=== PATIENT | male | born 1950 | race Caucasian/White ===

== ENCOUNTER 2021-05-19 13:56 | Emergency (ER) | payer MEDICARE, SELFPAY ==
--- NOTE | ~2021-05-19 | CT_ITS ---
EXAMINATION: CT ABDOMEN AND PELVIS WITH CONTRAST CLINICAL INFORMATION: Lower abdominal pain COMPARISON: None TECHNIQUE: Multidetector volumetric images were obtained from the superior aspect of the liver through the pubic symphysis following administration 85 mL of Omnipaque 350 intravenous contrast. Sagittal and coronal reformatted images were obtained on the technologist's workstation. Oral contrast: No This CT examination was performed using dose optimization techniques as appropriate, variously including the following: *Automated exposure control *Adjustment of mA and/or kV according to patient size (this includes techniques or standardized protocols for targeted exams where dose is matched to indication/reason for exam; i.e. extremities or head) *Use of iterative reconstruction technique DLP: 419 mGy-cm FINDINGS: LUNG BASES: The visualized lung bases are unremarkable. LIVER, GALLBLADDER, AND BILIARY TREE: The liver is normal in size, shape, and attenuation. No focal hepatic lesion or biliary ductal dilatation is present. Status post cholecystectomy. PANCREAS: Unremarkable. SPLEEN: Unremarkable. ADRENAL GLANDS: Unremarkable. KIDNEYS AND URETERS: Hypodensity in the right and left renal pelvis likely due to bilateral parapelvic cyst rather than hydronephrosis. There is no hydroureter. There is no ureteral stone. 1 mm nonobstructive stone lower pole left kidney BLADDER: Unremarkable. GASTROINTESTINAL TRACT: There are scattered diverticula of the colon. There is no diverticulitis. There is short segment of bowel wall thickening in the low pelvis at the rectum sigmoid but without significant edema in the surrounding fat is of uncertain significance. The remainder of the colonic bowel wall is of normal thickness with no evidence of edema. There is no bowel obstruction. There is a moderate volume of stool in the colon. The appendix is nonvisualized . The small bowel loops are unremarkable. The stomach is normal. There is no hiatal hernia. Mesentery: No free air or free fluid. ABDOMINAL WALL: No significant hernia is appreciated. LYMPH NODES: Normal. VASCULAR: Unremarkable. PELVIC VISCERA: Unremarkable. OSSEOUS STRUCTURES: Grade 1/2 anterolisthesis of L5 on S1. Marked degenerative change of the L5-S1 disc. 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 There is multilevel degenerative change with facet joint arthrosis at lower lumbar spine. Large hemangioma is present in the T11 and T9 vertebrae. No fracture or bone destruction. CT/CT abdomen pelvis w con IMPRESSION: 1. Short segment of bowel wall thickening in the low pelvis at the the rectum sigmoid of uncertain significance. No surrounding edema in the adjacent fat. 2. Status post cholecystectomy. 3. Hypodensity in the right and left renal pelvis likely due to parapelvic cyst. No hydroureter. Nonobstructive small stone lower pole left kidney.
[2021-05-19 14:01] VITALS: BP 140/82; PULSE 51; O2SAT 89
[2021-05-19 14:05] VITALS: BP 143/88; PULSE 88; RESP 16; TEMP 37.3; O2SAT 98; BMI 19.6
[2021-05-19 14:42] LABS: MANUAL DIFF FLAG NO
[2021-05-19 14:47] LABS: Basophils Percent Auto 0.2 % (0-2); Eosinophils Percent Auto 0.1 % (0-4); Hematocrit 39.7 % (42-52); Hemoglobin 12.9 g/dl (14.0-18.0); Imm Gran Abs Auto 0.05 X10*3/uL (0.00-0.03); Imm Gran Pct Auto 0.4 % (0.0-0.4); Lymphocytes Absolute Auto 1.6 X10*3/uL (1.2-4.9); Lymphocytes Percent Auto 11.1 % (20-40); Mean Corpuscular HGB Conc 32.5 g/dl (31.0-36.0); Mean Corpuscular Hemoglobin 28.4 pg (27.0-33.0); Mean Corpuscular Volume 87.3 fL (80-98); Mean Platelet Volume 8.9 fL (9.4-12.4); Monocytes Absolute Auto 0.5 X10*3/uL (0.1-1.2); Monocytes Percent Auto 3.7 % (2-11); Neutrophils Percent Auto 84.5 % (45-73); Platelet Count 550 X10*3/uL (160-400); Red Blood Count 4.55 X10*6/uL (4.60-5.80); Red Cell Distribution Width 13.4 % (11.0-16.0); White Blood Count 14.2 X10*3/uL (4.8-10.8)
[2021-05-19 14:49] LABS: INTERNATIONAL NORM RATIO 1.5 (0.9-1.1); Prothrombin Time 17.3 SEC (10.8-13.0)
[2021-05-19 14:51] LABS: Partial Thromboplastin Time 34.5 SEC (24.1-38.0)
--- NOTE | 2021-05-19 15:01 | ED_ITS ---
HPI - Abdominal Pain General Chief Complaint: Abdominal Pain Stated Complaint: Abdominal pain/ vomiting Time Seen by Provider: 05/19/21 14:22 Source: patient Mode of arrival: ambulatory Limitations: no limitations History of Present Illness HPI narrative: Patient presents to ED for lower abdominal pain since yeste rday. she states some nausea, but no vomiting, or diarrhea. Patient denies any trauma to abdomen. Flank pain, hematuria, dysuria, fever, or chills. MD elicited complaint: abdominal pain Related Data Previous Rx's Medication Instructions Recorded levofloxacin 750 mg PO DAILY #6 tab 05/19/21 metronidazole [Flagyl] 500 mg PO BID 7 Days #14 tab 05/19/21 naproxen 500 mg PO BID PRN #20 tab 05/19/21 Allergies Allergy/AdvReac Type Severity Reaction Status Date / Time No Known Allergies Allergy Verified 05/19/21 14:26 Review of Systems Review of Systems Yes all other systems are reviewed and are negative Constitutional: Reports as per HPI and Reports no additional constitutional complaints Eyes: Reports as per HPI and Reports no additional eye complaints Reports system reviewed and no additional complaints, except as documented and Reports as per HPI Cardiovascular: Reports as per HPI and Reports no additional cardiovascular complaints Respiratory: Reports as per HPI and Reports no additional respiratory complaints Gastrointestinal: Reports as per HPI, Reports no additional gastrointestinal complaints and Reports abdominal pain ( Lower abdominal pain) Genitourinary: Reports no additional male genitourinary complaints and Reports as per HPI Musculoskeletal: Reports no additional musculoskeletal complaints and Reports as per HPI Reports system reviewed and no additional complaints, except as documented and Reports as per HPI Psychiatric: Reports no additional psychiatric complaints and Reports as per HPI Physical Exam Vital Signs: Vital Signs: Last Vital Signs Temp 99.1 F 05/19/21 14:05 Pulse 85 05/19/21 17:18 Resp 17 05/19/21 17:18 BP 145/82 H 05/19/21 17:18 Pulse Ox 98 05/19/21 17:18 Oxygen Flow Rate 2 05/19/21 14:05 Body Mass Index 19.6 Const: General: cooperative, healthy appearing, comfortable, no acute distress, well developed, alert, awake and Physically active Orientation/consciousness: patient oriented x3 HENMT: Head: Yes normal to inspection, Yes No palpable skull fracture present, Yes normocephalic and Yes atraumatic Eyes: General: appearance normal, both eyes and all related structures Neck: Neck: Yes normal visual inspection, Yes full ROM, Yes no lymphadenopathy, Yes no meningeal signs, Yes trachea midline, Yes supple and No tender Chest: Chest palpation & inspection: normal inspection of the chest and normal palpation of entire chest wall Resp: Effort & Inspection: normal respiratory effort and able to speak in complete sentences Auscultation: clear to auscultation bilaterally Cardio: Jugular venous distension: no JVD Heart sounds: S1 normal heart sound present and S2 normal heart sound present GI: Inspection: Yes normal to inspection and No abdominal wall ecchymosis Palpation (GI): Soft to palpation, not firm, Tenderness to palpation present (GI) in the LLQ and in the RLQ, no guarding and not rigid : General: No CVA tenderness and Yes no CVA tenderness Back/Spine/Pelvis: Back: no CVA tenderness, No CVA tenderness and No back tenderness Skin: General skin exam: no rashes or lesions noted and elasticity normal Neuro: General: patient oriented x3, gait normal, no meningeal signs and CN's II-XI intact bilaterally Cranial nerves: Yes CN's II-XII intact bilaterally Extrem: General: Yes normal to inspection and Yes full ROM Psych: Appearance: grossly normal, well kempt and not disheveled Course Course Course Narrative: patient will have labs and most likely CT scan. Reevaluation(s) Reevaluation #1: Patient given pain medication and fluids. UA negative for blood or UTI. Liver enzyme lipase normal. Patient sent for abdominal CT scan for lower abdominal pain. Time: 17:04 Reevaluation #2: patient states pain feel better after morphine. On re- evaluation abdomen, the abdomen is less tender to palpation. CT scan shows possible rectosigmoid colitis. Will discharge patient on antibiotics. Patient is afebrile not tachy. UA negative for UTI. Time: 18:49 MDM - Abdominal Pain MDM Narrative Medical decision making narrative: Colitis Lab Data Result diagrams: 05/19/21 14:39 05/19/21 14:39 Labs: Lab Results 05/19/21 05/19/21 05/19/21 Range/Units 14:39 14:39 14:39 WBC 14.2 H (4.8-10.8) X10*3/uL RBC 4.55 L (4.60-5.80) X10*6/uL Hgb 12.9 L (14.0-18.0) g/dl Hct 39.7 L (42-52) % MCV 87.3 (80-98) fL MCH 28.4 (27.0-33.0) pg MCHC 32.5 (31.0-36.0) g/dl RDW 13.4 (11.0-16.0) % Plt Count 550 H (160-400) X10*3/uL MPV 8.9 L (9.4-12.4) fL Immature Gran % (Auto) 0.4 (0.0-0.4) % Neut % (Auto) 84.5 H (45-73) % Lymph % (Auto) 11.1 L (20-40) % [place] % (Auto) 3.7 (2-11) % Eos % (Auto) 0.1 (0-4) % Baso % (Auto) 0.2 (0-2) % Lymph # (Auto) 1.6 (1.2-4.9) X10*3/uL [place] # (Auto) 0.5 (0.1-1.2) X10*3/uL Eos # (Auto) 0.0 (0.0-0.4) X10*3/uL Baso # (Auto) 0.0 (0.0-0.2) X10*3/uL Abs Immat Gran (auto) 0.05 H (0.00-0.03) X10*3/uL Absolute Neuts (auto) 12.0 H (2.0-8.3) X10*3/uL Absolute Nucleated RBC 0.000 (0.0-0.012) X10*3/uL Nucleated RBC % (auto) 0.0 (0.0-0.2) /100WBC PT 17.3 H (10.8-13.0) SEC INR 1.5 H (0.9-1.1) APTT 34.5 (24.1-38.0) SEC Sodium 144 (135-145) mmol/L Potassium 4.0 (3.3-5.1) mmol/L Chloride 108 (96-108) mmol/L Carbon Dioxide 25 (22-29) mmol/L Anion Gap 15 (12-20) BUN 14 (9-16) mg/dL Creatinine 0.67 (0.5-1.4) mg/dL Estim Creat Clear Calc 92.7 Estimated GFR > 60 Random Glucose 115 (60-115) mg/dL Calcium 8.7 (8.4-10.2) mg/dL Total Bilirubin 0.2 (0.0-1.0) mg/dL Direct Bilirubin 0.2 (0.0-0.5) mg/dL AST 13 (5-37) U/L ALT 12 (0-40) U/L Alkaline Phosphatase 82 (39-117) U/L Total Protein 7.0 (6.5-8.0) g/dL Albumin 3.5 (3.5-5.0) g/dL Lipase 39 (8-78) U/L Urine Color Urine Appearance Urine pH (5.0-8.0) Ur Specific [place] (1.005-1.025) Urine Protein (NEG-TRACE) MG/DL Urine Glucose (UA) (NEG) MG/DL Urine Ketones (NEG) MG/DL Urine Blood (NEG) Urine Nitrite (NEG) Ur Leukocyte Esterase (NEG) 05/19/21 Range/Units 15:11 WBC (4.8-10.8) X10*3/uL RBC (4.60-5.80) X10*6/uL Hgb (14.0-18.0) g/dl Hct (42-52) % MCV (80-98) fL MCH (27.0-33.0) pg MCHC (31.0-36.0) g/dl RDW (11.0-16.0) % Plt Count (160-400) X10*3/uL MPV (9.4-12.4) fL Immature Gran % (Auto) (0.0-0.4) % Neut % (Auto) (45-73) % Lymph % (Auto) (20-40) % [place] % (Auto) (2-11) % Eos % (Auto) (0-4) % Baso % (Auto) (0-2) % Lymph # (Auto) (1.2-4.9) X10*3/uL [place] # (Auto) (0.1-1.2) X10*3/uL Eos # (Auto) (0.0-0.4) X10*3/uL Baso # (Auto) (0.0-0.2) X10*3/uL Abs Immat Gran (auto) (0.00-0.03) X10*3/uL Absolute Neuts (auto) (2.0-8.3) X10*3/uL Absolute Nucleated RBC (0.0-0.012) X10*3/uL Nucleated RBC % (auto) (0.0-0.2) /100WBC PT (10.8-13.0) SEC INR (0.9-1.1) APTT (24.1-38.0) SEC Sodium (135-145) mmol/L Potassium (3.3-5.1) mmol/L Chloride (96-108) mmol/L Carbon Dioxide (22-29) mmol/L Anion Gap (12-20) BUN (9-16) mg/dL Creatinine (0.5-1.4) mg/dL Estim Creat Clear Calc Estimated GFR Random Glucose (60-115) mg/dL Calcium (8.4-10.2) mg/dL Total Bilirubin (0.0-1.0) mg/dL Direct Bilirubin (0.0-0.5) mg/dL AST (5-37) U/L ALT (0-40) U/L Alkaline Phosphatase (39-117) U/L Total Protein (6.5-8.0) g/dL Albumin (3.5-5.0) g/dL Lipase (8-78) U/L Urine Color YELLOW Urine Appearance CLEAR Urine pH 8.0 (5.0-8.0) Ur Specific [place] 1.010 (1.005-1.025) Urine Protein TRACE (NEG-TRACE) MG/DL Urine Glucose (UA) NEG (NEG) MG/DL Urine Ketones NEG (NEG) MG/DL Urine Blood NEG (NEG) Urine Nitrite NEG (NEG) Ur Leukocyte Esterase NEG (NEG) Discharge Plan Discharge Clinical Impression: Colitis Patient Disposition: Home, Self-Care Instructions: Colitis (ED) Additional Instructions: return to the ED for worsening abdominal pain, fever, chills, nausea, vomiting, dysuria, hematuria, or any other concerning symptoms. Prescriptions: New metronidazole [Flagyl] 500 mg tablet 500 mg PO BID 7 Days Qty: 14 RF: 0 levofloxacin 750 mg tablet 750 mg PO DAILY Qty: 6 RF: 0 naproxen 500 mg tablet 500 mg PO BID PRN (Reason: pain) Qty: 20 RF: 0 Referrals: ARIANA ALCANTARA [Primary Care Provider] - 2 days ( Lower abdominal pain. CT scan shows colitis) Print Language: Georgian [facility] Past Medical History Medical History (Updated 05/19/21 @ 18:51 by MARIELA Ho) Adult failure to thrive Anxiety Chronic pain Hypertension Social History Social History Alcohol intake: never Patient Tobacco Use Status: Never used Tobacco Use of substances other than those prescribed or required for medical reasons: No Advance Directives: No Advance Directives Information Provided: No
[2021-05-19 15:08] LABS: Alanine Aminotransferase 12 U/L (0-40); Albumin Level 3.5 g/dL (3.5-5.0); Alkaline Phosphatase 82 U/L (39-117); Anion Gap 15 (12-20); Aspartate Amino Transferase 13 U/L (5-37); Bilirubin Direct 0.2 mg/dL (0.0-0.5); Bilirubin Total 0.2 mg/dL (0.0-1.0); Blood Urea Nitrogen 14 mg/dL (9-16); Calcium 8.7 mg/dL (8.4-10.2); Carbon Dioxide 25 mmol/L (22-29); Chloride 108 mmol/L (96-108); Creatinine Clr Calc Pharmacy 92.7; Estimated Glomerular Filt Rate > 60; Glucose Random 115 mg/dL (60-115); Lipase 39 U/L (8-78); Sodium 144 mmol/L (135-145)
[2021-05-19 15:20] LABS: Appearance Urine CLEAR; Color Urine YELLOW; Glucose Urine UA NEG (NEG); Leukocyte Esterase Urine NEG (NEG); Nitrite Urine NEG (NEG); Urine Blood NEG (NEG); Urine Ketones NEG (NEG); Urine Protein TRACE MG/DL (NEG-TRACE)
[2021-05-19] MEDS: iohexoL 350 MG/ML 100 ML INFUS..BTL 85 ML IV (16:55)
[2021-05-19] MEDS: 0.9 % Sodium Chloride 1,000 ML 999 ML IV (17:00)
[2021-05-19 17:17] VITALS: RESP 17
[2021-05-19] MEDS: Morphine Sulfate 4 MG/ML CARTRIDGE IVPUSH (17:17)
[2021-05-19 17:18] VITALS: BP 145/82; PULSE 85; RESP 17; O2SAT 98
[2021-05-19] MEDS: levoFLOXacin 750 MG TABLET PO (19:28)
[2021-05-19] MEDS: metroNIDAZOLE 500 MG TABLET PO (19:31)
[2021-05-19 20:40] VITALS: BP 142/62; PULSE 84; RESP 16; TEMP 36.4; O2SAT 96
--- NOTE | 2021-05-19 21:01 | PC.NURSE ---
PT WAS ABLE TO KEEP SALTINES AND 16 OZ WATER DOWN /O NAUSEA OR VOMITING. P.O. MEDICATION TOLERATED. PT AWAKE AND ALERT, AND TRANSPORTED TO [facility] BY EMS. PT REPORT GIVEN TO RN AT [facility].
== END 2021-05-19 21:12 | disposition skilled nursing facility (03) ==
PROVIDERS: Physician Assistant; Emergency Provider Emergency Medicine; PCP Emergency Medicine
DX: K52.9 Noninfective gastroenteritis and colitis, unspecified (principal); I10 Essential (primary) hypertension
CPT/HCPCS: 36415; 74177; 80053; 80076; 81003; 82248; 83690; 85025; 85610; 85730; 96361; 96374; 99285; J2270; Q9967

== ENCOUNTER 2021-07-15 19:36 | Inpatient (IN) | payer MEDICARE, MEDICAID, SELFPAY ==
--- NOTE | ~2021-07-15 | FL_ITS ---
EXAMINATION: XR FLUOROSCOPY WITH IMAGES CLINICAL INFORMATION: Fracture COMPARISON: Previous x-ray from 07/15/2021 TECHNIQUE: Fluoroscopy performed by Dr. Bar Instrum. Fluoroscopy time: 1 minutes DAP: 0.1 mGym2 Images: 2 FINDINGS: Images demonstrate 2 screws transfixing the right femoral neck fracture. FL/FL guidance in OR IMPRESSION: Image fluoroscopy guidance for ORIF of right femoral neck fracture.
--- NOTE | ~2021-07-15 | XR_ITS ---
Indication: Evaluate neck fracture EXAMINATION: Right hip, pelvis, chest x-ray. Single view chest demonstrates grossly clear lungs. No obvious failure or infiltrate. There is no effusion. The mediastinal contours within normal limits. Single view of the pelvis shows an abnormal appearing right hip. Detail views of the right hip do not demonstrate a probable fracture involving the subcapital femoral neck. There is a sclerotic line and abnormal angulation. XR/XR chest 1V IMPRESSION: Findings do suggest abnormality of the right hip. This may represent a subcapital impacted fracture. Correlation recommended clinically.
--- NOTE | ~2021-07-15 | CT_ITS ---
EXAMINATION: CT CERVICAL SPINE WITHOUT CONTRAST CLINICAL INFORMATION: Fall, right numbness and pain. COMPARISON: CT head 07/16/2021. Outside CT right shoulder 07/08/2020 ([facility]). TECHNIQUE: Multidetector volumetric CT imaging of the cervical spine is performed without contrast in the axial plane. Additional 2D reformatted coronal and sagittal images are generated on the CT workstation and uploaded to PACS. This CT examination was performed using dose optimization techniques as appropriate, variously including the following: *Automated exposure control *Adjustment of mA and/or kV according to patient size (this includes techniques or standardized protocols for targeted exams where dose is matched to indication/reason for exam; i.e. extremities or head) *Use of iterative reconstruction technique DLP: 407 mGy-cm FINDINGS: There is no vertebral compression or fracture line or fracture fragment. The craniocervical junction is normal. The odontoid appears intact. There is normal cervical lordosis. No prevertebral soft tissue swelling. There are degenerative changes between anterior arch C1 and the dens. Multilevel facet degeneration is present with facet narrowing and spurring C3-C7. There is mild disc narrowing at C6-C7 along with a mild spondylolisthesis at this level under 3 mm likely due to the degenerative disc and degenerative facet changes. No perched facet. There is no apical pneumothorax. No subcutaneous emphysema. The visualized sinuses and middle ears and mastoids are clear. No fluid levels. CT/CT cervical spine wo con IMPRESSION: 1. No acute bony abnormality or prevertebral soft tissue swelling. 2. Multilevel degenerative facet changes. Mild disc narrowing C6-C7 with spondylolisthesis under 3 mm likely due to the degenerative change.
--- NOTE | ~2021-07-15 | XR_ITS ---
Indication: Evaluate neck fracture EXAMINATION: Right hip, pelvis, chest x-ray. Single view chest demonstrates grossly clear lungs. No obvious failure or infiltrate. There is no effusion. The mediastinal contours within normal limits. Single view of the pelvis shows an abnormal appearing right hip. Detail views of the right hip do not demonstrate a probable fracture involving the subcapital femoral neck. There is a sclerotic line and abnormal angulation. XR/XR hip RT w PEL1V IMPRESSION: Findings do suggest abnormality of the right hip. This may represent a subcapital impacted fracture. Correlation recommended clinically.
--- NOTE | ~2021-07-15 | CT_ITS ---
EXAMINATION: CT HEAD WITHOUT CONTRAST CLINICAL INFORMATION: Fall, trauma COMPARISON: None TECHNIQUE: Contiguous axial imaging was performed from the skull base to vertex without intravenous administration of contrast. Additional 2-D coronal and sagittal reformatted images are generated on the CT workstation and uploaded to PACS. This CT examination was performed using dose optimization techniques as appropriate, variously including the following: *Automated exposure control *Adjustment of mA and/or kV according to patient size (this includes techniques or standardized protocols for targeted exams where dose is matched to indication/reason for exam; i.e. extremities or head) *Use of iterative reconstruction technique DLP: 1036 mGy-cm FINDINGS: There is no intracranial hemorrhage, hematoma, or extra-axial fluid collection. There are mild generalized atrophic changes with mild prominence of the ventricles, cortical sulci, fissures, and cisterns. There is no hydrocephalus. There is no edema or mass effect. There is probable small inferior right basal ganglia Virchow-Kane perivascular space rather than lacunar infarct. The mccallum-white matter differentiation otherwise appears symmetric. There is no visible acute territorial infarct or mass lesion. The calvarium appears intact. There is no pneumocephalus or orbital emphysema. The visualized sinuses and middle ears and mastoid air cells show no significant mucosal thickening. There are no air-fluid levels. CT/CT head/brain wo con IMPRESSION: No intracranial hemorrhage. No acute intracranial abnormality.
--- NOTE | ~2021-07-15 | US_ITS ---
EXAMINATION: US VENOUS WITH DOPPLER UPPER EXTREMITY, RIGHT CLINICAL INFORMATION: Right forearm swelling COMPARISON: None TECHNIQUE: Ultrasound of the upper extremity is performed using compression sonography and color and pulse Doppler flow with assessment of augmentation of flow. There is also imaging and Doppler assessment of the jugular and subclavian veins. Spectral analysis with color-flow imaging is performed. FINDINGS: The right internal jugular vein demonstrates normal compressibility, color and spectral imaging consistent with patency. The right subclavian and axillary veins demonstrate normal color flow consistent with patency. The right brachial, basilic and cephalic veins demonstrate normal compressibility and color flow consistent with patency. The right radial and ulnar veins demonstrate normal compressibility consistent with patency. US/US venous duplex UE RT IMPRESSION: No DVT demonstrated in the right upper extremity. If the patient's symptoms progress, a followup ultrasound in 5 -7 days might be of value to exclude proximal propagation from a nonvisualized distal arm vein.
--- NOTE | ~2021-07-15 | CT_ITS ---
EXAMINATION: CT PELVIS WITHOUT CONTRAST CLINICAL INFORMATION: Right hip fracture COMPARISON: Radiograph 07/15/2021, CT 05/19/2021 TECHNIQUE: Helical scanning was performed with submillimeter collimation through the pelvis. Sagittal and coronal multiplanar 2-D reconstructions were obtained. This CT examination was performed using dose optimization techniques as appropriate, variously including the following: *Automated exposure control *Adjustment of mA and/or kV according to patient size (this includes techniques or standardized protocols for targeted exams where dose is matched to indication/reason for exam; i.e. extremities or head) *Use of iterative reconstruction technique DLP: 264 mGy-cm FINDINGS: PELVIS: The bladder is decompressed with a Flores catheter. The prostate is not well seen. Seminal vesicles are unremarkable. The visualized loops of small and large bowel are unremarkable. The appendix is unremarkable. Limited views of the inferior aspects of the kidneys unremarkable. OSSEOUS STRUCTURES: Acute subcapital minimally impacted fracture of the right humerus. Minimal regional soft tissue swelling. Extensive degenerative changes of the spine with grade 2 anterolisthesis L5 on S1, degenerative disc disease, facet arthropathy, degenerative osteophytes. CT/CT pelvis wo con IMPRESSION: 1. Acute fracture of the subcapital right humerus with minimal impaction and otherwise no significant displacement. No additional fractures are identified. 2. Advanced degenerative changes of the lumbar spine.
[2021-07-15 20:03] VITALS: BP 154/94; BP 160/88; PULSE 85; PULSE 90; RESP 18; TEMP 37; O2SAT 97; BMI 19.6
--- NOTE | 2021-07-15 20:07 | ED_ITS ---
HPI - Extremity Injury (Lower) General Chief Complaint: Extremity Injury, Lower Stated Complaint: Right Femur FX Time Seen by Provider: 07/15/21 19:58 Source: patient Mode of arrival: EMS Limitations: no limitations History of Present Illness HPI Narrative: Patient from the [facility] apparently fell 2 days ago from the bed landed on his right hip complaining of pain in the right hip since then, had x-ray done today which showed right femur neck fracture patient was sent here now for further evaluation no other injuries no loss of conscious Related Data Home Medications Medication Instructions Recorded Confirmed acetaminophen 325 mg tablet 650 mg PO Q6H PRN 07/15/21 07/15/21 amlodipine 10 mg tablet 10 mg PO DAILY 07/15/21 07/15/21 bisacodyl 10 mg rectal suppository 10 mg MI DAILY PRN 07/15/21 07/15/21 magnesium hydroxide 400 mg/5 mL 30 ml PO BEDTIME PRN 07/15/21 07/15/21 oral suspension (Milk of Magnesia) memantine 5 mg tablet 5 mg PO DAILY 07/15/21 07/15/21 methylphenidate HCl 10 mg tablet 10 mg PO DAILY@1400 07/15/21 07/15/21 methylphenidate HCl 20 mg biphasic 20 mg PO DAILY 07/15/21 07/15/21 50-50 capsule,extended release (Ritalin LA) morphine 60 mg tablet,extended 2 tab PO BEDTIME 07/15/21 07/15/21 release oxazepam 15 mg capsule 15 mg PO BEDTIME PRN 07/15/21 07/15/21 oxazepam 15 mg capsule 15 mg PO DAILY 07/15/21 07/15/21 polyethylene glycol 3350 17 17 g PO DAILY 07/15/21 07/15/21 gram/dose oral powder (Miralax) sennosides 8.6 mg-docusate sodium 1 tab-cap PO BEDTIME 07/15/21 07/15/21 50 mg tablet (Senna Plus) Allergies Allergy/AdvReac Type Severity Reaction Status Date / Time No Known Allergies Allergy Verified 05/19/21 14:26 Review of Systems Review of Systems: Yes all other systems are reviewed and are negative PMFSH Past Medical History Medical History Adult failure to thrive Anxiety Chronic pain Hypertension Social History Social History Alcohol intake: never Patient Tobacco Use Status: Never used Tobacco Use of substances other than those prescribed or required for medical reasons: No Advance Directives: No Advance Directives Information Provided: Yes Physical Exam Vital Signs: Vital Signs: Last Vital Signs Temp 98.6 F 07/15/21 20:03 Pulse 73 07/15/21 23:50 Resp 15 07/16/21 00:03 BP 146/95 H 07/15/21 23:50 Pulse Ox 98 07/15/21 23:50 Body Mass Index 19.6 Appearance: Alert. Oriented X3. In mild distress Eyes: PERRLA, No Nystagmus ENT: Pharynx normal. Oral Mucosa moist Neck: Normal inspection. Neck supple. CVS: Normal heart rate and rhythm. Pulses normal. Respiratory: No respiratory distress. Equal air entry bilateral, no wheezing/rales/rhonchi Abdomen: Soft and nontender. Bowel sounds are present, no mass palpable, Skin: Skin warm and dry. Normal skin color. Normal skin turgor. Extremities: No lower extremity edema. No calf tenderness , tenderness at right groin area and lateral aspect of the femur no significant deformity neurovascular intact Neuro: Oriented X 3. No motor deficit. No sensory deficit. MDM - Extremity Injury (Lower) MDM Narrative Medical decision making narrative: Patient with right femur subcapital fracture will admit patient to medical service for or if in the morning Medical Records Attestation: I reviewed the patient's medical records. Lab Data Attestation: I reviewed the patient's lab results. Result diagrams: 07/15/21 19:55 07/15/21 19:55 Labs: Lab Results 07/15/21 07/15/21 07/15/21 Range/Units 19:55 19:55 19:55 WBC 10.6 (4.8-10.8) X10*3/uL RBC 4.89 (4.60-5.80) X10*6/uL Hgb 13.9 L (14.0-18.0) g/dl Hct 42.1 (42-52) % MCV 86.1 (80-98) fL MCH 28.4 (27.0-33.0) pg MCHC 33.0 (31.0-36.0) g/dl RDW 14.7 (11.0-16.0) % Plt Count 412 H D (160-400) X10*3/uL MPV 8.9 L (9.4-12.4) fL Immature Gran % (Auto) 0.3 (0.0-0.4) % Neut % (Auto) 68.4 (45-73) % Lymph % (Auto) 23.3 (20-40) % [place] % (Auto) 6.6 (2-11) % Eos % (Auto) 0.9 (0-4) % Baso % (Auto) 0.5 (0-2) % Lymph # (Auto) 2.5 (1.2-4.9) X10*3/uL [place] # (Auto) 0.7 (0.1-1.2) X10*3/uL Eos # (Auto) 0.1 (0.0-0.4) X10*3/uL Baso # (Auto) 0.1 (0.0-0.2) X10*3/uL Abs Immat Gran (auto) 0.03 (0.00-0.03) X10*3/uL Absolute Neuts (auto) 7.2 (2.0-8.3) X10*3/uL Absolute Nucleated RBC 0.000 (0.0-0.012) X10*3/uL Nucleated RBC % (auto) 0.0 (0.0-0.2) /100WBC PT (9.9-13.0) SEC INR (0.9-1.1) APTT (24.1-38.0) SEC Sodium 143 (135-145) mmol/L Potassium 4.5 (3.3-5.1) mmol/L Chloride 106 (96-108) mmol/L Carbon Dioxide 27 (22-29) mmol/L Anion Gap 15 (12-20) BUN 11 (9-16) mg/dL Creatinine 0.85 (0.5-1.4) mg/dL Estim Creat Clear Calc 75.2 Estimated GFR > 60 Fasting Glucose 89 (60-99) mg/dL Calcium 9.4 D (8.4-10.2) mg/dL Urine Color YELLOW Urine Appearance CLEAR Urine pH 6.0 (5.0-8.0) Ur Specific [place] 1.020 (1.005-1.025) Urine Protein NEG (NEG-TRACE) MG/DL Urine Glucose (UA) NEG (NEG) MG/DL Urine Ketones NEG (NEG) MG/DL Urine Blood 1+ H (NEG) Urine Nitrite NEG (NEG) Ur Leukocyte Esterase NEG (NEG) Urine RBC 5-9 H (0) /HPF Urine WBC 0 (0-4) /HPF Ur Squamous Epith Cells 1+ /LPF Urine Bacteria TRACE /LPF COVID-19 (AMBER) (Negative) COVID-19 Clin Com 07/15/21 07/15/21 Range/Units 20:55 20:55 WBC (4.8-10.8) X10*3/uL RBC (4.60-5.80) X10*6/uL Hgb (14.0-18.0) g/dl Hct (42-52) % MCV (80-98) fL MCH (27.0-33.0) pg MCHC (31.0-36.0) g/dl RDW (11.0-16.0) % Plt Count (160-400) X10*3/uL MPV (9.4-12.4) fL Immature Gran % (Auto) (0.0-0.4) % Neut % (Auto) (45-73) % Lymph % (Auto) (20-40) % [place] % (Auto) (2-11) % Eos % (Auto) (0-4) % Baso % (Auto) (0-2) % Lymph # (Auto) (1.2-4.9) X10*3/uL [place] # (Auto) (0.1-1.2) X10*3/uL Eos # (Auto) (0.0-0.4) X10*3/uL Baso # (Auto) (0.0-0.2) X10*3/uL Abs Immat Gran (auto) (0.00-0.03) X10*3/uL Absolute Neuts (auto) (2.0-8.3) X10*3/uL Absolute Nucleated RBC (0.0-0.012) X10*3/uL Nucleated RBC % (auto) (0.0-0.2) /100WBC PT 14.0 H (9.9-13.0) SEC INR 1.2 H (0.9-1.1) APTT 33.5 (24.1-38.0) SEC Sodium (135-145) mmol/L Potassium (3.3-5.1) mmol/L Chloride (96-108) mmol/L Carbon Dioxide (22-29) mmol/L Anion Gap (12-20) BUN (9-16) mg/dL Creatinine (0.5-1.4) mg/dL Estim Creat Clear Calc Estimated GFR Fasting Glucose (60-99) mg/dL Calcium (8.4-10.2) mg/dL Urine Color Urine Appearance Urine pH (5.0-8.0) Ur Specific [place] (1.005-1.025) Urine Protein (NEG-TRACE) MG/DL Urine Glucose (UA) (NEG) MG/DL Urine Ketones (NEG) MG/DL Urine Blood (NEG) Urine Nitrite (NEG) Ur Leukocyte Esterase (NEG) Urine RBC (0) /HPF Urine WBC (0-4) /HPF Ur Squamous Epith Cells /LPF Urine Bacteria /LPF COVID-19 (AMBER) Negative (Negative) COVID-19 Clin Com See Note Imaging Data Pelvis CT: Attestation: I personally reviewed and interpreted this imaging study as follows: Radiologist's impression: [place] [id number] CT Scan Report Signed Patient: Jg Chappell MR#: [id number] : 1950 Acct:[id number] Age/Sex: 71 / M ADM Date: 07/15/21 Loc: .ED Attending Dr: Ordering Physician: Finn Teixeira MD Date of Service: 07/15/21 Procedure(s): CT pelvis wo con Accession Number(s): [id number] cc: Finn Teixeira MD~ EXAMINATION: CT PELVIS WITHOUT CONTRAST CLINICAL INFORMATION: Right hip fracture? COMPARISON: Radiograph 07/15/2021, CT 05/19/2021? TECHNIQUE: Helical scanning was performed with submillimeter collimation through the pelvis. Sagittal and coronal multiplanar 2-D reconstructions were obtained.? This CT examination was performed using dose optimization techniques as appropriate, variously including the following: *Automated exposure control *Adjustment of mA and/or kV according to patient size (this includes techniques or standardized protocols for targeted exams where dose is matched to indication/reason for exam; i.e. extremities or head) *Use of iterative reconstruction technique DLP: 264 mGy-cm FINDINGS: PELVIS: The bladder is decompressed with a Flores catheter. The prostate is not well seen. Seminal vesicles are unremarkable. The visualized loops of small and large bowel are unremarkable. The appendix is unremarkable. Limited views of the inferior aspects of the kidneys unremarkable.? OSSEOUS STRUCTURES: Acute subcapital minimally impacted fracture of the right humerus. Minimal regional soft tissue swelling. Extensive degenerative changes of the spine with grade 2 anterolisthesis L5 on S1, degenerative disc disease, facet arthropathy, degenerative osteophytes. CT/CT pelvis wo con IMPRESSION: ? 1. Acute fracture of the subcapital right humerus with minimal impaction and otherwise no significant displacement. No additional fractures are identified. 2. Advanced degenerative changes of the lumbar spine.? Dictated By: MINOR PELLETIER MD Signed By: <Electronically signed by MINOR PELLETIER MD in OV> Discharge Plan Discharge Clinical Impression: Fracture of femur Qualifiers: Encounter type: initial encounter Femur location: base of neck Fracture type: closed Fracture alignment: nondisplaced Laterality: right Qualified Code(s): S72.044A - Nondisplaced fracture of base of neck of right femur, initial encounter for closed fracture Patient Disposition: Admitted As Inpatient
[2021-07-15 20:09] LABS: MANUAL DIFF FLAG NO
[2021-07-15 20:14] LABS: Basophils Absolute Auto 0.1 X10*3/uL (0.0-0.2); Basophils Percent Auto 0.5 % (0-2); Eosinophils Absolute Auto 0.1 X10*3/uL (0.0-0.4); Eosinophils Percent Auto 0.9 % (0-4); Hematocrit 42.1 % (42-52); Hemoglobin 13.9 g/dl (14.0-18.0); Imm Gran Abs Auto 0.03 X10*3/uL (0.00-0.03); Imm Gran Pct Auto 0.3 % (0.0-0.4); Lymphocytes Absolute Auto 2.5 X10*3/uL (1.2-4.9); Lymphocytes Percent Auto 23.3 % (20-40); Mean Corpuscular Hemoglobin 28.4 pg (27.0-33.0); Mean Corpuscular Volume 86.1 fL (80-98); Mean Platelet Volume 8.9 fL (9.4-12.4); Monocytes Absolute Auto 0.7 X10*3/uL (0.1-1.2); Monocytes Percent Auto 6.6 % (2-11); Neutrophils Absolute Auto 7.2 X10*3/uL (2.0-8.3); Neutrophils Percent Auto 68.4 % (45-73); Platelet Count 412 X10*3/uL (160-400); Red Blood Count 4.89 X10*6/uL (4.60-5.80); Red Cell Distribution Width 14.7 % (11.0-16.0); White Blood Count 10.6 X10*3/uL (4.8-10.8)
--- NOTE | 2021-07-15 20:15 | ECG_ITS ---
Test Reason : FALL Blood Pressure : / mmHG Vent. Rate : 079 BPM Atrial Rate : 081 BPM P-R Int : 160 ms QRS Dur : 080 ms QT Int : 394 ms P-R-T Axes : 065 -33 025 degrees QTc Int : 451 ms Sinus rhythm with Premature atrial complexes Left axis deviation Abnormal ECG No previous ECGs available Referred By: Finn Teixeira Electronically Signed By:MONIE FERNÁNDEZ
[2021-07-15 20:23] LABS: Glucose Urine UA NEG (NEG); Leukocyte Esterase Urine NEG (NEG); Nitrite Urine NEG (NEG); Urine Blood 1+ (NEG); Urine Ketones NEG (NEG); Urine Protein NEG (NEG-TRACE)
[2021-07-15 20:24] LABS: Appearance Urine CLEAR; Color Urine YELLOW
[2021-07-15 20:31] LABS: Bacteria Urine TRACE /LPF; Squamous Epithelial Cell Urine 1+ /LPF; WBC Urine 0 /HPF (0-4)
[2021-07-15 20:35] LABS: Anion Gap 15 (12-20); Blood Urea Nitrogen 11 mg/dL (9-16); Calcium 9.4 mg/dL (8.4-10.2); Carbon Dioxide 27 mmol/L (22-29); Chloride 106 mmol/L (96-108); Creatinine Clr Calc Pharmacy 75.2; Estimated Glomerular Filt Rate > 60; Glucose Fasting 89 mg/dL (60-99); Potassium 4.5 mmol/L (3.3-5.1); Sodium 143 mmol/L (135-145)
[2021-07-15 21:00] VITALS: RESP 15
[2021-07-15] MEDS: Morphine Sulfate 4 MG/ML CARTRIDGE IVPUSH (21:00)
[2021-07-15] MEDS: ondansetron HCL 4 MG/2 ML VIAL IVPUSH (21:00)
[2021-07-15 21:12] LABS: INTERNATIONAL NORM RATIO 1.2 (0.9-1.1)
[2021-07-15 21:15] LABS: Partial Thromboplastin Time 33.5 SEC (24.1-38.0)
[2021-07-15 21:21] LABS: COVID-19 Test Negative (Negative)
--- NOTE | 2021-07-15 21:34 | PHA.MEDREC ---
MED REC COMPLETE, doses verified with facility Pharmacy Consult ? Medication Reconciliation Pharmacy has completed the medication reconciliation.
[2021-07-15 22:00] VITALS: BP 154/95; PULSE 15; RESP 15; O2SAT 98
[2021-07-15 23:50] VITALS: BP 146/95; PULSE 73; RESP 15; O2SAT 98
--- NOTE | 2021-07-15 23:57 | PM.IMHP ---
History of Present Illness Date of Service: 07/15/21 Chief Complaint: Fall 71-year-old male with a past medical history of hypertension, dementia, long term resident, chronic pain syndrome presented to the hospital with a chief complaint of fall. Reportedly patient had a fall from his bed about 2 days ago, denies any head strike or loss of consciousness. Fell on his right side; since then he has been having right hip pain; but has been able to ambulate; today patient had an x-ray of the hip which noted to have possible fracture subsequently sent him to the ER for further evaluation. Denies any chest pain palpitations lightheadedness or dizziness. Denies any fever chills cough. Denies any focal weakness numbness tingling. Review of all other systems is negative except mentioned above ER course: Per ER team patient's exam was nonfocal; CT of the hip showed right femur impacted fracture; discussed with the orthopedics on-call who recommended admission to the medicine team and will be evaluated in the morning. [facility] Medical History Adult failure to thrive Anxiety Chronic pain Hypertension Social History Household Members: Spouse Housing: Detention Unable to assess alcohol history related to: Unknown Alcohol intake: never Patient Tobacco Use Status: Never used Tobacco e-Cigarette/Vaping Use: Never Used Second Hand Smoke Exposure: No service: No Current occupational status: retired Meds Allergies Allergy/AdvReac Type Severity Reaction Status Date / Time acetaminophen [From Tylox] AdvReac Severe Vomiting Verified 07/16/21 04:40 oxycodone [From Tylox] AdvReac Severe Vomiting Verified 07/16/21 04:40 Active Medications: Current Medications Generic Name Dose Route Start Last Admin Trade Name Freq PRN Reason Stop Dose Admin Acetaminophen 650 mg 07/15/21 23:52 Acetaminophen 325 Mg Tablet PO Q6H PRN Pain, Mild (Pain Scale 1-3) Amlodipine Besylate 10 mg 07/16/21 09:00 Amlodipine Besylate 10 Mg Tablet PO DAILY [facility]O Protocol Bisacodyl 10 mg 07/15/21 23:55 Bisacodyl 10 Mg Supp.Rect TN DAILY PRN Constipation Heparin Sodium (Porcine) 5,000 unit 07/15/21 23:45 Heparin Sodium,Porcine 5,000 Unit/Ml Vial SUBCUT Q8H [facility] Dextrose/Sodium Chloride 1,000 mls @ 50 mls/hr 07/15/21 23:45 D51/2ns IVCONT .Q20H [facility] Magnesium Hydroxide 30 ml 07/15/21 23:55 Milk Of Magnesia 30 Ml Oral.Susp PO BEDTIME PRN Constipation Melatonin 3 mg 07/15/21 23:52 Melatonin 3 Mg Tablet PO BEDTIME PRN Insomnia Memantine 5 mg 07/16/21 09:00 Memantine Hcl 5 Mg Tablet PO DAILY [facility] Methylphenidate HCl 10 mg 07/16/21 14:00 Methylphenidate Hcl 10 Mg Tablet PO DAILY@1400 [facility] Non-Formulary Medication 20 mg 07/16/21 09:00 Methylphenidate Hcl [Ritalin La] PO DAILY [facility] Non-Formulary Medication 2 tab 07/16/21 21:00 Morphine PO BEDTIME [facility] Oxycodone HCl 5 mg 07/15/21 23:52 Oxycodone Hcl Immed Release 5 Mg Tablet PO Q6H PRN Pain, Severe (Pain Scale 7-10) Pharmacy Consult 1 each 07/15/21 20:51 Consult Rx Perform Med Rec MISCELLANE ONCE PRN Consult order Polyethylene Glycol 17 gm 07/16/21 09:00 Polyethylene Glycol 3350 17 Gm Powd.Pack PO DAILY [facility] Senna 17.2 mg 07/15/21 23:52 Sennosides 8.6 Mg Tablet PO BEDTIME PRN Constipation Senna/Docusate Sodium 1 tab 07/16/21 21:00 Sennosides/Docusate Sodium Tablet PO BEDTIME [facility] Sodium Chloride 3 ml 07/16/21 00:00 0.9 % Sodium Chloride Flush 3 M[facility] Medications Medication Instructions Recorded Confirmed Last Taken Type acetaminophen 325 mg tablet 650 mg PO Q6H PRN 07/15/21 07/15/21 Unknown History amlodipine 10 mg tablet 10 mg PO DAILY 07/15/21 07/15/21 Unknown History bisacodyl 10 mg rectal suppository 10 mg TN DAILY PRN 07/15/21 07/15/21 Unknown History magnesium hydroxide 400 mg/5 mL 30 ml PO BEDTIME PRN 07/15/21 07/15/21 Unknown History oral suspension (Milk of Magnesia) memantine 5 mg tablet 5 mg PO DAILY 07/15/21 07/15/21 Unknown History methylphenidate HCl 10 mg tablet 10 mg PO DAILY@1400 07/15/21 07/15/21 Unknown History methylphenidate HCl 20 mg biphasic 20 mg PO DAILY 07/15/21 07/15/21 Unknown History 50-50 capsule,extended release (Ritalin LA) morphine 60 mg tablet,extended 2 tab PO BEDTIME 07/15/21 07/15/21 Unknown History release oxazepam 15 mg capsule 15 mg PO BEDTIME PRN 07/15/21 07/15/21 Unknown History oxazepam 15 mg capsule 15 mg PO DAILY 07/15/21 07/15/21 Unknown History polyethylene glycol 3350 17 17 g PO DAILY 07/15/21 07/15/21 Unknown History gram/dose oral powder (Miralax) sennosides 8.6 mg-docusate sodium 1 tab-cap PO BEDTIME 07/15/21 07/15/21 Unknown History 50 mg tablet (Senna Plus) Physical Exam Vital Signs and Narrative: Vital Signs: Last Vital Signs Temp 98.6 F 07/15/21 20:03 Pulse 73 07/15/21 23:50 Resp 15 07/15/21 23:50 BP 146/95 H 07/15/21 23:50 Pulse Ox 98 07/15/21 23:50 Body Mass Index 19.6 Gen: Appears be in no acute distress HEENT: NCAT, Moist mucosa. Pulmonary: Vesicular breath sounds, fair air entry CVS: Normal S1-S2 Abdomen: BS+, Soft, Nontender Extremities: Warm well perfused; right lower extremity exam limited secondary to the pain Neuro: Alert and awake. Results Labs CBC and Chem 7: 07/19/21 06:53 07/18/21 06:38 Labs: Laboratory Results - last 24 hr 07/15/21 07/15/21 07/15/21 19:55 19:55 19:55 MCV 86.1 MCH 28.4 MCHC 33.0 RDW 14.7 Plt Count 412 H D MPV 8.9 L Immature Gran % (Auto) 0.3 Neut % (Auto) 68.4 Lymph % (Auto) 23.3 [place] % (Auto) 6.6 Eos % (Auto) 0.9 Baso % (Auto) 0.5 Lymph # (Auto) 2.5 [place] # (Auto) 0.7 Eos # (Auto) 0.1 Baso # (Auto) 0.1 Abs Immat Gran (auto) 0.03 Absolute Neuts (auto) 7.2 Absolute Nucleated RBC 0.000 Nucleated RBC % (auto) 0.0 PT INR APTT Anion Gap 15 Estim Creat Clear Calc 75.2 Estimated GFR > 60 Fasting Glucose 89 Calcium 9.4 D Urine Color YELLOW Urine Appearance CLEAR Urine pH 6.0 Ur Specific [place] 1.020 Urine Protein NEG Urine Glucose (UA) NEG Urine Ketones NEG Urine Blood 1+ H Urine Nitrite NEG Ur Leukocyte Esterase NEG Urine RBC 5-9 H Urine WBC 0 Ur Squamous Epith Cells 1+ Urine Bacteria TRACE COVID-19 ([facility]) COVID-19 Clin Com 07/15/21 07/15/21 20:55 20:55 MCV MCH MCHC RDW Plt Count MPV Immature Gran % (Auto) Neut % (Auto) Lymph % (Auto) [place] % (Auto) Eos % (Auto) Baso % (Auto) Lymph # (Auto) [place] # (Auto) Eos # (Auto) Baso # (Auto) Abs Immat Gran (auto) Absolute Neuts (auto) Absolute Nucleated RBC Nucleated RBC % (auto) PT 14.0 H INR 1.2 H APTT 33.5 Anion Gap Estim Creat Clear Calc Estimated GFR Fasting Glucose Calcium Urine Color Urine Appearance Urine pH Ur Specific [place] Urine Protein Urine Glucose (UA) Urine Ketones Urine Blood Urine Nitrite Ur Leukocyte Esterase Urine RBC Urine WBC Ur Squamous Epith Cells Urine Bacteria COVID-19 ([facility]) Negative COVID-19 Clin Com See Note Imaging Radiologist's Impressions: Impressions Hip/Pelvis X-Ray 07/15/21 20:27 IMPRESSION: Findings do suggest abnormality of the right hip. This may represent a subcapital impacted fracture. Correlation recommended clinically. Chest X-Ray 07/15/21 20:28 IMPRESSION: Findings do suggest abnormality of the right hip. This may represent a subcapital impacted fracture. Correlation recommended clinically. Pelvis CT 07/15/21 21:37 IMPRESSION: 1. Acute fracture of the subcapital right humerus with minimal impaction and otherwise no significant displacement. No additional fractures are identified. 2. Advanced degenerative changes of the lumbar spine. Assessment and Plan (1) Fracture of femur: Qualifiers: Encounter type: initial encounter Femur location: base of neck Fracture alignment: nondisplaced Fracture type: closed Laterality: right Qualified Code(s): S72.044A - Nondisplaced fracture of base of neck of right femur, initial encounter for closed fracture Status: Acute 71-year-old male with a past medical history of hypertension, chronic pain syndrome, dementia, long term resident presented to the hospital with a chief complaint of fall; noted to have right femur fracture. Admitted to the hospital for further management. Right femur fracture: Pain control. Fall precautions. Orthopedics consult was notified. Pending further reports. History of chronic pain syndrome: Continue home medications. Preop evaluation: Patient is low to moderate risk for for perioperative cardiac complications for intermediate risk surgery. DVT prophylaxis: Subcu heparin Code status: Full code I tried to reach the patient's family-not reachable. Quality Stroke Does the patient have a stroke diagnosis?: No VTE Prior VTE?: No VTE Risk Level:: Medical - moderate - high VTE Device Contraindication: N/A - Device Ordered VTE Drug Contraindication: N/A - Med Ordered
[2021-07-16] VITALS (10 sets, daily range): BP systolic 118–154; BP diastolic 73–82; PULSE 61–82; RESP 15–20; TEMP 36.5–38; O2SAT 97–99; BMI 19.6
[2021-07-16] MEDS: HYDROmorphone HCl 2 MG/ML VIAL 1 MG IVPUSH (00:03)
[2021-07-16] MEDS: Dextrose 5 % and 0.45 % NaCl 1,000 ML 50 ML IVCONT ×2 (01:32→21:31)
[2021-07-16] MEDS: oxyCODONE HCl Immed Release 5 MG TABLET PO ×3 (01:41→21:25)
[2021-07-16 06:11] LABS: MANUAL DIFF FLAG NO
[2021-07-16 06:25] LABS: Basophils Absolute Auto 0.1 X10*3/uL (0.0-0.2); Basophils Percent Auto 0.5 % (0-2); Eosinophils Absolute Auto 0.2 X10*3/uL (0.0-0.4); Eosinophils Percent Auto 1.7 % (0-4); Hematocrit 38.6 % (42-52); Hemoglobin 12.1 g/dl (14.0-18.0); Imm Gran Abs Auto 0.05 X10*3/uL (0.00-0.03); Imm Gran Pct Auto 0.5 % (0.0-0.4); Lymphocytes Absolute Auto 2.8 X10*3/uL (1.2-4.9); Lymphocytes Percent Auto 27.2 % (20-40); Mean Corpuscular HGB Conc 31.3 g/dl (31.0-36.0); Mean Corpuscular Hemoglobin 27.4 pg (27.0-33.0); Mean Corpuscular Volume 87.3 fL (80-98); Mean Platelet Volume 9.2 fL (9.4-12.4); Monocytes Percent Auto 9.2 % (2-11); Neutrophils Absolute Auto 6.3 X10*3/uL (2.0-8.3); Neutrophils Percent Auto 60.9 % (45-73); Platelet Count 363 X10*3/uL (160-400); Red Blood Count 4.42 X10*6/uL (4.60-5.80); White Blood Count 10.3 X10*3/uL (4.8-10.8)
[2021-07-16 06:47] LABS: Anion Gap 11 (12-20); Blood Urea Nitrogen 12 mg/dL (9-16); Calcium 8.7 mg/dL (8.4-10.2); Carbon Dioxide 28 mmol/L (22-29); Chloride 107 mmol/L (96-108); Creatinine Clr Calc Pharmacy 79.9; Estimated Glomerular Filt Rate > 60; Glucose Random 95 mg/dL (60-115); Sodium 142 mmol/L (135-145)
[2021-07-16 06:54] LABS: Magnesium 2.2 mg/dL (1.6-2.6)
[2021-07-16] MEDS: amLODIPine Besylate 10 MG TABLET PO (07:44)
[2021-07-16] MEDS: Memantine HCl 5 MG TABLET PO (07:46)
--- NOTE | 2021-07-16 08:57 | PM.EVENT ---
Event Note Date of Service: 07/16/21 Event Note: Patient seen and examined today at bedside -he is able to SLR and has minimal pain with log roll -will discuss with Dr Combs cannulated screws vs chris
--- NOTE | 2021-07-16 11:45 | P.PNIM_ITS ---
Subjective Subjective Date of Service: 07/16/21 Interval History: Seen and examined this morning Seen in follow-up for fall,right femur fracture. Slipped out of bed several days ago falling onto his right side. Has had pain in the right leg but has able to ambulate. Complaining of right arm/shoulder pain, right leg pain with movement. Review of Systems Review of Systems: Yes all other systems are reviewed and are negative Constitutional Constitutional: Denies chills and Denies fever(s) Cardiovascular Cardiovascular: Denies chest pain Respiratory Respiratory: Denies cough Gastrointestinal Gastrointestinal: Denies abdominal pain Physical Exam Vital Signs: Vital Signs: Last Vital Signs Temp 97.8 F 07/16/21 07:40 Pulse 75 07/16/21 07:44 Resp 18 07/16/21 07:40 BP 154/79 H 07/16/21 07:44 Pulse Ox 99 07/16/21 07:40 Body Mass Index 19.6 Const: General: comfortable, no acute distress and alert Nutritional Appearance: thin HENMT: Head: Yes normocephalic and Yes atraumatic Eyes: Sclerae: sclerae normal Resp: Effort & Inspection: normal respiratory effort and no respiratory distress Cardio: Rate: regular rate Rhythm: regular rhythm GI: Palpation (GI): Soft to palpation and nontender Neuro: Cranial nerves: Yes CN's II-XII intact bilaterally and Yes Bilaterally intact EOM present Extrem: Other: No edema, no ecchymosis equal strength b/l upper extremities; 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 b/l; able to move all 4 extremities spontaneously Objective Data Current Medications Generic Name Dose Route Start Last Admin Trade Name Freq PRN Reason Stop Dose Admin Acetaminophen 650 mg 07/15/21 23:52 Acetaminophen 325 Mg Tablet PO Q6H PRN Pain, Mild (Pain Scale 1-3) Amlodipine Besylate 10 mg 07/16/21 09:00 07/16/21 07:44 Amlodipine Besylate 10 Mg Tablet PO 10 mg DAILY [facility] Administration Protocol Bisacodyl 10 mg 07/15/21 23:55 Bisacodyl 10 Mg Supp.Rect NC DAILY PRN Constipation Heparin Sodium (Porcine) 5,000 unit 07/15/21 23:45 07/16/21 07:47 Heparin Sodium,Porcine 5,000 Unit/Ml Vial SUBCUT Not Given Q8H [facility] Dextrose/Sodium Chloride 1,000 mls @ 50 mls/hr 07/15/21 23:45 07/16/21 01:32 D51/2ns IVCONT 50 mls/hr .Q20H [facility] Administration Magnesium Hydroxide 30 ml 07/15/21 23:55 Milk Of Magnesia 30 Ml Oral.Susp PO BEDTIME PRN Constipation Melatonin 3 mg 07/15/21 23:52 Melatonin 3 Mg Tablet PO BEDTIME PRN Insomnia Memantine 5 mg 07/16/21 09:00 07/16/21 07:46 Memantine Hcl 5 Mg Tablet PO 5 mg DAILY [facility]O Administration Methylphenidate HCl 10 mg 07/16/21 14:00 Methylphenidate Hcl 10 Mg Tablet PO DAILY@1400 [facility] Morphine Sulfate 120 mg 07/16/21 21:00 Morphine Sulfate Er 30 Mg Tablet.Er PO BEDTIME [facility] Non-Formulary Medication 20 mg 07/16/21 09:00 Methylphenidate Hcl [Ritalin La] PO DAILY [facility] Oxycodone HCl 5 mg 07/15/21 23:52 07/16/21 07:46 Oxycodone Hcl Immed Release 5 Mg Tablet PO 5 mg Q6H PRN Administration Pain, Severe (Pain Scale 7-10) Pharmacy Consult 1 each 07/15/21 20:51 Consult Rx Perform Med Rec MISCELLANE ONCE PRN Consult order Polyethylene Glycol 17 gm 07/16/21 09:00 07/16/21 07:48 Polyethylene Glycol 3350 17 Gm Powd.Pack PO Not Given DAILY [facility] Senna 17.2 mg 07/15/21 23:52 Sennosides 8.6 Mg Tablet PO BEDTIME PRN Constipation Senna/Docusate Sodium 1 tab 07/16/21 21:00 Sennosides/Docusate Sodium Tablet PO BEDTIME [facility] Sodium Chloride 3 ml 07/16/21 00:00 07/16/21 07:47 0.9 % Sodium Chloride Flush 3 Ml Syringe IVFLUSH Not Given QSHIFT [facility] Labs CBC & Chem 7: 07/16/21 05:38 07/16/21 05:38 Labs: Laboratory Results - last 24 hr 07/15/21 07/15/21 07/15/21 19:55 19:55 19:55 MCV 86.1 MCH 28.4 MCHC 33.0 RDW 14.7 Plt Count 412 H D MPV 8.9 L Immature Gran % (Auto) 0.3 Neut % (Auto) 68.4 Lymph % (Auto) 23.3 [place] % (Auto) 6.6 Eos % (Auto) 0.9 Baso % (Auto) 0.5 Lymph # (Auto) 2.5 [place] # (Auto) 0.7 Eos # (Auto) 0.1 Baso # (Auto) 0.1 Abs Immat Gran (auto) 0.03 Absolute Neuts (auto) 7.2 Absolute Nucleated RBC 0.000 Nucleated RBC % (auto) 0.0 PT INR APTT Anion Gap 15 Estim Creat Clear Calc 75.2 Estimated GFR > 60 Random Glucose Fasting Glucose 89 Calcium 9.4 D Magnesium Urine Color YELLOW Urine Appearance CLEAR Urine pH 6.0 Ur Specific [place] 1.020 Urine Protein NEG Urine Glucose (UA) NEG Urine Ketones NEG Urine Blood 1+ H Urine Nitrite NEG Ur Leukocyte Esterase NEG Urine RBC 5-9 H Urine WBC 0 Ur Squamous Epith Cells 1+ Urine Bacteria TRACE COVID-19 ([facility]) COVID-19 Clin Com 07/15/21 07/15/21 07/16/21 20:55 20:55 05:38 MCV 87.3 MCH 27.4 MCHC 31.3 RDW 15.0 Plt Count 363 MPV 9.2 L Immature Gran % (Auto) 0.5 H Neut % (Auto) 60.9 Lymph % (Auto) 27.2 [place] % (Auto) 9.2 Eos % (Auto) 1.7 Baso % (Auto) 0.5 Lymph # (Auto) 2.8 [place] # (Auto) 1.0 Eos # (Auto) 0.2 Baso # (Auto) 0.1 Abs Immat Gran (auto) 0.05 H Absolute Neuts (auto) 6.3 Absolute Nucleated RBC 0.000 Nucleated RBC % (auto) 0.0 PT 14.0 H INR 1.2 H APTT 33.5 Anion Gap Estim Creat Clear Calc Estimated GFR Random Glucose Fasting Glucose Calcium Magnesium Urine Color Urine Appearance Urine pH Ur Specific [place] Urine Protein Urine Glucose (UA) Urine Ketones Urine Blood Urine Nitrite Ur Leukocyte Esterase Urine RBC Urine WBC Ur Squamous Epith Cells Urine Bacteria COVID-19 ([facility]) Negative COVID-19 Clin Com See Note 07/16/21 07/16/21 05:38 05:38 MCV MCH MCHC RDW Plt Count MPV Immature Gran % (Auto) Neut % (Auto) Lymph % (Auto) [place] % (Auto) Eos % (Auto) Baso % (Auto) Lymph # (Auto) [place] # (Auto) Eos # (Auto) Baso # (Auto) Abs Immat Gran (auto) Absolute Neuts (auto) Absolute Nucleated RBC Nucleated RBC % (auto) PT INR APTT Anion Gap 11 L Estim Creat Clear Calc 79.9 Estimated GFR > 60 Random Glucose 95 Fasting Glucose Calcium 8.7 D Magnesium 2.2 Urine Color Urine Appearance Urine pH Ur Specific [place] Urine Protein Urine Glucose (UA) Urine Ketones Urine Blood Urine Nitrite Ur Leukocyte Esterase Urine RBC Urine WBC Ur Squamous Epith Cells Urine Bacteria COVID-19 ([facility]) COVID-19 Clin Com Assessment and Plan (1) Fracture of femur: Status: Acute Assessment and Plan: ?This is a year-old male with a past medical history of hypertension, chronic pain syndrome, dementia, jail resident who presented to the hospital with a chief complaint of fall; noted to have right femur fracture.? Right femur fracture:? Management per orthopedic team, plan for surgical intervention in a.m. Pain seems to be controlled with home oral pain medication chronic pain syndrome:? Continue home dose of MS Contin Continue bowel regimen Hypertension Continue home dose of Norvasc Dementia Continue Namenda DVT prophylaxis:? Subcu heparin Attending: Dr. zamora Quality Stroke Does the patient have a stroke diagnosis?: No VTE Prior VTE?: No VTE Risk Level:: Medical - moderate - high VTE Device Contraindication: N/A - Device Ordered VTE Drug Contraindication: N/A - Med Ordered
[2021-07-16] MEDS: Methylphenidate HCl 10 MG TABLET PO (14:11)
[2021-07-16] MEDS: 0.9 % Sodium Chloride Flush 3 ML SYRINGE IVFLUSH (14:12)
[2021-07-16] MEDS: Morphine Sulfate 2 MG/ML CARTRIDGE IVPUSH (14:12)
[2021-07-16] MEDS: Heparin Sodium,Porcine 5,000 UNIT/ML VIAL 5000 UNIT SUBCUT (15:26)
--- NOTE | 2021-07-16 18:46 | P.CONOP_ITS ---
History of Present Illness HPI Consult date: 07/16/21 Chief complaint: Hip Fx Narrative: 71-year-old male with a past medical history of hypertension, dementia, senior living resident, chronic pain syndrome presented to the hospital with a chief complaint of fall. He states he was sitting at the edge of his bed when he slipped off and fell onto the right side about 2 days ago. He states he did hit his head on the radiator. No LOC. since then he has been having right hip pain; but has been able to ambulate. Since the pain became worse, xrays were obtained at the rehab facility and he was instructed to go to the ED for further eval.While in the ED, xrays and CT confirmed a subcapital femur fracture. He was admitted to the medical service and orthopedics was consulted for further re commendations. Review of Systems Review of Systems: Yes all other systems are reviewed and are negative PMFSH Past Medical History Medical History Adult failure to thrive Anxiety Chronic pain Hypertension Social History Social History Household Members: Spouse Housing: Halfway Unable to assess alcohol history related to: Unknown Alcohol intake: never Patient Tobacco Use Status: Never used Tobacco Smoked in Last 30 Days: No e-Cigarette/Vaping Use: Never Used Second Hand Smoke Exposure: No Use of substances other than those prescribed or required for medical reasons: No Currently Displaying Signs/Symptoms of Drug Intoxication Withdrawal: No Any prior treatment program specific to substance use: No Have you been hit, kicked, punched, or otherwise hurt by someone within the past year? If so, by whom?: No Do you feel safe in your current relationship?: No Current Relationship Is there a partner from a previous relationship who is making you feel unsafe now?: No Are you made to feel afraid or neglected: No Advance Directives: No Advance Directives Information Provided: Yes Do you have thoughts of harming others: None Do you have a plan to hurt others: No Plan Recently lost weight without trying: No Eating poorly because of decreased appetite: No Nutrition Risks: No Nutritional Risk service: No Current occupational status: retired Meds Allergies Allergy/AdvReac Type Severity Reaction Status Date / Time acetaminophen [From Tylox] AdvReac Severe Vomiting Verified 07/16/21 04:40 oxycodone [From Tylox] AdvReac Severe Vomiting Verified 07/16/21 04:40 Active Medications: Current Medications Generic Name Dose Route Start Last Admin Trade Name Freq PRN Reason Stop Dose Admin Acetaminophen 650 mg 07/15/21 23:52 Acetaminophen 325 Mg Tablet PO Q6H PRN Pain, Mild (Pain Scale 1-3) Amlodipine Besylate 10 mg 07/16/21 09:00 07/16/21 07:44 Amlodipine Besylate 10 Mg Tablet PO 10 mg DAILY JUANITO Administration Protocol Bisacodyl 10 mg 07/15/21 23:55 Bisacodyl 10 Mg Supp.Rect GA DAILY PRN Constipation Heparin Sodium (Porcine) 5,000 unit 07/15/21 23:45 07/16/21 15:26 Heparin Sodium,Porcine 5,000 Unit/Ml Vial SUBCUT 5,000 unit Q8H JUANITO Administration Dextrose/Sodium Chloride 1,000 mls @ 50 mls/hr 07/15/21 23:45 07/16/21 01:32 D51/2ns IVCONT 50 mls/hr .Q20H JUANITO Administration Cefazolin Sodium/Dextrose 2 gm in 50 mls @ 100 mls/hr 07/17/21 11:44 Ancef IV 07/17/21 12:13 PREOP ONE Lorazepam 1 mg 07/16/21 12:26 Lorazepam 1 Mg Tablet PO BEDTIME PRN MUSCLE SPASM/DYSTONIA Lorazepam 1 mg 07/17/21 09:00 Lorazepam 1 Mg Tablet PO DAILY JUANITO Magnesium Hydroxide 30 ml 07/15/21 23:55 Milk Of Magnesia 30 Ml Oral.Susp PO BEDTIME PRN Constipation Melatonin 3 mg 07/15/21 23:52 Melatonin 3 Mg Tablet PO BEDTIME PRN Insomnia Memantine 5 mg 07/16/21 09:00 07/16/21 07:46 Memantine Hcl 5 Mg Tablet PO 5 mg DAILY JUANITO Administration Methylphenidate HCl 10 mg 07/16/21 14:00 07/16/21 14:11 Methylphenidate Hcl 10 Mg Tablet PO 10 mg DAILY@1400 JUANITO Administration Morphine Sulfate 120 mg 07/16/21 21:00 Morphine Sulfate Er 30 Mg Tablet.Er PO BEDTIME JUANITO Morphine Sulfate 2 mg 07/16/21 13:15 07/16/21 14:12 Morphine Sulfate 2 Mg/Ml Cartridge IVPUSH 2 mg Q4H PRN Administration Pain, Severe (Pain Scale 7-10) Protocol Non-Formulary Medication 20 mg 07/16/21 09:00 Methylphenidate Hcl [Ritalin La] PO DAILY [facility] Oxycodone HCl 5 mg 07/15/21 23:52 07/16/21 07:46 Oxycodone Hcl Immed Release 5 Mg Tablet PO 5 mg Q6H PRN Administration Pain, Severe (Pain Scale 7-10) Pharmacy Consult 1 each 07/15/21 20:51 Consult Rx Perform Med Rec MISCELLANE ONCE PRN Consult order Polyethylene Glycol 17 gm 07/16/21 09:00 07/16/21 07:48 Polyethylene Glycol 3350 17 Gm Powd.Pack PO Not Given DAILY [facility] Senna 17.2 mg 07/15/21 23:52 Sennosides 8.6 Mg Tablet PO BEDTIME PRN Constipation Senna/Docusate Sodium 1 tab 07/16/21 21:00 Sennosides/Docusate Sodium Tablet PO BEDTIME [facility] Sodium Chloride 3 ml 07/16/21 00:00 07/16/21 14:12 0.9 % Sodium Chloride Flush 3 Ml Syringe IVFLUSH 3 ml QSHIFT [facility] Administration Home Medications Medication Instructions Recorded Confirmed Last Taken Type acetaminophen 325 mg tablet 650 mg PO Q6H PRN 07/15/21 07/15/21 Unknown History amlodipine 10 mg tablet 10 mg PO DAILY 07/15/21 07/15/21 Unknown History bisacodyl 10 mg rectal suppository 10 mg GA DAILY PRN 07/15/21 07/15/21 Unknown History magnesium hydroxide 400 mg/5 mL 30 ml PO BEDTIME PRN 07/15/21 07/15/21 Unknown History oral suspension (Milk of Magnesia) memantine 5 mg tablet 5 mg PO DAILY 07/15/21 07/15/21 Unknown History methylphenidate HCl 10 mg tablet 10 mg PO DAILY@1400 07/15/21 07/15/21 Unknown History methylphenidate HCl 20 mg biphasic 20 mg PO DAILY 07/15/21 07/15/21 Unknown History 50-50 capsule,extended release (Ritalin LA) morphine 60 mg tablet,extended 2 tab PO BEDTIME 07/15/21 07/15/21 Unknown History release oxazepam 15 mg capsule 15 mg PO BEDTIME PRN 07/15/21 07/15/21 Unknown History oxazepam 15 mg capsule 15 mg PO DAILY 07/15/21 07/15/21 Unknown History polyethylene glycol 3350 17 17 g PO DAILY 07/15/21 07/15/21 Unknown History gram/dose oral powder (Miralax) sennosides 8.6 mg-docusate sodium 1 tab-cap PO BEDTIME 07/15/21 07/15/21 Unknown History 50 mg tablet (Senna Plus) Physical Exam Vital Signs: Vital Signs: Last Vital Signs Temp 100.4 F 07/16/21 16:00 Pulse 82 07/16/21 16:00 Resp 20 07/16/21 16:00 BP 141/78 H 07/16/21 16:00 Pulse Ox 97 07/16/21 16:00 Body Mass Index 19.6 Const: General: cooperative, healthy appearing, comfortable, no acute distress, well developed and alert Orientation/consciousness: patient oriented x3 HENMT: Head: Yes normal to inspection, Yes normocephalic and Yes atraumatic Eyes: General: appearance normal, both eyes and all related structures Neck: Neck: Yes normal visual inspection and Yes no lymphadenopathy Resp: Effort & Inspection: normal respiratory effort and able to speak in complete sentences Cardio: Rate: regular rate Peripheral pulses: Peripheral pulses 2+ throughout GI: Inspection: Yes normal to inspection Palpation (GI): Soft to palpation Skin: General skin exam: no rashes or lesions noted Neuro: General: patient oriented x3 Extrem: Other: Right hip skin intact, no open wounds or lacerations . He is able to SLR, minimal pain wikth Log roll. Peripheral pulses presenrt.. Psych: Appearance: grossly normal Mental Status: mental status grossly normal Results Labs Result Diagrams: 07/16/21 05:38 07/16/21 05:38 Labs: Abnormal lab results 07/15/21 07/15/21 07/15/21 Range/Units 19:55 19:55 20:55 RBC (4.60-5.80) X10*6/uL Hgb 13.9 L (14.0-18.0) g/dl Hct (42-52) % Plt Count 412 H D (160-400) X10*3/uL MPV 8.9 L (9.4-12.4) fL Immature Gran % (Auto) (0.0-0.4) % Abs Immat Gran (auto) (0.00-0.03) X10*3/uL PT 14.0 H (9.9-13.0) SEC INR 1.2 H (0.9-1.1) Anion Gap (12-20) Urine Blood 1+ H (NEG) Urine RBC 5-9 H (0) /HPF 07/16/21 07/16/21 Range/Units 05:38 05:38 RBC 4.42 L (4.60-5.80) X10*6/uL Hgb 12.1 L (14.0-18.0) g/dl Hct 38.6 L (42-52) % Plt Count (160-400) X10*3/uL MPV 9.2 L (9.4-12.4) fL Immature Gran % (Auto) 0.5 H (0.0-0.4) % Abs Immat Gran (auto) 0.05 H (0.00-0.03) X10*3/uL PT (9.9-13.0) SEC INR (0.9-1.1) Anion Gap 11 L (12-20) Urine Blood (NEG) Urine RBC (0) /HPF H & H 07/15/21 07/16/21 Range/Units 19:55 05:38 Hgb 13.9 L 12.1 L (14.0-18.0) g/dl Hct 42.1 38.6 L (42-52) % Coagulation 07/15/21 Range/Units 20:55 INR 1.2 H (0.9-1.1) All other labs normal. Assessment and Plan (1) Fracture of femur: Qualifiers: Encounter type: initial encounter Femur location: base of neck Fracture alignment: nondisplaced Fracture type: closed Laterality: right Qualified Code(s): S72.044A - Nondisplaced fracture of base of neck of right femur, initial encounter for closed fracture Status: Acute I discussed the case with Dr Combs and explained the extent of the injury to the patient and options available which include surgical intervention. I explained the procedure in detail along with the length of recovery and rehab course. I explained the risk, benefits and alternatives. Risk including, but not limited to infection, blood clots, bleeding, non union or malunion and nerve/tissue damage to surrounding areas. I answered all their questions and with their understanding they have consented to move forward with Operative Fixation of the right femur. The patient with be T&S, med clearance obtained and NPO after midnight. Procedures Date of Service Date of Service: 07/16/21
[2021-07-16] MEDS: Sennosides/Docusate Sodium TABLET 1 TAB PO (21:16)
[2021-07-16] MEDS: Morphine Sulfate ER 30 MG TABLET.ER 120 MG PO (21:16)
[2021-07-16] MEDS: LORazepam 1 MG TABLET PO (21:25)
[2021-07-17] VITALS (20 sets, daily range): BP systolic 104–135; BP diastolic 66–83; PULSE 66–108; RESP 16–18; TEMP 36.4–37.8; O2SAT 94–100
[2021-07-17] MEDS: Heparin Sodium,Porcine 5,000 UNIT/ML VIAL 5000 UNIT SUBCUT ×2 (01:14→23:43)
[2021-07-17] MEDS: Morphine Sulfate 2 MG/ML CARTRIDGE IVPUSH ×3 (01:20→11:21)
[2021-07-17 06:34] LABS: Hematocrit 37.7 % (42-52); Mean Corpuscular HGB Conc 31.8 g/dl (31.0-36.0); Mean Corpuscular Hemoglobin 27.6 pg (27.0-33.0); Mean Corpuscular Volume 86.9 fL (80-98); Mean Platelet Volume 9.1 fL (9.4-12.4); Platelet Count 354 X10*3/uL (160-400); Red Blood Count 4.34 X10*6/uL (4.60-5.80); White Blood Count 9.8 X10*3/uL (4.8-10.8)
[2021-07-17 07:19] LABS: Anion Gap 9 (12-20); Blood Urea Nitrogen 13 mg/dL (9-16); Calcium 8.7 mg/dL (8.4-10.2); Carbon Dioxide 30 mmol/L (22-29); Chloride 106 mmol/L (96-108); Creatinine Clr Calc Pharmacy 78.9; Estimated Glomerular Filt Rate > 60; Glucose Random 100 mg/dL (60-115); Potassium 4.2 mmol/L (3.3-5.1); Sodium 141 mmol/L (135-145)
[2021-07-17] MEDS: oxyCODONE HCl Immed Release 5 MG TABLET PO (08:31)
[2021-07-17] MEDS: amLODIPine Besylate 10 MG TABLET PO (08:31)
[2021-07-17] MEDS: Memantine HCl 5 MG TABLET PO (08:31)
[2021-07-17] MEDS: LORazepam 1 MG TABLET PO (08:31)
--- NOTE | 2021-07-17 10:17 | MHC.CM.PN ---
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 PT ABLE TO VERIFY PCP, PT HAS [facility]OL[facility] IN CHART HOWEVER HCP CONTACTED [facility] AND THEY DO NOT HAVE A HCP ON FILE, DTR DOES NOT HAVE COPY EITHER, WHEN CM WENT TO SEE PT PRIOR TO WRITING THIS NOTE HE HAD ALREADY BEEN TAKEN TO SURGERY. D/C PLAN: RETURN TO [facility] FOR STR & LTC, BLS FOR TRANSPORT
--- NOTE | 2021-07-17 10:58 | MHC.CM.PN ---
CM MET W/PT WHO IS SCHEDULED FOR SURGERY TODAY, PT ASKING TO FILL OUT A NEW HCP, PT IS ALERT & ORIENTED AND KNOWS WHO HE WOULD LIKE TO CHOOSE AND THE REASONING BEHIND EACH CHOICE, DUE TO 'S HEALTH ISSUES PT BELIEVES HE SHOULD COMPLETE A NEW ONE, PT NAMED HIS DTR KERVIN HIS HEALTH CARE AGENT AND HIS [id number] LISY LEARY HIS ALTERNATE. PT GIVEN EDUCATIONAL INFO, ORIGINAL AND TWO COPIES, COPY UPLAODED TO [employer] AND PLACED IN CHART. KERVIN HECTOR [phone] LISY LEARY CELL: [phone], H: [phone]
--- NOTE | 2021-07-17 11:19 | HO.PM.IMPN ---
Subjective Subjective Date of Service: 07/17/21 Interval History: Seen and examined this morning No overnight events Plan for surgery today Review of Systems Review of Systems: Yes all other systems are reviewed and are negative Constitutional Constitutional: Denies chills and Denies fever(s) Cardiovascular Cardiovascular: Denies chest pain Respiratory Respiratory: Denies cough Gastrointestinal Gastrointestinal: Denies abdominal pain Physical Exam Vital Signs: Vital Signs: Last Vital Signs Temp 98.1 F 07/17/21 07:43 Pulse 66 07/17/21 07:43 Resp 16 07/17/21 07:43 BP 125/70 07/17/21 07:43 Pulse Ox 98 07/17/21 07:43 Body Mass Index 19.6 Const: General: comfortable, no acute distress and alert Nutritional Appearance: thin HENMT: Head: Yes normocephalic and Yes atraumatic Eyes: Sclerae: sclerae normal Resp: Effort & Inspection: normal respiratory effort and no respiratory distress Cardio: Rate: regular rate Rhythm: regular rhythm GI: Palpation (GI): Soft to palpation and nontender Neuro: Cranial nerves: Yes CN's II-XII intact bilaterally and Yes Bilaterally intact EOM present Extrem: Other: No edema, no ecchymosis equal strength b/l upper extremities; 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; able to move all 4 extremities spontaneously Objective Data Current Medications Generic Name Dose Route Start Last Admin Trade Name Freq PRN Reason Stop Dose Admin Acetaminophen 650 mg 07/15/21 23:52 Acetaminophen 325 Mg Tablet PO Q6H PRN Pain, Mild (Pain Scale 1-3) Amlodipine Besylate 10 mg 07/16/21 09:00 07/17/21 08:31 Amlodipine Besylate 10 Mg Tablet PO 10 mg DAILY JUANITO Administration Protocol Bisacodyl 10 mg 07/15/21 23:55 Bisacodyl 10 Mg Supp.Rect MI DAILY PRN Constipation Heparin Sodium (Porcine) 5,000 unit 07/15/21 23:45 07/17/21 08:24 Heparin Sodium,Porcine 5,000 Unit/Ml Vial SUBCUT Not Given Q8H JUANITO Dextrose/Sodium Chloride 1,000 mls @ 50 mls/hr 07/15/21 23:45 07/16/21 21:31 D51/2ns IVCONT 50 mls/hr .Q20H JUANITO Administration Cefazolin Sodium/Dextrose 2 gm in 50 mls @ 100 mls/hr 07/17/21 11:44 Ancef IV 07/17/21 12:13 PREOP ONE Lorazepam 1 mg 07/16/21 12:26 07/16/21 21:25 Lorazepam 1 Mg Tablet PO 1 mg BEDTIME PRN Administration MUSCLE SPASM/DYSTONIA Lorazepam 1 mg 07/17/21 09:00 07/17/21 08:31 Lorazepam 1 Mg Tablet PO 1 mg DAILY JUANITO Administration Magnesium Hydroxide 30 ml 07/15/21 23:55 Milk Of Magnesia 30 Ml Oral.Susp PO BEDTIME PRN Constipation Melatonin 3 mg 07/15/21 23:52 Melatonin 3 Mg Tablet PO BEDTIME PRN Insomnia Memantine 5 mg 07/16/21 09:00 07/17/21 08:31 Memantine Hcl 5 Mg Tablet PO 5 mg DAILY JUANITO Administration Methylphenidate HCl 10 mg 07/16/21 14:00 07/16/21 14:11 Methylphenidate Hcl 10 Mg Tablet PO 10 mg DAILY@1400 JUANITO Administration Morphine Sulfate 120 mg 07/16/21 21:00 07/16/21 21:16 Morphine Sulfate Er 30 Mg Tablet.Er PO 120 mg BEDTIME JUANITO Administration Morphine Sulfate 2 mg 07/16/21 13:15 07/17/21 06:14 Morphine Sulfate 2 Mg/Ml Cartridge IVPUSH 2 mg Q4H PRN Administration Pain, Severe (Pain Scale 7-10) Protocol Non-Formulary Medication 20 mg 07/16/21 09:00 Methylphenidate Hcl [Ritalin La] PO DAILY [facility] Oxycodone HCl 5 mg 07/15/21 23:52 07/17/21 08:31 Oxycodone Hcl Immed Release 5 Mg Tablet PO 5 mg Q6H PRN Administration Pain, Severe (Pain Scale 7-10) Pharmacy Consult 1 each 07/15/21 20:51 Consult Rx Perform Med Rec MISCELLANE ONCE PRN Consult order Polyethylene Glycol 17 gm 07/16/21 09:00 07/17/21 08:24 Polyethylene Glycol 3350 17 Gm Powd.Pack PO Not Given DAILY JUANITO Senna 17.2 mg 07/15/21 23:52 Sennosides 8.6 Mg Tablet PO BEDTIME PRN Constipation Senna/Docusate Sodium 1 tab 07/16/21 21:00 07/16/21 21:16 Sennosides/Docusate Sodium Tablet PO 1 tab BEDTIME JUANITO Administration Sodium Chloride 3 ml 07/16/21 00:00 07/17/21 08:31 0.9 % Sodium Chloride Flush 3 Ml Syringe IVFLUSH Not Given QSHIFT [facility] Labs CBC & Chem 7: 07/17/21 06:07 07/17/21 06:07 Labs: Laboratory Results - last 24 hr 07/17/21 07/17/21 06:07 06:07 MCV 86.9 MCH 27.6 MCHC 31.8 RDW 15.0 Plt Count 354 MPV 9.1 L Absolute Nucleated RBC 0.000 Nucleated RBC % (auto) 0.0 Anion Gap 9 L Estim Creat Clear Calc 78.9 Estimated GFR > 60 Random Glucose 100 Calcium 8.7 Assessment and Plan (1) Fracture of femur: Status: Acute Assessment and Plan: This is a year-old male with a past medical history of hypertension, chronic pain syndrome, dementia, retirement resident who presented to the hospital with a chief complaint of fall; noted to have right femur fracture.? Right femur fracture:? Management per orthopedic team, plan for surgery today Pain seems to be controlled with home oral pain medication chronic pain syndrome:? Continue home dose of MS Contin Continue bowel regimen Hypertension Continue home dose of Norvasc Dementia Continue Namenda DVT prophylaxis:? Subcu heparin Attending: Dr. zamora Quality Stroke Does the patient have a stroke diagnosis?: No VTE Prior VTE?: No VTE Risk Level:: Medical - moderate - high VTE Device Contraindication: N/A - Device Ordered VTE Drug Contraindication: N/A - Med Ordered
--- NOTE | 2021-07-17 12:10 | P.CONAN_ITS ---
[facility] Active Problems Active Problems: All Active Problems (Updated 07/15/21 @ 23:08 by Finn Teixeira MD) Fracture of femur (Acute) Past Medical History Medical History Adult failure to thrive Anxiety Chronic pain Hypertension Surgical History History of Problems with Anesthesia: No Social History Social History Household Members: Spouse Housing: Snf Unable to assess alcohol history related to: Unknown Alcohol intake: never Patient Tobacco Use Status: Never used Tobacco Smoked in Last 30 Days: No e-Cigarette/Vaping Use: Never Used Second Hand Smoke Exposure: No Use of substances other than those prescribed or required for medical reasons: No Currently Displaying Signs/Symptoms of Drug Intoxication Withdrawal: No Any prior treatment program specific to substance use: No Have you been hit, kicked, punched, or otherwise hurt by someone within the past year? If so, by whom?: No Do you feel safe in your current relationship?: No Current Relationship Is there a partner from a previous relationship who is making you feel unsafe now?: No Are you made to feel afraid or neglected: No Are you DNR?: No Advance Directives: No Advance Directives Information Provided: Yes Advance Directives on File: No Do you have thoughts of harming others: None Do you have a plan to hurt others: No Plan Recently lost weight without trying: No Eating poorly because of decreased appetite: No Nutrition Risks: No Nutritional Risk service: No Current occupational status: retired Meds Allergies Allergy/AdvReac Type Severity Reaction Status Date / Time acetaminophen [From Tylox] AdvReac Severe Vomiting Verified 07/16/21 04:40 oxycodone [From Tylox] AdvReac Severe Vomiting Verified 07/16/21 04:40 Active Medications: Current Medications Generic Name Dose Route Start Last Admin Trade Name Freq PRN Reason Stop Dose Admin Acetaminophen 650 mg 07/15/21 23:52 Acetaminophen 325 Mg Tablet PO Q6H PRN Pain, Mild (Pain Scale 1-3) Amlodipine Besylate 10 mg 07/16/21 09:00 07/17/21 08:31 Amlodipine Besylate 10 Mg Tablet PO 10 mg DAILY JUANITO Administration Protocol Bisacodyl 10 mg 07/15/21 23:55 Bisacodyl 10 Mg Supp.Rect [place] DAILY PRN Constipation Heparin Sodium (Porcine) 5,000 unit 07/15/21 23:45 07/17/21 08:24 Heparin Sodium,Porcine 5,000 Unit/Ml Vial SUBCUT Not Given Q8H JUANITO Dextrose/Sodium Chloride 1,000 mls @ 50 mls/hr 07/15/21 23:45 07/16/21 21:31 D51/2ns IVCONT 50 mls/hr .Q20H JUANITO Administration Cefazolin Sodium/Dextrose 2 gm in 50 mls @ 100 mls/hr 07/17/21 11:44 Ancef IV 07/17/21 12:13 PREOP ONE Lorazepam 1 mg 07/16/21 12:26 07/16/21 21:25 Lorazepam 1 Mg Tablet PO 1 mg BEDTIME PRN Administration MUSCLE SPASM/DYSTONIA Lorazepam 1 mg 07/17/21 09:00 07/17/21 08:31 Lorazepam 1 Mg Tablet PO 1 mg DAILY JUANITO Administration Magnesium Hydroxide 30 ml 07/15/21 23:55 Milk Of Magnesia 30 Ml Oral.Susp PO BEDTIME PRN Constipation Melatonin 3 mg 07/15/21 23:52 Melatonin 3 Mg Tablet PO BEDTIME PRN Insomnia Memantine 5 mg 07/16/21 09:00 07/17/21 08:31 Memantine Hcl 5 Mg Tablet PO 5 mg DAILY COUNTS INCLUDE 234 BEDS AT THE [facility] Administration Methylphenidate HCl 10 mg 07/16/21 14:00 07/16/21 14:11 Methylphenidate Hcl 10 Mg Tablet PO 10 mg DAILY@1400 JUANITO Administration Morphine Sulfate 120 mg 07/16/21 21:00 07/16/21 21:16 Morphine Sulfate Er 30 Mg Tablet.Er PO 120 mg BEDTIME COUNTS INCLUDE 234 BEDS AT THE [facility] Administration Morphine Sulfate 2 mg 07/16/21 13:15 07/17/21 11:21 Morphine Sulfate 2 Mg/Ml Cartridge IVPUSH 2 mg Q4H PRN Administration Pain, Severe (Pain Scale 7-10) Protocol Non-Formulary Medication 20 mg 07/16/21 09:00 Methylphenidate Hcl [Ritalin La] PO DAILY COUNTS INCLUDE 234 BEDS AT THE [facility] Pharmacy Consult 1 each 07/15/21 20:51 Consult Rx Perform Med Rec MISCELLANE ONCE PRN Consult order Polyethylene Glycol 17 gm 07/16/21 09:00 07/17/21 08:24 Polyethylene Glycol 3350 17 Gm Powd.Pack PO Not Given DAILY COUNTS INCLUDE 234 BEDS AT THE [facility] Senna 17.2 mg 07/15/21 23:52 Sennosides 8.6 Mg Tablet PO BEDTIME PRN Constipation Senna/Docusate Sodium 1 tab 07/16/21 21:00 07/16/21 21:16 Sennosides/Docusate Sodium Tablet PO 1 tab BEDTIME JUANITO Administration Sodium Chloride 3 ml 07/16/21 00:00 07/17/21 08:31 0.9 % Sodium Chloride Flush 3 Ml Syringe IVFLUSH Not Given QSHIFT COUNTS INCLUDE 234 BEDS AT THE [facility] Home Medications Medication Instructions Recorded Confirmed Last Taken Type acetaminophen 325 mg tablet 650 mg PO Q6H PRN 07/15/21 07/15/21 Unknown History amlodipine 10 mg tablet 10 mg PO DAILY 07/15/21 07/15/21 Unknown History bisacodyl 10 mg rectal suppository 10 mg [place] DAILY PRN 07/15/21 07/15/21 Unknown History magnesium hydroxide 400 mg/5 mL 30 ml PO BEDTIME PRN 07/15/21 07/15/21 Unknown History oral suspension (Milk of Magnesia) memantine 5 mg tablet 5 mg PO DAILY 07/15/21 07/15/21 Unknown History methylphenidate HCl 10 mg tablet 10 mg PO DAILY@1400 07/15/21 07/15/21 Unknown History methylphenidate HCl 20 mg biphasic 20 mg PO DAILY 07/15/21 07/15/21 Unknown History 50-50 capsule,extended release (Ritalin LA) morphine 60 mg tablet,extended 2 tab PO BEDTIME 07/15/21 07/15/21 Unknown History release oxazepam 15 mg capsule 15 mg PO BEDTIME PRN 07/15/21 07/15/21 Unknown History oxazepam 15 mg capsule 15 mg PO DAILY 07/15/21 07/15/21 Unknown History polyethylene glycol 3350 17 17 g PO DAILY 07/15/21 07/15/21 Unknown History gram/dose oral powder (Miralax) sennosides 8.6 mg-docusate sodium 1 tab-cap PO BEDTIME 07/15/21 07/15/21 Unknown History 50 mg tablet (Senna Plus) Exam Exam Date and Time: July 17, 2021 1210 Height,Weight and Vital Signs: Height 6 ft Weight 65.771 kg Last Vital Signs Temp 98.3 F 07/17/21 11:33 Pulse 75 07/17/21 11:33 Resp 16 07/17/21 11:33 BP 105/66 07/17/21 11:33 Pulse Ox 98 07/17/21 11:33 Pertinent Lab Results Pertinent Lab Results: Laboratory Tests 07/15/21 07/15/21 07/15/21 19:55 19:55 19:55 WBC 10.6 RBC 4.89 Hgb 13.9 L Hct 42.1 MCV 86.1 MCH 28.4 MCHC 33.0 RDW 14.7 Plt Count 412 H D MPV 8.9 L Immature Gran % (Auto) 0.3 Neut % (Auto) 68.4 Lymph % (Auto) 23.3 [place] % (Auto) 6.6 Eos % (Auto) 0.9 Baso % (Auto) 0.5 Lymph # (Auto) 2.5 [place] # (Auto) 0.7 Eos # (Auto) 0.1 Baso # (Auto) 0.1 Abs Immat Gran (auto) 0.03 Absolute Neuts (auto) 7.2 Absolute Nucleated RBC 0.000 Nucleated RBC % (auto) 0.0 PT INR APTT Sodium 143 Potassium 4.5 Chloride 106 Carbon Dioxide 27 Anion Gap 15 BUN 11 Creatinine 0.85 Estim Creat Clear Calc 75.2 Estimated GFR > 60 Random Glucose Fasting Glucose 89 Calcium 9.4 D Magnesium Urine Color YELLOW Urine Appearance CLEAR Urine pH 6.0 Ur Specific [place] 1.020 Urine Protein NEG Urine Glucose (UA) NEG Urine Ketones NEG Urine Blood 1+ H Urine Nitrite NEG Ur Leukocyte Esterase NEG Urine RBC 5-9 H Urine WBC 0 Ur Squamous Epith Cells 1+ Urine Bacteria TRACE COVID-19 (AMBER) COVID-19 Clin Com 07/15/21 07/15/21 07/16/21 20:55 20:55 05:38 WBC 10.3 RBC 4.42 L Hgb 12.1 L Hct 38.6 L MCV 87.3 MCH 27.4 MCHC 31.3 RDW 15.0 Plt Count 363 MPV 9.2 L Immature Gran % (Auto) 0.5 H Neut % (Auto) 60.9 Lymph % (Auto) 27.2 [place] % (Auto) 9.2 Eos % (Auto) 1.7 Baso % (Auto) 0.5 Lymph # (Auto) 2.8 [place] # (Auto) 1.0 Eos # (Auto) 0.2 Baso # (Auto) 0.1 Abs Immat Gran (auto) 0.05 H Absolute Neuts (auto) 6.3 Absolute Nucleated RBC 0.000 Nucleated RBC % (auto) 0.0 PT 14.0 H INR 1.2 H APTT 33.5 Sodium Potassium Chloride Carbon Dioxide Anion Gap BUN Creatinine Estim Creat Clear Calc Estimated GFR Random Glucose Fasting Glucose Calcium Magnesium Urine Color Urine Appearance Urine pH Ur Specific [place] Urine Protein Urine Glucose (UA) Urine Ketones Urine Blood Urine Nitrite Ur Leukocyte Esterase Urine RBC Urine WBC Ur Squamous Epith Cells Urine Bacteria COVID-19 (AMBER) Negative COVID-19 Clin Com See Note 07/16/21 07/16/21 07/17/21 05:38 05:38 06:07 WBC 9.8 RBC 4.34 L Hgb 12.0 L Hct 37.7 L MCV 86.9 MCH 27.6 MCHC 31.8 RDW 15.0 Plt Count 354 MPV 9.1 L Immature Gran % (Auto) Neut % (Auto) Lymph % (Auto) [place] % (Auto) Eos % (Auto) Baso % (Auto) Lymph # (Auto) [place] # (Auto) Eos # (Auto) Baso # (Auto) Abs Immat Gran (auto) Absolute Neuts (auto) Absolute Nucleated RBC 0.000 Nucleated RBC % (auto) 0.0 PT INR APTT Sodium 142 Potassium 4.0 Chloride 107 Carbon Dioxide 28 Anion Gap 11 L BUN 12 Creatinine 0.80 Estim Creat Clear Calc 79.9 Estimated GFR > 60 Random Glucose 95 Fasting Glucose Calcium 8.7 D Magnesium 2.2 Urine Color Urine Appearance Urine pH Ur Specific [place] Urine Protein Urine Glucose (UA) Urine Ketones Urine Blood Urine Nitrite Ur Leukocyte Esterase Urine RBC Urine WBC Ur Squamous Epith Cells Urine Bacteria COVID-19 (AMBER) COVID-19 Clin Com 07/17/21 06:07 WBC RBC Hgb Hct MCV MCH MCHC RDW Plt Count MPV Immature Gran % (Auto) Neut % (Auto) Lymph % (Auto) [place] % (Auto) Eos % (Auto) Baso % (Auto) Lymph # (Auto) [place] # (Auto) Eos # (Auto) Baso # (Auto) Abs Immat Gran (auto) Absolute Neuts (auto) Absolute Nucleated RBC Nucleated RBC % (auto) PT INR APTT Sodium 141 Potassium 4.2 Chloride 106 Carbon Dioxide 30 H Anion Gap 9 L BUN 13 Creatinine 0.81 Estim Creat Clear Calc 78.9 Estimated GFR > 60 Random Glucose 100 Fasting Glucose Calcium 8.7 Magnesium Urine Color Urine Appearance Urine pH Ur Specific [place] Urine Protein Urine Glucose (UA) Urine Ketones Urine Blood Urine Nitrite Ur Leukocyte Esterase Urine RBC Urine WBC Ur Squamous Epith Cells Urine Bacteria COVID-19 (AMBER) COVID-19 Clin Com Airway Mallampati Class: III (Poor dentition; broken upper central incisors) TM Dist: >3cm Neck ROM: Limited Loose/Missing/Broken Teeth: Yes, Upper and Lower Heart: RRR Lungs: CTA Assessment and Plan Assessment Anesthesia Assessment: Anesthesia Plan Discussed and Chart Reviewed Final Anesthetic Review History of Problems with Anesthesia: No NPO: Yes ASA Class: III Final Preanesthetic Review: Meds/Allgs Chart Reviewed, Consent Obtained/Reviewed and Anes Risks/Benef Reviewed Patient Risk: Intermediate Procedure Risk: Low Anesthetic Plan Anesthetic Plan: GA Disposition: Standard PACU
--- NOTE | 2021-07-17 13:37 | MHC.SHP ---
Pre-Procedural Eval Section A Date of Service: 07/17/21 The patient is an INPATIENT: Yes Section B Chief Complaint: Hip Fx Allergies: Allergies Allergy/AdvReac Type Severity Reaction Status Date / Time acetaminophen [From Tylox] AdvReac Severe Vomiting Verified 07/16/21 04:40 oxycodone [From Tylox] AdvReac Severe Vomiting Verified 07/16/21 04:40 Plan I have reviewed the history and physical and performed a pertinent physical examination on my patient. No changes have occurred unless specified.
--- NOTE | 2021-07-17 14:31 | P.OP_ITS ---
Operative Note Operative Note Date of Service: 07/17/21 Narrative: OPERATIVE NOTE for percutaneous screw fixation SURGEON:Dr Dipika Combs MD (Kelly) [employer] STRUCTURES: No assistant controller PREOP DIAGNOSIS : Subcapital fracture right hip POSTOP DIAGNOSIS: Same OPERATIVE PROCEDURE: OPERATIVE FIXATION right HIP with percutaneous screws CLINICAL NOTE: This gentleman fell and injured his righthip prior to the admission. Was subsequently brought to the emergency department. Was admitted to a gym see with the above diagnosis. After medical clearance and discussing the risks, benefits, and alternatives of the surgery as well as the rehabilitation course he was mutually agreed upon to carry out following procedure. OPERATIVE PROCEDURE Under a generalanesthetic the patient was placed supine on the fracture table. The left leg was flexed and externally rotated out of the way. The operative right leg was placed in standard boot traction. Closed reduction was performed under fluoroscopic guidance. This demonstrated the fracture to be reduced in a good position. Therefore the right hip and leg was then prepped and draped in standard barrier technique. Surgical time-out was then performed. The patient was identified. Procedure confirmed. Medical and allergy history is were reviewed. Preoperative antibi otics were given. Standard DVT prophylaxis was in place. All other items were discussed and agreed upon. Stab incision was made laterally. To guide ardon her inserted in parallel fashion under fluoroscopic guidance. These are found to be in appropriate position on the AP and lateral. They were measured drilled and to 95 mm partially-threaded screws were inserted with excellent purchase in the subchondral bone. Final images were taken AP and lateral fluoroscopy demonstrating the hardware and the fractures to all be in excellent position. We therefore proceeded to closure. The wounds approximated using interrupted 2 0 Dexon skin was closed with Dermabond Steri-Strips and sterile dressing. The patient was then taken out of traction. There anesthesia was reversed. They were transferred supine to the room bed then taken to recovery room in good condition. Intraoperatively there was very minimal blood loss. No complications
[2021-07-17] MEDS: fentaNYL citrate/PF 100 MCG/2 ML VIAL 25 MCG IVPUSH ×4 (14:55→15:10)
[2021-07-17] MEDS: oxyCODONE HCl Immed Release 5 MG TABLET 10 MG PO ×2 (15:25→20:15)
--- NOTE | 2021-07-17 15:47 | MHC.CM.PN ---
EMR REVIEWED, OPERATIVE FIXATION OF RIGHT HIP COMPLETED TODAY, PT HAS NOT RETURNED TO UNIT AT TIME OF THIS NOTE, D/C PLAN REMAINS TO RETURN TO [facility] FOR REH[facility] & LTC, [facility], POSSIBLE W/E D/C.
--- NOTE | 2021-07-17 16:03 | MHC.CLN ---
F/U CURRENTLY NPO POST SURGERY. DIET PRIOR TO SURGERY=REGULAR DIET WITH ENSURE 240 ML BID.
[2021-07-17] MEDS: Dextrose 5 % and 0.45 % NaCl 1,000 ML 50 ML IVCONT (17:37)
[2021-07-17] MEDS: 0.9 % Sodium Chloride Flush 3 ML SYRINGE IVFLUSH (17:38)
[2021-07-17] MEDS: Sennosides/Docusate Sodium TABLET 1 TAB PO (20:14)
[2021-07-17] MEDS: Morphine Sulfate ER 30 MG TABLET.ER 120 MG PO (20:15)
[2021-07-18] VITALS (8 sets, daily range): BP systolic 101–131; BP diastolic 61–76; PULSE 58–100; RESP 16–18; TEMP 36.6–37.3; O2SAT 94–98
[2021-07-18] MEDS: Morphine Sulfate 2 MG/ML CARTRIDGE IVPUSH ×3 (03:26→13:39)
[2021-07-18 07:10] LABS: Hematocrit 35.5 % (42-52); Hemoglobin 11.7 g/dl (14.0-18.0); Mean Corpuscular Hemoglobin 28.2 pg (27.0-33.0); Mean Corpuscular Volume 85.5 fL (80-98); Mean Platelet Volume 9.5 fL (9.4-12.4); Platelet Count 334 X10*3/uL (160-400); Red Blood Count 4.15 X10*6/uL (4.60-5.80); Red Cell Distribution Width 14.9 % (11.0-16.0); White Blood Count 11.8 X10*3/uL (4.8-10.8)
[2021-07-18 07:30] LABS: Anion Gap 11 (12-20); Blood Urea Nitrogen 14 mg/dL (9-16); Calcium 8.3 mg/dL (8.4-10.2); Carbon Dioxide 25 mmol/L (22-29); Chloride 107 mmol/L (96-108); Creatinine Clr Calc Pharmacy 88.8; Estimated Glomerular Filt Rate > 60; Glucose Random 129 mg/dL (60-115); Sodium 139 mmol/L (135-145)
[2021-07-18] MEDS: Heparin Sodium,Porcine 5,000 UNIT/ML VIAL 5000 UNIT SUBCUT ×3 (08:02→22:19)
[2021-07-18] MEDS: LORazepam 1 MG TABLET PO (08:03)
[2021-07-18] MEDS: amLODIPine Besylate 10 MG TABLET PO (08:03)
[2021-07-18] MEDS: polyethylene glycoL 3350 17 GM POWD.PACK PO (08:03)
[2021-07-18] MEDS: 0.9 % Sodium Chloride Flush 3 ML SYRINGE IVFLUSH ×3 (08:03→22:19)
[2021-07-18] MEDS: Memantine HCl 5 MG TABLET PO (08:03)
--- NOTE | 2021-07-18 09:17 | P.PNOP_ITS ---
Subjective Subjective Date of Service: 07/19/21 Interval history: POD1 s/p right hip percutaneous screws with Dr. Combs. Pain is well managed. Patient is resting comfortably in bed. No overnight events. Physical Exam Vital Signs: Vital Signs: Last Vital Signs Temp 97.8 F 07/18/21 07:39 Pulse 58 07/18/21 08:03 Resp 16 07/18/21 08:03 BP 109/67 07/18/21 08:03 Pulse Ox 98 07/18/21 07:39 Body Mass Index 19.6 Const: General: cooperative, healthy appearing and no acute distress Resp: Effort & Inspection: normal respiratory effort and able to speak in complete sentences Cardio: Rate: regular rate Peripheral pulses: Peripheral pulses 2+ throughout GI: Palpation (GI): Soft to palpation Skin: Lesions: no lesions Rashes: no rashes Extrem: Other: Right hip bandage is syl, dry, and intact. No ecchymosis, redness, or drainage. Block is still in effect. Procedures Date of Service Date of Service: 07/18/21 Progress Note: A&P Assessment and plan (1) Fracture of femur: Status: Acute Assessment and Plan: Continue pain mgmnt Begin ASA for dvt ppx begin PT for right hip pinning Dispo planning-Pending PT eval, pain mgmnt Fall Risk Details Current Medications: Current Medications Generic Name Dose Route Start Last Admin Trade Name Freq PRN Reason Stop Dose Admin Acetaminophen 650 mg 07/15/21 23:52 Acetaminophen 325 Mg Tablet PO Q6H PRN Pain, Mild (Pain Scale 1-3) Amlodipine Besylate 10 mg 07/16/21 09:00 07/18/21 08:03 Amlodipine Besylate 10 Mg Tablet PO 10 mg DAILY JUANITO Administration Protocol Aspirin 325 mg 07/18/21 22:00 Aspirin 325 Mg Tablet PO BID JUANITO Bisacodyl 10 mg 07/15/21 23:55 Bisacodyl 10 Mg Supp.Rect MD DAILY PRN Constipation Heparin Sodium (Porcine) 5,000 unit 07/15/21 23:45 07/18/21 08:02 Heparin Sodium,Porcine 5,000 Unit/Ml Vial SUBCUT 5,000 unit Q8H JUANITO Administration Lorazepam 1 mg 07/16/21 12:26 07/16/21 21:25 Lorazepam 1 Mg Tablet PO 1 mg BEDTIME PRN Administration MUSCLE SPASM/DYSTONIA Lorazepam 1 mg 07/17/21 09:00 07/18/21 08:03 Lorazepam 1 Mg Tablet PO 1 mg DAILY JUANITO Administration Magnesium Hydroxide 30 ml 07/15/21 23:55 Milk Of Magnesia 30 Ml Oral.Susp PO BEDTIME PRN Constipation Melatonin 3 mg 07/15/21 23:52 Melatonin 3 Mg Tablet PO BEDTIME PRN Insomnia Memantine 5 mg 07/16/21 09:00 07/18/21 08:03 Memantine Hcl 5 Mg Tablet PO 5 mg DAILY JUANITO Administration Methylphenidate HCl 10 mg 07/16/21 14:00 07/17/21 17:29 Methylphenidate Hcl 10 Mg Tablet PO Not Given DAILY@1400 JUANITO Morphine Sulfate 120 mg 07/16/21 21:00 07/17/21 20:15 Morphine Sulfate Er 30 Mg Tablet.Er PO 120 mg BEDTIME JUANITO Administration Morphine Sulfate 2 mg 07/16/21 13:15 07/18/21 08:03 Morphine Sulfate 2 Mg/Ml Cartridge IVPUSH 2 mg Q4H PRN Administration Pain, Severe (Pain Scale 7-10) Protocol Oxycodone HCl 10 mg 07/17/21 17:24 07/17/21 20:15 Oxycodone Hcl Immed Release 5 Mg Tablet PO 10 mg Q6H PRN Administration Pain, Moderate (Pain Scale 4-6 Pharmacy Consult 1 each 07/15/21 20:51 Consult Rx Perform Med Rec MISCELLANE ONCE PRN Consult order Polyethylene Glycol 17 gm 07/16/21 09:00 07/18/21 08:03 Polyethylene Glycol 3350 17 Gm Powd.Pack PO 17 gm DAILY JUANITO Administration Senna 17.2 mg 07/15/21 23:52 Sennosides 8.6 Mg Tablet PO BEDTIME PRN Constipation Senna/Docusate Sodium 1 tab 07/16/21 21:00 07/17/21 20:14 Sennosides/Docusate Sodium Tablet PO 1 tab BEDTIME JUANITO Administration Sodium Chloride 3 ml 07/16/21 00:00 07/18/21 08:03 0.9 % Sodium Chloride Flush 3 Ml Syringe IVFLUSH 3 ml QSHIFT JUANITO Administration Sodium Chloride 3 ml 07/17/21 17:24 07/18/21 08:03 0.9 % Sodium Chloride Flush 3 Ml Syringe IVFLUSH Not Given QSHIFT JUANITO Time Spent With Patient Time: Total time spent is greater than 50% in coordination of care (as docume nted) at patient's floor/unit and/or counseling patient: Time with patient: less than 15 minutes Quality Stroke Does the patient have a stroke diagnosis?: No VTE Prior VTE?: No VTE Risk Level:: Medical - moderate - high VTE Device Contraindication: N/A - Device Ordered VTE Drug Contraindication: N/A - Med Ordered
--- NOTE | 2021-07-18 12:20 | HO.PM.IMPN ---
Subjective Subjective Date of Service: 07/18/21 Interval History: Seen and examined this morning Reports swelling in his right forearm. has pain right hip and right arm. No other complaints Review of Systems Review of Systems: Yes all other systems are reviewed and are negative Constitutional Constitutional: Denies chills and Denies fever(s) Cardiovascular Cardiovascular: Denies chest pain Respiratory Respiratory: Denies cough Gastrointestinal Gastrointestinal: Denies abdominal pain Physical Exam Vital Signs: Vital Signs: Last Vital Signs Temp 98.1 F 07/18/21 11:35 Pulse 84 07/18/21 11:35 Resp 17 07/18/21 11:35 BP 117/68 07/18/21 11:35 Pulse Ox 98 07/18/21 11:35 Body Mass Index 19.6 Const: General: comfortable, no acute distress and alert Nutritional Appearance: thin Orientation/consciousness: oriented to person and oriented to place HENMT: Head: Yes normocephalic and Yes atraumatic Eyes: Sclerae: sclerae normal Resp: Effort & Inspection: normal respiratory effort and no respiratory distress Cardio: Rate: regular rate Rhythm: regular rhythm GI: Palpation (GI): Soft to palpation and nontender Neuro: General: oriented to person and oriented to place Cranial nerves: Yes CN's II-XII intact bilaterally and Yes Bilaterally intact EOM present Extrem: Other: No edema, no ecchymosis small dressing right hip clearn/dry and intact swelling right forearm, no open wound, no erythema Objective Data Current Medications Generic Name Dose Route Start Last Admin Trade Name Freq PRN Reason Stop Dose Admin Acetaminophen 650 mg 07/15/21 23:52 Acetaminophen 325 Mg Tablet PO Q6H PRN Pain, Mild (Pain Scale 1-3) Amlodipine Besylate 10 mg 07/16/21 09:00 07/18/21 08:03 Amlodipine Besylate 10 Mg Tablet PO 10 mg DAILY JUANITO Administration Protocol Aspirin 325 mg 07/18/21 22:00 Aspirin 325 Mg Tablet PO BID JUANITO Bisacodyl 10 mg 07/15/21 23:55 Bisacodyl 10 Mg Supp.Rect [place] DAILY PRN Constipation Heparin Sodium (Porcine) 5,000 unit 07/15/21 23:45 07/18/21 08:02 Heparin Sodium,Porcine 5,000 Unit/Ml Vial SUBCUT 5,000 unit Q8H JUANITO Administration Lorazepam 1 mg 07/16/21 12:26 07/16/21 21:25 Lorazepam 1 Mg Tablet PO 1 mg BEDTIME PRN Administration MUSCLE SPASM/DYSTONIA Lorazepam 1 mg 07/17/21 09:00 07/18/21 08:03 Lorazepam 1 Mg Tablet PO 1 mg DAILY JUANITO Administration Magnesium Hydroxide 30 ml 07/15/21 23:55 Milk Of Magnesia 30 Ml Oral.Susp PO BEDTIME PRN Constipation Melatonin 3 mg 07/15/21 23:52 Melatonin 3 Mg Tablet PO BEDTIME PRN Insomnia Memantine 5 mg 07/16/21 09:00 07/18/21 08:03 Memantine Hcl 5 Mg Tablet PO 5 mg DAILY JUANITO Administration Methylphenidate HCl 10 mg 07/16/21 14:00 07/17/21 17:29 Methylphenidate Hcl 10 Mg Tablet PO Not Given DAILY@1400 JUANITO Morphine Sulfate 120 mg 07/16/21 21:00 07/17/21 20:15 Morphine Sulfate Er 30 Mg Tablet.Er PO 120 mg BEDTIME JUANITO Administration Morphine Sulfate 2 mg 07/16/21 13:15 07/18/21 08:03 Morphine Sulfate 2 Mg/Ml Cartridge IVPUSH 2 mg Q4H PRN Administration Pain, Severe (Pain Scale 7-10) Protocol Oxycodone HCl 10 mg 07/17/21 17:24 07/17/21 20:15 Oxycodone Hcl Immed Release 5 Mg Tablet PO 10 mg Q6H PRN Administration Pain, Moderate (Pain Scale 4-6 Pharmacy Consult 1 each 07/15/21 20:51 Consult Rx Perform Med Rec MISCELLANE ONCE PRN Consult order Polyethylene Glycol 17 gm 07/16/21 09:00 07/18/21 08:03 Polyethylene Glycol 3350 17 Gm Powd.Pack PO 17 gm DAILY JUANITO Administration Senna 17.2 mg 07/15/21 23:52 Sennosides 8.6 Mg Tablet PO BEDTIME PRN Constipation Senna/Docusate Sodium 1 tab 07/16/21 21:00 07/17/21 20:14 Sennosides/Docusate Sodium Tablet PO 1 tab BEDTIME JUANITO Administration Sodium Chloride 3 ml 07/16/21 00:00 07/18/21 08:03 0.9 % Sodium Chloride Flush 3 Ml Syringe IVFLUSH 3 ml QSHIFT JUANITO Administration Sodium Chloride 3 ml 07/17/21 17:24 07/18/21 08:03 0.9 % Sodium Chloride Flush 3 Ml Syringe IVFLUSH Not Given QSHIFT JUANITO Labs CBC & Chem 7: 07/18/21 06:38 07/18/21 06:38 Labs: Laboratory Results - last 24 hr 07/17/21 07/18/21 07/18/21 13:09 06:38 06:38 MCV 85.5 MCH 28.2 MCHC 33.0 RDW 14.9 Plt Count 334 MPV 9.5 Absolute Nucleated RBC 0.000 Nucleated RBC % (auto) 0.0 Anion Gap 11 L Estim Creat Clear Calc 88.8 Estimated GFR > 60 Random Glucose 129 H Calcium 8.3 L Blood Type A Positive Antibody Screen NEGATIVE Assessment and Plan (1) Fracture of femur: Status: Acute Assessment and Plan: This is a year-old male with a past medical history of hypertension, chronic pain syndrome, dementia, [place] [facility] resident who presented to the hospital with a chief complaint of fall; noted to have right femur fracture.? Subcapital fracture of right hip ? POD #1 s/p percutaneous screw placement ortho following -pain control - pt eval Right forearm swelling RUE US shows no DVT keep arm elevated chronic pain syndrome:? chronic right arm pain Continue home dose of MS Contin Continue bowel regimen Hypertension Continue home dose of Norvasc Dementia Continue Namenda DVT prophylaxis:? Subcu heparin Attending: Dr. Simon Quality Stroke Does the patient have a stroke diagnosis?: No VTE Prior VTE?: No VTE Risk Level:: Medical - moderate - high VTE Device Contraindication: N/A - Device Ordered VTE Drug Contraindication: N/A - Med Ordered
[2021-07-18] MEDS: Methylphenidate HCl 10 MG TABLET PO (13:39)
[2021-07-18] MEDS: Sennosides 8.6 MG TABLET 17.2 MG PO (15:37)
[2021-07-18] MEDS: oxyCODONE HCl Immed Release 5 MG TABLET PO (17:26)
--- NOTE | 2021-07-18 19:16 | HO.POSTANES ---
Post Anesthesia Evaluation Post Anesthesia Evaluation Vital Signs: Vital Signs Temp Pulse Resp BP Pulse Ox 07/18/21 15:29 99.1 F 100 18 131/76 97 07/18/21 13:39 18 07/18/21 11:35 98.1 F 84 17 117/68 98 07/18/21 08:03 58 16 109/67 07/18/21 07:39 97.8 F 58 17 109/67 98 Anesthesia: General LMA Mental Status: Awake Pain Control: Satisfactory Nausea/Vomiting: None Hydration: Adequate Anesthesia-Related Issues: No Anes. Related Issues
[2021-07-18] MEDS: Morphine Sulfate ER 30 MG TABLET.ER 120 MG PO (22:18)
[2021-07-18] MEDS: Milk of Magnesia 30 ML ORAL.SUSP PO (22:19)
[2021-07-18] MEDS: Sennosides/Docusate Sodium TABLET 1 TAB PO (22:19)
[2021-07-18] MEDS: Melatonin 3 MG TABLET PO (22:19)
[2021-07-19] VITALS (7 sets, daily range): BP systolic 100–121; BP diastolic 55–80; PULSE 75–105; RESP 14–19; TEMP 36.3–36.9; O2SAT 95–98
[2021-07-19 07:39] LABS: Hematocrit 37.1 % (42-52); Hemoglobin 11.8 g/dl (14.0-18.0); Mean Corpuscular HGB Conc 31.8 g/dl (31.0-36.0); Mean Corpuscular Hemoglobin 27.8 pg (27.0-33.0); Mean Corpuscular Volume 87.3 fL (80-98); Mean Platelet Volume 9.8 fL (9.4-12.4); Platelet Count 312 X10*3/uL (160-400); Red Blood Count 4.25 X10*6/uL (4.60-5.80); Red Cell Distribution Width 15.4 % (11.0-16.0); White Blood Count 11.1 X10*3/uL (4.8-10.8)
[2021-07-19] MEDS: Heparin Sodium,Porcine 5,000 UNIT/ML VIAL 5000 UNIT SUBCUT ×3 (07:56→23:47)
[2021-07-19] MEDS: polyethylene glycoL 3350 17 GM POWD.PACK PO (07:56)
[2021-07-19] MEDS: 0.9 % Sodium Chloride Flush 3 ML SYRINGE IVFLUSH ×2 (07:56→16:59)
[2021-07-19] MEDS: amLODIPine Besylate 10 MG TABLET PO (07:57)
[2021-07-19] MEDS: Aspirin 325 MG TABLET PO ×2 (07:57→21:17)
[2021-07-19] MEDS: LORazepam 1 MG TABLET PO ×2 (07:57→21:19)
[2021-07-19] MEDS: oxyCODONE HCl Immed Release 5 MG TABLET PO ×2 (07:57→16:59)
[2021-07-19] MEDS: Memantine HCl 5 MG TABLET PO (07:57)
--- NOTE | 2021-07-19 10:49 | PM.PNORT ---
Subjective Subjective Date of Service: 07/19/21 Interval history: POD2 s/p right hip percutaneous pinning. Patient is resting comfortably in bed. No overnight events. Pain is well managed. No additional complaints. Physical Exam Vital Signs: Vital Signs: Last Vital Signs Temp 97.4 F 07/19/21 07:30 Pulse 86 07/19/21 07:57 Resp 18 07/19/21 07:30 BP 121/69 07/19/21 07:57 Pulse Ox 98 07/19/21 07:30 Body Mass Index 19.6 Const: General: cooperative, healthy appearing and no acute distress Resp: Effort & Inspection: normal respiratory effort and able to speak in complete sentences Cardio: Rate: regular rate Peripheral pulses: Peripheral pulses 2+ throughout GI: Palpation (GI): Soft to palpation Skin: Lesions: no lesions Rashes: no rashes Extrem: Other: Right hip bandages are clean, dry, and intact. No ecchymosis, redness, or drainage. NVI. Procedures Date of Service Date of Service: 07/19/21 Progress Note: A&P Assessment and plan (1) Fracture of femur: Status: Acute Assessment and Plan: Continue pain mgmnt Contniue ASA for dvt ppx Continue PT for right hip pinning? Dispo planning- Clear for d/c from ortho standpoint Fall Risk Details Current Medications: Current Medications Generic Name Dose Route Start Last Admin Trade Name Freq PRN Reason Stop Dose Admin Acetaminophen 650 mg 07/15/21 23:52 Acetaminophen 325 Mg Tablet PO Q6H PRN Pain, Mild (Pain Scale 1-3) Amlodipine Besylate 10 mg 07/16/21 09:00 07/19/21 07:57 Amlodipine Besylate 10 Mg Tablet PO 10 mg DAILY JUANITO Administration Protocol Aspirin 325 mg 07/18/21 22:00 07/19/21 07:57 Aspirin 325 Mg Tablet PO 325 mg BID JUANITO Administration Bisacodyl 10 mg 07/15/21 23:55 Bisacodyl 10 Mg Supp.Rect [place] DAILY PRN Constipation Heparin Sodium (Porcine) 5,000 unit 07/15/21 23:45 07/19/21 07:56 Heparin Sodium,Porcine 5,000 Unit/Ml Vial SUBCUT 5,000 unit Q8H JUANITO Administration Lorazepam 1 mg 07/16/21 12:26 07/16/21 21:25 Lorazepam 1 Mg Tablet PO 1 mg BEDTIME PRN Administration MUSCLE SPASM/DYSTONIA Lorazepam 1 mg 07/17/21 09:00 07/19/21 07:57 Lorazepam 1 Mg Tablet PO 1 mg DAILY JUANITO Administration Magnesium Hydroxide 30 ml 07/15/21 23:55 07/18/21 22:19 Milk Of Magnesia 30 Ml Oral.Susp PO 30 ml BEDTIME PRN Administration Constipation Melatonin 3 mg 07/15/21 23:52 07/18/21 22:19 Melatonin 3 Mg Tablet PO 3 mg BEDTIME PRN Administration Insomnia Memantine 5 mg 07/16/21 09:00 07/19/21 07:57 Memantine Hcl 5 Mg Tablet PO 5 mg DAILY JUANITO Administration Methylphenidate HCl 10 mg 07/16/21 14:00 07/18/21 13:39 Methylphenidate Hcl 10 Mg Tablet PO 10 mg DAILY@1400 JUANITO Administration Morphine Sulfate 120 mg 07/16/21 21:00 07/18/21 22:18 Morphine Sulfate Er 30 Mg Tablet.Er PO 120 mg BEDTIME JUANITO Administration Morphine Sulfate 2 mg 07/16/21 13:15 07/18/21 13:39 Morphine Sulfate 2 Mg/Ml Cartridge IVPUSH 2 mg Q4H PRN Administration Pain, Severe (Pain Scale 7-10) Protocol Oxycodone HCl 5 mg 07/18/21 12:19 07/19/21 07:57 Oxycodone Hcl Immed Release 5 Mg Tablet PO 5 mg Q6H PRN Administration Pain, Moderate (Pain Scale 4-6 Pharmacy Consult 1 each 07/15/21 20:51 Consult Rx Perform Med Rec MISCELLANE ONCE PRN Consult order Polyethylene Glycol 17 gm 07/16/21 09:00 07/19/21 07:56 Polyethylene Glycol 3350 17 Gm Powd.Pack PO 17 gm DAILY JUANITO Administration Senna 17.2 mg 07/15/21 23:52 07/18/21 15:37 Sennosides 8.6 Mg Tablet PO 17.2 mg BEDTIME PRN Administration Constipation Senna/Docusate Sodium 1 tab 07/16/21 21:00 07/18/21 22:19 Sennosides/Docusate Sodium Tablet PO 1 tab BEDTIME JUANITO Administration Sodium Chloride 3 ml 07/16/21 00:00 07/19/21 07:56 0.9 % Sodium Chloride Flush 3 Ml Syringe IVFLUSH 3 ml QSHIFT JUANITO Administration Sodium Chloride 3 ml 07/17/21 17:24 07/19/21 07:57 0.9 % Sodium Chloride Flush 3 Ml Syringe IVFLUSH Not Given QSHIFT JUANITO Time Spent With Patient Time: Total time spent is greater than 50% in coordination of care (as documented) at patient's floor/unit and/or counseling patient: Time with patient: less than 15 minutes Quality Stroke Does the patient have a stroke diagnosis?: No VTE Prior VTE?: No VTE Risk Level:: Medical - moderate - high VTE Device Contraindication: N/A - Device Ordered VTE Drug Contraindication: N/A - Med Ordered
--- NOTE | 2021-07-19 11:01 | HO.PM.IMPN ---
Subjective Subjective Date of Service: 07/19/21 Interval History: seen and examined this morning feeling well, no specific complaints. Improvement in right arm pain Review of Systems Review of Systems: Yes all other systems are reviewed and are negative Constitutional Constitutional: Denies chills and Denies fever(s) Cardiovascular Cardiovascular: Denies chest pain Respiratory Respiratory: Denies cough Gastrointestinal Gastrointestinal: Denies abdominal pain Physical Exam Vital Signs: Vital Signs: Last Vital Signs Temp 97.4 F 07/19/21 07:30 Pulse 86 07/19/21 07:57 Resp 18 07/19/21 07:30 BP 121/69 07/19/21 07:57 Pulse Ox 98 07/19/21 07:30 Body Mass Index 19.6 Const: General: comfortable, no acute distress and alert Nutritional Appearance: thin Orientation/consciousness: oriented to person and oriented to place HENMT: Head: Yes normocephalic and Yes atraumatic Eyes: Sclerae: sclerae normal Resp: Effort & Inspection: normal respiratory effort and no respiratory distress Cardio: Rate: regular rate Rhythm: regular rhythm GI: Palpation (GI): Soft to palpation and nontender Neuro: General: oriented to person and oriented to place Cranial nerves: Yes CN's II-XII intact bilaterally and Yes Bilaterally intact EOM present Extrem: Other: No edema, no ecchymosis small dressing right hip clearn/dry and intact swelling right forearm, no open wound, no erythema Objective Data Current Medications Generic Name Dose Route Start Last Admin Trade Name Freq PRN Reason Stop Dose Admin Acetaminophen 650 mg 07/15/21 23:52 Acetaminophen 325 Mg Tablet PO Q6H PRN Pain, Mild (Pain Scale 1-3) Amlodipine Besylate 10 mg 07/16/21 09:00 07/19/21 07:57 Amlodipine Besylate 10 Mg Tablet PO 10 mg DAILY JUANITO Administration Protocol Aspirin 325 mg 07/18/21 22:00 07/19/21 07:57 Aspirin 325 Mg Tablet PO 325 mg BID JUANITO Administration Bisacodyl 10 mg 07/15/21 23:55 Bisacodyl 10 Mg Supp.Rect [place] DAILY PRN Constipation Heparin Sodium (Porcine) 5,000 unit 07/15/21 23:45 07/19/21 07:56 Heparin Sodium,Porcine 5,000 Unit/Ml Vial SUBCUT 5,000 unit Q8H JUANITO Administration Lorazepam 1 mg 07/16/21 12:26 07/16/21 21:25 Lorazepam 1 Mg Tablet PO 1 mg BEDTIME PRN Administration MUSCLE SPASM/DYSTONIA Lorazepam 1 mg 07/17/21 09:00 07/19/21 07:57 Lorazepam 1 Mg Tablet PO 1 mg DAILY JUANITO Administration Magnesium Hydroxide 30 ml 07/15/21 23:55 07/18/21 22:19 Milk Of Magnesia 30 Ml Oral.Susp PO 30 ml BEDTIME PRN Administration Constipation Melatonin 3 mg 07/15/21 23:52 07/18/21 22:19 Melatonin 3 Mg Tablet PO 3 mg BEDTIME PRN Administration Insomnia Memantine 5 mg 07/16/21 09:00 07/19/21 07:57 Memantine Hcl 5 Mg Tablet PO 5 mg DAILY JUANITO Administration Methylphenidate HCl 10 mg 07/16/21 14:00 07/18/21 13:39 Methylphenidate Hcl 10 Mg Tablet PO 10 mg DAILY@1400 JUANITO Administration Morphine Sulfate 120 mg 07/16/21 21:00 07/18/21 22:18 Morphine Sulfate Er 30 Mg Tablet.Er PO 120 mg BEDTIME JUANITO Administration Morphine Sulfate 2 mg 07/16/21 13:15 07/18/21 13:39 Morphine Sulfate 2 Mg/Ml Cartridge IVPUSH 2 mg Q4H PRN Administration Pain, Severe (Pain Scale 7-10) Protocol Oxycodone HCl 5 mg 07/18/21 12:19 07/19/21 07:57 Oxycodone Hcl Immed Release 5 Mg Tablet PO 5 mg Q6H PRN Administration Pain, Moderate (Pain Scale 4-6 Pharmacy Consult 1 each 07/15/21 20:51 Consult Rx Perform Med Rec MISCELLANE ONCE PRN Consult order Polyethylene Glycol 17 gm 07/16/21 09:00 07/19/21 07:56 Polyethylene Glycol 3350 17 Gm Powd.Pack PO 17 gm DAILY JUANITO Administration Senna 17.2 mg 07/15/21 23:52 07/18/21 15:37 Sennosides 8.6 Mg Tablet PO 17.2 mg BEDTIME PRN Administration Constipation Senna/Docusate Sodium 1 tab 07/16/21 21:00 07/18/21 22:19 Sennosides/Docusate Sodium Tablet PO 1 tab BEDTIME JUANITO Administration Sodium Chloride 3 ml 07/16/21 00:00 07/19/21 07:56 0.9 % Sodium Chloride Flush 3 Ml Syringe IVFLUSH 3 ml QSHIFT JUANITO Administration Sodium Chloride 3 ml 07/17/21 17:24 07/19/21 07:57 0.9 % Sodium Chloride Flush 3 Ml Syringe IVFLUSH Not Given QSHIFT JUANITO Labs CBC & Chem 7: 07/19/21 06:53 07/18/21 06:38 Labs: Laboratory Results - last 24 hr 07/19/21 06:53 MCV 87.3 MCH 27.8 MCHC 31.8 RDW 15.4 Plt Count 312 MPV 9.8 Absolute Nucleated RBC 0.000 Nucleated RBC % (auto) 0.0 Assessment and Plan (1) Fracture of femur: Status: Acute Assessment and Plan: This is a year-old male with a past medical history of hypertension, chronic pain syndrome, dementia, senior care resident who presented to the hospital with a chief complaint of fall; noted to have right femur fracture.? Subcapital fracture of right hip ? POD #2 s/p percutaneous screw placement ortho following -pain control -pt eval Right forearm swelling Improving. RUE US shows no DVT keep arm elevated chronic pain syndrome:? chronic right arm/shoulder pain Continue home dose of MS Contin Continue bowel regimen Hypertension Continue home dose of Norvasc Dementia Continue Namenda DVT prophylaxis:? Subcu heparin Attending: Dr. Simon Dispo: PT eval and plan for return to [facility] Stroke Does the patient have a stroke diagnosis?: No VTE Prior VTE?: No VTE Risk Level:: Medical - moderate - high VTE Device Contraindication: N/A - Device Ordered VTE Drug Contraindication: N/A - Med Ordered
[2021-07-19] MEDS: Methylphenidate HCl 10 MG TABLET PO (14:12)
[2021-07-19] MEDS: Sennosides/Docusate Sodium TABLET 1 TAB PO (21:18)
[2021-07-19] MEDS: Morphine Sulfate ER 30 MG TABLET.ER 120 MG PO (21:19)
[2021-07-19] MEDS: Morphine Sulfate 2 MG/ML CARTRIDGE IVPUSH (23:46)
[2021-07-20 03:27] VITALS: BP 103/59; PULSE 88; RESP 12; TEMP 36.3; O2SAT 97
[2021-07-20] MEDS: Morphine Sulfate 2 MG/ML CARTRIDGE IVPUSH (04:50)
[2021-07-20 07:31] VITALS: BP 132/68; PULSE 82; RESP 14; TEMP 36.5; O2SAT 100
[2021-07-20] MEDS: 0.9 % Sodium Chloride Flush 3 ML SYRINGE IVFLUSH (09:28)
[2021-07-20] MEDS: polyethylene glycoL 3350 17 GM POWD.PACK PO (09:28)
[2021-07-20] MEDS: Heparin Sodium,Porcine 5,000 UNIT/ML VIAL 5000 UNIT SUBCUT (09:28)
[2021-07-20 09:29] VITALS: BP 132/68; PULSE 82
[2021-07-20] MEDS: Memantine HCl 5 MG TABLET PO (09:29)
[2021-07-20] MEDS: oxyCODONE HCl Immed Release 5 MG TABLET PO (09:29)
[2021-07-20] MEDS: Aspirin 325 MG TABLET PO (09:29)
[2021-07-20] MEDS: amLODIPine Besylate 10 MG TABLET PO (09:29)
--- NOTE | 2021-07-20 11:19 | MHC.CLN ---
F/U EATING 100% OF MEALS. DIET=REGULAR. ADDED ENSURE 240 ML BID (700 KCAL, 40 G PROTEIN) DUE TO LOW BODY WEIGHT (81% OF IBW).
--- NOTE | 2021-07-20 11:45 | PM.DS ---
DS: Providers Provider Date of Service: 07/20/21 Date of admission: 07/15/21 23:42 Primary care physician: ARIANA ALCANTARA Consults: 07/16/21 07:27 Consult to Orthopedics Routine Consulting Provider: Dipika Combs Reason for consultation: right femur fracture Has provider been notified: No Discharging clinician: Thea Patel DS: Diagnosis Discharge Diagnosis (1) Fracture of femur: Status: Acute DS: Medications Discharge Medications Home Medications: Home Medications Medication Instructions Recorded Confirmed acetaminophen 325 mg tablet 650 mg PO Q6H PRN 07/15/21 07/15/21 amlodipine 10 mg tablet 10 mg PO DAILY 07/15/21 07/15/21 bisacodyl 10 mg rectal suppository 10 mg SC DAILY PRN 07/15/21 07/15/21 magnesium hydroxide 400 mg/5 mL 30 ml PO BEDTIME PRN 07/15/21 07/15/21 oral suspension (Milk of Magnesia) memantine 5 mg tablet 5 mg PO DAILY 07/15/21 07/15/21 methylphenidate HCl 10 mg tablet 10 mg PO DAILY@1400 07/15/21 07/15/21 methylphenidate HCl 20 mg biphasic 20 mg PO DAILY 07/15/21 07/15/21 50-50 capsule,extended release (Ritalin LA) morphine 60 mg tablet,extended 2 tab PO BEDTIME 07/15/21 07/15/21 release oxazepam 15 mg capsule 15 mg PO BEDTIME PRN 07/15/21 07/15/21 oxazepam 15 mg capsule 15 mg PO DAILY 07/15/21 07/15/21 polyethylene glycol 3350 17 17 g PO DAILY 07/15/21 07/15/21 gram/dose oral powder (Miralax) sennosides 8.6 mg-docusate sodium 1 tab-cap PO BEDTIME 07/15/21 07/15/21 50 mg tablet (Senna Plus) Previous Rx's Medication Instructions Recorded aspirin 325 mg tablet 325 mg PO BID 42 Days #84 tab 07/20/21 oxycodone 5 mg tablet 5 mg PO Q6H PRN #20 tab 07/20/21 DS: Summary Hospital Course Hospital Course: HP as per admitting provider 71-year-old male with a past medical history of hypertension, dementia, 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 Reportedly patient had a fall from his bed about 2 days ago, denies any head strike or loss of consciousness.? Fell on his right side; since then he has been having right hip pain; but has been able to ambulate; today patient had an x-ray of the hip which noted to have possible fracture subsequently sent him to the ER for further evaluation. Denies any chest pain palpitations lightheadedness or dizziness. Denies any fever chills cough. Denies any focal weakness numbness tingling . Patient initially presented after mechanical fall. He was found to have subcapital fracture of the right hip. He is post-op day 3 of right hip percutaneous pinning. Pain is well controlled. Labs within acceptable limits, vital signs are stable. He will remain on full dose aspirin for 6 weeks. He can follow up with orthopedic surgery as needed. Time Spent with Patient Time attestation: Total time spent providing and/or coordinating discharge services: Discharge coordination time: Less than 30 minutes Quality: Stroke Does the patient have a stroke diagnosis?: No Physical Exam Vital Signs: Vital Signs: Last Vital Signs Temp 97.7 F 07/20/21 07:31 Pulse 82 07/20/21 09:29 Resp 14 07/20/21 07:31 BP 132/68 07/20/21 09:29 Pulse Ox 100 07/20/21 07:31 Body Mass Index 19.6 Appearing in no acute distress head is normocephalic atraumatic eyes pupils are PERRLA sclera is anicteric mouth throat mucous membranes are intact and moist neck is supple no lymphadenopathy, no JVD noted lung sounds are clear to auscultation heart regular rate rhythm, clear S1, S2 positive bowel sounds, abdomen is soft, nontender neuro patient is alert x3, no focal deficits Discharge Plan Discharge Anticipated Discharge Date/Time: 07/20/21 11:19 Patient Disposition: Xfer Inpatient Rehab Fac Discharge Diagnosis: Subcapital femur fracture, screw placement Referrals: Anirudh Castillo MD [Physician] - None ARIANA ALCANTARA [Primary Care Provider] - 1 Week Discharge Medications: New aspirin 325 mg Tablet 325 mg PO BID 42 Days Qty: 84 RF: 0 oxycodone 5 mg Tablet 5 mg PO Q6H PRN (Reason: Pain, Moderate (Pain Scale 4-6) Qty: 20 RF: 0 Continued amlodipine 10 mg Tablet 10 mg PO DAILY RF: 0 methylphenidate HCl 10 mg Tablet 10 mg PO DAILY@1400 RF: 0 memantine 5 mg Tablet 5 mg PO DAILY RF: 0 methylphenidate HCl [Ritalin LA] 20 mg Capsule,Er Biphasic 50-50 20 mg PO DAILY RF: 0 morphine 60 mg tablet extended release 2 tab PO BEDTIME RF: 0 oxazepam 15 mg Capsule 15 mg PO BEDTIME PRN (Reason: MUSCLE SPASM/DYSTONIA) RF: 0 oxazepam 15 mg Capsule 15 mg PO DAILY RF: 0 magnesium hydroxide [Milk of Magnesia] 400 mg/5 mL Suspension 30 ml PO BEDTIME PRN (Reason: Constipation) RF: 0 sennosides-docusate sodium [Senna Plus] 8.6-50 mg Tablet 1 tab-cap PO BEDTIME RF: 0 bisacodyl 10 mg Suppository 10 mg SC DAILY PRN (Reason: Constipation) RF: 0 acetaminophen 325 mg Tablet 650 mg PO Q6H PRN (Reason: Pain (Scale Score 1-3)) RF: 0 polyethylene glycol 3350 [Miralax] 17 gram/dose Powder 17 g PO DAILY RF: 0 Discharge Orders: Discharge Order (Routine); Ordered 07/20/21 Ordered By: Thea Patel Diet: advance to usual diet Activity on Discharge: As tolerated Stand Alone Forms: Patient Portal Discharge page Care Plan Goals: pain management Health Concerns: Subcapital hip fracture status post percutaneous screw fixation Plan of Treatment: You have narcotic pain medication for 5 days, may use as needed Follow-up with orthopedic surgery office as needed He will be on full-dose aspirin for the next 6 weeks for DVT prophylaxis Assessment: See discharge summary
[2021-07-20 11:58] VITALS: BP 119/78; PULSE 95; RESP 16; TEMP 36.8; O2SAT 97
--- NOTE | 2021-07-20 12:19 | PC.NURSE ---
Skin assessment completed today. Patient has right hip dressing from surgical repair. Some shadowing on bandage. No other skin issues noted at this time.
[2021-07-20 12:53] LABS: COVID-19 Test Negative (Negative)
[2021-07-20] MEDS: Methylphenidate HCl 10 MG TABLET PO (14:16)
--- NOTE | 2021-07-20 14:22 | MHC.CM.PN ---
Addendum entered by Ann Case 07/20/21 16:21: [facility] INFORMED SN[facility] HAS RECEIVED AUTH FROM [facility]. PT SCHEDULED TO TRANSPORT BACK TO [facility]IA [facility] AT 1730 HOURS. PT IS AWARE AND A VM WAS LEFT FOR DAUGHTER, KERVIN ([phone]) INFORMING HER OF DC AND MEDICARE RIGHTS. Original Note: PT IS CLEARED FOR DC HOWEVER HE WILL NEED TO SKILL BACK INTO [facility] DUE TO HIS INSURANCE COMPANY. PT EVAL AND UPDATES SENT AND LIAISON HAS SENT AUTH REQUEST TO [facility], CURRENTLY AWAITING DETERMINATION CURRENT DC PLAN IS RETURN TO [facility] VIA [facility]
[2021-07-20 15:30] VITALS: BP 132/68; PULSE 100; RESP 16; TEMP 37.3; O2SAT 97
== END 2021-07-20 17:45 | DRG 482 ==
LOC: HO.ED 23:08 → HO.EDOVER 07-16 00:07 → HO.S3 07-16 00:13
PROVIDERS: Nurse Practitioner Acute Care; Orthopaedic Surgery; Physician Assistant Medical; Admitting Provider Hospitalist; Emergency Provider Internal Medicine; PCP Emergency Medicine; Visit Provider Family Medicine
PROC: 0QS634Z Reposition Right Upper Femur with Internal Fixation Device, Percutaneous Approach (ICD-10-PCS; principal; 2021-07-17 13:30)
DX: S72.011A Unspecified intracapsular fracture of right femur, initial encounter for closed fracture (principal); W06.XXXA Fall from bed, initial encounter; Y93.9 Activity, unspecified; I10 Essential (primary) hypertension; G89.4 Chronic pain syndrome; F03.90 Unspecified dementia, unspecified severity, without behavioral disturbance, psychotic disturbance, mood disturbance, and anxiety; Y92.122 Bedroom in nursing home as the place of occurrence of the external cause; Y99.9 Unspecified external cause status; Z20.822 Contact with and (suspected) exposure to COVID-19; Z88.5 Allergy status to narcotic agent; Z88.6 Allergy status to analgesic agent; Z79.891 Long term (current) use of opiate analgesic; Z79.899 Other long term (current) drug therapy
CPT/HCPCS: 36415; 70450; 71045; 72125; 72192; 73502; 80048; 81001; 83735; 85025; 85027; 85610; 85730; 86850; 86900; 86901; 87635; 93005; 93971; 96374; 96375; 97110; 97116; 97162; 97166; 99285; C1713; C1769; J0690; J1100; J1170; J2270; J2370; J2405; J3010

== ENCOUNTER → 2022-10-04 12:50 | Outpatient (BNVA) | payer MEDICARE, MEDICAID, SELFPAY | PROVIDERS: Visit Provider Surgery | DX: K40.90 Unilateral inguinal hernia, without obstruction or gangrene, not specified as recurrent (principal); G62.9 Polyneuropathy, unspecified; R26.81 Unsteadiness on feet; Z99.89 Dependence on other enabling machines and devices | CPT/HCPCS: 99202 ==

== ENCOUNTER 2022-11-17 13:09 | Outpatient (REF) | payer MEDICARE, MEDICAID, OTHER, SELFPAY ==
[2022-11-17 13:27] LABS: MANUAL DIFF FLAG NO
[2022-11-17 16:01] LABS: Basophils Absolute Auto 0.1 X10*3/uL (0.0-0.2); Basophils Percent Auto 0.6 % (0-2); Eosinophils Absolute Auto 0.2 X10*3/uL (0.0-0.4); Eosinophils Percent Auto 1.7 % (0-4); Hematocrit 48.8 % (42.0-52.0); Hemoglobin 16.1 g/dl (14.0-18.0); Imm Gran Abs Auto 0.04 X10*3/uL (0.00-0.03); Imm Gran Pct Auto 0.4 % (0.0-0.4); Lymphocytes Absolute Auto 1.9 X10*3/uL (1.2-4.9); Lymphocytes Percent Auto 20.6 % (20-40); Mean Corpuscular Hemoglobin 31.2 pg (27.0-33.0); Mean Corpuscular Volume 94.6 fL (80.0-98.0); Mean Platelet Volume 10.3 fL (9.4-12.4); Monocytes Absolute Auto 0.8 X10*3/uL (0.1-1.2); Monocytes Percent Auto 8.1 % (2-11); Neutrophils Absolute Auto 6.4 x10*3/uL (2.0-8.3); Neutrophils Percent Auto 68.6 % (45-73); Platelet Count 349 X10*3/uL (160-400); Red Blood Count 5.16 X10*6/uL (4.60-5.80); White Blood Count 9.3 X10*3/uL (4.8-10.8)
[2022-11-17 16:47] LABS: Alanine Aminotransferase 52 U/L (0-40); Albumin Level 4.3 g/dL (3.5-5.0); Alkaline Phosphatase 107 U/L (39-117); Anion Gap 14 (12-20); Aspartate Amino Transferase 36 U/L (5-37); Bilirubin Total 0.6 mg/dL (0.0-1.0); Blood Urea Nitrogen 17 mg/dL (9-16); Calcium 9.3 mg/dL (8.4-10.2); Carbon Dioxide 28 mmol/L (22-29); Chloride 105 mmol/L (96-108); Estimated Glomerular Filt Rate > 60; Glucose Random 65 mg/dL (60-115); Potassium 4.1 mmol/L (3.3-5.1); Sodium 143 mmol/L (135-145); Total Protein 6.9 g/dL (6.5-8.0)
== END 2022-11-17 13:10 | disposition home or self-care (01) ==
LOC: HO.LAB 13:09
PROVIDERS: Visit Provider Surgery
DX: R10.31 Right lower quadrant pain (principal); K40.90 Unilateral inguinal hernia, without obstruction or gangrene, not specified as recurrent; G24.9 Dystonia, unspecified; R26.81 Unsteadiness on feet; G62.9 Polyneuropathy, unspecified; Z99.89 Dependence on other enabling machines and devices
CPT/HCPCS: 36415; 80053; 84134; 85025; 99212

== ENCOUNTER 2022-11-24 16:06 | Outpatient (REF) | payer MEDICARE, MEDICAID, OTHER, SELFPAY ==
--- NOTE | ~2022-11-24 | CT_ITS ---
EXAMINATION: CT ABDOMEN AND PELVIS WITHOUT CONTRAST CLINICAL INFORMATION: Right lower quadrant pain. COMPARISON: CT abdomen and pelvis 06/18/2021. TECHNIQUE: Multidetector volumetric imaging was performed from the superior aspect of the liver through the pubic symphysis. Sagittal and coronal reformatted images were obtained on the technologist's workstation. This CT examination was performed using dose optimization techniques as appropriate, variously including the following: *Automated exposure control *Adjustment of mA and/or kV according to patient size (this includes techniques or standardized protocols for targeted exams where dose is matched to indication/reason for exam; i.e. extremities or head) *Use of iterative reconstruction technique DLP: 315 mGy-cm FINDINGS: LUNG BASES: Plate-like atelectatic changes are seen in right middle lobe and lingula. There is a small hiatal hernia. LIVER, GALLBLADDER, AND BILIARY TREE: The liver is normal in size, shape, and attenuation. No focal hepatic lesion or biliary ductal dilatation is present. The gallbladder has been surgically removed. PANCREAS: Unremarkable. SPLEEN: Unremarkable. ADRENAL GLANDS: Unremarkable. KIDNEYS AND URETERS: Both kidneys are normal size, and shape and position. There is a 4 mm radiopaque stone lower pole calyx left kidney. No caliectasis or hydronephrosis seen. There are left renal peripelvic cysts and a moderate-sized exophytic 6 cm midpole cyst. BLADDER: Unremarkable. GASTROINTESTINAL TRACT: Scattered stool, diverticula and gas are seen in colon without distention. The small bowel loops are normal caliber. The appendix is normal caliber. No free air or free fluid seen. ABDOMINAL WALL: No significant hernia is appreciated. LYMPH NODES: Normal. VASCULAR: Unremarkable. PELVIC VISCERA: Scattered stool in the sigmoid colon with mild mural thickening. No pericolic fat stranding seen. There is no free fluid. Prominent left inguinal canal containing fat is noted. OSSEOUS STRUCTURES: There is grade 2 anterolisthesis L5 over S1 with degenerative disc changes and spondylosis L5-S1 disc bulge. No aggressive lytic or sclerotic process seen. Two screws are seen in the right hip for an old healed femoral fracture. CT/CT abdomen pelvis wo IV con IMPRESSION: 1. Colonic diverticulosis without diverticulitis. Mild mural thickening sigmoid colon but no pericolic fat stranding seen. 2. Normal appendix. 3. Nonobstructive radiopaque stone lower pole calyx left kidney. Left renal peripelvic and midpole cysts. 4. Small hiatal hernia. 5. Grade 2 anterolisthesis L5 over S1 with degenerative disc changes and spondylosis L5-S1 disc level. Fleischner guidelines were followed.
== END 2022-11-24 16:07 | disposition home or self-care (01) ==
LOC: HO.CT 16:06
PROVIDERS: PCP Internal Medicine; Visit Provider Surgery
DX: R10.31 Right lower quadrant pain (principal); K40.90 Unilateral inguinal hernia, without obstruction or gangrene, not specified as recurrent
CPT/HCPCS: 74176

== ENCOUNTER → 2022-11-30 13:46 | Outpatient (BNVA) | payer MEDICARE, MEDICAID, OTHER, SELFPAY | PROVIDERS: PCP Internal Medicine; Visit Provider Surgery | DX: R10.31 Right lower quadrant pain (principal); R10.32 Left lower quadrant pain; R26.81 Unsteadiness on feet; G24.9 Dystonia, unspecified; G62.9 Polyneuropathy, unspecified; Z99.89 Dependence on other enabling machines and devices | CPT/HCPCS: 99212 ==

== ENCOUNTER 2025-07-07 09:39 | Emergency (ER) | payer MEDICARE, OTHER, SELFPAY ==
--- NOTE | ~2025-07-07 | XR_ITS ---
CLINICAL HISTORY: pain, injury 3 view right foot Comparison: None provided Findings: Bones intact. No dislocations. Joint space narrowing and periarticular osteophyte formation at the 1st metatarsophalangeal joint as well as the interphalangeal joints of the digits. No ankle effusion. No radiopaque foreign body. IMPRESSION: 1. No acute findings. This document has been electronically signed by: Tylor Don MD on 07/31/2025 18:31:32
--- NOTE | ~2025-07-07 | XR_ITS ---
CLINICAL HISTORY: pain, fall 4 view left knee Comparison: None provided Findings: No fractures or dislocations. Tricompartmental periarticular osteophyte formation, indicating osteoarthritis. Chondrocalcinosis within the medial and lateral compartments. No joint effusion. No radiopaque foreign body. IMPRESSION: 1. No acute findings. This document has been electronically signed by: Tylor Don MD on 07/31/2025 18:25:09
--- NOTE | ~2025-07-07 | XR_ITS ---
CLINICAL HISTORY: pain s p fall 3 view left foot Comparison: None provided Findings: Bones intact. No dislocations. Joint space narrowing and periarticular osteophyte formation at the 1st metatarsophalangeal joint as well as the interphalangeal joints of the digits. No ankle effusion. No radiopaque foreign body. IMPRESSION: 1. No acute findings. This document has been electronically signed by: Tylor Don MD on 07/31/2025 18:26:36
--- NOTE | ~2025-07-07 | CT_ITS ---
CLINICAL HISTORY: left sided numbness deficit CT HEAD WITHOUT CONTRAST CTA HEAD WITH CONTRAST, 3D POSTPROCESSING CTA NECK WITH CONTRAST, WITH 3D POSTPROCESSING Comparison: None provided Findings: CT head: No acute intracranial hemorrhage, extra-axial fluid collection, hydrocephalus or midline shift. Age appropriate generalized parenchymal atrophy. There are periventricular and subcortical white matter hypodensities which are most likely related to microangiopathic gliosis. Intracranial arteriosclerosis. No evidence for acute large territorial infarct. No sinus or mastoid fluid. Orbits: Unremarkable as visualized. Calvarium: No fracture. CTA head and neck: Aortic arch: Patent branch origins. The right brachiocephalic and left common carotid arteries share a common origin consistent with a normal variant bovine arch. Vertebral arteries: No occlusion or dissection. Dominant left vertebral artery. Extracranial carotid arteries: No occlusion, flow limiting stenosis, aneurysm or dissection. Intracranial carotid arteries: No occlusion or flow limiting stenosis. Vertebrobasilar system: Patent. Cerebellar arteries: Patent. Posterior cerebral arteries: Patent. No occlusion or aneurysm. Anterior cerebral arteries: Patent. No occlusion or aneurysm. Hypoplastic A1 segment on the right is a normal variant. Middle cerebral arteries: Patent. No occlusion or aneurysm. No enhancing intracranial mass lesion. Dural venous sinuses are patent. No enhancing cervical mass or fluid collection. Thyroid gland appears unremarkable. No acute abnormalities in the included lungs. No acute osseous abnormalities. Impression: 1. No acute intracranial process. 2. Patent CTA head and neck. This document has been electronically signed by: Latanya Abdalla DO on 07/07/2025 15:40:45
--- NOTE | ~2025-07-07 | CT_ITS ---
CLINICAL HISTORY: fall CT head without contrast Comparison: CT/SR - CT ANGIO HEAD NECK - 07/07/25 13:[address] - CT ANGIO HEAD NECK - 07/07/25 13:18 EDT Findings: No intra-axial mass, midline shift, hydrocephalus, or acute hemorrhage. Age appropriate cerebral volume loss. Patchy low-density within the periventricular and subcortical white matter. There is no sinus or mastoid fluid. The orbits are unremarkable. There is no acute fracture. IMPRESSION: 1. No acute intracranial findings. This document has been electronically signed by: Tylor Don MD on 07/31/2025 18:18:39
--- NOTE | ~2025-07-07 | XR_ITS ---
CLINICAL HISTORY: pain, fall 4 view right knee Comparison: None provided Findings: No fractures or dislocations. Tricompartmental periarticular osteophyte formation, indicating osteoarthritis. Medial and lateral compartment chondrocalcinosis. No joint effusion. No radiopaque foreign body. IMPRESSION: 1. No acute findings. This document has been electronically signed by: Tylor Don MD on 07/31/2025 18:26:53
--- NOTE | ~2025-07-07 | XR_ITS ---
CLINICAL HISTORY: pain, numbness 3 view left shoulder Comparison: None provided Findings: No acute fracture or dislocation is identified. There is joint space narrowing and marginal osteophyte formation at the acromioclavicular joint. Cystic changes are seen along the greater tuberosity. Soft tissue structures appear within normal limits. IMPRESSION: 1. No acute osseous abnormality is identified. 2. Degenerative changes of the acromioclavicular joint. 3. Cystic change along the greater tuberosity, which can be seen with rotator cuff tendinopathy. This document has been electronically signed by: Apurva Keane on 07/07/2025 11:50:04
--- NOTE | ~2025-07-07 | CT_ITS ---
CLINICAL HISTORY: pain s p fall CT abdomen and pelvis without contrast Comparison: CT/REG/SR - CT ABDOMEN PELVIS WO IV CON - 11/24/22 16:45 EST Findings: No consolidation or effusion. Calcification of the coronary vasculature. Cholecystectomy clips. Nonobstructing left renal calcifications measuring less than 5 mm diameter. Left parapelvic renal cysts, as before. Solid organs are within normal limits otherwise. No bowel obstruction, pneumoperitoneum, or pneumatosis. Pelvic contents unremarkable. Normal appendix. No acute fracture. IMPRESSION: 1. No acute process. 2. Nonobstructing left renal calculi. This document has been electronically signed by: Tylor Don MD on 07/31/2025 18:21:17
--- NOTE | 2025-07-07 09:47 | ED_ITS ---
HPI - General Adult General Chief complaint: Extremity Injury, Upper Stated complaint: L SHOULDER PAIN Time Seen by Provider: 07/07/25 09:47 Source: patient, family (patient's brother) and EMS Mode of arrival: EMS Limitations: no limitations History of Present Illness ED Provider: Alta Ya PA-C HPI narrative: 75-year-old assigned male at with a past medical history of generalized dystonia, dementia, epilepsy, and hypertension presenting of 3 days of worsening left shoulder and left neck pain. His brother is assisting as historian. He describes pain on the left side of his neck and numbness and tingling in his left arm that is worse in his hand. He also describes left leg numbness and tingling. He lives with his but today she is in [place] getting brain surgery. His grandchildren were with him today and said he was in a lot of pain so the ambulance was called. He did not take him medications today and denies being on blood thinners. He denies headache, fatigue, dizziness, vision changes, chest pain, palpitations, shortness or breath, and abdominal pain. Patient's brother states that because the patient's is out of town - the patient is unsafe to be in the home at this time because they are unable to care for him. Onset (ago): day(s) (3) Location: upper extremity Related Data Home Medications ?Medication ?Instructions ?Recorded ?Confirmed amlodipine 10 mg tablet 2.5 mg PO DAILY 07/15/21 memantine 5 mg tablet 10 mg PO DAILY 07/15/2106/21 duloxetine 20 mg capsule,delayed 40 mg PO DAILY 07/07/25 release duloxetine 60 mg capsule,delayed 60 mg PO DAILY 07/07/25 release acetaminophen 500 mg tablet 1,000 mg PO BID 07/07/25 0 07/07/25 docusate sodium 100 mg capsule 100 mg PO DAILY 5 07/07/25 (Colace) donepezil 10 mg tablet 10 mg PO BEDTIME 07/07/25 lamotrigine 100 mg tablet 150 mg PO BID 07/07/2507/07 (Lamictal) Allergies Allergy/AdvReac Type Severity Reaction Status Date / Time oxycodone (From Tylox) AdvReac Severe Vomiting Verified 07/07/25 09:57 Review of Systems 2 Constitutional: Constitutional: Reports no additional constitutional complaints, Denies chills, Denies fever(s) and Denies night sweats Eyes: Eyes: Reports no additional eye complaints, Denies blurry vision, Denies change in vision, Denies diplopia, Denies eye discharge, Denies loss of vision and Denies eye pain ENT: Denies dizziness Cardiovascular: Cardiovascular: Reports no additional cardiovascular complaints, Denies chest pain, Denies lightheadedness, Denies Loss of Consciousness and Denies dyspnea Respiratory: Respiratory: Reports no additional respiratory complaints and Denies dyspnea Gastrointestinal: Gastrointestinal: Reports no additional gastrointestinal complaints, Denies abdominal pain, Denies melena, Denies hematochezia, Denies change in bowel habits and Denies change in stool character Genitourinary: Genitourinary: Reports no additional male genitourinary complaints, Denies hematuria, Denies oliguria, Denies difficulty urinating, Denies dysuria, Denies urinary frequency, Denies urinary hesitancy, Denies urinary incontinence and Denies urinary urgency Musculoskeletal: Musculoskeletal: Reports as per HPI, Reports arthralgias (left shoulder), Reports numbness and Reports tingling Neurologic: Denies dizziness, Denies loss of vision, Reports numbness and Reports tingling Psychiatric: Psychiatric: Reports no additional psychiatric complaints Endocrine: Endocrine: Reports no additional endocrine complaints Hematologic/Lymphatic: Hematologic/Lymphatic: Reports no additional hematologic/lymphatic complaints Allergic/Immunologic: Allergic/Immunologic: Reports no additional allergic/immunologic complaints [facility] Past Medical History Attestation statement: The following information was validated with the patient. (all information validated with the patient's brother) Source: old records reviewed, obtained from family (patient's brother provided additional history and confirmed the history provided by the patient) and nursing notes reviewed Medical History Left inguinal hernia Adult failure to thrive Chronic pain Anxiety Hypertension Social History Social History Household Members: Spouse Housing: Group Home Unable to assess alcohol history related to: Unknown Alcohol intake: never Patient Tobacco Use Status: Never used Tobacco e-Cigarette/Vaping Use: Never Used Second Hand Smoke Exposure: No Advance Directives: Yes Advance Directives on File: Yes Advance Directives Date on File: 07/21/21 service: No Current occupational status: retired Physical Exam ED Vital Signs: Vital Signs - 24 hr 07/31/25 14:00 07/31/25 16:10 07/31/25 16:35 Temperature 98.1 F Pulse Rate 95 95 80 Respiratory Rate 20 20 20 Blood Pressure 149/95 H 149/95 H 150/86 H Pulse Oximetry 98 98 97 Oxygen Delivery Method Room Air Room Air Room Air 07/31/25 18:45 07/31/25 22:58 08/01/25 06:00 Temperature 98.4 F 98.9 F 97.9 F Pulse Rate 88 83 66 Respiratory Rate 18 16 16 Blood Pressure 156/02 H 162/95 H 140/68 H Pulse Oximetry 98 98 96 Oxygen Delivery Method Room Air Room Air Room Air 08/01/25 10:03 08/01/25 10:08 Temperature 97.3 F Pulse Rate 83 Respiratory Rate 16 Blood Pressure 157/97 H 157/97 H Pulse Oximetry 97 Oxygen Delivery Method Room Air BMI result Body Mass Index 23.4 Const General: cooperative, no acute distress, alert and awake Orientation/consciousness: oriented to person and oriented to place HENMT Head: Yes normal to inspection and Yes atraumatic Ears: hearing grossly normal bilaterally and external ears normal General nose exam: Normal external nose present, no nasal discharge noted and no epistaxis Face and sinus: Yes normal facial exam, No abrasion and No laceration Mouth: Normal oral and palatal mucosa present, no drooling and no muffled voice Eyes General: appearance normal, both eyes and all related structures Periorbital: periorbital findings normal Eyelids: Yes eyelids normal Conjunctivae: conjunctivae normal Pupils: Equal, round and reactive pupils present EOM: EOMs intact bilaterally Neck Neck: Yes normal visual inspection and Yes full ROM Resp Effort & Inspection: normal respiratory effort and able to speak in complete sentences Neuro General: oriented to person, oriented to place, moves all extremities and CN's II-XI intact bilaterally Cranial nerves: Yes Equal, round and reactive pupils present Cognition (Neuro): normal cognition Sensory Exam: Upper extremity sensory exam abnormal left light-touch abnormal decreased and Abnormal lower extremity sensory exam left light-touch abnormal decreased Extrem General: Yes normal to inspection and Yes capillary refill normal Left upper extremity: shoulder/upper arm (pain with shoulder flexion) Psych Appearance: grossly normal Mental Status: mental status grossly normal Affect: normal affect Attitude: cooperative Thought process: Normal thought process present Thought content: Normal thought content present Insight: Good insight present (Psych) Course Course Course Narrative: 08/01/25 1107 BEN Ly: Per Dr. Conde patient is to be admitted inpatient. Observation care revealed that patient does meet medical necessity for hospitalization. Final disposition discussed with patient. The patient completed observation care at 1107 on 08/01/25. Reevaluation(s) Reevaluation #1: Patient's urine culture preliminary shows Gram-negative rods and quantity greater than [id number]. The patient was appropriately started on cefuroxime. We will continue this Time: 09:56 Reevaluation #2: 07/11/25. Patient is not in any distress. Patient's vital signs are stable. And at his baseline. Physician observation continued Time: 18:22 Reevaluation #3: Time: 10:32 Date: 07/12/25 Provider: Fely Barry PA-C Patient in physician observation for case management needs. No acute events reported overnight. ? No current issues or complaints. VS stable. Patient appears to be at his baseline of function however he has difficulty bleeding his activities of daily life which include bathing. His recently had brain surgery in his getting discharged from the hospital to live with another family member. He shares an apartment with his spouse unfortunately the apartment will be going up for rent and patient is not able to be discharged home to this. Family is trying to appeal the short-term rehab. Case management consultation pending. Will continue to monitor. Time: 10:32 Additional Reevaluation(s): 07/13/25 MARIELA Herman Physician observation continued. Uneventful night. Vital signs stable. No complaints from nursing overnight. Med reconciliation reviewed and done. Pending disposition. Will continue to monitor. .07/14 MARIELA Herman Physician observation continued. Uneventful night. Vital signs stable. No complaints from nursing overnight. Med reconciliation reviewed and done. Pending disposition. Will continue to monitor. 07/15/25 BEN Ly: Physician observation continued, no overnight events reported by nursing. CM following for disposition. 07/16/25 11:21 the patient's urine culture grew E coli. This is pansensitive including to cephalosporins. The patient is appropriately treated with cefuroxime Time: 18:27 Date: 07/16/25 Provider: MARIELA Wiggins Patient in physician observation for case management needs. No acute events reported overnight.? Awaiting case management disposition. 07/17/2025 0800 Alta Ya PA-C ----> Observation continues. Case management continues to follow. 07/18/2025 0900 Alta Ya PA-C ----> Observation continues. Case management continues to follow. Time: 09:54 Date: 07/19/25 Provider: MARIELA Jamil Patient in physician observation for case management needs. No acute events reported overnight.? No current issues or complaints. VS stable. Patient is pending placement at facility per CM. Will continue to monitor. MARIELA Jamil 07/20/25 0817 Patient in physician observation for case management needs. No acute events reported overnight.? No current issues or complaints. VS stable. Patient is pending placement at facility per CM. Will continue to monitor. 07/21/2025 0900 Alta Ya PA-C ----> Observation continues. Case management continues to follow. 07/22/25 0814 BEN Ly: Physician observation continued, no overnight events reported by nursing. Vitals stable. CM following for disposition. Time: 08:42 Date: 07/23/25 Provider: MARIELA Wiggins Patient in physician observation for case management needs. No acute events reported overnight.? No current issues or complaints. VS stable. Pending case management disposition. Time: 14:50 Date: 07/24/25 Provider: MARIELA Wiggins Patient in physician observation for case management needs. No acute events reported overnight.? No current issues or complaints. VS stable. Pending case management disposition. We will continue to monitor. 07/25/2025 0838 Alta Ya PA-C ---> Observation continues. Case management continues to follow. 07/26 MARIELA Herman Physician observation continued. Uneventful night. Vital signs stable. No complaints from nursing overnight. Med reconciliation reviewed and done. Pending disposition. Will continue to monitor. 07/26 MARIELA Herman Physician observation continued. Uneventful night. Vital signs stable. No complaints from nursing overnight. Med reconciliation reviewed and done. Pending disposition. Will continue to monitor. Virgil Physician observation continued. Uneventful night. Vital signs stable. No complaints from nursing overnight. Med reconciliation reviewed and done. Pending disposition. Will continue to monitor. Time: 10:20 Date: 07/28/25 Provider: MARIELA Wiggins Patient in physician observation for case management needs. Pending disposition. Will continue to monitor. Time: 17:52 Date: 07/30/25 Provider: MARIELA Jamil Patient in physician observation for case management needs. Pending disposition. Will continue to monitor. Time: 09:01 Date: 07/31/25 Provider: MARIELA Jamil Patient in physician observation for case management needs. Pending disposition. Will continue to monitor. 07/31 1605 MARIELA Peterson-C ---> Patient fell while in the bathroom. States that he lost his balance and went down. Patient states that his hips and knees hurt. Patient states that he did not hit his head. Medications Administered Generic Name Dose Route Start Last Admin Trade Name Freq PRN Reason Stop Dose Admin Acetaminophen 975 mg 07/08/25 06:11 07/08/25 06:45 Acetaminophen 325 Mg Tablet PO 975 mg Q6H PRN Administration Pain (Scale Score 1-3) Acetaminophen 975 mg 07/08/25 21:00 08/01/25 10:05 Acetaminophen 325 Mg Tablet PO 975 mg BID JUANITO Administration Amlodipine Besylate 2.5 mg 07/08/25 09:00 08/01/25 10:03 Amlodipine Besylate 2.5 Mg Tablet PO 2.5 mg DAILY JUANITO Administration Protocol Docusate Sodium 100 mg 07/09/25 09:00 08/01/25 10:02 Docusate Sodium 100 Mg Capsule PO 100 mg DAILY JUANITO Administration Donepezil HCl 10 mg 07/08/25 21:00 07/31/25 22:49 Donepezil Hcl 10 Mg Tablet PO 10 mg BEDTIME JUANITO Administration Duloxetine HCl 40 mg 07/08/25 09:00 08/01/25 10:03 Duloxetine Hcl 20 Mg Capsule.Dr PO 40 mg DAILY JUANITO Administration Duloxetine HCl 60 mg 07/08/25 09:00 08/01/25 10:06 Duloxetine Hcl 60 Mg Capsule.Dr PO 60 mg DAILY JUANITO Administration Ibuprofen 600 mg 07/09/25 15:37 07/30/25 22:19 Ibuprofen 600 Mg Tablet PO 600 mg Q8H PRN Administration Pain, Moderate(Pain Scale 4-6) Lamotrigine 150 mg 07/10/25 21:00 08/01/25 10:06 Lamotrigine 100 Mg Tablet PO 150 mg BID JUANITO Administration Magnesium Hydroxide 30 ml 07/18/25 17:50 07/24/25 12:34 Milk Of Magnesia 30 Ml Oral.Susp PO 30 ml BID PRN Administration Constipation Memantine 10 mg 07/08/25 09:00 08/01/25 10:14 Memantine Hcl 10 Mg Tablet PO 10 mg DAILY JUANITO Administration Discontinued Medications Generic Name Dose Route Start Last Admin Trade Name Freq PRN Reason Stop Dose Admin Acetaminophen 650 mg 07/07/25 16:24 07/07/25 21:01 Acetaminophen 325 Mg Tablet PO 650 mg Q6H PRN Administration Pain (Scale Score 1-3) Amlodipine Besylate 2.5 mg 07/08/25 00:44 07/08/25 00:55 Amlodipine Besylate 2.5 Mg Tablet PO 07/08/25 00:45 2.5 mg ONCE ONE Administration Protocol Cefuroxime Axetil 500 mg 07/08/25 09:50 07/14/25 21:04 Cefuroxime Axetil 500 Mg Tablet PO 07/14/25 23:59 500 mg BID JUANITO Administration Ibuprofen 600 mg 07/08/25 00:44 07/08/25 00:54 Ibuprofen 600 Mg Tablet PO 07/08/25 00:45 600 mg ONCE ONE Administration Ibuprofen 600 mg 07/08/25 09:51 07/08/25 11:02 Ibuprofen 600 Mg Tablet PO 07/08/25 09:52 600 mg ONCE ONE Administration Ibuprofen 600 mg 07/09/25 03:32 07/09/25 03:35 Ibuprofen 600 Mg Tablet PO 07/09/25 03:33 600 mg ONCE ONE Administration Iohexol 100 ml 07/07/25 14:08 07/07/25 14:08 Iohexol 350 Mg/Ml 100 Ml Infus..Btl IV 07/07/25 14:09 65 ml ONCE ONE Administration Lamotrigine 150 mg 07/08/25 21:00 07/10/25 08:54 Lamotrigine 25 Mg Tablet PO 150 mg BID JUANITO Administration Morphine Sulfate 15 mg 07/31/25 16:46 07/31/25 17:01 Morphine Sulfate Immed Release 15 Mg Tablet PO 07/31/25 16:47 15 mg ONCE ONE Administration Medical Decision Making Medical Decision Making [facility] Narrative: Patient is a 75 year old assigned male at with a history of dystonia, dementia, epilepsy, and hypertension presenting to the emergency department today with left shoulder pain. Patient's physical exam was as noted in the physical exam portion of this note. Patient's blood work was unremarkable. Patient's left shoulder x-ray showed evidence of tendonitis. Patient's CTA of the head/neck was negative. I explained my physical exam findings as well as all test results to the patient and the patient's brother. I answered all questions asked by the patient and the patient's brother. Patient placed in observation at 1540 in 07/07/2025 pending physical therapy evaluation and case management. Time: 09:42 Date: 07/08/25 Provider: MARIELA Wiggins Patient in physician observation for case management needs. No acute events reported overnight.? Urinalysis that was performed yesterday does appear to be infected, will treat with cefuroxime. Time: 15:35 Date: 07/09/25 Provider: MARIELA Wiggins Patient in physician observation for case management needs. No acute events reported overnight.? He is reporting pain therefore added ibuprofen to his regimen. I did have to call [facility] peer to peer at 10:00 a.m. this morning. I discussed with the medical record technician, they do not believe that he needs direct nursing the nursing care, I relayed this information to case management who will work on this case. I did discuss that he is at risk for falls if he needs redirection with using Rollator. We will continue to monitor pending case management disposition. Differential Diagnosis Differential Diagnoses: The differential diagnosis associated with the presentation includes Cervical radiculopathy Tendonitis Admission/Observation Consideration of admission/observation: Escalation of care including admission/observation considered Patient would have been admitted to the hospital had his work up had any findings where hospital admission was appropriate and his clinical presentation warranted hospital admission. Lab Data [facility] Lab Attestation statement: I reviewed the patient's lab results. My interpretation of these results are in the [facility] Rationale portion of this note. 07/07/25 11:43 07/07/25 11:43 Labs: Lab Results 07/07/25 07/07/25 07/08/25 Range/Units 11:43 12:28 09:38 WBC 7.5 (4.8-10.8) X10*3/uL RBC 4.48 L (4.60-5.80) X10*6/uL Hgb 14.2 (14.0-18.0) g/dl Hct 40.4 L (42.0-52.0) % MCV 90.2 (80.0-98.0) fL MCH 31.7 (27.0-33.0) pg MCHC 35.1 (31.0-36.0) g/dl RDW 13.5 (11.0-16.0) % Plt Count 245 D (160-400) X10*3/uL MPV 9.2 L (9.4-12.4) fL Immature Gran % (Auto) 0.3 (0.0-0.4) % Neut % (Auto) 64.3 (45-73) % Lymph % (Auto) 22.3 (20-40) % [place] % (Auto) 9.3 (2-11) % Eos % (Auto) 3.1 (0-4) % Baso % (Auto) 0.7 (0-2) % Lymph # (Auto) 1.7 (1.2-4.9) X10*3/uL [place] # (Auto) 0.7 (0.1-1.2) X10*3/uL Eos # (Auto) 0.2 (0.0-0.4) X10*3/uL Baso # (Auto) 0.1 (0.0-0.2) X10*3/uL Abs Immat Gran (auto) 0.02 (0.00-0.03) X10*3/uL Absolute Neuts (auto) 4.8 (2.0-8.3) x10*3/uL Absolute Nucleated RBC 0.000 (0.0-0.012) X10*3/uL Nucleated RBC % (auto) 0.0 (0.0-0.2) /100WBC PT 12.8 H (10.9-12.4) SEC INR 1.1 (0.9-1.1) Sodium 144 (135-145) mmol/L Potassium 4.6 (3.3-5.1) mmol/L Chloride 109 H (96-108) mmol/L Carbon Dioxide 25 (22-29) mmol/L Anion Gap 15 (12-20) BUN 11 (9-16) mg/dL Creatinine 1.05 (0.5-1.4) mg/dL Estim Creat Clear Calc 65.7 Estimated GFR > 60 Random Glucose 94 (60-115) mg/dL Calcium 8.8 (8.4-10.2) mg/dL Total Bilirubin 0.4 (0.0-1.0) mg/dL AST 24 (5-37) U/L ALT 14 (0-40) U/L Alkaline Phosphatase 62 (39-117) U/L Total Protein 6.4 L (6.5-8.0) g/dL Albumin 4.1 (3.5-5.0) g/dL Urine Color Yellow Urine Appearance Clear Urine pH 6.5 (5.0-9.0) Ur Specific [place] 1.015 (1.005-1.025) Urine Protein Negative (Neg-Trace) mg/dL Urine Glucose (UA) Negative (Negative) mg/dL Urine Ketones Trace (Negative) mg/dL Urine Blood Negative (Negative) Urine Nitrite Positive H (Negative) Ur Leukocyte Esterase Moderate (2+) H (Negative) Urine RBC 0-2 (0-2) /HPF Urine WBC >50 H (0-5) /HPF Ur Squamous Epith Cells 0-2 (0-2) /HPF Urine Bacteria 4+ (None Seen) Hyaline Casts 0-2 (0-2) /LPF Influenza Type A (PCR) NEGATIVE (Negative) Influenza Type B (PCR) NEGATIVE (Negative) RSV RNA Qual (PCR) NEGATIVE (Negative) SARS-CoV-2 RNA (RT-PCR) NEGATIVE (Negative) Independent Interpretation I performed an independent interpretation of an: Plain X-Ray and CT Scan Interpretation: My interpretation is in agreement with the radiologist's impression of these imaging studies. L Report Number: [id number]: Total DLP = 1852.00 mGy-cm CLINICAL HISTORY: left sided numbness deficit CT HEAD WITHOUT CONTRAST CTA HEAD WITH CONTRAST, 3D POSTPROCESSING CTA NECK WITH CONTRAST, WITH 3D POSTPROCESSING Comparison: None provided Findings: CT head: No acute intracranial hemorrhage, extra-axial fluid collection, hydrocephalus or midline shift. Age appropriate generalized parenchymal atrophy. There are periventricular and subcortical white matter hypodensities which are most likely related to microangiopathic gliosis. Intracranial arteriosclerosis. No evidence for acute large territorial infarct. No sinus or mastoid fluid. Orbits: Unremarkable as visualized. Calvarium: No fracture. CTA head and neck: Aortic arch: Patent branch origins. The right brachiocephalic and left common carotid arteries share a common origin consistent with a normal variant bovine arch. Vertebral arteries: No occlusion or dissection. Dominant left vertebral artery. Extracranial carotid arteries: No occlusion, flow limiting stenosis, aneurysm or dissection. Intracranial carotid arteries: No occlusion or flow limiting stenosis. Vertebrobasilar system: Patent. Cerebellar arteries: Patent. Posterior cerebral arteries: Patent. No occlusion or aneurysm. Anterior cerebral arteries: Patent. No occlusion or aneurysm. Hypoplastic A1 segment on the right is a normal variant. Middle cerebral arteries: Patent. No occlusion or aneurysm. No enhancing intracranial mass lesion. Dural venous sinuses are patent. No enhancing cervical mass or fluid collection. Thyroid gland appears unremarkable. No acute abnormalities in the included lungs. No acute osseous abnormalities. Impression: 1. No acute intracranial process. 2. Patent CTA head and neck. This document has been electronically signed by: Latanya Abdalla DO on 07/07/2025 15:40:45 Dictated By: Latanya Abdalla MD Signed By: Electronically signed by Latanya Abdalla MD 07/07/25 1541 CLINICAL HISTORY: pain, numbness 3 view left shoulder Comparison: None provided Findings: No acute fracture or dislocation is identified. There is joint space narrowing and marginal osteophyte formation at the acromioclavicular joint. Cystic changes are seen along the greater tuberosity. Soft tissue structures appear within normal limits. IMPRESSION: 1. No acute osseous abnormality is identified. 2. Degenerative changes of the acromioclavicular joint. 3. Cystic change along the greater tuberosity, which can be seen with rotator cuff tendinopathy. This document has been electronically signed by: Apurva Keane on 07/07/2025 11:50:04 Dictated By: Apurva Keane MD Signed By: Electronically signed by Apurva Keane MD 07/07/25 1151 Radiology Impression Discussion of test interpretation with radiology: I have reviewed the radiologist's reading. Independent Historian Clinical information obtained from an independent historian. History obtained from or confirmed by: EMS (EMS provided additional history and confirmed the history provided by the patient. ) and Other (Patient's brother provided additional history and confirmed the history provided by the patient. ) Discharge Plan Discharge Patient Disposition: Admitted As Inpatient Print Language: Chinese
[2025-07-07 09:49] VITALS: BP 153/90; PULSE 68; O2SAT 97
[2025-07-07 09:57] VITALS: BP 147/86; PULSE 71; RESP 16; TEMP 36; O2SAT 97; BMI 23.4
[2025-07-07 11:47] LABS: Hematocrit 40.4 % (42.0-52.0); Hemoglobin 14.2 g/dl (14.0-18.0); Imm Gran Abs Auto 0.02 X10*3/uL (0.00-0.03); Imm Gran Pct Auto 0.3 % (0.0-0.4); Lymphocytes Absolute Auto 1.7 X10*3/uL (1.2-4.9); MANUAL DIFF FLAG NO; Mean Corpuscular HGB Conc 35.1 g/dl (31.0-36.0); Mean Corpuscular Hemoglobin 31.7 pg (27.0-33.0); Mean Corpuscular Volume 90.2 fL (80.0-98.0); NRBC Abs Auto 0.000 X10*3/uL (0.0-0.012); NRBC Pct Auto 0.0 /100WBC (0.0-0.2); Platelet Count 245 X10*3/uL (160-400); Red Blood Count 4.48 X10*6/uL (4.60-5.80); White Blood Count 7.5 X10*3/uL (4.8-10.8)
[2025-07-07 11:55] LABS: INTERNATIONAL NORM RATIO 1.1 (0.9-1.1); Prothrombin Time 12.8 SEC (10.9-12.4)
[2025-07-07 12:08] LABS: Alanine Aminotransferase 14 U/L (0-40); Albumin Level 4.1 g/dL (3.5-5.0); Alkaline Phosphatase 62 U/L (39-117); Anion Gap 15 (12-20); Aspartate Amino Transferase 24 U/L (5-37); Blood Urea Nitrogen 11 mg/dL (9-16); Calcium 8.8 mg/dL (8.4-10.2); Carbon Dioxide 25 mmol/L (22-29); Chloride 109 mmol/L (96-108); Creatinine Clr Calc Pharmacy 65.7; Estimated Glomerular Filt Rate > 60; Potassium 4.6 mmol/L (3.3-5.1); Sodium 144 mmol/L (135-145); Total Protein 6.4 g/dL (6.5-8.0)
[2025-07-07 12:34] LABS: Appearance Urine Clear; Glucose Urine UA Negative (Negative); PH 6.5 (5.0-9.0); Specific Gravity - Urine 1.015 (1.005-1.025); UMIC TRIGGER UACC YES
--- NOTE | 2025-07-07 12:35 | PC.NURSE ---
patient ambulates with steady gait utilizing own walker to bathroom to provide urine sample. brother joel [phone] giving medication information at bedside. patient to become pt/cm once medically cleared.
[2025-07-07 12:39] LABS: UACC Culture Trigger YES
[2025-07-07 12:41] VITALS: BP 140/89; PULSE 66; RESP 16; TEMP 36.1; O2SAT 97
--- NOTE | 2025-07-07 13:37 | MHC.CM.PN ---
Addendum entered by Linsey Escobedo 07/07/25 15:53: + HCP ON FILE. PCP DR. BRITO . PER CHART REVIEW, ? IF HAS MH BENEFIT THAT WOULD COVER A NON SKILLED STAY? WILL NEED TO VERIFY WITH [facility]. Original Note: PROVIDER REQUESTED THIS CM MEET WITH PT/BROTHER IN ED. PT LIVES WITH HIS SPOUSE WHO IS CURRENTLY IN A [facility] HAVING SURGERY AND SHE IS PT'S CAREGIVER. PER FAMILY, PT IS UNABLE TO BE LEFT ALONE DUE TO CONFUSION AND FREQUENT FALLS. THIS CM ALSO SPOKE WITH PT'S DAUGHTER/HCP KERVIN TRAN WHO REINFORCES HE CANNOT GO HOME ALONE SHE IS CURRENTLY WITH HER MOTHER IN [place]. PER DAUGHTER, THEY ARE TRYING TO GET PT INTO [facility] AND IT IS IN PROCESS. PT USES ROLLATOR FOR MOBILITY AND IS ACTIVE WITH [facility] FOR NURSING AND CORRECTIONAL GUARD. +HCP KERVIN YOUNG ([phone]) PT HAS [facility] AND NO OTHER INSURANCE. PLAN TO HAVE P.T. EVAL TO SEE IF CAN GO TO [facility]. CM WILL CONTINUE TO FOLLOW FOR PLAN
[2025-07-07] MEDS: iohexoL 350 MG/ML 100 ML INFUS..BTL IV (14:08)
[2025-07-07 16:35] VITALS: BP 140/93; PULSE 90; RESP 18; O2SAT 96
[2025-07-07 18:13] VITALS: BP 109/61; PULSE 83; RESP 16; O2SAT 96
--- NOTE | 2025-07-07 19:44 | PC.NURSE ---
standby assist to the bathroom for safety. assist back into bed. no further needs at this time, call adriana w/in reach
[2025-07-07 20:40] VITALS: BP 144/101; PULSE 104; RESP 18; TEMP 37.2; O2SAT 96
--- NOTE | 2025-07-07 20:47 | PC.NURSE ---
Ambulated patient to bathroom with a standby assist to ensure safety, steady gait with a rollater from home. Patient able to perform bathroom tasks independently and pull emergency cord when needing to get up. Patient walked back to stretcher. Call wright within reach. Able to make needs known.
--- NOTE | 2025-07-07 20:50 | PC.NURSE ---
Spoke mwith patient regarding pain level, stating the back of his neck hurts 9/10 pain. Offered non-pharm intervention by resposition patient, stating his pain improves with the bed at more flat position with a pillow.
--- NOTE | 2025-07-07 20:59 | PC.NURSE ---
Upon medicating patient for pain, Tylenol was the only PRN option available. Pt requested tylenol due to taking it at home. Alerted due to acetaminophen is listed in the patients allergy list, but patient denies having an allergy. Spoke with MD Waters to verify if ok to give tylenol. Due to hx of taking it, and allergic reaction having low severity, given the OK to montior and give tylenol. Pt reports not wanting to get high from medication and would prefer to avoid opiods if able, but willing to try them if options of lesser effect do not help.
--- NOTE | 2025-07-07 22:55 | PC.NURSE ---
report given to overflow RN. pt presents to ED for L shoulder pain, work up negative.pt A/O x4, calm and cooperative with care, ambulates with walker at baseline- standby assist for safety. 18g IV RAC. rings call wright appropriately. plan for PT/CM, looking for [facility] per family as pt falls at home and is confused at times. possible STR per CM.
[2025-07-08] VITALS (10 sets, daily range): BP systolic 131–189; BP diastolic 88–104; PULSE 67–90; RESP 14–20; TEMP 36.4–37.3; O2SAT 93–98
--- NOTE | 2025-07-08 01:13 | PC.NURSE ---
standby level of assist, steady ambulation with rollator to bathroom to produce continent void of clear yellow urine
--- NOTE | 2025-07-08 06:30 | PC.NURSE ---
pt verbally expressed severe pain to nurse. order modified by MD telephone order. upon this nurse's return to pt room after approx 20 mins, pt is asleep in right side lying position, nonlabored respirations, no sign of distress. call wright in reach
--- NOTE | 2025-07-08 09:35 | PHA.MEDREC ---
Addendum entered by Eleanor Damon RPh 07/08/25 11:07: REVIEWED BY [facility] Original Note: Pharmacy Consult ? Medication Reconciliation Pharmacy has reviewed the medication reconciliation done by nursing. Claims match med list.
[2025-07-08 10:42] LABS: Resp Syncy Virus RNA Qual PCR NEGATIVE (Negative); SARS COV2 PCR INHOUSE NEGATIVE (Negative)
--- NOTE | 2025-07-08 10:48 | MHC.CM.ED ---
Patient remains in ER overflow. Physical therapy eval completed. Referral broadcasted within 15 miles of patient's home to all facilities that are contracted with patient's insurance. [facility] and [facility] are willing to offer a bed. Multiple other facilities are following. Spoke with patient's daughter/HCP, Aisha, via telephone at [phone]. Aisha reports she is working with her sister to get an application into [employer]. Unfortunately they are requesting 6 months of doctor's notes including PCP and pain management. Aisha aware that this is not a quick process. Agreeable to patient going to STR with ins auth and then transferring to [facility]. Aisha accepts a bed at [facility]. [facility] has been asked to obtain insurance auth. Continue to monitor for d/c needs.
--- NOTE | 2025-07-08 12:52 | MHC.EDTECH ---
pt consumed 100% of lunch tray
--- NOTE | 2025-07-08 17:16 | PC.NURSE ---
patient came out of his room with rolling walker to inform RN that he enjoyed his dinner. patient was asking if he had more belongings in a black suitcase. patient belongings list verified that all of patients belongings were in room with no black suitcase lsited for when he came in. patient understable of this at this time. resting quietly in bed.
--- NOTE | 2025-07-09 05:09 | PC.NURSE ---
late entry: Thea SIERRA was made aware of patients BP. also pt had previously stated pain returned after improving with scheduled tylenol given per jan. per Thea verbal order ibuprofen ordered and given per jan. pt has been resting comfortably in bed and is able to make needs known. has been ambulating to the bathroom using walker with steady gait multiple times throughout the night. call wright within reach.
[2025-07-09 06:00] VITALS: BP 166/103; PULSE 85; RESP 18; TEMP 36.1; O2SAT 97
--- NOTE | 2025-07-09 09:05 | MHC.CM.ED ---
Addendum entered by Angelina Beck 07/09/25 09:44: Received notification from Aisha SIERRA that STR is denied by [facility]. Waitin for denial letter so family can appeal. Original Note: Patient remains in ER overflow. [facility] requesting ER provider speak with [facility] [employer]. Aisha SIERRA aware. Continue to monitor for d/c needs.
[2025-07-09 10:03] VITALS: BP 144/92
[2025-07-09 14:00] VITALS: BP 140/84; PULSE 92; RESP 18; TEMP 37.2; O2SAT 99
--- NOTE | 2025-07-09 20:30 | PC.NURSE ---
Pharmacy contacted for Aricept dose. Awaiting medication arrival.
[2025-07-09 21:43] VITALS: BP 139/67; PULSE 90; RESP 18; TEMP 36.6; O2SAT 98
--- NOTE | 2025-07-09 23:52 | PC.NURSE ---
assumed care for pt at this time. pt noted to be sleeping in the bed, symmetrical rise and fall of chest and unlabored respirations noted. plan of care ongoing
[2025-07-10 05:00] VITALS: BP 136/72; PULSE 84; RESP 18; TEMP 36.7; O2SAT 95
[2025-07-10 08:00] VITALS: BP 139/85; PULSE 65; RESP 14; TEMP 37.2; O2SAT 97
--- NOTE | 2025-07-10 09:18 | PC.NURSE ---
Medical History Adult failure to thrive Anxiety Chronic pain Hypertension Left inguinal hernia
--- NOTE | 2025-07-10 09:21 | PC.NURSE ---
Patient is a 75-year-old assigned male at with a past medical history of generalized dystonia, dementia, epilepsy, and hypertension presenting of 3 days of worsening left shoulder and left neck pain.. He describes pain on the left side of his neck and numbness and tingling in his left arm that is worse in his hand. He also describes left leg numbness and tingling which is tendonitits.. He lives with his but today she is in [place] getting brain surgery. He denies headache, fatigue, dizziness, vision changes, chest pain, palpitations, shortness or breath, and abdominal pain. Patient's brother states that because the patient's is out of town - the patient is unsafe to be in the home at this time because they are unable to care for him. Patient alert and coopertive. Respirations even and non-labored. Abdomen soft, non-tender with positive bowel sounds. Positive pedal pulses with no edema. Pending insurance auth
--- NOTE | 2025-07-10 09:25 | MHC.CM.ED ---
Patient remains in ER overflow. [facility] for STR. Attempted to speak to patient's daughter, Aisha, via telephone at [phone]. Left voicemail requesting return telephone call. Continue to monitor for d/c needs.
--- NOTE | 2025-07-10 10:31 | MHC.CM.ED ---
Addendum entered by Angelina Beck 07/10/25 14:23: Attempted to speak to 2nd HCP, Chen, via telephone at [phone]. Left voicemail requesting return telephone call. Original Note: Attempted to speak with patient's daughter, iAsha via telephone at [phone]. No answer.
[2025-07-10 14:00] VITALS: BP 161/86; PULSE 101; RESP 16; TEMP 37; O2SAT 97
[2025-07-10 20:41] VITALS: BP 146/86; PULSE 82; RESP 16; TEMP 36.6; O2SAT 98
[2025-07-11 06:51] VITALS: BP 149/94; PULSE 66; RESP 16; TEMP 36.8; O2SAT 97
--- NOTE | 2025-07-11 07:45 | PC.NURSE ---
Patient is a 75-year-old assigned male at with a past medical history of generalized dystonia, dementia, epilepsy, and hypertension presenting of 3 days of worsening left shoulder and left neck pain.. He describes pain on the left side of his neck and numbness and tingling in his left arm that is worse in his hand. He also describes left leg numbness and tingling which is tendonitits.. He lives with his but today she is in [place] getting brain surgery. He denies headache, fatigue, dizziness, vision changes, chest pain, palpitations, shortness or breath, and abdominal pain. Patient's brother states that because the patient's is out of town - the patient is unsafe to be in the home at this time because they are unable to care for him. Patient alert and coopertive. Respirations even and non-labored. Abdomen soft, non-tender with positive bowel sounds. Positive pedal pulses with no edema. Patient able to ambulate with a steady gait utilizinh his rolling walker. Insurance denied STR. Frequent attempts to contact family made by CM for next steps with no response.
--- NOTE | 2025-07-11 09:58 | MHC.CM.ED ---
Patient remains in ER overflow. Have been trying to contact patient's daughter/HCP, Aisha since Tuesday. Has not responded to any calls from CM. Linsey Davis, director aware. Attempted to reach Aisha again via telephone at [phone]. Left message requesting return telephone call and explaining Advance Beneficiary Notice of Non-coverage would be given to patient if CM is not contacted by 1pm. Patient's 2nd HCP is listed as Chen. Spoke with Chen via telephone at [phone]. Chen is patient's sister. Cehn is not well herself and is not able to help care for patient. Chen has been speaking with patient's , Keyona via text. Keyona is doing well after surgery. Chen will text Keyona and ask her to reach out to . Attempted to speak with Keyona via telephone at [phone]. Left voicemail requesting return telephone call. Linsey Davis is aware of above info. Continue to monitor for d/c needs.
--- NOTE | 2025-07-11 11:16 | MHC.CM.ED ---
Received return telephone call from patient's , Keyona. Keyona was d/c'd from the hospital and is staying with her sister. T/W explained patient passed PT eval. STR was pursued but was declined by [facility]. Keyona states Aisha has been working in [place] and is planning on filing an appeal. T/W explained typically appeals have to be filed within 48 hours of denial. Also explained has been trying to get in contact with Aisha. Keyona reiterated Aisha was working in [place]. T/W explained voicemail was left explaining CM was available until 11pm and there still was no effort to contact CM. Keyona was under the impression [facility]. Explained patient only has [facility] Safety Net, which does not cover LTC. Keyona states her surgery was not planned and happended rather quickly. She can not live alone and has decided to move in with her sister. Family is currently cleaning out their apartment. Keyona is unsure what the d/c plan will be. Keyona deferring to Aisha at this time about d/c planning. Keyona made aware Aisha will have to speak to CM by 1pm or an Advanced Beneficiary Notice of Non-Coverage will be given by the hospital. Keyona verbalized understanding. Linsey Davis, SHELLIE Director aware. Continue to monitor for d/c needs.
--- NOTE | 2025-07-11 13:19 | MHC.CM.ED ---
Received voicemail from patient's daughter/HCP, Aisha stating appeal with filed with [facility]. Also requesting CM to help obtain PCP records and Pain management records for [facility] application. Attempted to reach Aisha via telephone. Left voicemail requesting when appeal was filed and explaining PCP and pain management records could not be obtained because these services aren't provided by [facility]. Also requested return telephone call. Continue to monitor for d/c needs.
[2025-07-11 14:00] VITALS: BP 160/82; PULSE 88; RESP 16; TEMP 36.7; O2SAT 97
[2025-07-11 20:00] VITALS: BP 131/70; PULSE 81; RESP 14; TEMP 36.7; O2SAT 97
[2025-07-12 03:10] VITALS: RESP 16
[2025-07-12 05:36] VITALS: BP 123/62; PULSE 63; RESP 16; TEMP 36.2; O2SAT 97
--- NOTE | 2025-07-12 07:50 | PC.NURSE ---
Patient is a 75-year-old assigned male at with a past medical history of generalized dystonia, dementia, epilepsy, and hypertension presenting of 3 days of worsening left shoulder and left neck pain.. He describes pain on the left side of his neck and numbness and tingling in his left arm that is worse in his hand. He also describes left leg numbness and tingling which is tendonitits.. He lives with his but today she is in [place] getting brain surgery. He denies any compaints.. Patient's brother states that because the patient's is out of town - the patient is unsafe to be in the home at this time because they are unable to care for him. Patient alert and coopertive. Respirations even and non-labored. Abdomen soft, non-tender with positive bowel sounds. Positive pedal pulses with no edema. Patient able to ambulate with a steady gait utilizing his rolling walker. Insurance denied STR. Per family, attempting to appeal but unable CM unable to reach family. Per , she believed patient was transitioning to LTC as she has since been discharged and living with her sister, letting their apartment go. CM will continue to work on a safe discharge.
[2025-07-12 14:00] VITALS: BP 143/80; PULSE 90; RESP 18; TEMP 36.1; O2SAT 94
[2025-07-12 20:14] VITALS: BP 143/87; PULSE 90; RESP 18; TEMP 37.1; O2SAT 96
[2025-07-13 06:00] VITALS: BP 154/84; PULSE 88; RESP 20; TEMP 37.4; O2SAT 96
[2025-07-13 08:17] VITALS: BP 152/91; PULSE 69
[2025-07-13 08:19] VITALS: BP 152/91
[2025-07-13 14:00] VITALS: BP 156/92; PULSE 89; RESP 18; TEMP 36.9; O2SAT 98
[2025-07-13 22:00] VITALS: BP 139/60; PULSE 88; RESP 16; TEMP 37.1; O2SAT 97
[2025-07-14 05:32] VITALS: BP 140/55; PULSE 58; RESP 16; TEMP 36.6
[2025-07-14 06:37] VITALS: O2SAT 95
--- NOTE | 2025-07-14 10:12 | MHC.CM.ED ---
Patient remains in ER overflow. No return telephone call from daughter, Aisha since . Attempted to reach Aisha via telephone at [phone]. Left message requesting return telephone call. Received notification from Samuel LANGE that patient's daughter, Lucille called and can be reached via telephone at [phone]. Spoke with Lucille via telephone. Explained has not heard from [place] since . Also explained [facility] had denied STR. Was told by Aisha that she filed an appeal on but have not heard from [facility] or [place]. Also explained hospital could potentially issue ABN and patient would be responsible for privately paying $1000 per day. Lucille will speak with her mother and sister about a d/c plan for patient. Continue to monitor for d/c needs.
[2025-07-14 14:00] VITALS: BP 164/93; PULSE 68; RESP 16; TEMP 36.9; O2SAT 98
[2025-07-14 21:20] VITALS: BP 159/97; PULSE 87; RESP 20; TEMP 36.8; O2SAT 99
[2025-07-15 06:00] VITALS: BP 155/91; PULSE 60; RESP 16; TEMP 36.3; O2SAT 97
--- NOTE | 2025-07-15 08:07 | PC.NURSE ---
pt alert and oriented x4, ambulating on unit with walker demonstrating safety awareness. Pt denies complaint and is able to communicate needs. Pt slept well with no s/s distress.
--- NOTE | 2025-07-15 12:44 | MHC.CM.PN ---
Spoke with HCP/Dtr/Aisha today. She stated that she is working with [facility], an [facility] for placement. She was instructed to ask [facility] for a respite bed until the paperwork for his admission is approved. She stated that she will inquire today about a respite stay. She stated that she will call with an update this afternoon. She stated that her parents apartment is no longer available. She was informed that she may be charged $1200/day @ [facility].
[2025-07-15 14:00] VITALS: BP 162/89; PULSE 90; RESP 18; TEMP 36.6; O2SAT 97
--- NOTE | 2025-07-15 17:52 | MHC.EDTECH ---
Patient turned and repositioned and [place] changed
[2025-07-15 22:00] VITALS: BP 128/78; PULSE 73; RESP 16; TEMP 37.3; O2SAT 96
[2025-07-16 05:37] VITALS: BP 154/82; PULSE 62; RESP 16; TEMP 36.7; O2SAT 97
--- NOTE | 2025-07-16 07:16 | PC.NURSE ---
Pt calm and cooperative. Engages in conversation easily. Alert and oriented to self and place. Confused at times regarding plan of care as pt stated on multiple occasions Im going home tomorrow . Pt slept throughout most of the night with multiple episodes of going to the bathroom. Ambulates independently with walker and is able to make needs known. Monitoring is ongoing.
[2025-07-16 09:45] VITALS: BP 113/79
--- NOTE | 2025-07-16 10:47 | PC.NURSE ---
Assumed care of pt approx 0700, pt up OOB and ambulates to BR without difficulty. A/O x 2-3, occasionally confused regarding situation but is able to be redirected. Denies pain at this time. Took medications whole with water. Pt declined stool softener this AM, reports frequent loose stools. Denies N/V, tolerating diet and PO fluids. Plan of care ongoing..
[2025-07-16 14:00] VITALS: BP 134/82; PULSE 88; RESP 16; TEMP -13.2; TEMP 36.8; TEMP 8.2; O2SAT 96
[2025-07-16 15:52] VITALS: BP 118/71; PULSE 78; RESP 16; TEMP 37.2; O2SAT 97
--- NOTE | 2025-07-16 16:51 | MHC.CM.PN ---
Dtr has not returned call re [facility] resp[facility]. [facility] via BLS, once accepted.
[2025-07-16 20:30] VITALS: BP 159/91; PULSE 88; RESP 16; TEMP 36.8; O2SAT 96
--- NOTE | 2025-07-17 00:44 | PC.NURSE ---
0000 Pt Alert, oriented x3 intermittent confusion. Pt independently ambulating with walker to bathroom on the unit with steady gait and balance. Pt changed himself into bedtime clothing tonight and preferred Ibuprofen tonight for bilateral hand pain which he reports his chronic. Pt reports relief of pain with Ibuprofen. Bedtime snack provided and bed linens changed. VSS
[2025-07-17 06:00] VITALS: BP 140/75; PULSE 67; RESP 16; TEMP 36.6; O2SAT 98
--- NOTE | 2025-07-17 10:21 | MHC.CM.ED ---
Patient remains in ER overflow. Attempted to speak with [facility] to verify application has been submitted. Left a voicemail for Hanna Quincy requesting a return telephone call. Spoke with Aisha via telephone at [phone]. Aisha states application was submitted to [facility]. Aisha states she also asked about respite care. Per Aisha, [facility] will review application and get back to family lluvia. Aisha unable to provide a timeline because her sister, Lucille has been dealing with [facility]. Aisha will speak to Lucille and get back to CM by the end of the day. Continue to monitor for d/c needs.
[2025-07-17 13:50] VITALS: BP 136/93; PULSE 93; RESP 18; TEMP 36.3; O2SAT 97
--- NOTE | 2025-07-17 14:45 | MHC.CM.ED ---
Spoke with Hanna at [facility]. Hanna just learned nursing staff at [facility] is denying his admission at this time. Hanna will reach out to family. Continue to monitor for d/c needs.
--- NOTE | 2025-07-17 15:59 | MHC.CM.ED ---
Received telephone call from daughter, Lucille. Lucille is aware [facility] not [facility] accepting patient. Luc[facility] and requested another referral be sent to them. T/W explained patient is ambulating from his room to the bathroom independently and STR will not be authorized by [facility]. Also explained patient only has [facility] Safety Net, which does not cover LTC. Patient would need [facility] LTC, which is not a quick process and that 5 years of banking statements and other documents would be needed and can take up to 60 days. Would not be appropriate for patient to be in ER this time. Also explained HINN would be issued tomorrow at 9am and that Elder at Risk for abandonment would potentially be filed as well. Lucille will speak to her mother and sister about a realistic d/c plan. Continue to monitor for d/c needs.
[2025-07-17 20:58] VITALS: BP 170/99; PULSE 97; RESP 20; TEMP 37; O2SAT 99
[2025-07-18 06:00] VITALS: BP 144/88; PULSE 57; RESP 20; TEMP 36.7; O2SAT 97
--- NOTE | 2025-07-18 09:19 | MHC.CM.ED ---
Patient remains in ER overflow. No call back from Aisha, daughter/HCP from yesterday. Spoke with Aisha via telephone at [phone]. Aisha is aware [facility] is unable to accept her father. Aisha, her mother Keyona and her sister Lucille are reaching out to family and friends about a place to stay for patient. T/W inquired about a realistic time of when this will be accomplished. Aisha stated by Tuesday . T/W explained hospital requesting ABN be issued today. T/W explained patient would have to be d/c'd by Thursday 07/19 at 5pm or hospital would serve patient/family with an ABN at $1200/day. Aisha verbalized understanding and will update CM about d/c plan. Leadership aware. Continue to monitor for d/c needs.
[2025-07-18 09:31] VITALS: BP 105/88
[2025-07-18 14:00] VITALS: PULSE 78; RESP 16; TEMP 37.6; O2SAT 96
--- NOTE | 2025-07-18 17:26 | MHC.CM.ED ---
SHELLIE received telephone call from Jr patients brother in law ([phone]). He was requesting information on patient's discharge. SHELLIE explained that SHELLIE has been speaking with patients daughter Lucille Andrade and his Keyona. Encouraged him to reach out to them. He states his family has made a face book page with regards to his discharge. He also states that he just found out about his brother in law being in the ED via internet. He tells CM all of the patient's belongings have been stored for him. SHELLIE explained that I could not share any information with him and requested he speak with his niece or patient's .
[2025-07-18 22:00] VITALS: BP 152/94; PULSE 92; RESP 20; TEMP 36.8; O2SAT 97
[2025-07-19 05:57] VITALS: BP 156/99; PULSE 75; RESP 20; TEMP 36.8; O2SAT 94
[2025-07-19 09:55] VITALS: BP 130/77
[2025-07-19 10:06] VITALS: BP 130/77; PULSE 80; RESP 15; O2SAT 97
--- NOTE | 2025-07-19 10:19 | MHC.CM.ED ---
Addendum entered by Angelina Beck 07/19/25 15:23: Received telephone call from Hermila of [facility]. Patient is a their outpatient practice. Hermila states Linsey requested provider call [facility] to appearl denial of STR. Per Hermila, provider will not be filing an appeal with [facility]. Addendum entered by Angelina Beck 07/19/25 14:55: Received notification from Marilia of [facility] that report was screened out due to being safe in the ER. Dr Haddad aware. Addendum entered by Angelina Beck 07/19/25 11:31: Elder at Risk for abandonment filed with [facility]. Original Note: Patient remains in ER overflow. Spoke with patient's daughter/HCP, Aisha via telephone at [phone] to determine d/c plan. Aisha stated she spoke with [facility] and they told her to say its an unsafe discharge. Aisha also reached out to patient's PCP, who stated he will file an appeal with [facility]. T/W explained [facility] is denying STR because patient can safely ambulate and does not cover [facility] care. Aisha stated she was aware. At this time iAsha was made aware that an advanced beneficiary notice of non-payment is being issued by the hospital starting 07/19 at 11am. Explained verbally and sent via certified mail. Aisha stated Ok and disconnected telephone call with T/W. Yoly Wilcox CM Operational Shop Fitter aware. Continue to monitor for d/c needs.
--- NOTE | 2025-07-19 17:33 | PC.NURSE ---
Pt ambulating independently wit walker on unit today. Complains of bilateral shoulder pain, mostly on right, taking ibuprofen for the pain. No other complaints.
--- NOTE | 2025-07-19 17:34 | P.CNPS_ITS ---
History of Present Illness Date of Service: 07/19/2025 Chief Complaint: L SHOULDER PAIN Reason for Consult: Capacity Requesting physician: Tami Sawant Sources of Information: patient interviewed and chart reviewed HPI Narrative: 75 yo male, to ER 07/07/25 with reports of left shoulder, neck pain and left leg numbness. During eval it was learned that was in a [facility] for urgent brain surgery and planned to live with her sister upon discharge. The couples apartment was going to be rented and pt would be needing a place to live as is his caregiver and he is unable to be alone due to falls, confusion- has a diagnosis of dementia with active meds of aricept and namenda. Insurance declined SNF authorization, pt is in the process of application process for [facility] admission he reports. Capacity request to assess if pt will need a guardian. Met with pt who is calm, cooperative and agreeable to this assessment. He reported the above information regarding his health and 's recent illness and reports a history of dystonia, arm, shoulder pain, unsteady gait and being a high fall risk. 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 Pt reports he was recently at [facility] , then returned home with a tentative plan to apply to [facility]. Pt reports he and have spoken and have had the difficult talk that neither one of us will get better and we have to make the necessary changes to receive the care we need. For his needs, he identifies the dystonia and pain as the primary issues, reports the seizures are reasonably controlled and affirms when asked if he has HTN. Pt reports his plan of care he believes to be logical, reasonable and in his best interest and he is in agreement with the plan to help him obtain admission to [facility]. He adds that he hopes they have a piano as he has interest in music. He does not identify dementia as a main issue, admits to forgetfulness and sees the main reason for needing help as the dystonia and risk of falling, not issues with his memory. He does report that living alone is not an option for him at this time due to these needs and identifies his 's caregiving of him at home as being necessary and life saving which he believes will need to be continued. Past Psychiatric History: Denies Medical Evaluation Reviewed: Yes Review of Systems Review of Systems Left shoulder, neck pain, leg numbness. [facility] Medical History Left inguinal hernia Adult failure to thrive Chronic pain Anxiety Hypertension Diagnostics Vital Signs (24Hr): Vital Signs - 24 hr 07/18/25 22:00 07/19/25 05:57 07/19/25 09:55 Temperature 98.2 F 98.2 F Pulse Rate 92 75 Respiratory Rate 20 20 Blood Pressure 152/94 H 156/99 H 130/77 Pulse Oximetry 97 94 Oxygen Delivery Method Room Air Room Air 07/19/25 10:06 Temperature Pulse Rate 80 Respiratory Rate 15 Blood Pressure 130/77 Pulse Oximetry 97 Oxygen Delivery Method BMI result Body Mass Index 23.4 Labs 07/07/25 11:43 07/07/25 11:43 Mental Status Exam Mental Status Exam Patient Appearance: Fatigued and Disheveled Patient Orientation: Person, Place and Situation Level of Consciousness: Alert Patient Behavior: Appropriate, Talkative, Cooperative, Fatigued, Distractible and Good Eye Contact Mood Description: Calm Affect Description: Calm and Flat Patient Cognition Impaired: Yes Ability to Follow Directions: Fair Speech Pattern: Spontaneous Speech and Rambling Memory Description: Episodic Impaired and Recent Impaired Hallucinations: None Delusions: Not Present Thought Process: Rumination and Goal Oriented Thought Content: positive for Circumstantial and positive for Suicidal Ideation (denies-talks of a significant hindu belief system) Depressive Symptoms: Increased Fatigue Judgement: Fair Medications Medications Current Medications Acetaminophen (Acetaminophen 325 Mg Tablet) 975 mg PO Q6H PRN PRN Reason: Pain (Scale Score 1-3) Last Admin: 07/08/25 06:45 Dose: 975 mg Acetaminophen (Acetaminophen 325 Mg Tablet) 975 mg PO BID [facility] Last Admin: 07/19/25 10:10 Dose: 975 mg Amlodipine Besylate (Amlodipine Besylate 2.5 Mg Tablet) 2.5 mg PO DAILY [facility]; Protocol Last Admin: 07/19/25 09:55 Dose: 2.5 mg Docusate Sodium (Docusate Sodium 100 Mg Capsule) 100 mg PO DAILY [facility] Last Admin: 07/19/25 09:59 Dose: 100 mg Donepezil HCl (Donepezil Hcl 10 Mg Tablet) 10 mg PO BEDTIME [facility] Last Admin: 07/18/25 19:57 Dose: 10 mg Duloxetine HCl (Duloxetine Hcl 20 Mg Capsule.) 40 mg PO DAILY [facility] Last Admin: 07/19/25 09:53 Dose: 40 mg Duloxetine HCl (Duloxetine Hcl 60 Mg Capsule.) 60 mg PO DAILY [facility] Last Admin: 07/19/25 10:00 Dose: 60 mg Ibuprofen (Ibuprofen 600 Mg Tablet) 600 mg PO Q8H PRN PRN Reason: Pain, Moderate(Pain Scale 4-6) Last Admin: 07/19/25 17:19 Dose: 600 mg Lamotrigine (Lamotrigine 100 Mg Tablet) 150 mg PO BID [facility] Last Admin: 07/19/25 09:58 Dose: 150 mg Magnesium Hydroxide (Milk Of Magnesia 30 Ml Oral.Susp) 30 ml PO BID PRN PRN Reason: Constipation Memantine (Memantine Hcl 10 Mg Tablet) 10 mg PO DAILY [facility] Last Admin: 07/19/25 09:54 Dose: 10 mg Allergies Allergies Allergy/AdvReac Type Severity Reaction Status Date / Time oxycodone (From Tylox) AdvReac Severe Vomiting Verified 07/07/25 09:57 Assessment & Plan Assessment & Plan (1) Dementia with anxiety: Status: Acute Code(s): F03.94 - Unspecified dementia, unspecified severity, with anxiety Plan 75 yo male, history of dementia, dystonia, seizure disorder, HTN to ER with shoulder, neck, leg pain. Pt lives with , his primary healthcare customer service. has recently needed emergency brain surgery and will need to live with her sister upon completion for care. Pt is unable to remain at home due to dystonia, increase fall risk and sx of confusion. He verbalizes understanding of the issues and is in agreement with the plan of care his family is currently working on. He acknowledges dementia, however, has inadequate appreciation of the diagnosis and risks it presents. He is aware of the options and appreciates that family is working on a safe place for him to live and receive care, however he reports the medical issues that need this care are the dystonia and gait unsteadiness. This lack of insight regarding his dementia and need for care may impair his ability to make safe medical decisions for himself. He does not have capacity to make medical decisions regarding his dementia care as of this evaluation. Total time managing care of this patient today ____ minutes. Patient educated on: diagnosis, therapeutic strategies and medical condition Informed Consent: does not understand
[2025-07-19 21:40] VITALS: BP 148/90; PULSE 97; RESP 18; TEMP 37; O2SAT 97
[2025-07-20 05:37] VITALS: BP 137/71; PULSE 69; RESP 17; TEMP 36.3; O2SAT 98
[2025-07-20 08:20] VITALS: BP 156/80
--- NOTE | 2025-07-20 12:10 | PC.NURSE ---
Addendum entered by Yanet Ferguson RN 07/20/25 12:14: Elder at Risk for abandonment filed with [facility]. Patient remains in ER overflow. Spoke with patient's daughter/HCP, Aisha to determine d/c plan. Aisha stated she spoke with [facility] and they told her to say its an unsafe discharge. Aisha also reached out to patient's PCP, who stated he will file an appeal with [facility]. T/W explained [facility] is denying STR because patient can safely ambulate and does not cover snf care. At this time Aisha was made aware that an advanced beneficiary notice of non-payment is being issued by the hospital starting 07/19 at 11am. CM will continue to monitor for d/c needs. Original Note: Patient is a 75-year-old male with a past medical history of generalized dystonia, dementia, epilepsy, and hypertension presenting of 3 days of worsening left shoulder and left neck pain.. He describes pain on the left side of his neck and numbness and tingling in his left arm that is worse in his hand. He also describes left leg numbness and tingling which is tendonitits.. He lives with his but today she is in [place] getting brain surgery. He denies any compaints.. Patient's brother states that because the patient's is out of town - the patient is unsafe to be in the home at this time because they are unable to care for him. Patient alert and coopertive. Respirations even and non-labored. Abdomen soft, non-tender with positive bowel sounds. Positive pedal pulses with no edema. Patient able to ambulate with a steady gait utilizing his rolling walker. Insurance denied STR. Per , she believed patient was transitioning to LTC as she has since been discharged and living with her sister, letting their apartment go. CM will continues to work on a safe discharge.
[2025-07-20 15:50] VITALS: BP 158/89; PULSE 82; RESP 18; TEMP 37.1; O2SAT 98
[2025-07-20 23:15] VITALS: BP 145/68; PULSE 74; RESP 20; TEMP 37.1; O2SAT 94
--- NOTE | 2025-07-21 05:55 | PC.NURSE ---
Assumed care of patient at 1900. Patient is alert and oriented x 3, lacks insight into situation and forgetful at times. He is ambulating the unit, some periods of unsteady gait, however patient is able to appropriately ask for assistance when needed. He is utilizing the bathroom as needed. No further complaints or concerns. No acute events overnight. Bed locked and in lowest setting, call wright within reach.
[2025-07-21 07:33] VITALS: BP 163/91; PULSE 74; RESP 15; TEMP 36.5; O2SAT 95
--- NOTE | 2025-07-21 07:48 | PC.NURSE ---
This RN assumed care of patient @ 0700 Patient A&O x 3 Denies pain and SOB No IV access Patient ambulated to bathroom with rolling walker. Steady gait noted.
[2025-07-21 09:17] VITALS: BP 163/91
[2025-07-21 14:50] VITALS: BP 148/93; PULSE 89; RESP 14; TEMP 36.8; O2SAT 96
[2025-07-21 18:52] VITALS: BP 162/92; PULSE 98; RESP 15; TEMP 36.7; O2SAT 98
[2025-07-22 06:00] VITALS: BP 126/78; PULSE 90; RESP 18; TEMP 36.7; O2SAT 93
--- NOTE | 2025-07-22 06:22 | PC.NURSE ---
Assumed care of patient at 1900. Patient is alert and oriented x 3, lacks insight into situation and forgetful at times. He is ambulating the unit, some periods of unsteady gait, however patient is able to appropriately ask for assistance when needed. He is utilizing the bathroom as needed. No further complaints or concerns. No acute events overnight. Bed locked and? in lowest setting, call wright within reach.
--- NOTE | 2025-07-22 08:15 | MHC.EDTECH ---
pt ate 100% breakfast
--- NOTE | 2025-07-22 09:53 | MHC.EDTECH ---
pt went to to the bathroom and voided 1x
--- NOTE | 2025-07-22 11:09 | MHC.EDTECH ---
pt was washed up and linen change and standby with teeth rushing and denture care.
--- NOTE | 2025-07-22 12:36 | MHC.EDTECH ---
pt ate 75% lunch
[2025-07-22 14:00] VITALS: BP 144/94; PULSE 92; RESP 20; TEMP 36.8; O2SAT 95
[2025-07-22 21:12] VITALS: BP 140/40; PULSE 71; RESP 18; TEMP 37.1; O2SAT 98
[2025-07-23 00:25] VITALS: RESP 18
[2025-07-23 06:00] VITALS: BP 140/45; PULSE 67; RESP 18; TEMP 36.2; O2SAT 93
[2025-07-23 08:40] VITALS: BP 140/96; PULSE 85; RESP 16; TEMP 36.9; O2SAT 96
--- NOTE | 2025-07-23 13:49 | MHC.CM.ED ---
Addendum entered by Angelina Beck 07/23/25 13:53: Family is going to provide CM with names and contact info for biological family of patient. Original Note: Met with patient's sister Chen, brother in law Jr and sister Caitlin at their request to provide update on patient's status. Per family, patient has 2 biological children from his 1st marriage. Patient also has 4 siblings. Explained [facility] are reaching out to [place] to complete paperwork for LTC [facility] application. Chen, Jr and Caitlin do not feel [place] has patient's best interest at [facility]. T/w provided support and explained process of finding LTC placement, payor sources, next steps, etc. All verbalize understanding. Bev from financial will be reaching out to [place] to request necessary documents for [facility] LTC application. Continue to monitor for d/c needs.
[2025-07-23 14:00] VITALS: BP 142/91; PULSE 96; RESP 18; TEMP 36.5; O2SAT 96
[2025-07-23 22:00] VITALS: BP 146/84; PULSE 84; RESP 15; TEMP 37.3; O2SAT 97
[2025-07-24 05:26] VITALS: BP 116/67; PULSE 64; RESP 16; TEMP 36.4; O2SAT 98
--- NOTE | 2025-07-24 06:42 | PC.NURSE ---
Assumed care of pt at 1900. Pt able to make needs known. Meds administered per JAN. See flowsheets for more information. Call wright in reach. All safety measures in place. Pt able to self reposition throughout the night.?No acute events overnight.
--- NOTE | 2025-07-24 08:33 | MHC.CM.ED ---
Addendum entered by Angelina Beck 07/24/25 11:38: Received list of patient's biological children and siblings from sister Chen. Forwarded to Linsey Davis CM Director. Original Note: Patient remains in ER overflow. Received notification that Bev from [facility] tried to reach Laverne via telephone yesterday 07/23 at 3pm. Left a voicemail requesting return telephone call. Continue to monitor for d/c needs.
[2025-07-24 09:12] VITALS: BP 122/72
[2025-07-24] MEDS: Milk of Magnesia 30 ML ORAL.SUSP PO (12:34)
[2025-07-24 14:00] VITALS: BP 134/85; PULSE 89; RESP 18; TEMP 37; O2SAT 93
[2025-07-24 19:35] VITALS: BP 116/94; PULSE 121; RESP 18; TEMP 36.2; O2SAT 92
[2025-07-24 21:00] VITALS: PULSE 67
[2025-07-25 06:02] VITALS: BP 132/62; PULSE 63; RESP 18; TEMP 36.6; O2SAT 94
[2025-07-25 08:40] VITALS: BP 162/90
[2025-07-25 14:00] VITALS: BP 148/78; PULSE 92; RESP 18; TEMP 36.8; O2SAT 95
[2025-07-25 20:05] VITALS: BP 135/97; PULSE 100; RESP 18; TEMP 36.6; O2SAT 98
--- NOTE | 2025-07-25 22:25 | PC.NURSE ---
Took over patient's care at 1900. Patient is alert oriented and calm. L/s clear, abd soft, reports last bm today without issues. Bedtime medications administered per mar. Patient reporting having shoulders/arms pain, reporting it's chronic and does not want anything stronger than scheduled tylenol at this time. Patient able to ambulate to the bathroom with a rolling walker, steady gait. Callbell within reach.
[2025-07-26 06:24] VITALS: BP 134/74; PULSE 66; RESP 14; TEMP 36.7; O2SAT 98
--- NOTE | 2025-07-26 07:12 | PC.NURSE ---
Addendum entered by Yanet Ferguson RN 07/26/25 07:14: CM met with patient's sister Chen, brother in law Jr and sister Caitlin at their request to provide update on patient's status. Per family, patient has 2 biological children from his 1st marriage. Patient also has 4 siblings. Explained [facility] Counselors are reaching out to Aisha to complete paperwork for LTC [facility] application. Multiple family members do not feel Aisha has patient's best interest at heart. CM explained process of finding LTC placement, payor sources, next steps, etc. All verbalize understanding. Bev from financial will be reaching out to Aisha to request necessary documents for [facility] LTC application. CM will continue to monitor for a safe discharge. Original Note: Patient is a 75-year-old male with a past medical history of generalized dystonia, dementia, epilepsy, and hypertension presenting of 3 days of worsening left shoulder and left neck pain.. He describes pain on the left side of his neck and numbness and tingling in his left arm that is worse in his hand. He also describes left leg numbness and tingling which is tendonitits.. He lives with his but today she is in [place] getting brain surgery. He denies any complaints.. Patient's brother states that because the patient's is out of town - the patient is unsafe to be in the home at this time because they are unable to care for him. Patient alert and coopertive. Respirations even and non-labored. Abdomen soft, non-tender with positive bowel sounds. Positive pedal pulses with no edema. Patient able to ambulate with a steady gait utilizing his rolling walker. Insurance denied STR. Per , she believed patient was transitioning to LTC as she has since been discharged and living with her sister, letting their apartment go.
--- NOTE | 2025-07-26 10:54 | MHC.CM.ED ---
Patient remains in ER overflow. Received notification from Bev of [facility] [place] [facility] that Aisha has been provided with checklist of documents that will be required for [facility] care application. Aisha will work are obtaining paperwork. Linsey Davis CM Director aware. Continue to monitor for d/c needs.
[2025-07-26 14:00] VITALS: BP 143/83; PULSE 87; RESP 16; TEMP 36.7; O2SAT 95
[2025-07-26 19:57] VITALS: BP 130/84; PULSE 91; RESP 19; TEMP 37.5; O2SAT 98
--- NOTE | 2025-07-27 01:11 | PC.NURSE ---
Assumed care of mehul at 1900. Patient pleasant and cooperative with care. Compliant with meds. Ambulates with rolling walker with steady gait. A/Ox2 Person/place.Denies pain at this time. Purposeful rounding performed.
[2025-07-27 05:12] VITALS: BP 160/89; PULSE 70; RESP 20; TEMP 36.4; O2SAT 97
[2025-07-27 20:00] VITALS: BP 174/98; PULSE 95; RESP 16; TEMP 36.3; O2SAT 97
--- NOTE | 2025-07-28 02:34 | PC.NURSE ---
Patient resting comfortably overnight. No complaints at this time. Continues to walk independently with walker.
[2025-07-28 06:08] VITALS: BP 150/81; PULSE 58; RESP 16; TEMP 36.7; O2SAT 97
[2025-07-28 08:32] VITALS: BP 119/75; PULSE 96; RESP 18; TEMP 36.8; O2SAT 95
[2025-07-28 08:38] VITALS: BP 119/75
[2025-07-28 14:22] VITALS: BP 156/90; PULSE 73; RESP 18; TEMP 36.9; O2SAT 98
[2025-07-28 21:20] VITALS: BP 142/93; PULSE 82; RESP 18; TEMP 36.9; O2SAT 97
[2025-07-29 06:00] VITALS: BP 132/68; PULSE 67; RESP 18; TEMP 37.1; O2SAT 96
[2025-07-29 09:42] VITALS: BP 127/82
--- NOTE | 2025-07-29 10:24 | MHC.EDTECH ---
pt was assisted with a bed bath and lien change and setup with teeth brushing
--- NOTE | 2025-07-29 11:16 | MHC.CM.ED ---
Patient remains in ER overflow. Received notification that no documents have been received by daughter/HCP, Aisha needed for [facility] nursing home care application. Continue to monitor for d/c needs.
--- NOTE | 2025-07-29 12:31 | MHC.EDTECH ---
pt ate 100% breakfast
--- NOTE | 2025-07-29 12:31 | MHC.EDTECH ---
pt voided x2
--- NOTE | 2025-07-29 12:51 | MHC.EDTECH ---
pt voided 1x
--- NOTE | 2025-07-29 12:52 | MHC.EDTECH ---
pt ate 100% lunch
[2025-07-29 14:00] VITALS: BP 140/72; PULSE 75; RESP 20; TEMP 36.8; O2SAT 97
--- NOTE | 2025-07-29 20:17 | PC.NURSE ---
pt alert and oriented x3, he is ambulating unit with good safety awareness. He spoke with his on the phone this evening. He enjoyed his meals and a variety of snacks. He denied complaint.
[2025-07-29 21:09] VITALS: BP 156/93; PULSE 71; RESP 19; TEMP 36.9; O2SAT 96
[2025-07-30] VITALS (7 sets, daily range): BP systolic 121–154; BP diastolic 64–92; PULSE 59–87; RESP 16–20; TEMP 36.6–37.1; O2SAT 95–97
--- NOTE | 2025-07-30 11:05 | PC.NURSE ---
Pt ambulating to and from BR with rolling walker/steady gait; pt denies pain at this time; no change in status today per case mgt
--- NOTE | 2025-07-30 16:40 | MHC.EDTECH ---
pt voided 1x in the bathroom
--- NOTE | 2025-07-30 17:20 | MHC.EDTECH ---
pt went to the bathroom and voided 1x
--- NOTE | 2025-07-30 17:22 | MHC.EDTECH ---
pt ate 75% dinner
[2025-07-31] VITALS (8 sets, daily range): BP systolic 149–162; BP diastolic 02–95; PULSE 62–95; RESP 16–20; TEMP 36.3–37.2; O2SAT 94–99
--- NOTE | 2025-07-31 06:32 | PC.NURSE ---
Assumed care of pt at 1900. A&Ox3, unable to grasp his situation. Pt pleasant and calm. Cooperative with care. Pt ambulating to the bathroom?independently with rolling walker. Able to make needs known. Bed in lowest position with wheels locked. Non skid footwear provided. Call wright in reach.
--- NOTE | 2025-07-31 16:19 | MHC.EDTECH ---
at approxiamately 16:00 patient entered the bathroom. Several minutes later the emergency light went on . The patient had locked the door and I was unable to get in. I called for the nurse informed her the door was locked.She called for a rapid response. Door unlocked and patient was put back in bed.
[2025-07-31] MEDS: Morphine Sulfate Immed Release 15 MG TABLET PO (17:01)
--- NOTE | 2025-07-31 17:41 | MHC.CM.ED ---
TIGER text to Dr. Conde, Della Fortune and Linsey Davis regarding social admission for this patient. Per Dr. Conde, he will address this in the am.
--- NOTE | 2025-07-31 19:58 | MHC.CM.ED ---
updated Keyona on patient's fall and negative imagining.
--- NOTE | 2025-07-31 21:46 | PC.NURSE ---
pt ambulating freely with rollator intermittently throughout the day with steady gait, He is alert and oriented x3-4 but lacks some insight. at approx 1600 This RN was alerted by audio/video technician that pt stated he fell in the bathroom but the door was locked. Pt advised to stay still and security and PRODUCTION UNDERWRITER called. Pt was able to open the door prior to teams arrival and pt quickly assessed then vitals taken. He was assessed by MD and was assisted into the bed that was now at the BR door by Devante from ED when MD gave clearance. Pt ordered for stat CT and xrays. Pt reported 10/10 pain to hips/legs prior to getting back to bed and later complained of LLQ abdominal pain then neck and L foot/great toe pain. DONATION WORKER aware and morphine given with pt stating improved comfort. Scans taken. Pt's fall precautions now with yellow sock, wrist band, bed alarm and pt notified not to get up without assist. He is resting at this time with no s/s distress.
--- NOTE | 2025-07-31 22:52 | PC.NURSE ---
Pt voided 350 ml clear yellow urine in urinal.
--- NOTE | 2025-07-31 23:59 | PC.NURSE ---
pt voided 100 ml clear yellow urine in urinal.
[2025-08-01 06:00] VITALS: BP 140/68; PULSE 66; RESP 16; TEMP 36.6; O2SAT 96
--- NOTE | 2025-08-01 07:37 | PC.NURSE ---
Assumed care of pt at 1900. A&Ox3, unable to grasp his situation. Pt pleasant and calm. Cooperative with care. Pt ambulating to the bathroom with 1 staff assist with rolling walker. Able to make needs known. Bed in lowest position with wheels locked. Non skid footwear provided. Call wright in reach.
[2025-08-01 10:03] VITALS: BP 157/97
[2025-08-01 10:08] VITALS: BP 157/97; PULSE 83; RESP 16; TEMP 36.3; O2SAT 97
--- NOTE | 2025-08-01 11:21 | PM.IMHP ---
History of Present Illness Date of Service: 08/01/25 Attending physician on admission: Claudia Barney Chief Complaint: failure to thrive This is a 75-year-old male who was initially brought to the emergency department due to shoulder pain now being admitted for failure to thrive. He was initially brought to the emergency department on July 07, at that time workup for his shoulder pain and was planned to be discharged home however his who he resides with in his his primary director oncology had to undergo emergent brain surgery. He was seen by the psychiatric team and deemed not to have capacity to make medical decisions. No safe disposition was in place. It has now been determined that he will be admitted to the hospital due to failure to thrive. The time of my evaluation he has no specific complaints. Review of Systems Review of Systems: Yes all other systems are reviewed and are negative Constitutional: Constitutional: Denies fever(s) Cardiovascular: Cardiovascular: Denies chest pain and Denies dyspnea Respiratory: Respiratory: Denies dyspnea Gastrointestinal: Gastrointestinal: Denies abdominal pain and Denies vomiting [facility] Medical History (Updated 08/02/25 @ 00:00 by Carlos Manuel Cerna) Dystonia Seizure Dementia Left inguinal hernia Adult failure to thrive Chronic pain Anxiety Hypertension Social History Household Members: Spouse Household Members Other:: spouse had emergent surgery and is unable to care for him Housing: Apartment Do you presently have visiting nurse or other home services: No Unable to assess alcohol history related to: Unknown Alcohol intake: never Patient Tobacco Use Status: Never used Tobacco Smoked in Last 30 Days: No e-Cigarette/Vaping Use: Never Used Patient Interested in Nicotine Replacement: No Patient Given Instructions on How to Stop Smoking: No Second Hand Smoke Exposure: No Currently Displaying Signs/Symptoms of Drug Intoxication Withdrawal: No Have you been hit, kicked, punched, or otherwise hurt by someone within the past year? If so, by whom?: No Do you feel safe in your current relationship?: Yes Is there a partner from a previous relationship who is making you feel unsafe now?: No Are you made to feel afraid or neglected: No Advance Directives: Yes Advance Directives on File: Yes Advance Directives Date on File: 07/21/21 Do you have a plan to hurt others: No Plan Recently lost weight without trying: No Eating poorly because of decreased appetite: No Nutrition Risks: No Nutritional Risk Poor oral hygiene: No service: No Current occupational status: retired Meds Allergies Allergy/AdvReac Type Severity Reaction Status Date / Time oxycodone (From Tylox) AdvReac Severe Vomiting Verified 07/07/25 09:57 Active Medications: Current Medications Acetaminophen (Acetaminophen 325 Mg Tablet) 975 mg PO Q6H PRN PRN Reason: Pain (Scale Score 1-3) Last Admin: 07/08/25 06:45 Dose: 975 mg Acetaminophen (Acetaminophen 325 Mg Tablet) 975 mg PO BID [facility] Last Admin: 08/01/25 10:05 Dose: 975 mg Amlodipine Besylate (Amlodipine Besylate 2.5 Mg Tablet) 2.5 mg PO DAILY [facility]; Protocol Last Admin: 08/01/25 10:03 Dose: 2.5 mg Calcium Carbonate (Calcium Carbonate 750 Mg Tab.Chew) 750 mg PO Q4H PRN PRN Reason: Heartburn Docusate Sodium (Docusate Sodium 100 Mg Capsule) 100 mg PO DAILY [facility] Last Admin: 08/01/25 10:02 Dose: 100 mg Donepezil HCl (Donepezil Hcl 10 Mg Tablet) 10 mg PO BEDTIME [facility] Last Admin: 07/31/25 22:49 Dose: 10 mg Duloxetine HCl (Duloxetine Hcl 20 Mg Capsule.Dr) 40 mg PO DAILY [facility] Last Admin: 08/01/25 10:03 Dose: 40 mg Duloxetine HCl (Duloxetine Hcl 60 Mg Capsule.Dr) 60 mg PO DAILY [facility] Last Admin: 08/01/25 10:06 Dose: 60 mg Ibuprofen (Ibuprofen 600 Mg Tablet) 600 mg PO Q8H PRN PRN Reason: Pain, Moderate(Pain Scale 4-6) Last Admin: 07/30/25 22:19 Dose: 600 mg Lamotrigine (Lamotrigine 100 Mg Tablet) 150 mg PO BID [facility] Last Admin: 08/01/25 10:06 Dose: 150 mg Magnesium Hydroxide (Milk Of Magnesia 30 Ml Oral.Susp) 30 ml PO BID PRN PRN Reason: Constipation Last Admin: 07/24/25 12:34 Dose: 30 ml Magnesium Hydroxide (Milk Of Magnesia 30 Ml Oral.Susp) 30 ml PO DAILY PRN PRN Reason: Constipation Memantine (Memantine Hcl 10 Mg Tablet) 10 mg PO DAILY [facility] Last Admin: 08/01/25 10:14 Dose: 10 mg Sodium Chloride (0.9 % Sodium Chloride Flush 3 Ml Syringe) 3 [facility] Home Medications ?Medication ?Instructions ?Recorded ?Confirmed ?Last Taken ?Type memantine 5 mg tablet 10 mg PO DAILY 07/15/21 08/01/25 07/31/25 History duloxetine 20 mg capsule,delayed 40 mg PO DAILY 10/04/22 08/01/25 07/31/25 History release duloxetine 60 mg capsule,delayed 60 mg PO DAILY 10/04/22 08/01/25 07/31/25 History release docusate sodium 100 mg capsule 100 mg PO DAILY 07/07/25 08/01/25 07/31/25 History (Colace) donepezil 10 mg tablet 10 mg PO BEDTIME 07/07/25 08/01/25 07/30/25 History lamotrigine 100 mg tablet 150 mg PO BID 07/07/25 08/01/25 07/31/25 History (Lamictal) acetaminophen 325 mg tablet 975 mg PO Q6H PRN Pain 08/01/25 08/01/25 Unknown History amlodipine 2.5 mg tablet 2.5 mg PO DAILY 08/01/25 08/01/25 07/31/25 History Physical Exam Vital Signs and Narrative: Vital Signs: Last Vital Signs Temp 97.3 F 08/01/25 10:08 Pulse 83 08/01/25 10:08 Resp 16 08/01/25 10:08 BP 157/97 H 08/01/25 10:08 Pulse Ox 97 08/01/25 10:08 O2 Del Method Room Air 08/01/25 10:08 BMI result Body Mass Index 23.4 Const: General: cooperative, comfortable, no acute distress, alert, awake and Physically active Nutritional Appearance: average body habitus Orientation/consciousness: patient oriented x3 (able to state his name, , year, president and that he is at [facility]) Resp: Effort & Inspection: normal respiratory effort, able to speak in complete sentences and no respiratory distress Auscultation: clear to auscultation bilaterally Cardio: Rate: regular rate GI: Inspection: No distended Palpation (GI): Soft to palpation and nontender Neuro: General: patient oriented x3 (able to state his name, , year, president and that he is at [facility]), moves all extremities and CN's II-XI intact bilaterally Extrem: General: No pedal edema Results Labs 07/07/25 11:43 07/07/25 11:43 Assessment and Plan (1) Dementia with anxiety: Status: Acute Plan This is a 75-year-old male with history of dementia, hypertension, reported generalized seizures, chronic pain, generalized dystonia who was initially brought into the emergency department on July 07 with shoulder pain now being admitted for failure to thrive Failure to thrive Dementia probable Alzheimer's Does not have capacity to make medical decisions and primary director oncology acutely 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 will check basic labs HTN Continue low-dose Norvasc ?partial seizure disorder continue lamictal dementia, probable Alzheimer's continue namenda, aricept chronic pain Does not seem to be on narcotics any longer continue cymbalta dvt ppx - check basic labs, if renal function and H/H ok, start lovneox Quality Stroke Does the patient have a stroke diagnosis?: No VTE Prior VTE?: No VTE Risk Level:: Medical - moderate - high VTE Device Contraindication: N/A - Device Ordered VTE Drug Contraindication: N/A - Med Ordered
--- NOTE | 2025-08-01 12:15 | MHC.EDTECH ---
pt ambulated to and from bathroom with a steady gait and use of rollator walker and standby assistance.
[2025-08-01 12:42] VITALS: BP 157/97; PULSE 83; RESP 16; TEMP 36.3; O2SAT 97
--- NOTE | 2025-08-01 12:45 | PC.NURSE ---
Being admitted to med/surg. has been in ED for over 600 hours. New account made by registration due to extended stay in order to admit. Pt remains in ED Overflow 6 with plan to admit to Med/Surg. Plan is accurate as of this note/time. dough mixer operator (Vanessa Nian), Nursing tariff supervisor, and hospitalist (Jose Luis) aware of account changes. Plan to place new orders/admission orders under the new account number.
--- NOTE | 2025-08-01 13:04 | PC.NURSE ---
New . Phlebotomy notified at this time to draw ordered labs under this new account number. Admitting to med/surg floor, room 361. Receiving RN Asmita Zamora. Report entered under old account #[id number].
--- NOTE | 2025-08-01 13:31 | PC.NURSE ---
Labs drawn and sent for analysis. Results pending. Awaiting transport to transport the pt from ED Overflow to room 361.
--- NOTE | 2025-08-01 13:45 | PC.NURSE ---
Patient transferred from ED Overflow 6 to Med/Surg room 361 at this time. Transported by ED Transport Keshawn Barrett.
== END 2025-08-01 20:10 | disposition admitted as inpatient to this hospital (09) ==
PROVIDERS: Physician Assistant Medical; Emergency Provider Emergency Medicine; PCP Internal Medicine
DX: N39.0 Urinary tract infection, site not specified (principal); B96.20 Unspecified Escherichia coli [E. coli] as the cause of diseases classified elsewhere; M75.92 Shoulder lesion, unspecified, left shoulder; M25.512 Pain in left shoulder; M54.2 Cervicalgia; R20.0 Anesthesia of skin; R79.1 Abnormal coagulation profile; R20.2 Paresthesia of skin; F03.94 Unspecified dementia, unspecified severity, with anxiety; M25.552 Pain in left hip; M25.551 Pain in right hip; M25.562 Pain in left knee; M25.561 Pain in right knee; R29.6 Repeated falls; Z91.81 History of falling; R26.81 Unsteadiness on feet; G89.4 Chronic pain syndrome; I10 Essential (primary) hypertension; G24.9 Dystonia, unspecified; G62.9 Polyneuropathy, unspecified; R62.7 Adult failure to thrive; Z68.23 Body mass index [BMI] 23.0-23.9, adult; Z79.899 Other long term (current) drug therapy; Z03.818 Encounter for observation for suspected exposure to other biological agents ruled out
CPT/HCPCS: 36415; 70450; 70496; 70498; 73030; 73564; 73630; 74176; 80053; 81001; 85025; 85610; 87086; 87088; 87186; 87637; 97162; 97166; 99285; Q9967

== ENCOUNTER → 2025-07-07 10:03 | Outpatient (BNV) | payer MEDICARE, MEDICAID, SELFPAY | PROVIDERS: Emergency Provider Emergency Medicine; PCP Internal Medicine; Visit Provider Clinical Nurse Specialist Psychiatric/Mental Health, Adult | DX: F03.94 Unspecified dementia, unspecified severity, with anxiety (principal) | CPT/HCPCS: 99283 ==

== ENCOUNTER → 2025-07-07 10:05 | Outpatient (BNV) | payer MEDICARE, MEDICAID, SELFPAY | PROVIDERS: Visit Provider Radiology Vascular & Interventional Radiology | DX: R20.0 Anesthesia of skin (principal); M19.012 Primary osteoarthritis, left shoulder | CPT/HCPCS: 70496; 70498; 73030 ==

== ENCOUNTER → 2025-07-31 16:15 | Outpatient (BNV) | payer MEDICARE, SELFPAY | PROVIDERS: Emergency Provider Emergency Medicine; PCP Internal Medicine; Visit Provider Radiology Diagnostic Radiology | DX: N20.0 Calculus of kidney (principal); G31.1 Senile degeneration of brain, not elsewhere classified; M17.0 Bilateral primary osteoarthritis of knee; M25.775 Osteophyte, left foot; M19.071 Primary osteoarthritis, right ankle and foot | CPT/HCPCS: 70450; 73564; 73630; 74176 ==

== ENCOUNTER 2025-08-01 12:52 | Inpatient (IN) | payer MEDICARE, OTHER, SELFPAY ==
--- NOTE | 2025-08-01 11:46 | PM.IMHP ---
History of Present Illness Date of Service: 08/01/25 Attending physician on admission: Claudia Barney Chief Complaint: Failure to thrive This is a 75-year-old male who was initially brought to the emergency department due to shoulder pain now being admitted for failure to thrive. 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 He was seen by the psychiatric team and deemed not to have capacity to make medical decisions. No safe disposition was in place. It has now been determined that he will be admitted to the hospital due to failure to thrive. The time of my evaluation he has no specific complaints. Review of Systems Review of Systems: Yes all other systems are reviewed and are negative Constitutional: Constitutional: Denies chills and Denies fever(s) [facility] Medical History (Updated 08/02/25 @ 00:00 by Carlos Manuel Cerna) Dystonia Seizure Dementia Left inguinal hernia Adult failure to thrive Chronic pain Anxiety Hypertension Social History Household Members: Spouse Household Members Other:: spouse had emergent surgery and is unable to care for him Housing: Apartment Do you presently have visiting nurse or other home services: No Unable to assess alcohol history related to: Unknown Alcohol intake: never Patient Tobacco Use Status: Never used Tobacco Smoked in Last 30 Days: No e-Cigarette/Vaping Use: Never Used Patient Interested in Nicotine Replacement: No Patient Given Instructions on How to Stop Smoking: No Second Hand Smoke Exposure: No Currently Displaying Signs/Symptoms of Drug Intoxication Withdrawal: No Have you been hit, kicked, punched, or otherwise hurt by someone within the past year? If so, by whom?: No Do you feel safe in your current relationship?: Yes Is there a partner from a previous relationship who is making you feel unsafe now?: No Are you made to feel afraid or neglected: No Advance Directives: Yes Advance Directives on File: Yes Advance Directives Date on File: 07/21/21 Do you have a plan to hurt others: No Plan Recently lost weight without trying: No Eating poorly because of decreased appetite: No Nutrition Risks: No Nutritional Risk Poor oral hygiene: No service: No Current occupational status: retired Meds Allergies Allergy/AdvReac Type Severity Reaction Status Date / Time oxycodone (From Tylox) AdvReac Severe Vomiting Verified 07/07/25 09:57 Active Medications: Current Medications Acetaminophen (Acetaminophen 325 Mg Tablet) 650 mg PO Q6H PRN PRN Reason: Pain, Mild 1-3,fever,headache Calcium Carbonate (Calcium Carbonate 750 Mg Tab.Chew) 750 mg PO Q4H PRN PRN Reason: Heartburn Magnesium Hydroxide (Milk Of Magnesia 30 Ml Oral.Susp) 30 ml PO DAILY PRN PRN Reason: Constipation Melatonin (Melatonin 3 Mg Tablet) 6 mg PO BEDTIME PRN PRN Reason: Insomnia Sodium Chloride (0.9 % Sodium Chloride Flush 3 Ml Syringe) 3 ml IVFLUSH [facility] Medications ?Medication ?Instructions ?Recorded ?Confirmed ?Last Taken ?Type memantine 5 mg tablet 10 mg PO DAILY 07/15/21 08/01/25 07/31/25 History duloxetine 20 mg capsule,delayed 40 mg PO DAILY 10/04/22 08/01/25 07/31/25 History release duloxetine 60 mg capsule,delayed 60 mg PO DAILY 10/04/22 08/01/25 07/31/25 History release docusate sodium 100 mg capsule 100 mg PO DAILY 07/07/25 08/01/25 07/31/25 History (Colace) donepezil 10 mg tablet 10 mg PO BEDTIME 07/07/25 08/01/25 07/30/25 History lamotrigine 100 mg tablet 150 mg PO BID 07/07/25 08/01/25 07/31/25 History (Lamictal) acetaminophen 325 mg tablet 975 mg PO Q6H PRN Pain 08/01/25 08/01/25 Unknown History amlodipine 2.5 mg tablet 2.5 mg PO DAILY 08/01/25 08/01/25 07/31/25 History Physical Exam Const: Nutritional Appearance: well nourished Orientation/consciousness: patient oriented x3 Eyes: Sclerae: sclerae normal Chest: Chest palpation & inspection: normal inspection of the chest Resp: Effort & Inspection: normal respiratory effort and no respiratory distress Auscultation: clear to auscultation bilaterally Cardio: Rate: regular rate Rhythm: regular rhythm GI: Palpation (GI): Soft to palpation and nontender Skin: General skin exam: no rashes or lesions noted Neuro: General: patient oriented x3 Extrem: General: Yes normal to inspection Results Labs 08/01/25 13:22 08/01/25 13:22 Assessment and Plan (1) Adult failure to thrive: Status: Acute Plan This is a 75-year-old male with history of dementia, hypertension, reported generalized seizures, chronic pain, generalized dystonia who was initially brought into the emergency department on July 07 with shoulder pain now being admitted for failure to thrive Failure to thrive Dementia probable Alzheimer's Does not have capacity to make medical decisions and 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 will check basic labs HTN Continue low-dose Norvasc ?partial seizure disorder continue lamictal dementia, probable Alzheimer's continue namenda, aricept chronic pain Does not seem to be on narcotics any longer continue cymbalta dvt ppx - check basic labs, if renal function and H/H ok, start lovneox Quality Stroke Does the patient have a stroke diagnosis?: No VTE Prior VTE?: No VTE Risk Level:: Medical - moderate - high VTE Device Contraindication: N/A - Device Ordered VTE Drug Contraindication: N/A - Med Ordered
[2025-08-01 13:29] LABS: Hematocrit 41.5 % (42.0-52.0); Hemoglobin 13.6 g/dl (14.0-18.0); Mean Corpuscular HGB Conc 32.8 g/dl (31.0-36.0); Mean Corpuscular Hemoglobin 30.6 pg (27.0-33.0); Mean Corpuscular Volume 93.5 fL (80.0-98.0); NRBC Abs Auto 0.000 X10*3/uL (0.0-0.012); NRBC Pct Auto 0.0 /100WBC (0.0-0.2); Platelet Count 334 X10*3/uL (160-400); Red Blood Count 4.44 X10*6/uL (4.60-5.80); White Blood Count 8.7 X10*3/uL (4.8-10.8)
[2025-08-01 13:37] LABS: Anion Gap 11 (12-20); Blood Urea Nitrogen 24 mg/dL (9-16); Calcium 8.6 mg/dL (8.4-10.2); Carbon Dioxide 27 mmol/L (22-29); Chloride 108 mmol/L (96-108); Estimated Glomerular Filt Rate 59; Potassium 4.0 mmol/L (3.3-5.1); Sodium 142 mmol/L (135-145)
[2025-08-01 13:52] VITALS: BMI 24.7
[2025-08-01 13:54] VITALS: BP 144/85; PULSE 77; RESP 18; TEMP 36.7; O2SAT 95
--- NOTE | 2025-08-01 14:13 | PHA.MEDREC ---
Addendum entered by Eleanor Damon [facility] 08/01/25 14:27: Reviewed by [facility] Original Note: Pharmacy Consult ? Medication Reconciliation Pharmacy has completed the medication reconciliation. Pt been in our facility since 07/07, previously completed med rec 07/08; utilized current orders from previous pt profile ([id number]) to confirm med rec.
[2025-08-01] MEDS: Milk of Magnesia 30 ML ORAL.SUSP PO (15:01)
[2025-08-01 15:19] VITALS: BP 137/79; PULSE 70; RESP 14; TEMP 36.6; O2SAT 96
--- OUTSIDE RECORDS SUMMARY | 2025-08-01 17:00 | XMS_ITS | Encounter Summary ---
Author Organization [facility] Address [address] [place] [address] Phone Care Team Providers Care Medical Investigator Name Role Phone Tavia London MD Primary Care Provider [phone]- [phone] Encounter Details Date Type Department Care Team (Late st Contact Info) Description 01/12/2023 Procedure Pass [facility], Ct Scan - [address] [address] Social History Tobacco Use Types Packs/Day Years Used Date Smoking Tobacco: Never Assessed Sex and Gender Information Value Date Recorded Sex Assigned at Male 01/12/2023 4:19 PM EST Legal Sex Male 7:59 PM EST Gender Identity Male 01/12/2023 4:19 PM EST Sexual Orientation Straight 01/12/2023 4: 19 PM EST documented as of this encounter Functional Status * Calculated C-SSRS Risk Score (Lifetime/Recent) Answer Date of Assessment Author No Risk Indicated 01/12/2023 4:19 PM Ekta Denton RN * [place] Suicide Severity Rating Scale (Screener/Recent Self-Report) Question Answer Date of Assessment Author 1. Wish to be (Past 1 Month) No 023 4:19 PM Ekta Denton, ANISA 2. Non-Specific Active Suici shekhar Thoughts (Past 1 Month) No 01/12/2023 4:19 PM Ekta Denton , ANISA 6. Suicidal Behavior (Lifetime) No 4:19 PM Ekta Denton, ANISA documented as of this encounter Plan of Treatment Not on file documented as of this encounter Visit Diagnoses Not on filedocumented in this encounter Care Teams Medical Investigator Relationship Specialty Start Date End Date Tavia London MD [address] [address] PCP - General 01/12/23 documented as of this encounter Additional Source Comments The information contained in this document represents components of the legal health record. It is not the complete legal health record.[facility]
--- OUTSIDE RECORDS SUMMARY | 2025-08-01 17:00 | XMS_ITS | Encounter Summary ---
Author Organization [facility] Address [address] [place] [address] Phone Care Team Providers Care Fixer Boarding Room Name Role Phone Tavia London MD Primary Care Provider +1- [phone] Encounter Details Date Type Department Care Team (Late st Contact Info) Description 01/12/2023 Procedure Pass [facility], Ct Scan - [address] [address] Social History Tobacco Use Types Packs/Day Years [...] 01/12/2023 4:19 PM Ekta Denton RN * [place] Suicide Severity Rating Scale (Screener/Recent Self-Report) Question [...] on filedocumented in this encounter Care Teams Fixer Boarding Room Relationship Specialty Start Date End Date Tavia London MD [address] [address] PCP - General 01/12/23 documented as of this encounter Additional Source Comments The information contained in this document represents components of the legal health record. It is not the complete legal health record.[facility]
--- OUTSIDE RECORDS SUMMARY | 2025-08-01 17:00 | XMS_ITS | Clinical Summary ---
Author Organization [facility] Address [address] [address] Phone Care Team Providers Care [employer] Pulper Name Role Phone Tavia London MD Primary Care Provider +1- [phone] Allergies Active Allergy Reactions Criticality Noted Date Comments Oxycodone-Acetaminophen 01/12/2023 Medications No known medications Social History Tobacco Use Types Packs/Day Years Used Date Smoking Tobacco: Never Assessed Education Answer Date Recorded Are you interested in more education? Not on hugo e 03/17/2023 Are you concerned about learning? Not on file 03/17/2023 No 03/17/2023 No 03/17/2023 Digital Access Answer Date Recorded No 04/18/2023 No 04/18/2023 No 04/18/2023 Reliable internet access at home? Not on file 04/18/2023 Device with a working camera? Not on file Sex and Gender Information Value Date Recorded Sex Assigned at Male 01/12/2023 4:19 PM EST Legal Sex Male 7:59 PM EST Gender Identity Male 01/12/2023 4:19 PM EST Sexual Orientation Straight 01/12/2023 4: 19 PM EST Last Filed Vital Signs Vital Sign Reading Time Taken Comments Blood Pressure 132/81 01/12/2023 4:18 PM EST Pulse 105 01/12/2023 4:18 PM EST Temperature 37.3 C (99.1 F) 01/12/2023 4:18 PM EST Respiratory Rate 18 01/12/2023 4:18 PM EST Oxygen Saturation 96% 01/12/2023 4:18 PM EST Inhaled Oxygen Concentration - - Weight 82.6 kg (182 lb) 01/12/2023 4:18 PM EST Height 180.3 cm (5' 11 ) 01/12/2023 4:18 PM EST Body Mass Index 25.38 01/12/2023 4:18 PM EST Plan of Treatment Not on file Medical Devices Not on file Insurance MEDICARE PART A & B [facility] MEDICARE REPLACEMENT COUNT INCLUDES THE [facility] PARTIAL MEDICARE PART A & B [facility] MEDICARE REPLACEMENT COUNT INCLUDES THE [facility] PARTIAL MEDICARE PART A & B [facility] MEDICARE REPLACEMENT [address] S[employer] NET PARTIAL MEDICARE PART A & B [facility] MEDICARE REPLACEMENT HEALTH [employer] NET PARTIAL MEDICARE PART A & [place] [id number] [facility] MEDICARE REPLACEMENT [facility] SAFETY NET PARTIAL MEDICARE PART A & B Member Subscriber Plan / Payer (Ef fective 2007-Present) Name:Jg Chappell Member ID:[id number] Relation to Subscriber:Self Name:MistiJg Subscriber ID:[id number] Payer ID:[id number] Group ID:Not on file Type:Medicare Address: [facility] [employer] [facility] [employer] [employer] [facility] [address] [place] [address] [facility] MEDICARE REPLACEMENT COUNT INCLUDES THE [facility] PARTIAL Care Teams [employer] Pulper Relationship Specialty Start Date End Date Tavia London MD [address] [place] [address] PCP - General 01/12/23 Additional Source Comments The information contained in this document represents components of the legal health record. It is not the complete legal health record.[facility]
[2025-08-01 20:00] VITALS: BP 136/78; PULSE 77; RESP 18; TEMP 36.6; O2SAT 98
[2025-08-02 03:15] VITALS: BP 146/77; PULSE 67; RESP 18; TEMP 36.2; O2SAT 96
[2025-08-02 07:21] VITALS: BP 151/72; PULSE 58; RESP 14; TEMP 36.7; O2SAT 97
--- NOTE | 2025-08-02 09:36 | P.PNIM_ITS ---
Subjective Subjective Date of Service: 08/02/25 Interval History: no complaints Physical Exam 2 Exam: Exam: General: Alert, no distress Resp: CTA bilateral, no accessory muscles used CVS: S1,S2,RRR GI: soft, non tender, non distended Vital Signs: Vital Signs: Last Vital Signs Temp 98.0 F 08/02/25 07:21 Pulse 58 08/02/25 07:21 Resp 14 08/02/25 07:21 BP 151/72 H 08/02/25 07:21 Pulse Ox 97 08/02/25 07:21 O2 Del Method Room Air 08/02/25 07:21 BMI result Body Mass Index 24.7 Objective Data Active Medications Acetaminophen (Acetaminophen 325 Mg Tablet) 650 mg PO Q6H PRN PRN Reason: Pain, Mild 1-3,fever,headache Last Admin: 08/01/25 22:01 Dose: 650 mg Documented By: JACQUELYN Amlodipine Besylate (Amlodipine Besylate 2.5 Mg Tablet) 2.5 mg PO DAILY [facility]; Protocol Last Admin: 08/02/25 08:26 Dose: 2.5 mg Documented By: ETHAN Calcium Carbonate (Calcium Carbonate 750 Mg Tab.Chew) 750 mg PO Q4H PRN PRN Reason: Heartburn Docusate Sodium (Docusate Sodium 100 Mg Capsule) 100 mg PO DAILY [facility] Last Admin: 08/02/25 08:27 Dose: 100 mg Documented By: ETHAN Donepezil HCl (Donepezil Hcl 10 Mg Tablet) 10 mg PO BEDTIME [facility] Last Admin: 08/01/25 20:32 Dose: 10 mg Documented By: JACQUELYN Duloxetine HCl (Duloxetine Hcl 20 Mg Capsule.Dr) 40 mg PO DAILY [facility] Last Admin: 08/02/25 08:27 Dose: 40 mg Documented By: ETHAN Duloxetine HCl (Duloxetine Hcl 60 Mg Capsule.) 60 mg PO DAILY [facility] Last Admin: 08/02/25 08:27 Dose: 60 mg Documented By: ETHAN Lamotrigine (Lamotrigine 25 Mg Tablet) 150 mg PO BID [facility] Last Admin: 08/02/25 08:31 Dose: 150 mg Documented By: ETHAN Magnesium Hydroxide (Milk Of Magnesia 30 Ml Oral.Susp) 30 ml PO DAILY PRN PRN Reason: Constipation Last Admin: 08/01/25 15:01 Dose: 30 ml Documented By: NARAYAN Melatonin (Melatonin 3 Mg Tablet) 6 mg PO BEDTIME PRN PRN Reason: Insomnia Memantine (Memantine Hcl 10 Mg Tablet) 10 mg PO DAILY [facility] Last Admin: 08/02/25 08:27 Dose: 10 mg Documented By: ETHAN Sodium Chloride (0.9 % Sodium Chloride Flush 3 Ml Syringe) 3 ml IVFLUSH QSHIFT [facility] Last Admin: 08/02/25 08:26 Dose: Not Given Documented By: ETHAN Non-Admin Reason: No Access Labs 08/01/25 13:22 08/01/25 13:22 Labs: Laboratory Results - last 24 hr 08/01/25 13:22 MCV 93.5 MCH 30.6 MCHC 32.8 RDW 13.4 Plt Count 334 D MPV 9.2 L Absolute Nucleated RBC 0.000 Nucleated RBC % (auto) 0.0 Anion Gap 11 L Estim Creat Clear Calc TNP Estimated GFR 59 Random Glucose 98 Calcium 8.6 Assessment and Plan (1) Adult failure to thrive: Status: Acute Plan 75-year-old male with history of dementia, hypertension, reported generalized seizures, chronic pain, generalized dystonia who was initially brought into the emergency department on July 07 with shoulder pain now being admitted for failure to thrive Failure to thrive Dementia probable Alzheimer's Does not have capacity to make medical decisions 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 HTN Continue low-dose Norvasc ?partial seizure disorder continue lamictal dementia, probable Alzheimer's continue namenda, aricept chronic pain Does not seem to be on narcotics any longer continue cymbalta dvt ppx - lovneox full code reason for continued hospitalization:placement Quality Stroke Does the patient have a stroke diagnosis?: No VTE Prior VTE?: No VTE Risk Level:: Medical - moderate - high VTE Device Contraindication: N/A - Device Ordered VTE Drug Contraindication: N/A - Med Ordered
--- NOTE | 2025-08-02 13:14 | MHC.CM.PN ---
PT IS A SOCIAL ADMIT AFTER BOARDING IN THE ED. 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
[2025-08-02 15:33] VITALS: BP 133/75; PULSE 76; RESP 16; TEMP 36.3; O2SAT 93
[2025-08-02] MEDS: Milk of Magnesia 30 ML ORAL.SUSP PO (15:42)
[2025-08-02 19:32] VITALS: BP 139/83; PULSE 88; RESP 17; TEMP 36.2; O2SAT 95
[2025-08-03 03:25] VITALS: BP 129/61; PULSE 71; RESP 17; TEMP 36; O2SAT 96
[2025-08-03 07:08] VITALS: BP 154/82; PULSE 66; RESP 18; TEMP 36.7; O2SAT 97
--- NOTE | 2025-08-03 09:25 | HO.PM.IMPN ---
Subjective Subjective Date of Service: 08/03/25 Interval History: no complaints Physical Exam Exam: Exam: General: Alert, no distress Resp: CTA bilateral, no accessory muscles used CVS: S1,S2,RRR GI: soft, non tender, non distended Vital Signs: Vital Signs: Last Vital Signs Temp 98.1 F 08/03/25 07:08 Pulse 66 08/03/25 07:08 Resp 18 08/03/25 07:08 BP 154/82 H 08/03/25 07:08 Pulse Ox 97 08/03/25 07:08 O2 Del Method Room Air 08/03/25 07:08 BMI result Body Mass Index 24.7 Objective Data Active Medications Acetaminophen (Acetaminophen 325 Mg Tablet) 650 mg PO Q6H PRN PRN Reason: Pain, Mild 1-3,fever,headache Last Admin: 08/03/25 09:07 Dose: 650 mg Documented By: BOUCHRA Amlodipine Besylate (Amlodipine Besylate 2.5 Mg Tablet) 2.5 mg PO DAILY [facility]; Protocol Last Admin: 08/03/25 08:59 Dose: 2.5 mg Documented By: BOUCHRA Calcium Carbonate (Calcium Carbonate 750 Mg Tab.Chew) 750 mg PO Q4H PRN PRN Reason: Heartburn Docusate Sodium (Docusate Sodium 100 Mg Capsule) 100 mg PO DAILY [facility] Last Admin: 08/03/25 08:59 Dose: 100 mg Documented By: BOUCHRA Donepezil HCl (Donepezil Hcl 10 Mg Tablet) 10 mg PO BEDTIME [facility] Last Admin: 08/02/25 20:13 Dose: 10 mg Documented By: CYDNEY Duloxetine HCl (Duloxetine Hcl 20 Mg Capsule.) 40 mg PO DAILY [facility] Last Admin: 08/03/25 08:58 Dose: 40 mg Documented By: BOUCHRA Duloxetine HCl (Duloxetine Hcl 60 Mg Capsule.) 60 mg PO DAILY [facility] Last Admin: 08/03/25 08:58 Dose: 60 mg Documented By: BOUCHRA Enoxaparin Sodium (Enoxaparin Sodium 40 Mg/0.4 Ml Syringe) 40 mg SUBCUT Q24H [facility] Last Admin: 08/03/25 08:59 Dose: 40 mg Documented By: BOUCHRA Lamotrigine (Lamotrigine 25 Mg Tablet) 150 mg PO BID [facility] Last Admin: 08/03/25 08:59 Dose: 150 mg Documented By: BOUCHRA Magnesium Hydroxide (Milk Of Magnesia 30 Ml Oral.Susp) 30 ml PO DAILY PRN PRN Reason: Constipation Last Admin: 08/02/25 15:42 Dose: 30 ml Documented By: MARGE Melatonin (Melatonin 3 Mg Tablet) 6 mg PO BEDTIME PRN PRN Reason: Insomnia Memantine (Memantine Hcl 10 Mg Tablet) 10 mg PO DAILY [facility] Last Admin: 08/03/25 08:58 Dose: 10 mg Documented By: BOUCHRA Sodium Chloride (0.9 % Sodium Chloride Flush 3 Ml Syringe) 3 ml IVFLUSH QSHIFT [facility] Last Admin: 08/03/25 07:26 Dose: Not Given Documented By: BOUCHRA Non-Admin Reason: No Access Labs 08/01/25 13:22 08/01/25 13:22 Assessment and Plan (1) Adult failure to thrive: Status: Acute Plan 75-year-old male with history of dementia, hypertension, reported generalized seizures, chronic pain, generalized dystonia who was initially brought into the emergency department on July 07 with shoulder pain now being admitted for failure to thrive Failure to thrive Dementia probable Alzheimer's Does not have capacity to make medical decisions 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 HTN Continue low-dose Norvasc ?partial seizure disorder continue lamictal dementia, probable Alzheimer's continue namenda, aricept chronic pain Does not seem to be on narcotics any longer continue cymbalta dvt ppx - lovneox full code reason for continued hospitalization:placement Quality Stroke Does the patient have a stroke diagnosis?: No VTE Prior VTE?: No VTE Risk Level:: Medical - moderate - high VTE Device Contraindication: N/A - Device Ordered VTE Drug Contraindication: N/A - Med Ordered
[2025-08-03 15:04] VITALS: BP 158/93; PULSE 87; RESP 17; TEMP 36.6; O2SAT 97
[2025-08-03 19:09] VITALS: BP 128/80; PULSE 88; RESP 15; TEMP 36.6; O2SAT 96
[2025-08-04 03:39] VITALS: BP 151/79; PULSE 61; RESP 18; TEMP 36.5; O2SAT 95
[2025-08-04 07:39] VITALS: BP 168/94; PULSE 67; RESP 18; TEMP 36.4; O2SAT 96
--- NOTE | 2025-08-04 08:20 | HO.PM.IMPN ---
Subjective Subjective Date of Service: 08/04/25 Interval History: no complaints Physical Exam Exam: Exam: General: Alert, no distress Resp: CTA bilateral, no accessory muscles used CVS: S1,S2,RRR GI: soft, non tender, non distended Vital Signs: Vital Signs: Last Vital Signs Temp 97.6 F 08/04/25 07:39 Pulse 67 08/04/25 07:39 Resp 18 08/04/25 07:39 BP 168/94 H 08/04/25 07:39 Pulse Ox 96 08/04/25 07:39 O2 Del Method Room Air 08/04/25 07:39 BMI result Body Mass Index 24.7 Objective Data Active Medications Acetaminophen (Acetaminophen 325 Mg Tablet) 650 mg PO Q6H PRN PRN Reason: Pain, Mild 1-3,fever,headache Last Admin: 08/04/25 07:55 Dose: 650 mg Documented By: BOUCHRA Amlodipine Besylate (Amlodipine Besylate 2.5 Mg Tablet) 2.5 mg PO DAILY [facility]; Protocol Last Admin: 08/04/25 07:56 Dose: 2.5 mg Documented By: BOUCHRA Calcium Carbonate (Calcium Carbonate 750 Mg Tab.Chew) 750 mg PO Q4H PRN PRN Reason: Heartburn Docusate Sodium (Docusate Sodium 100 Mg Capsule) 100 mg PO DAILY [facility] Last Admin: 08/04/25 07:55 Dose: 100 mg Documented By: BOUCHRA Donepezil HCl (Donepezil Hcl 10 Mg Tablet) 10 mg PO BEDTIME [facility] Last Admin: 08/03/25 20:05 Dose: 10 mg Documented By: CYDNEY Duloxetine HCl (Duloxetine Hcl 20 Mg Capsule.) 40 mg PO DAILY [facility] Last Admin: 08/04/25 07:54 Dose: 40 mg Documented By: BOUCHRA Duloxetine HCl (Duloxetine Hcl 60 Mg Capsule.) 60 mg PO DAILY [facility] Last Admin: 08/04/25 07:55 Dose: 60 mg Documented By: BOUCHRA Enoxaparin Sodium (Enoxaparin Sodium 40 Mg/0.4 Ml Syringe) 40 mg SUBCUT Q24H [facility] Last Admin: 08/03/25 08:59 Dose: 40 mg Documented By: BOUCHRA Lamotrigine (Lamotrigine 25 Mg Tablet) 150 mg PO BID [facility] Last Admin: 08/04/25 07:54 Dose: 150 mg Documented By: BOUCHRA Magnesium Hydroxide (Milk Of Magnesia 30 Ml Oral.Susp) 30 ml PO DAILY PRN PRN Reason: Constipation Last Admin: 08/02/25 15:42 Dose: 30 ml Documented By: MARGE Melatonin (Melatonin 3 Mg Tablet) 6 mg PO BEDTIME PRN PRN Reason: Insomnia Memantine (Memantine Hcl 10 Mg Tablet) 10 mg PO DAILY [facility] Last Admin: 08/04/25 07:55 Dose: 10 mg Documented By: BOUCHRA Sodium Chloride (0.9 % Sodium Chloride Flush 3 Ml Syringe) 3 ml IVFLUSH QSHIFT [facility] Last Admin: 08/04/25 07:56 Dose: Not Given Documented By: BOUCHRA Non-Admin Reason: No Access Labs 08/01/25 13:22 08/01/25 13:22 Assessment and Plan (1) Adult failure to thrive: Status: Acute Plan 75-year-old male with history of dementia, hypertension, reported generalized seizures, chronic pain, generalized dystonia who was initially brought into the emergency department on July 07 with shoulder pain now being admitted for failure to thrive Failure to thrive Dementia probable Alzheimer's Does not have capacity to make medical 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 HTN Continue low-dose Norvasc ?partial seizure disorder continue lamictal dementia, probable Alzheimer's continue namenda, aricept chronic pain Does not seem to be on narcotics any longer continue cymbalta dvt ppx - lovneox full code reason for continued hospitalization:placement Quality Stroke Does the patient have a stroke diagnosis?: No VTE Prior VTE?: No VTE Risk Level:: Medical - moderate - high VTE Device Contraindication: N/A - Device Ordered VTE Drug Contraindication: N/A - Med Ordered
[2025-08-04 15:32] VITALS: BP 151/80; PULSE 84; RESP 18; TEMP 36.7; O2SAT 96
[2025-08-04 19:20] VITALS: BP 136/85; PULSE 76; RESP 18; TEMP 36.6; O2SAT 95
[2025-08-05 03:46] VITALS: BP 146/86; PULSE 74; RESP 18; TEMP 36.4; O2SAT 96
[2025-08-05 07:30] VITALS: BP 160/80; PULSE 68; RESP 18; TEMP 36.3; O2SAT 97
--- NOTE | 2025-08-05 08:46 | HO.PM.IMPN ---
Subjective Subjective Date of Service: 08/05/25 Interval History: no complaints Physical Exam Exam: Exam: General: Alert, no distress Resp: CTA bilateral, no accessory muscles used CVS: S1,S2,RRR GI: soft, non tender, non distended Vital Signs: Vital Signs: Last Vital Signs Temp 97.4 F 08/05/25 07:30 Pulse 68 08/05/25 07:30 Resp 18 08/05/25 07:30 BP 160/80 H 08/05/25 07:30 Pulse Ox 97 08/05/25 07:30 O2 Del Method Room Air 08/05/25 07:30 BMI result Body Mass Index 24.7 Objective Data Active Medications Acetaminophen (Acetaminophen 325 Mg Tablet) 650 mg PO Q6H PRN PRN Reason: Pain, Mild 1-3,fever,headache Last Admin: 08/04/25 07:55 Dose: 650 mg Documented By: BOUHCRA Amlodipine Besylate (Amlodipine Besylate 2.5 Mg Tablet) 2.5 mg PO DAILY [facility]; Protocol Last Admin: 08/04/25 07:56 Dose: 2.5 mg Documented By: BOUCHRA Calcium Carbonate (Calcium Carbonate 750 Mg Tab.Chew) 750 mg PO Q4H PRN PRN Reason: Heartburn Docusate Sodium (Docusate Sodium 100 Mg Capsule) 100 mg PO DAILY [facility] Last Admin: 08/04/25 07:55 Dose: 100 mg Documented By: BOUCHRA Donepezil HCl (Donepezil Hcl 10 Mg Tablet) 10 mg PO BEDTIME [facility] Last Admin: 08/04/25 20:46 Dose: 10 mg Documented By: CYDNEY Duloxetine HCl (Duloxetine Hcl 20 Mg Capsule.) 40 mg PO DAILY [facility] Last Admin: 08/04/25 07:54 Dose: 40 mg Documented By: BOUCHRA Duloxetine HCl (Duloxetine Hcl 60 Mg Capsule.) 60 mg PO DAILY [facility] Last Admin: 08/04/25 07:55 Dose: 60 mg Documented By: BOUCHRA Enoxaparin Sodium (Enoxaparin Sodium 40 Mg/0.4 Ml Syringe) 40 mg SUBCUT Q24H [facility] Last Admin: 08/04/25 10:04 Dose: 40 mg Documented By: BOUCHRA Lamotrigine (Lamotrigine 25 Mg Tablet) 150 mg PO BID [facility] Last Admin: 08/04/25 20:46 Dose: 150 mg Documented By: CYDNEY Magnesium Hydroxide (Milk Of Magnesia 30 Ml Oral.Susp) 30 ml PO DAILY PRN PRN Reason: Constipation Last Admin: 08/02/25 15:42 Dose: 30 ml Documented By: MARGE Melatonin (Melatonin 3 Mg Tablet) 6 mg PO BEDTIME PRN PRN Reason: Insomnia Memantine (Memantine Hcl 10 Mg Tablet) 10 mg PO DAILY [facility] Last Admin: 08/04/25 07:55 Dose: 10 mg Documented By: BOUCHRA Sodium Chloride (0.9 % Sodium Chloride Flush 3 Ml Syringe) 3 ml IVFLUSH QSHIFT [facility] Last Admin: 08/04/25 21:49 Dose: Not Given Documented By: CYDNEY Non-Admin Reason: No Access Labs 08/01/25 13:22 08/01/25 13:22 Assessment and Plan (1) Adult failure to thrive: Status: Acute Plan 75-year-old male with history of dementia, hypertension, reported generalized seizures, chronic pain, generalized dystonia who was initially brought into the emergency department on July 07 with shoulder pain now being admitted for failure to thrive Failure to thrive Dementia probable Alzheimer's Does 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 HTN Continue low-dose Norvasc ?partial seizure disorder continue lamictal dementia, probable Alzheimer's continue namenda, aricept chronic pain Does not seem to be on narcotics any longer continue cymbalta dvt ppx - lovneox full code reason for continued hospitalization:placement Quality Stroke Does the patient have a stroke diagnosis?: No VTE Prior VTE?: No VTE Risk Level:: Medical - moderate - high VTE Device Contraindication: N/A - Device Ordered VTE Drug Contraindication: N/A - Med Ordered
[2025-08-05] MEDS: Milk of Magnesia 30 ML ORAL.SUSP PO (11:47)
--- NOTE | 2025-08-05 13:27 | MHC.CM.PN ---
SHELLIE LM for step daughter Aisha requesting call back to discuss dc plan and [facility]. Spoke with alt HCP, sister Chen, who is not in contact w/ Aisha and doesn't have any of patient's financial information, so unable to assist w/ [facility]. CM director aware. CM will continue to follow.
[2025-08-05 15:51] VITALS: BP 128/73; PULSE 108; RESP 19; TEMP 35.8; O2SAT 94
[2025-08-05 20:00] VITALS: BP 141/91; PULSE 106; RESP 20; TEMP 36.1; O2SAT 95
[2025-08-06 04:00] VITALS: BP 159/87; PULSE 59; RESP 18; TEMP 36.3; O2SAT 97
[2025-08-06 07:34] VITALS: BP 144/84; PULSE 68; RESP 16; TEMP 36.6; O2SAT 97
[2025-08-06 07:35] VITALS: BP 144/84
--- NOTE | 2025-08-06 08:25 | P.PNIM_ITS ---
Subjective Subjective Date of Service: 08/06/25 Interval History: no complaints Physical Exam 2 Exam: Exam: General: Alert, no distress Resp: CTA bilateral, no accessory muscles used CVS: S1,S2,RRR GI: soft, non tender, non distended Vital Signs: Vital Signs: Last Vital Signs Temp 97.8 F 08/06/25 07:34 Pulse 68 08/06/25 07:34 Resp 16 08/06/25 07:34 BP 144/84 H 08/06/25 07:35 Pulse Ox 97 08/06/25 07:34 O2 Del Method Room Air 08/06/25 07:34 BMI result Body Mass Index 24.7 Objective Data Active Medications Acetaminophen (Acetaminophen 325 Mg Tablet) 650 mg PO Q6H PRN PRN Reason: Pain, Mild 1-3,fever,headache Last Admin: 08/05/25 19:18 Dose: 650 mg Documented By: DARREN Amlodipine Besylate (Amlodipine Besylate 2.5 Mg Tablet) 2.5 mg PO DAILY [facility]; Protocol Last Admin: 08/06/25 07:35 Dose: 2.5 mg Documented By: CANELO Calcium Carbonate (Calcium Carbonate 750 Mg Tab.Chew) 750 mg PO Q4H PRN PRN Reason: Heartburn Docusate Sodium (Docusate Sodium 100 Mg Capsule) 100 mg PO DAILY [facility] Last Admin: 08/06/25 07:36 Dose: 100 mg Documented By: CANELO Donepezil HCl (Donepezil Hcl 10 Mg Tablet) 10 mg PO BEDTIME [facility] Last Admin: 08/05/25 19:17 Dose: 10 mg Documented By: DARREN Duloxetine HCl (Duloxetine Hcl 20 Mg Capsule.) 40 mg PO DAILY [facility] Last Admin: 08/06/25 07:34 Dose: 40 mg Documented By: CANELO Duloxetine HCl (Duloxetine Hcl 60 Mg Capsule.) 60 mg PO DAILY [facility] Last Admin: 08/06/25 07:35 Dose: 60 mg Documented By: CANELO Enoxaparin Sodium (Enoxaparin Sodium 40 Mg/0.4 Ml Syringe) 40 mg SUBCUT Q24H [facility] Last Admin: 08/05/25 09:10 Dose: 40 mg Documented By: GUSTAVO Lamotrigine (Lamotrigine 25 Mg Tablet) 150 mg PO BID [facility] Last Admin: 08/06/25 07:34 Dose: 150 mg Documented By: CANELO Magnesium Hydroxide (Milk Of Magnesia 30 Ml Oral.Susp) 30 ml PO DAILY PRN PRN Reason: Constipation Last Admin: 08/05/25 11:47 Dose: 30 ml Documented By: GUSTAVO Melatonin (Melatonin 3 Mg Tablet) 6 mg PO BEDTIME PRN PRN Reason: Insomnia Last Admin: 08/05/25 19:18 Dose: 6 mg Documented By: DARREN Memantine (Memantine Hcl 10 Mg Tablet) 10 mg PO DAILY [facility] Last Admin: 08/06/25 07:35 Dose: 10 mg Documented By: CANELO Sodium Chloride (0.9 % Sodium Chloride Flush 3 Ml Syringe) 3 ml IVFLUSH QSHIFT [facility] Last Admin: 08/06/25 07:39 Dose: Not Given Documented By: CANELO Non-Admin Reason: No Access Labs 08/01/25 13:22 08/01/25 13:22 Assessment and Plan (1) Adult failure to thrive: Status: Acute Plan 75-year-old male with history of dementia, hypertension, reported generalized seizures, chronic pain, generalized dystonia who was initially brought into the emergency department on July 07 with shoulder pain now being admitted for failure to thrive Failure to thrive Dementia probable Alzheimer's Does not have capacity to make medical decisions 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 HTN Continue low-dose Norvasc ?partial seizure disorder continue lamictal dementia, probable Alzheimer's continue namenda, aricept chronic pain Does not seem to be on narcotics any longer continue cymbalta dvt ppx - lovneox full code reason for continued hospitalization:placement Quality Stroke Does the patient have a stroke diagnosis?: No VTE Prior VTE?: No VTE Risk Level:: Medical - moderate - high VTE Device Contraindication: N/A - Device Ordered VTE Drug Contraindication: N/A - Med Ordered
--- NOTE | 2025-08-06 13:25 | MHC.CM.PN ---
This freelance copywriter let for [facility]- awaiting return phone call.
[2025-08-06 16:00] VITALS: BP 139/88; PULSE 77; RESP 18; TEMP 37.1; O2SAT 94
[2025-08-06 19:26] VITALS: BP 136/95; PULSE 88; RESP 18; TEMP 36.5; O2SAT 97
[2025-08-07 03:27] VITALS: BP 147/71; PULSE 68; RESP 18; TEMP 36.4; O2SAT 96
[2025-08-07 07:40] VITALS: BP 140/80; PULSE 62; RESP 16; TEMP 36.7; O2SAT 93
--- NOTE | 2025-08-07 09:32 | MHC.CM.PN ---
Patient continues to await safe dc plan to LTC once [facility] is in place. A [facility] has not been submitted at this time, as step daughter/HCP Aisha has not provided financial documents or signed paperwork from FS. MARIANA will follow up with Aisha to complete.
--- NOTE | 2025-08-07 09:39 | MHC.CM.PN ---
LATE ENTRY 08/06 @15:30- This news writer received call from Aisha (pt's stepdaughter & HCP). She reports she's attempting everything she can to complete document request for pt's [facility]. She reports having all documents except for bank statements- the barrier she reports is her mother not remembering her bank password & being unable to physically go to the bank due to health concerns. This news writer emphasized the importance of completing the application as the pt's current location is not the appropriate level of care. Also emphasized the importance of keeping the hospital up-to-date with where she is in the process and returning phone calls. Report to Aisha if no further movement with application occurs, guardianship & conservatorship will be pursued by the hospital. Above information reported to the assigned CM & financial conselor.
[2025-08-07 15:24] VITALS: BP 140/90; PULSE 95; RESP 16; TEMP 36.8; O2SAT 95
--- NOTE | 2025-08-07 16:57 | HO.PM.IMPN ---
Subjective Subjective Date of Service: 08/07/25 Interval History: no complaints Review of Systems Review of Systems: Yes all other systems are reviewed and are negative Physical Exam Exam: Exam: General: Alert, no distress Resp: CTA bilateral, no accessory muscles used CVS: S1,S2,RRR GI: soft, non tender, non distended Vital Signs: Vital Signs: Last Vital Signs Temp 98.3 F 08/07/25 15:24 Pulse 95 08/07/25 15:24 Resp 16 08/07/25 15:24 BP 140/90 H 08/07/25 15:24 Pulse Ox 95 08/07/25 15:24 O2 Del Method Room Air 08/07/25 15:24 BMI result Body Mass Index 24.7 Objective Data Active Medications Acetaminophen (Acetaminophen 325 Mg Tablet) 650 mg PO Q6H PRN PRN Reason: Pain, Mild 1-3,fever,headache Last Admin: 08/05/25 19:18 Dose: 650 mg Documented By: DARREN Amlodipine Besylate (Amlodipine Besylate 2.5 Mg Tablet) 2.5 mg PO DAILY [facility]; Protocol Last Admin: 08/07/25 08:08 Dose: 2.5 mg Documented By: BLAIR Calcium Carbonate (Calcium Carbonate 750 Mg Tab.Chew) 750 mg PO Q4H PRN PRN Reason: Heartburn Docusate Sodium (Docusate Sodium 100 Mg Capsule) 100 mg PO DAILY [facility] Last Admin: 08/07/25 08:08 Dose: 100 mg Documented By: BLAIR Donepezil HCl (Donepezil Hcl 10 Mg Tablet) 10 mg PO BEDTIME [facility] Last Admin: 08/06/25 20:00 Dose: 10 mg Documented By: ALFREDO Duloxetine HCl (Duloxetine Hcl 20 Mg Capsule.) 40 mg PO DAILY [facility] Last Admin: 08/07/25 08:08 Dose: 40 mg Documented By: BLAIR Duloxetine HCl (Duloxetine Hcl 60 Mg Capsule.) 60 mg PO DAILY [facility] Last Admin: 08/07/25 08:08 Dose: 60 mg Documented By: BLAIR Enoxaparin Sodium (Enoxaparin Sodium 40 Mg/0.4 Ml Syringe) 40 mg SUBCUT Q24H [facility] Last Admin: 08/07/25 09:54 Dose: 40 mg Documented By: BLAIR Lamotrigine (Lamotrigine 25 Mg Tablet) 150 mg PO BID [facility] Last Admin: 08/07/25 08:08 Dose: 150 mg Documented By: BLAIR Magnesium Hydroxide (Milk Of Magnesia 30 Ml Oral.Susp) 30 ml PO DAILY PRN PRN Reason: Constipation Last Admin: 08/05/25 11:47 Dose: 30 ml Documented By: GUSTAVO Melatonin (Melatonin 3 Mg Tablet) 6 mg PO BEDTIME PRN PRN Reason: Insomnia Last Admin: 08/06/25 20:00 Dose: 6 mg Documented By: ALFREDO Memantine (Memantine Hcl 10 Mg Tablet) 10 mg PO DAILY [facility] Last Admin: 08/07/25 08:08 Dose: 10 mg Documented By: BLAIR Sodium Chloride (0.9 % Sodium Chloride Flush 3 Ml Syringe) 3 ml IVFLUSH QSHIFT [facility] Last Admin: 08/07/25 12:26 Dose: Not Given Documented By: BLAIR Non-Admin Reason: No Access Labs 08/01/25 13:22 08/01/25 13:22 Assessment and Plan (1) Adult failure to thrive: Status: Acute Plan 75-year-old male with history of dementia, hypertension, reported generalized seizures, chronic pain, generalized dystonia who was initially brought into the emergency department on July 07 with shoulder pain now being admitted for failure to thrive Failure to thrive Dementia probable Alzheimer's Does not have 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 HTN Continue low-dose Norvasc ?partial seizure disorder continue lamictal dementia, probable Alzheimer's continue namenda, aricept chronic pain Does not seem to be on narcotics any longer continue cymbalta dvt ppx - lovneox full code reason for continued hospitalization:placement Quality Stroke Does the patient have a stroke diagnosis?: No VTE Prior VTE?: No VTE Risk Level:: Medical - moderate - high VTE Device Contraindication: N/A - Device Ordered VTE Drug Contraindication: N/A - Med Ordered
[2025-08-07 19:28] VITALS: BP 140/87; PULSE 82; RESP 16; TEMP 37.1; O2SAT 95
[2025-08-08 03:17] VITALS: BP 135/75; PULSE 60; RESP 17; TEMP 36.4; O2SAT 95
[2025-08-08 07:15] VITALS: BP 152/88; PULSE 57; RESP 16; TEMP 36.9; O2SAT 96
--- NOTE | 2025-08-08 07:48 | HO.PM.IMPN ---
Subjective Subjective Date of Service: 08/08/25 Interval History: no complaints Review of Systems Review of Systems: Yes all other systems are reviewed and are negative Physical Exam Exam: Exam: General: Alert, no distress Resp: CTA bilateral, no accessory muscles used CVS: S1,S2,RRR GI: soft, non tender, non distended Vital Signs: Vital Signs: Last Vital Signs Temp 98.4 F 08/08/25 07:15 Pulse 57 08/08/25 07:15 Resp 16 08/08/25 07:15 BP 152/88 H 08/08/25 07:15 Pulse Ox 96 08/08/25 07:15 O2 Del Method Room Air 08/08/25 07:15 BMI result Body Mass Index 24.7 Objective Data Active Medications Acetaminophen (Acetaminophen 325 Mg Tablet) 650 mg PO Q6H PRN PRN Reason: Pain, Mild 1-3,fever,headache Last Admin: 08/07/25 19:52 Dose: 650 mg Documented By: CÉSAR Amlodipine Besylate (Amlodipine Besylate 2.5 Mg Tablet) 2.5 mg PO DAILY [facility]; Protocol Last Admin: 08/07/25 08:08 Dose: 2.5 mg Documented By: BLAIR Calcium Carbonate (Calcium Carbonate 750 Mg Tab.Chew) 750 mg PO Q4H PRN PRN Reason: Heartburn Docusate Sodium (Docusate Sodium 100 Mg Capsule) 100 mg PO DAILY [facility] Last Admin: 08/07/25 08:08 Dose: 100 mg Documented By: BLAIR Donepezil HCl (Donepezil Hcl 10 Mg Tablet) 10 mg PO BEDTIME [facility] Last Admin: 08/07/25 19:53 Dose: 10 mg Documented By: CÉSAR Duloxetine HCl (Duloxetine Hcl 20 Mg Capsule.) 40 mg PO DAILY [facility] Last Admin: 08/07/25 08:08 Dose: 40 mg Documented By: BLAIR Duloxetine HCl (Duloxetine Hcl 60 Mg Capsule.) 60 mg PO DAILY [facility] Last Admin: 08/07/25 08:08 Dose: 60 mg Documented By: BLAIR Enoxaparin Sodium (Enoxaparin Sodium 40 Mg/0.4 Ml Syringe) 40 mg SUBCUT Q24H [facility] Last Admin: 08/07/25 09:54 Dose: 40 mg Documented By: BLAIR Lamotrigine (Lamotrigine 25 Mg Tablet) 150 mg PO BID [facility] Last Admin: 08/07/25 19:52 Dose: 150 mg Documented By: CÉSAR Magnesium Hydroxide (Milk Of Magnesia 30 Ml Oral.Susp) 30 ml PO DAILY PRN PRN Reason: Constipation Last Admin: 08/05/25 11:47 Dose: 30 ml Documented By: GUSTAVO Melatonin (Melatonin 3 Mg Tablet) 6 mg PO BEDTIME PRN PRN Reason: Insomnia Last Admin: 08/07/25 19:53 Dose: 6 mg Documented By: CÉSAR Memantine (Memantine Hcl 10 Mg Tablet) 10 mg PO DAILY [facility] Last Admin: 08/07/25 08:08 Dose: 10 mg Documented By: BLAIR Sodium Chloride (0.9 % Sodium Chloride Flush 3 Ml Syringe) 3 ml IVFLUSH QSHIFT [facility] Last Admin: 08/07/25 19:55 Dose: Not Given Documented By: CÉSAR Non-Admin Reason: No Access Labs 08/01/25 13:22 08/01/25 13:22 Assessment and Plan (1) Adult failure to thrive: Status: Acute Plan 75-year-old male with history of dementia, hypertension, reported generalized seizures, chronic pain, generalized dystonia who was initially brought into the emergency department on July 07 with shoulder pain now being admitted for failure to thrive Failure to thrive Dementia probable Alzheimer's Does not have capacity to make medical decisions 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 HTN Continue low-dose Norvasc ?partial seizure disorder continue lamictal dementia, probable Alzheimer's continue namenda, aricept chronic pain Does not seem to be on narcotics any longer continue cymbalta dvt ppx - lovneox full code reason for continued hospitalization:placement Quality Stroke Does the patient have a stroke diagnosis?: No VTE Prior VTE?: No VTE Risk Level:: Medical - moderate - high VTE Device Contraindication: N/A - Device Ordered VTE Drug Contraindication: N/A - Med Ordered
[2025-08-08 15:16] VITALS: BP 162/78; PULSE 88; RESP 16; TEMP 36.6; O2SAT 96
[2025-08-08 19:15] VITALS: BP 142/86; PULSE 99; RESP 18; TEMP 36.6; O2SAT 97
[2025-08-09 03:51] VITALS: BP 148/86; PULSE 56; RESP 16; TEMP 36.1; O2SAT 96
--- NOTE | 2025-08-09 07:56 | HO.PM.IMPN ---
Subjective Subjective Date of Service: 08/09/25 Interval History: no complaints Review of Systems no new events Review of Systems: Yes all other systems are reviewed and are negative Physical Exam Exam: Exam: General: Alert, no distress Resp: CTA bilateral, no accessory muscles used CVS: S1,S2,RRR GI: soft, non tender, non distended Vital Signs: Vital Signs: Last Vital Signs Temp 97 F 08/09/25 03:51 Pulse 56 08/09/25 03:51 Resp 16 08/09/25 03:51 BP 148/86 H 08/09/25 03:51 Pulse Ox 96 08/09/25 03:51 O2 Del Method Room Air 08/09/25 03:51 BMI result Body Mass Index 24.7 Objective Data Active Medications Acetaminophen (Acetaminophen 325 Mg Tablet) 650 mg PO Q6H PRN PRN Reason: Pain, Mild 1-3,fever,headache Last Admin: 08/08/25 20:43 Dose: 650 mg Documented By: CÉSAR Amlodipine Besylate (Amlodipine Besylate 2.5 Mg Tablet) 2.5 mg PO DAILY [facility]; Protocol Last Admin: 08/09/25 07:51 Dose: 2.5 mg Documented By: ETHAN Calcium Carbonate (Calcium Carbonate 750 Mg Tab.Chew) 750 mg PO Q4H PRN PRN Reason: Heartburn Docusate Sodium (Docusate Sodium 100 Mg Capsule) 100 mg PO DAILY [facility] Last Admin: 08/09/25 07:51 Dose: 100 mg Documented By: ETHAN Donepezil HCl (Donepezil Hcl 10 Mg Tablet) 10 mg PO BEDTIME [facility] Last Admin: 08/08/25 20:43 Dose: 10 mg Documented By: CÉSAR Duloxetine HCl (Duloxetine Hcl 20 Mg Capsule.) 40 mg PO DAILY [facility] Last Admin: 08/09/25 07:50 Dose: 40 mg Documented By: ETHAN Duloxetine HCl (Duloxetine Hcl 60 Mg Capsule.) 60 mg PO DAILY [facility] Last Admin: 08/09/25 07:51 Dose: 60 mg Documented By: ETHAN Enoxaparin Sodium (Enoxaparin Sodium 40 Mg/0.4 Ml Syringe) 40 mg SUBCUT Q24H [facility] Last Admin: 08/08/25 09:37 Dose: 40 mg Documented By: GUSTAVO Lamotrigine (Lamotrigine 25 Mg Tablet) 150 mg PO BID [facility] Last Admin: 08/09/25 07:51 Dose: 150 mg Documented By: ETHAN Magnesium Hydroxide (Milk Of Magnesia 30 Ml Oral.Susp) 30 ml PO DAILY PRN PRN Reason: Constipation Last Admin: 08/05/25 11:47 Dose: 30 ml Documented By: GUSTAVO Melatonin (Melatonin 3 Mg Tablet) 6 mg PO BEDTIME PRN PRN Reason: Insomnia Last Admin: 08/08/25 20:43 Dose: 6 mg Documented By: LEFMENDOZA Memantine (Memantine Hcl 10 Mg Tablet) 10 mg PO DAILY [facility] Last Admin: 08/09/25 07:51 Dose: 10 mg Documented By: ETHAN Sodium Chloride (0.9 % Sodium Chloride Flush 3 Ml Syringe) 3 ml IVFLUSH QSHIFT [facility] Last Admin: 08/09/25 07:48 Dose: Not Given Documented By: ETHAN Non-Admin Reason: No Access Labs 08/01/25 13:22 08/01/25 13:22 Assessment and Plan (1) Adult failure to thrive: Status: Acute Plan 75-year-old male with history of dementia, hypertension, reported generalized seizures, chronic pain, generalized dystonia who was initially brought into the emergency department on July 07 with shoulder pain now being admitted for failure to thrive Failure to thrive Dementia probable Alzheimer's Does not have capacity to make medical decisions and primary clinical practitioner acutely 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 HTN Continue low-dose Norvasc ?partial seizure disorder continue lamictal dementia, probable Alzheimer's continue namenda, aricept chronic pain Does not seem to be on narcotics any longer continue cymbalta dvt ppx - lovneox full code reason for continued hospitalization:placement Quality Stroke Does the patient have a stroke diagnosis?: No VTE Prior VTE?: No VTE Risk Level:: Medical - moderate - high VTE Device Contraindication: N/A - Device Ordered VTE Drug Contraindication: N/A - Med Ordered
[2025-08-09 08:00] VITALS: BP 152/90; PULSE 63; RESP 18; TEMP 36.3; O2SAT 97
[2025-08-09 15:18] VITALS: BP 128/84; PULSE 95; RESP 18; TEMP 36.4; O2SAT 96
--- NOTE | 2025-08-09 16:11 | MHC.CM.PN ---
PT AWAITING MH BALDEMAR AND SUBSEQUENT LTC PLACEMENT DAUGHTER/HCP WORKING ON GATHERING DOCUMENTS PER HER REPORT
[2025-08-09] MEDS: Milk of Magnesia 30 ML ORAL.SUSP PO (16:48)
[2025-08-09 19:30] VITALS: BP 132/87; PULSE 68; RESP 20; TEMP 36.5; O2SAT 98
[2025-08-10 07:10] VITALS: BP 146/78; PULSE 59; RESP 16; TEMP 36.4; O2SAT 97
--- NOTE | 2025-08-10 07:40 | P.PNIM_ITS ---
Subjective Subjective Date of Service: 08/10/25 Interval History: no new events Review of Systems denies new c/o. Review of Systems: Yes all other systems are reviewed and are negative Physical Exam 2 Exam: Exam: General: Alert, no distress Resp: CTA bilateral, no accessory muscles used CVS: S1,S2,RRR GI: soft, non tender, non distended Vital Signs: Vital Signs: Last Vital Signs Temp 97.5 F 08/10/25 07:10 Pulse 59 08/10/25 07:10 Resp 16 08/10/25 07:10 BP 146/78 H 08/10/25 07:10 Pulse Ox 97 08/10/25 07:10 O2 Del Method Room Air 08/10/25 07:10 BMI result Body Mass Index 24.7 Objective Data Active Medications Acetaminophen (Acetaminophen 325 Mg Tablet) 650 mg PO Q6H PRN PRN Reason: Pain, Mild 1-3,fever,headache Last Admin: 08/10/25 03:23 Dose: 650 mg Documented By: EMERALD Comments: given per pt request Amlodipine Besylate (Amlodipine Besylate 2.5 Mg Tablet) 2.5 mg PO DAILY [facility]; Protocol Last Admin: 08/09/25 07:51 Dose: 2.5 mg Documented By: ETHAN Calcium Carbonate (Calcium Carbonate 750 Mg Tab.Chew) 750 mg PO Q4H PRN PRN Reason: Heartburn Docusate Sodium (Docusate Sodium 100 Mg Capsule) 100 mg PO DAILY [facility] Last Admin: 08/09/25 07:51 Dose: 100 mg Documented By: ETHAN Donepezil HCl (Donepezil Hcl 10 Mg Tablet) 10 mg PO BEDTIME [facility] Last Admin: 08/09/25 20:31 Dose: 10 mg Documented By: EMERALD Duloxetine HCl (Duloxetine Hcl 20 Mg Capsule.) 40 mg PO DAILY [facility] Last Admin: 08/09/25 07:50 Dose: 40 mg Documented By: ETHAN Duloxetine HCl (Duloxetine Hcl 60 Mg Capsule.) 60 mg PO DAILY [facility] Last Admin: 08/09/25 07:51 Dose: 60 mg Documented By: ETHAN Enoxaparin Sodium (Enoxaparin Sodium 40 Mg/0.4 Ml Syringe) 40 mg SUBCUT Q24H [facility] Last Admin: 08/09/25 10:57 Dose: 40 mg Documented By: ETHAN Lamotrigine (Lamotrigine 25 Mg Tablet) 150 mg PO BID [facility] Last Admin: 08/09/25 20:30 Dose: 150 mg Documented By: EMERALD Magnesium Hydroxide (Milk Of Magnesia 30 Ml Oral.Susp) 30 ml PO DAILY PRN PRN Reason: Constipation Last Admin: 08/09/25 16:48 Dose: 30 ml Documented By: DANAY Melatonin (Melatonin 3 Mg Tablet) 6 mg PO BEDTIME PRN PRN Reason: Insomnia Last Admin: 08/09/25 20:31 Dose: 6 mg Documented By: EMERALD Memantine (Memantine Hcl 10 Mg Tablet) 10 mg PO DAILY [facility] Last Admin: 08/09/25 07:51 Dose: 10 mg Documented By: ETHAN Sodium Chloride (0.9 % Sodium Chloride Flush 3 Ml Syringe) 3 ml IVFLUSH QSHIFT [facility] Last Admin: 08/09/25 20:31 Dose: Not Given Documented By: EMERALD Non-Admin Reason: No Access Labs 08/01/25 13:22 08/01/25 13:22 Assessment and Plan (1) Adult failure to thrive: Status: Acute Plan 75-year-old male with history of dementia, hypertension, reported generalized seizures, chronic pain, generalized dystonia who was initially brought into the emergency department on July 07 with shoulder pain now being admitted for failure to thrive Failure to thrive Dementia probable Alzheimer's Does not have capacity to make medical decisions and 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 HTN Continue low-dose Norvasc ?partial seizure disorder continue lamictal dementia, probable Alzheimer's continue namenda, aricept chronic pain Does not seem to be on narcotics any longer continue cymbalta dvt ppx - lovneox full code reason for continued hospitalization:placement Quality Stroke Does the patient have a stroke diagnosis?: No VTE Prior VTE?: No VTE Risk Level:: Medical - moderate - high VTE Device Contraindication: N/A - Device Ordered VTE Drug Contraindication: N/A - Med Ordered
[2025-08-10 14:56] VITALS: BP 152/82; PULSE 75; RESP 14; TEMP 37.1; O2SAT 96
[2025-08-10 19:51] VITALS: BP 134/81; PULSE 78; RESP 18; TEMP 36.6; O2SAT 96
[2025-08-11 03:47] VITALS: BP 141/84; PULSE 72; RESP 18; TEMP 36.1; O2SAT 96
[2025-08-11 07:11] VITALS: BP 135/78; PULSE 58; RESP 14; TEMP 36.6; O2SAT 96
[2025-08-11] MEDS: Milk of Magnesia 30 ML ORAL.SUSP PO (09:34)
--- NOTE | 2025-08-11 12:53 | HO.PM.IMPN ---
Subjective Subjective Date of Service: 08/11/25 Interval History: Sitting comfortably Review of Systems No new events. Review of Systems: Yes all other systems are reviewed and are negative Physical Exam Exam: Exam: General: Alert, no distress Resp: CTA bilateral, no accessory muscles used CVS: S1,S2,RRR GI: soft, non tender, non distended Vital Signs: Vital Signs: Last Vital Signs Temp 97.8 F 08/11/25 07:11 Pulse 58 08/11/25 07:11 Resp 14 08/11/25 07:11 BP 135/78 08/11/25 07:11 Pulse Ox 96 08/11/25 07:11 O2 Del Method Room Air 08/11/25 07:11 BMI result Body Mass Index 24.7 Objective Data Active Medications Acetaminophen (Acetaminophen 325 Mg Tablet) 650 mg PO Q6H PRN PRN Reason: Pain, Mild 1-3,fever,headache Last Admin: 08/11/25 07:48 Dose: 650 mg Documented By: ROSANNE Amlodipine Besylate (Amlodipine Besylate 2.5 Mg Tablet) 2.5 mg PO DAILY [facility]; Protocol Last Admin: 08/11/25 07:47 Dose: 2.5 mg Documented By: ROSANNE Calcium Carbonate (Calcium Carbonate 750 Mg Tab.Chew) 750 mg PO Q4H PRN PRN Reason: Heartburn Docusate Sodium (Docusate Sodium 100 Mg Capsule) 100 mg PO DAILY [facility] Last Admin: 08/11/25 07:48 Dose: 100 mg Documented By: ROSANNE Donepezil HCl (Donepezil Hcl 10 Mg Tablet) 10 mg PO BEDTIME [facility] Last Admin: 08/10/25 20:02 Dose: 10 mg Documented By: EMERALD Duloxetine HCl (Duloxetine Hcl 20 Mg Capsule.) 40 mg PO DAILY [facility] Last Admin: 08/11/25 07:47 Dose: 40 mg Documented By: ROSANNE Duloxetine HCl (Duloxetine Hcl 60 Mg Capsule.) 60 mg PO DAILY [facility] Last Admin: 08/11/25 07:48 Dose: 60 mg Documented By: ROSANNE Enoxaparin Sodium (Enoxaparin Sodium 40 Mg/0.4 Ml Syringe) 40 mg SUBCUT Q24H [facility] Last Admin: 08/11/25 09:34 Dose: 40 mg Documented By: ROSANNE Lamotrigine (Lamotrigine 100 Mg Tablet) 150 mg PO BID [facility] Last Admin: 08/11/25 10:07 Dose: 150 mg Documented By: ROSANNE Magnesium Hydroxide (Milk Of Magnesia 30 Ml Oral.Susp) 30 ml PO DAILY PRN PRN Reason: Constipation Last Admin: 08/11/25 09:34 Dose: 30 ml Documented By: ROSANNE Melatonin (Melatonin 3 Mg Tablet) 6 mg PO BEDTIME PRN PRN Reason: Insomnia Last Admin: 08/10/25 20:03 Dose: 6 mg Documented By: EMERALD Memantine (Memantine Hcl 10 Mg Tablet) 10 mg PO DAILY [facility] Last Admin: 08/11/25 07:48 Dose: 10 mg Documented By: ROSANNE Sodium Chloride (0.9 % Sodium Chloride Flush 3 Ml Syringe) 3 ml IVFLUSH QSHIFT [facility] Last Admin: 08/11/25 07:50 Dose: Not Given Documented By: ROSANNE Non-Admin Reason: No Access Labs 08/01/25 13:22 08/01/25 13:22 Assessment and Plan (1) Adult failure to thrive: Status: Acute Plan 75-year-old male with history of dementia, hypertension, reported generalized seizures, chronic pain, generalized dystonia who was initially brought into the emergency department on July 07 with shoulder pain now being admitted for failure to thrive Failure to thrive Dementia probable Alzheimer's Does not have capacity to make medical decisions 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 HTN Continue low-dose Norvasc ?partial seizure disorder continue lamictal dementia, probable Alzheimer's continue namenda, aricept chronic pain Does not seem to be on narcotics any longer continue cymbalta dvt ppx - lovneox full code reason for continued hospitalization:placement Quality Stroke Does the patient have a stroke diagnosis?: No VTE Prior VTE?: No VTE Risk Level:: Medical - moderate - high VTE Device Contraindication: N/A - Device Ordered VTE Drug Contraindication: N/A - Med Ordered
[2025-08-11 15:29] VITALS: BP 122/78; PULSE 90; RESP 16; TEMP 36.7; O2SAT 96
[2025-08-11 19:27] VITALS: BP 134/78; PULSE 92; RESP 19; TEMP 36.9; O2SAT 96
[2025-08-12 03:04] VITALS: BP 155/84; PULSE 75; RESP 17; TEMP 36.5; O2SAT 94
[2025-08-12 07:33] VITALS: BP 159/85; PULSE 64; RESP 12; TEMP 36.4; O2SAT 94
--- NOTE | 2025-08-12 10:45 | MHC.CM.PN ---
Per financial counselor, no documents received from step daughter for [facility] application. CM director aware.
[2025-08-12] MEDS: Milk of Magnesia 30 ML ORAL.SUSP PO (14:46)
[2025-08-12 16:00] VITALS: BP 134/79; PULSE 86; RESP 19; TEMP 36.3; O2SAT 96
--- NOTE | 2025-08-12 17:49 | HO.PM.IMPN ---
Subjective Subjective Date of Service: 08/12/25 Interval History: Sitting comfortably Review of Systems no new events Physical Exam Exam: Exam: General: Alert, no distress Resp: CTA bilateral, no accessory muscles used CVS: S1,S2,RRR GI: soft, non tender, non distended Vital Signs: Vital Signs: Last Vital Signs Temp 97.4 F 08/12/25 16:00 Pulse 86 08/12/25 16:00 Resp 19 08/12/25 16:00 BP 134/79 08/12/25 16:00 Pulse Ox 96 08/12/25 16:00 O2 Del Method Room Air 08/12/25 16:00 BMI result Body Mass Index 24.7 Objective Data Active Medications Acetaminophen (Acetaminophen 325 Mg Tablet) 650 mg PO Q6H PRN PRN Reason: Pain, Mild 1-3,fever,headache Last Admin: 08/11/25 15:40 Dose: 650 mg Documented By: ROSANNE Amlodipine Besylate (Amlodipine Besylate 2.5 Mg Tablet) 2.5 mg PO DAILY [facility]; Protocol Last Admin: 08/12/25 07:42 Dose: 2.5 mg Documented By: SAHIL Calcium Carbonate (Calcium Carbonate 750 Mg Tab.Chew) 750 mg PO Q4H PRN PRN Reason: Heartburn Docusate Sodium (Docusate Sodium 100 Mg Capsule) 100 mg PO DAILY [facility] Last Admin: 08/12/25 07:43 Dose: 100 mg Documented By: SAHIL Donepezil HCl (Donepezil Hcl 10 Mg Tablet) 10 mg PO BEDTIME [facility] Last Admin: 08/11/25 20:34 Dose: 10 mg Documented By: DIANNA Duloxetine HCl (Duloxetine Hcl 20 Mg Capsule.) 40 mg PO DAILY [facility] Last Admin: 08/12/25 07:42 Dose: 40 mg Documented By: SAHIL Duloxetine HCl (Duloxetine Hcl 60 Mg Capsule.) 60 mg PO DAILY [facility] Last Admin: 08/12/25 07:42 Dose: 60 mg Documented By: SAIHL Enoxaparin Sodium (Enoxaparin Sodium 40 Mg/0.4 Ml Syringe) 40 mg SUBCUT Q24H [facility] Last Admin: 08/12/25 10:56 Dose: 40 mg Documented By: SAHIL Lamotrigine (Lamotrigine 100 Mg Tablet) 150 mg PO BID [facility] Last Admin: 08/12/25 07:43 Dose: 150 mg Documented By: SAHIL Magnesium Hydroxide (Milk Of Magnesia 30 Ml Oral.Susp) 30 ml PO DAILY PRN PRN Reason: Constipation Last Admin: 08/12/25 14:46 Dose: 30 ml Documented By: SAHIL Melatonin (Melatonin 3 Mg Tablet) 6 mg PO BEDTIME PRN PRN Reason: Insomnia Last Admin: 08/10/25 20:03 Dose: 6 mg Documented By: EMERALD Memantine (Memantine Hcl 10 Mg Tablet) 10 mg PO DAILY [facility] Last Admin: 08/12/25 07:42 Dose: 10 mg Documented By: SAHIL Sodium Chloride (0.9 % Sodium Chloride Flush 3 Ml Syringe) 3 ml IVFLUSH QSHIFT [facility] Last Admin: 08/12/25 17:04 Dose: Not Given Documented By: SAHIL Non-Admin Reason: No Access Labs 08/01/25 13:22 08/01/25 13:22 Assessment and Plan (1) Adult failure to thrive: Status: Acute Plan 75-year-old male with history of dementia, hypertension, reported generalized seizures, chronic pain, generalized dystonia who was initially brought into the emergency department on July 07 with shoulder pain now being admitted for failure to thrive Failure to thrive Dementia probable Alzheimer's Does not have capacity to make medical decisions and 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 HTN Continue low-dose Norvasc ?partial seizure disorder continue lamictal dementia, probable Alzheimer's continue namenda, aricept chronic pain Does not seem to be on narcotics any longer continue cymbalta dvt ppx - lovneox full code reason for continued hospitalization:placement Quality Stroke Does the patient have a stroke diagnosis?: No VTE Prior VTE?: No VTE Risk Level:: Medical - moderate - high VTE Device Contraindication: N/A - Device Ordered VTE Drug Contraindication: N/A - Med Ordered
[2025-08-12 20:00] VITALS: BP 123/71; PULSE 97; RESP 18; TEMP 36.7; O2SAT 96
[2025-08-13 03:41] VITALS: BP 143/66; PULSE 59; RESP 18; TEMP 36.8; O2SAT 97
[2025-08-13 08:06] VITALS: BP 135/86; PULSE 65; RESP 18; TEMP 36.5; O2SAT 94
--- NOTE | 2025-08-13 14:14 | HO.PM.IMPN ---
Subjective Subjective Date of Service: 08/13/25 Interval History: feels comfortably Review of Systems Review of Systems: Yes all other systems are reviewed and are negative Physical Exam Exam: Exam: General: Alert, no distress Resp: CTA bilateral, no accessory muscles used CVS: S1,S2,RRR GI: soft, non tender, non distended Vital Signs: Vital Signs: Last Vital Signs Temp 97.7 F 08/13/25 08:06 Pulse 65 08/13/25 08:06 Resp 18 08/13/25 08:06 BP 135/86 08/13/25 08:06 Pulse Ox 94 08/13/25 08:06 O2 Del Method Room Air 08/13/25 08:06 BMI result Body Mass Index 24.7 Objective Data Active Medications Acetaminophen (Acetaminophen 325 Mg Tablet) 650 mg PO Q6H PRN PRN Reason: Pain, Mild 1-3,fever,headache Last Admin: 08/11/25 15:40 Dose: 650 mg Documented By: ROSANNE Amlodipine Besylate (Amlodipine Besylate 2.5 Mg Tablet) 2.5 mg PO DAILY [facility]; Protocol Last Admin: 08/13/25 07:59 Dose: 2.5 mg Documented By: JOSE Calcium Carbonate (Calcium Carbonate 750 Mg Tab.Chew) 750 mg PO Q4H PRN PRN Reason: Heartburn Docusate Sodium (Docusate Sodium 100 Mg Capsule) 100 mg PO DAILY [facility] Last Admin: 08/13/25 07:59 Dose: 100 mg Documented By: JOSE Donepezil HCl (Donepezil Hcl 10 Mg Tablet) 10 mg PO BEDTIME [facility] Last Admin: 08/12/25 19:55 Dose: 10 mg Documented By: DIANNA Duloxetine HCl (Duloxetine Hcl 20 Mg Capsule.) 40 mg PO DAILY [facility] Last Admin: 08/13/25 07:58 Dose: 40 mg Documented By: JOSE Duloxetine HCl (Duloxetine Hcl 60 Mg Capsule.) 60 mg PO DAILY [facility] Last Admin: 08/13/25 07:57 Dose: 60 mg Documented By: JOSE Enoxaparin Sodium (Enoxaparin Sodium 40 Mg/0.4 Ml Syringe) 40 mg SUBCUT Q24H [facility] Last Admin: 08/13/25 08:59 Dose: 40 mg Documented By: JOSE Lamotrigine (Lamotrigine 100 Mg Tablet) 150 mg PO BID [facility] Last Admin: 08/13/25 07:58 Dose: 150 mg Documented By: JOSE Magnesium Hydroxide (Milk Of Magnesia 30 Ml Oral.Susp) 30 ml PO DAILY PRN PRN Reason: Constipation Last Admin: 08/12/25 14:46 Dose: 30 ml Documented By: SAHIL Melatonin (Melatonin 3 Mg Tablet) 6 mg PO BEDTIME PRN PRN Reason: Insomnia Last Admin: 08/10/25 20:03 Dose: 6 mg Documented By: EMERALD Memantine (Memantine Hcl 10 Mg Tablet) 10 mg PO DAILY [facility] Last Admin: 08/13/25 07:59 Dose: 10 mg Documented By: JOSE Labs 08/01/25 13:22 08/01/25 13:22 Assessment and Plan (1) Adult failure to thrive: Status: Acute Plan 75-year-old male with history of dementia, hypertension, reported generalized seizures, chronic pain, generalized dystonia who was initially brought into the emergency department on July 07 with shoulder pain now being admitted for failure to thrive Failure to thrive Dementia probable Alzheimer's Does not have capacity to make medical decisions and 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 HTN Continue low-dose Norvasc ?partial seizure disorder continue lamictal dementia, probable Alzheimer's continue namenda, aricept chronic pain Does not seem to be on narcotics any longer continue cymbalta dvt ppx - lovneox full code reason for continued hospitalization:placement Quality Stroke Does the patient have a stroke diagnosis?: No VTE Prior VTE?: No VTE Risk Level:: Medical - moderate - high VTE Device Contraindication: N/A - Device Ordered VTE Drug Contraindication: N/A - Med Ordered
[2025-08-13 15:23] VITALS: BP 136/78; PULSE 86; RESP 18; TEMP 36.5; O2SAT 97
--- NOTE | 2025-08-13 16:07 | MHC.CM.PN ---
Met with patient to discuss DC plan. A referral was sent to [facility]. Per [place] Maria the patient does not qualify for the program. A PT eval does not qualify for STR. A referral has been sent to [facility] for the Adult Foster program. A call has been made to the patients dtr Aisha. Acall back was requested. The VM was left to explain the Adult Foster program. A request for contact info for the patient's brother was also requested. CM will continue to work on a discharge plan.
[2025-08-13 19:55] VITALS: BP 135/82; PULSE 92; RESP 18; TEMP 36.5; O2SAT 94
[2025-08-13] MEDS: diazePAM 10 MG/2 ML CARTRIDGE 5 MG IVPUSH (21:57)
--- NOTE | 2025-08-13 22:01 | PC.NURSE ---
At approximately 2130 pt informed this rn he was having increased neck pain that radiated to his arms and legs. He was feeling pins and needles sensation in arms and legs. His speech was stuttered occasionally while speaking and right hand was trembling Discussed with him what his history with seizures felt like and he tole this rn that they had felt similar to these symptoms he was having currently. MD Arora notified and came to bedside to evaluate patient. ordered a stat dose of 5 mg of IV Diazepam. This rn administered the diazepam and is continuing to monitor patient and vital signs. Patient symptoms have decreased since administration and he is laying comfortably in bed with even and non labored respirations.
[2025-08-13 23:33] VITALS: BP 155/89; PULSE 68; RESP 19; TEMP 36.5; O2SAT 94
--- NOTE | 2025-08-14 02:17 | PC.NURSE ---
Upon reassessment of patient at 2300 patient tremors and speech has gone back to baseline. Patient said he felt better, but was still feeling some pain in his neck. I administered Tylenol and heat packs to the patient. At this time he is asleep with even and non labored respirations.
[2025-08-14 04:00] VITALS: BP 145/77; PULSE 58; RESP 18; TEMP 36.4; O2SAT 96
[2025-08-14 08:00] VITALS: BP 153/89; PULSE 59; RESP 16; TEMP 36.3; O2SAT 96
--- NOTE | 2025-08-14 09:05 | HO.PM.IMPN ---
Subjective Subjective Date of Service: 08/14/25 Interval History: placement Review of Systems no new c/o Review of Systems: Yes all other systems are reviewed and are negative Physical Exam Exam: Exam: General: Alert, no distress Resp: CTA bilateral, no accessory muscles used CVS: S1,S2,RRR GI: soft, non tender, non distended Vital Signs: Vital Signs: Last Vital Signs Temp 97.4 F 08/14/25 08:00 Pulse 59 08/14/25 08:00 Resp 16 08/14/25 08:00 BP 153/89 H 08/14/25 08:00 Pulse Ox 96 08/14/25 08:00 O2 Del Method Room Air 08/14/25 08:00 BMI result Body Mass Index 24.7 Objective Data Active Medications Acetaminophen (Acetaminophen 325 Mg Tablet) 650 mg PO Q6H PRN PRN Reason: Pain, Mild 1-3,fever,headache Last Admin: 08/13/25 23:49 Dose: 650 mg Documented By: JACQUELYN Amlodipine Besylate (Amlodipine Besylate 2.5 Mg Tablet) 2.5 mg PO DAILY [facility]; Protocol Last Admin: 08/14/25 08:29 Dose: 2.5 mg Documented By: JOSE Calcium Carbonate (Calcium Carbonate 750 Mg Tab.Chew) 750 mg PO Q4H PRN PRN Reason: Heartburn Docusate Sodium (Docusate Sodium 100 Mg Capsule) 100 mg PO DAILY [facility] Last Admin: 08/14/25 08:29 Dose: 100 mg Documented By: JOSE Donepezil HCl (Donepezil Hcl 10 Mg Tablet) 10 mg PO BEDTIME [facility] Last Admin: 08/13/25 19:51 Dose: 10 mg Documented By: JACQUELYN Duloxetine HCl (Duloxetine Hcl 20 Mg Capsule.) 40 mg PO DAILY [facility] Last Admin: 08/14/25 08:29 Dose: 40 mg Documented By: JOSE Duloxetine HCl (Duloxetine Hcl 60 Mg Capsule.) 60 mg PO DAILY [facility] Last Admin: 08/14/25 08:29 Dose: 60 mg Documented By: JOSE Enoxaparin Sodium (Enoxaparin Sodium 40 Mg/0.4 Ml Syringe) 40 mg SUBCUT Q24H [facility] Last Admin: 08/13/25 08:59 Dose: 40 mg Documented By: JOSE Lamotrigine (Lamotrigine 100 Mg Tablet) 150 mg PO BID [facility] Last Admin: 08/14/25 08:29 Dose: 150 mg Documented By: JOSE Magnesium Hydroxide (Milk Of Magnesia 30 Ml Oral.Susp) 30 ml PO DAILY PRN PRN Reason: Constipation Last Admin: 08/12/25 14:46 Dose: 30 ml Documented By: SAHIL Melatonin (Melatonin 3 Mg Tablet) 6 mg PO BEDTIME PRN PRN Reason: Insomnia Last Admin: 08/10/25 20:03 Dose: 6 mg Documented By: EMERALD Memantine (Memantine Hcl 10 Mg Tablet) 10 mg PO DAILY [facility] Last Admin: 08/14/25 08:29 Dose: 10 mg Documented By: JOSE Labs 08/01/25 13:22 08/01/25 13:22 Assessment and Plan (1) Adult failure to thrive: Status: Acute Plan 75-year-old male with history of dementia, hypertension, reported generalized seizures, chronic pain, generalized dystonia who was initially brought into the emergency department on July 07 with shoulder pain now being admitted for failure to thrive Failure to thrive Dementia probable Alzheimer's Does not have capacity to make medical decisions and 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 HTN Continue low-dose Norvasc ?partial seizure disorder continue lamictal dementia, probable Alzheimer's continue namenda, aricept chronic pain Does not seem to be on narcotics any longer continue cymbalta dvt ppx - lovneox full code reason for continued hospitalization:placement Quality Stroke Does the patient have a stroke diagnosis?: No VTE Prior VTE?: No VTE Risk Level:: Medical - moderate - high VTE Device Contraindication: N/A - Device Ordered VTE Drug Contraindication: N/A - Med Ordered
[2025-08-14] MEDS: 0.9 % Sodium Chloride Flush 3 ML SYRINGE IVFLUSH ×2 (15:21→20:13)
--- NOTE | 2025-08-14 15:27 | MHC.CM.PN ---
No return call received from Aisha. SHELLIE called again today. SHELLIE requested contact info for patients brother. She is working with [facility] Financial lamp shades supervisor on MH application. The [facility] stated that some information received was illegible. Per F.C., Aisha will resend those documents. F[facility] stated that Aisha has been instructed on the remaining documents to obtain and submit. DP LTC via BLS.
[2025-08-14 15:36] VITALS: BP 130/83; PULSE 83; RESP 16; TEMP 36.7; O2SAT 96
[2025-08-14 19:28] VITALS: BP 124/78; PULSE 58; RESP 16; TEMP 36.2; O2SAT 96
--- NOTE | 2025-08-15 02:27 | MHC.PIE ---
Addendum entered by Inés Brock RN 08/15/25 03:17: e; new order tramadol 25mg po now. will cont to monitor Original Note: late entry 08/14/25 2000 p; pt c/o pain through out body 08/30. pt asking for tylenol, but would like something stronger for pain. i; dr boyd notified e; pt asleep in bed, no sign of pain noted 08/15/25 0220 p; now awake c/o pain 08/30 asking for pain med. pt reports tylenol didn't work. pt reminded of falling asleep post tylenol administration, pt now asking for tylenol but still wants something stronger for pain i; dr boyd notifed e; no new orders at this time, will cont to monitor
[2025-08-15 03:12] VITALS: BP 134/80; PULSE 68; RESP 18; TEMP 36.4; O2SAT 97
[2025-08-15 07:42] VITALS: BP 153/86; PULSE 65; RESP 16; TEMP 36.4; O2SAT 96
[2025-08-15] MEDS: 0.9 % Sodium Chloride Flush 3 ML SYRINGE IVFLUSH ×3 (08:07→20:23)
--- NOTE | 2025-08-15 10:46 | P.PNIM_ITS ---
Subjective Subjective Date of Service: 08/15/25 Interval History: no new complaints Physical Exam 2 Exam: Exam: General: Alert, no distress Resp: CTA bilateral, no accessory muscles used CVS: S1,S2,RRR GI: soft, non tender, non distended Vital Signs: Vital Signs: Last Vital Signs Temp 97.6 F 08/15/25 07:42 Pulse 65 08/15/25 07:42 Resp 16 08/15/25 07:42 BP 153/86 H 08/15/25 07:42 Pulse Ox 96 08/15/25 07:42 O2 Del Method Room Air 08/15/25 07:42 BMI result Body Mass Index 24.7 Objective Data Active Medications Acetaminophen (Acetaminophen 325 Mg Tablet) 650 mg PO Q6H PRN PRN Reason: Pain, Mild 1-3,fever,headache Last Admin: 08/15/25 08:11 Dose: 650 mg Documented By: PEYTON Amlodipine Besylate (Amlodipine Besylate 2.5 Mg Tablet) 2.5 mg PO DAILY [facility]; Protocol Last Admin: 08/15/25 08:06 Dose: 2.5 mg Documented By: PEYTON Calcium Carbonate (Calcium Carbonate 750 Mg Tab.Chew) 750 mg PO Q4H PRN PRN Reason: Heartburn Docusate Sodium (Docusate Sodium 100 Mg Capsule) 100 mg PO DAILY [facility] Last Admin: 08/15/25 08:06 Dose: 100 mg Documented By: PEYTON Donepezil HCl (Donepezil Hcl 10 Mg Tablet) 10 mg PO BEDTIME [facility] Last Admin: 08/14/25 20:09 Dose: 10 mg Documented By: EMERALD Duloxetine HCl (Duloxetine Hcl 20 Mg Capsule.) 40 mg PO DAILY [facility] Last Admin: 08/15/25 08:06 Dose: 40 mg Documented By: PEYTON Duloxetine HCl (Duloxetine Hcl 60 Mg Capsule.) 60 mg PO DAILY [facility] Last Admin: 08/15/25 08:06 Dose: 60 mg Documented By: PEYTON Enoxaparin Sodium (Enoxaparin Sodium 40 Mg/0.4 Ml Syringe) 40 mg SUBCUT Q24H [facility] Last Admin: 08/14/25 09:05 Dose: 40 mg Documented By: JOSE Lamotrigine (Lamotrigine 100 Mg Tablet) 150 mg PO BID [facility] Last Admin: 08/15/25 08:05 Dose: 150 mg Documented By: PEYTON Magnesium Hydroxide (Milk Of Magnesia 30 Ml Oral.Susp) 30 ml PO DAILY PRN PRN Reason: Constipation Last Admin: 08/12/25 14:46 Dose: 30 ml Documented By: SAHIL Melatonin (Melatonin 3 Mg Tablet) 6 mg PO BEDTIME PRN PRN Reason: Insomnia Last Admin: 08/10/25 20:03 Dose: 6 mg Documented By: EMERALD Memantine (Memantine Hcl 10 Mg Tablet) 10 mg PO DAILY [facility] Last Admin: 08/15/25 08:06 Dose: 10 mg Documented By: PEYTON Sodium Chloride (0.9 % Sodium Chloride Flush 3 Ml Syringe) 3 ml IVFLUSH QSHIFT [facility] Last Admin: 08/15/25 08:07 Dose: 3 ml Documented By: PEYTON Labs 08/01/25 13:22 08/01/25 13:22 Assessment and Plan (1) Adult failure to thrive: Status: Acute Plan 75-year-old male with history of dementia, hypertension, reported generalized seizures, chronic pain, generalized dystonia who was initially brought into the emergency department on July 07 with shoulder pain now being admitted for failure to thrive Failure to thrive Dementia probable Alzheimer's Does not have capacity to make medical decisions and 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 HTN Continue low-dose Norvasc ?partial seizure disorder continue lamictal dementia, probable Alzheimer's continue namenda, aricept chronic pain Does not seem to be on narcotics any longer continue cymbalta dvt ppx - lovneox full code reason for continued hospitalization:placement Quality Stroke Does the patient have a stroke diagnosis?: No VTE Prior VTE?: No VTE Risk Level:: Medical - moderate - high VTE Device Contraindication: N/A - Device Ordered VTE Drug Contraindication: N/A - Med Ordered
[2025-08-15 15:21] VITALS: BP 129/69; PULSE 98; RESP 16; TEMP 36.6; O2SAT 96
[2025-08-15 20:00] VITALS: BP 147/80; PULSE 85; RESP 18; TEMP 35.9; O2SAT 96
[2025-08-16 02:52] VITALS: BP 125/71; PULSE 61; RESP 16; TEMP 36.1; O2SAT 96
[2025-08-16 07:56] VITALS: BP 142/80; PULSE 66; RESP 18; TEMP 36.6; O2SAT 96
[2025-08-16] MEDS: 0.9 % Sodium Chloride Flush 3 ML SYRINGE IVFLUSH ×3 (08:09→23:04)
--- NOTE | 2025-08-16 10:48 | P.PNIM_ITS ---
Subjective Subjective Date of Service: 08/16/25 Interval History: no new complaints Physical Exam 2 Exam: Exam: General: Alert, no distress Resp: CTA bilateral, no accessory muscles used CVS: S1,S2,RRR GI: soft, non tender, non distended Vital Signs: Vital Signs: Last Vital Signs Temp 97.9 F 08/16/25 07:56 Pulse 66 08/16/25 07:56 Resp 18 08/16/25 07:56 BP 142/80 H 08/16/25 07:56 Pulse Ox 96 08/16/25 07:56 O2 Del Method Room Air 08/16/25 07:56 BMI result Body Mass Index 24.7 Objective Data Active Medications Acetaminophen (Acetaminophen 325 Mg Tablet) 650 mg PO Q6H PRN PRN Reason: Pain, Mild 1-3,fever,headache Last Admin: 08/15/25 20:22 Dose: 650 mg Documented By: EMERALD Amlodipine Besylate (Amlodipine Besylate 2.5 Mg Tablet) 2.5 mg PO DAILY [facility]; Protocol Last Admin: 08/16/25 08:08 Dose: 2.5 mg Documented By: BERNARDO Calcium Carbonate (Calcium Carbonate 750 Mg Tab.Chew) 750 mg PO Q4H PRN PRN Reason: Heartburn Docusate Sodium (Docusate Sodium 100 Mg Capsule) 100 mg PO DAILY [facility] Last Admin: 08/16/25 08:08 Dose: 100 mg Documented By: BERNARDO Donepezil HCl (Donepezil Hcl 10 Mg Tablet) 10 mg PO BEDTIME [facility] Last Admin: 08/15/25 20:22 Dose: 10 mg Documented By: EMERALD Duloxetine HCl (Duloxetine Hcl 20 Mg Capsule.) 40 mg PO DAILY [facility] Last Admin: 08/16/25 08:08 Dose: 40 mg Documented By: BERNARDO Duloxetine HCl (Duloxetine Hcl 60 Mg Capsule.) 60 mg PO DAILY [facility] Last Admin: 08/16/25 08:08 Dose: 60 mg Documented By: BERNARDO Enoxaparin Sodium (Enoxaparin Sodium 40 Mg/0.4 Ml Syringe) 40 mg SUBCUT Q24H [facility] Last Admin: 08/16/25 10:33 Dose: 40 mg Documented By: BERNARDO Lamotrigine (Lamotrigine 100 Mg Tablet) 150 mg PO BID [facility] Last Admin: 08/16/25 08:08 Dose: 150 mg Documented By: BERNARDO Magnesium Hydroxide (Milk Of Magnesia 30 Ml Oral.Susp) 30 ml PO DAILY PRN PRN Reason: Constipation Last Admin: 08/12/25 14:46 Dose: 30 ml Documented By: SAHIL Melatonin (Melatonin 3 Mg Tablet) 6 mg PO BEDTIME PRN PRN Reason: Insomnia Last Admin: 08/10/25 20:03 Dose: 6 mg Documented By: EMERALD Memantine (Memantine Hcl 10 Mg Tablet) 10 mg PO DAILY [facility] Last Admin: 08/16/25 08:08 Dose: 10 mg Documented By: BERNARDO Sodium Chloride (0.9 % Sodium Chloride Flush 3 Ml Syringe) 3 ml IVFLUSH QSHIFT [facility] Last Admin: 08/16/25 08:09 Dose: 3 ml Documented By: BERNARDO Labs 08/01/25 13:22 08/01/25 13:22 Assessment and Plan (1) Adult failure to thrive: Status: Acute Plan 75-year-old male with history of dementia, hypertension, reported generalized seizures, chronic pain, generalized dystonia who was initially brought into the emergency department on July 07 with shoulder pain now being admitted for failure to thrive Failure to thrive Dementia probable Alzheimer's Does not have capacity to make medical decisions 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 HTN Continue low-dose Norvasc ?partial seizure disorder continue lamictal dementia, probable Alzheimer's continue namenda, aricept chronic pain Does not seem to be on narcotics any longer continue cymbalta dvt ppx - lovneox full code reason for continued hospitalization:placement Quality Stroke Does the patient have a stroke diagnosis?: No VTE Prior VTE?: No VTE Risk Level:: Medical - moderate - high VTE Device Contraindication: N/A - Device Ordered VTE Drug Contraindication: N/A - Med Ordered
--- NOTE | 2025-08-16 12:33 | MHC.CM.PN ---
Patient requires LTC. He does not have a payer. [facility] waiting for documents required to submit the MH application. DP LTC via BLS.
[2025-08-16 15:30] VITALS: BP 132/82; PULSE 93; RESP 18; TEMP 37.1; O2SAT 96
[2025-08-16 19:44] VITALS: BP 138/84; PULSE 90; RESP 18; TEMP 36.5; O2SAT 95
[2025-08-17 03:34] VITALS: BP 138/64; PULSE 66; RESP 18; TEMP 36.8; O2SAT 96
--- NOTE | 2025-08-17 04:17 | PC.NURSE ---
Pt went to med around midnight. Alert oriented to person and place but can be forgeful to situation and time. Patient reprots he has not been experiencing any tremors and feels like he has not had any seizure symptoms . Snack provided before bed and patient denies pain. New IV plaed in right forearm as documented as left AC IV was infiltrated and skin reddened from the presence of tape on patient's skin. Lotion applied and pt reported gradual improvement in tenderness and redness of old IV site. Pt presently resting comfortably, RR even and nonlabored. Observation and care ongoing.
[2025-08-17 07:48] VITALS: BP 157/81; PULSE 69; RESP 18; TEMP 36.7; O2SAT 95
--- NOTE | 2025-08-17 08:43 | HO.PM.IMPN ---
Subjective Subjective Date of Service: 08/17/25 Interval History: no new complaints Physical Exam Exam: Exam: General: Alert, no distress Resp: CTA bilateral, no accessory muscles used CVS: S1,S2,RRR GI: soft, non tender, non distended Vital Signs: Vital Signs: Last Vital Signs Temp 98.0 F 08/17/25 07:48 Pulse 69 08/17/25 07:48 Resp 18 08/17/25 07:48 BP 157/81 H 08/17/25 07:48 Pulse Ox 95 08/17/25 07:48 O2 Del Method Room Air 08/17/25 07:48 BMI result Body Mass Index 24.7 Objective Data Active Medications Acetaminophen (Acetaminophen 325 Mg Tablet) 650 mg PO Q6H PRN PRN Reason: Pain, Mild 1-3,fever,headache Last Admin: 08/15/25 20:22 Dose: 650 mg Documented By: EMERALD Amlodipine Besylate (Amlodipine Besylate 2.5 Mg Tablet) 2.5 mg PO DAILY [facility]; Protocol Last Admin: 08/16/25 08:08 Dose: 2.5 mg Documented By: BERNARDO Calcium Carbonate (Calcium Carbonate 750 Mg Tab.Chew) 750 mg PO Q4H PRN PRN Reason: Heartburn Docusate Sodium (Docusate Sodium 100 Mg Capsule) 100 mg PO DAILY [facility] Last Admin: 08/16/25 08:08 Dose: 100 mg Documented By: BERNARDO Donepezil HCl (Donepezil Hcl 10 Mg Tablet) 10 mg PO BEDTIME [facility] Last Admin: 08/16/25 21:36 Dose: 10 mg Documented By: ELIANA Duloxetine HCl (Duloxetine Hcl 20 Mg Capsule.) 40 mg PO DAILY [facility] Last Admin: 08/16/25 08:08 Dose: 40 mg Documented By: BERNARDO Duloxetine HCl (Duloxetine Hcl 60 Mg Capsule.) 60 mg PO DAILY [facility] Last Admin: 08/16/25 08:08 Dose: 60 mg Documented By: BERNARDO Enoxaparin Sodium (Enoxaparin Sodium 40 Mg/0.4 Ml Syringe) 40 mg SUBCUT Q24H [facility] Last Admin: 08/16/25 10:33 Dose: 40 mg Documented By: BERNARDO Lamotrigine (Lamotrigine 100 Mg Tablet) 150 mg PO BID [facility] Last Admin: 08/16/25 21:36 Dose: 150 mg Documented By: ELIANA Magnesium Hydroxide (Milk Of Magnesia 30 Ml Oral.Susp) 30 ml PO DAILY PRN PRN Reason: Constipation Last Admin: 08/12/25 14:46 Dose: 30 ml Documented By: SAHIL Melatonin (Melatonin 3 Mg Tablet) 6 mg PO BEDTIME PRN PRN Reason: Insomnia Last Admin: 08/10/25 20:03 Dose: 6 mg Documented By: EMERALD Memantine (Memantine Hcl 10 Mg Tablet) 10 mg PO DAILY [facility] Last Admin: 08/16/25 08:08 Dose: 10 mg Documented By: BERNARDO Sodium Chloride (0.9 % Sodium Chloride Flush 3 Ml Syringe) 3 ml IVFLUSH QSHIFT [facility] Last Admin: 08/16/25 23:04 Dose: 3 ml Documented By: ELIANA Labs 08/01/25 13:22 08/01/25 13:22 Assessment and Plan (1) Adult failure to thrive: Status: Acute Plan 75-year-old male with history of dementia, hypertension, reported generalized seizures, chronic pain, generalized dystonia who was initially brought into the emergency department on July 07 with shoulder pain now being admitted for failure to thrive Failure to thrive Dementia probable Alzheimer's Does not have capacity to make medical decisions 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 HTN Continue low-dose Norvasc ?partial seizure disorder continue lamictal dementia, probable Alzheimer's continue namenda, aricept chronic pain Does not seem to be on narcotics any longer continue cymbalta dvt ppx - lovneox full code reason for continued hospitalization:placement Quality Stroke Does the patient have a stroke diagnosis?: No VTE Prior VTE?: No VTE Risk Level:: Medical - moderate - high VTE Device Contraindication: N/A - Device Ordered VTE Drug Contraindication: N/A - Med Ordered
[2025-08-17] MEDS: 0.9 % Sodium Chloride Flush 3 ML SYRINGE IVFLUSH ×3 (08:47→21:19)
[2025-08-17 16:00] VITALS: BP 120/76; PULSE 87; RESP 20; TEMP 36.7; O2SAT 95
[2025-08-17 19:58] VITALS: BP 134/78; PULSE 80; RESP 18; TEMP 37.1; O2SAT 92
[2025-08-18 03:50] VITALS: BP 136/67; PULSE 67; RESP 18; TEMP 36.4; O2SAT 93
[2025-08-18 07:54] VITALS: BP 164/87; PULSE 62; RESP 18; TEMP 36.9; O2SAT 94
[2025-08-18] MEDS: 0.9 % Sodium Chloride Flush 3 ML SYRINGE IVFLUSH ×2 (07:58→22:16)
--- NOTE | 2025-08-18 08:57 | HO.PM.IMPN ---
Subjective Subjective Date of Service: 08/18/25 Interval History: no new complaints Physical Exam Exam: Exam: General: Alert, no distress Resp: CTA bilateral, no accessory muscles used CVS: S1,S2,RRR GI: soft, non tender, non distended Vital Signs: Vital Signs: Last Vital Signs Temp 98.5 F 08/18/25 07:54 Pulse 62 08/18/25 07:54 Resp 18 08/18/25 07:54 BP 164/87 H 08/18/25 07:54 Pulse Ox 94 08/18/25 07:54 O2 Del Method Room Air 08/18/25 07:54 BMI result Body Mass Index 24.7 Objective Data Active Medications Acetaminophen (Acetaminophen 325 Mg Tablet) 650 mg PO Q6H PRN PRN Reason: Pain, Mild 1-3,fever,headache Last Admin: 08/15/25 20:22 Dose: 650 mg Documented By: EMERALD Amlodipine Besylate (Amlodipine Besylate 2.5 Mg Tablet) 2.5 mg PO DAILY [facility]; Protocol Last Admin: 08/18/25 07:55 Dose: 2.5 mg Documented By: SAHIL Calcium Carbonate (Calcium Carbonate 750 Mg Tab.Chew) 750 mg PO Q4H PRN PRN Reason: Heartburn Docusate Sodium (Docusate Sodium 100 Mg Capsule) 100 mg PO DAILY [facility] Last Admin: 08/18/25 07:54 Dose: 100 mg Documented By: SAHIL Donepezil HCl (Donepezil Hcl 10 Mg Tablet) 10 mg PO BEDTIME [facility] Last Admin: 08/17/25 21:19 Dose: 10 mg Documented By: ELIANA Duloxetine HCl (Duloxetine Hcl 20 Mg Capsule.) 40 mg PO DAILY [facility] Last Admin: 08/18/25 07:54 Dose: 40 mg Documented By: SAHIL Duloxetine HCl (Duloxetine Hcl 60 Mg Capsule.) 60 mg PO DAILY [facility] Last Admin: 08/18/25 07:55 Dose: 60 mg Documented By: SAHLI Enoxaparin Sodium (Enoxaparin Sodium 40 Mg/0.4 Ml Syringe) 40 mg SUBCUT Q24H [facility] Last Admin: 08/17/25 08:45 Dose: 40 mg Documented By: SAHIL Lamotrigine (Lamotrigine 100 Mg Tablet) 150 mg PO BID [facility] Last Admin: 08/18/25 07:55 Dose: 150 mg Documented By: SAHIL Magnesium Hydroxide (Milk Of Magnesia 30 Ml Oral.Susp) 30 ml PO DAILY PRN PRN Reason: Constipation Last Admin: 08/12/25 14:46 Dose: 30 ml Documented By: SAHIL Melatonin (Melatonin 3 Mg Tablet) 6 mg PO BEDTIME PRN PRN Reason: Insomnia Last Admin: 08/10/25 20:03 Dose: 6 mg Documented By: EMERALD Memantine (Memantine Hcl 10 Mg Tablet) 10 mg PO DAILY [facility] Last Admin: 08/18/25 07:55 Dose: 10 mg Documented By: SAHIL Sodium Chloride (0.9 % Sodium Chloride Flush 3 Ml Syringe) 3 ml IVFLUSH QSHIFT [facility] Last Admin: 08/18/25 07:58 Dose: 3 ml Documented By: SAHIL Labs 08/01/25 13:22 08/01/25 13:22 Assessment and Plan (1) Adult failure to thrive: Status: Acute Plan 75-year-old male with history of dementia, hypertension, reported generalized seizures, chronic pain, generalized dystonia who was initially brought into the emergency department on July 07 with shoulder pain now being admitted for failure to thrive Failure to thrive Dementia probable Alzheimer's Does not have capacity to make medical 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 HTN Continue low-dose Norvasc ?partial seizure disorder continue lamictal dementia, probable Alzheimer's continue namenda, aricept chronic pain Does not seem to be on narcotics any longer continue cymbalta dvt ppx - lovneox full code reason for continued hospitalization:placement Quality Stroke Does the patient have a stroke diagnosis?: No VTE Prior VTE?: No VTE Risk Level:: Medical - moderate - high VTE Device Contraindication: N/A - Device Ordered VTE Drug Contraindication: N/A - Med Ordered
[2025-08-18 15:35] VITALS: BP 142/92; PULSE 93; RESP 18; TEMP 36.7; O2SAT 95
[2025-08-18 19:54] VITALS: BP 143/87; PULSE 76; RESP 18; TEMP 36.6; O2SAT 93
[2025-08-19 04:00] VITALS: BP 137/86; PULSE 58; RESP 16; TEMP 37; O2SAT 95
[2025-08-19 07:58] VITALS: BP 160/92; PULSE 66; RESP 16; TEMP 36.5; O2SAT 94
[2025-08-19] MEDS: 0.9 % Sodium Chloride Flush 3 ML SYRINGE IVFLUSH ×3 (08:46→19:43)
--- NOTE | 2025-08-19 08:47 | P.PNIM_ITS ---
Subjective Subjective Date of Service: 08/19/25 Interval History: no new complaints Physical Exam 2 Exam: Exam: General: Alert, no distress Resp: CTA bilateral, no accessory muscles used CVS: S1,S2,RRR GI: soft, non tender, non distended Vital Signs: Vital Signs: Last Vital Signs Temp 97.7 F 08/19/25 07:58 Pulse 66 08/19/25 07:58 Resp 16 08/19/25 07:58 BP 160/92 H 08/19/25 07:58 Pulse Ox 94 08/19/25 07:58 O2 Del Method Room Air 08/19/25 07:58 BMI result Body Mass Index 24.7 Objective Data Active Medications Acetaminophen (Acetaminophen 325 Mg Tablet) 650 mg PO Q6H PRN PRN Reason: Pain, Mild 1-3,fever,headache Last Admin: 08/15/25 20:22 Dose: 650 mg Documented By: EMERALD Amlodipine Besylate (Amlodipine Besylate 2.5 Mg Tablet) 2.5 mg PO DAILY [facility]; Protocol Last Admin: 08/19/25 08:44 Dose: 2.5 mg Documented By: ROSANNE Calcium Carbonate (Calcium Carbonate 750 Mg Tab.Chew) 750 mg PO Q4H PRN PRN Reason: Heartburn Docusate Sodium (Docusate Sodium 100 Mg Capsule) 100 mg PO DAILY [facility] Last Admin: 08/19/25 08:44 Dose: 100 mg Documented By: ROSANNE Donepezil HCl (Donepezil Hcl 10 Mg Tablet) 10 mg PO BEDTIME [facility] Last Admin: 08/18/25 22:16 Dose: 10 mg Documented By: NILES Duloxetine HCl (Duloxetine Hcl 20 Mg Capsule.) 40 mg PO DAILY [facility] Last Admin: 08/19/25 08:44 Dose: 40 mg Documented By: ROSANNE Duloxetine HCl (Duloxetine Hcl 60 Mg Capsule.) 60 mg PO DAILY [facility] Last Admin: 08/19/25 08:45 Dose: 60 mg Documented By: ROSANNE Enoxaparin Sodium (Enoxaparin Sodium 40 Mg/0.4 Ml Syringe) 40 mg SUBCUT Q24H [facility] Last Admin: 08/18/25 10:07 Dose: 40 mg Documented By: SAHIL Lamotrigine (Lamotrigine 100 Mg Tablet) 150 mg PO BID [facility] Last Admin: 08/19/25 08:44 Dose: 150 mg Documented By: ROSANNE Magnesium Hydroxide (Milk Of Magnesia 30 Ml Oral.Susp) 30 ml PO DAILY PRN PRN Reason: Constipation Last Admin: 08/12/25 14:46 Dose: 30 ml Documented By: SAHIL Melatonin (Melatonin 3 Mg Tablet) 6 mg PO BEDTIME PRN PRN Reason: Insomnia Last Admin: 08/10/25 20:03 Dose: 6 mg Documented By: EMERALD Memantine (Memantine Hcl 10 Mg Tablet) 10 mg PO DAILY [facility] Last Admin: 08/19/25 08:45 Dose: 10 mg Documented By: ROSANNE Sodium Chloride (0.9 % Sodium Chloride Flush 3 Ml Syringe) 3 ml IVFLUSH QSHIFT [facility] Last Admin: 08/19/25 08:46 Dose: 3 ml Documented By: ROSANNE Labs 08/01/25 13:22 08/01/25 13:22 Assessment and Plan (1) Adult failure to thrive: Status: Acute Plan 75-year-old male with history of dementia, hypertension, reported generalized seizures, chronic pain, generalized dystonia who was initially brought into the emergency department on July 07 with shoulder pain now being admitted for failure to thrive Failure to thrive Dementia probable Alzheimer's Does not have capacity to make medical decisions and 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 HTN Continue low-dose Norvasc ?partial seizure disorder continue lamictal dementia, probable Alzheimer's continue namenda, aricept chronic pain Does not seem to be on narcotics any longer continue cymbalta dvt ppx - lovneox full code reason for continued hospitalization:placement Quality Stroke Does the patient have a stroke diagnosis?: No VTE Prior VTE?: No VTE Risk Level:: Medical - moderate - high VTE Device Contraindication: N/A - Device Ordered VTE Drug Contraindication: N/A - Med Ordered
[2025-08-19 15:52] VITALS: BP 123/70; PULSE 97; RESP 16; TEMP 36.7; O2SAT 96
[2025-08-19 19:43] VITALS: BP 113/66; PULSE 84; RESP 18; TEMP 36.8; O2SAT 99
[2025-08-20 03:29] VITALS: BP 123/70; PULSE 68; RESP 18; TEMP 36.6; O2SAT 99
[2025-08-20 07:27] VITALS: BP 153/84; PULSE 74; RESP 16; TEMP 36.7; O2SAT 95
[2025-08-20] MEDS: 0.9 % Sodium Chloride Flush 3 ML SYRINGE IVFLUSH ×3 (07:42→23:11)
--- NOTE | 2025-08-20 08:05 | P.PNIM_ITS ---
Subjective Subjective Date of Service: 08/20/25 Interval History: no new complaints Physical Exam 2 Exam: Exam: General: Alert, no distress Resp: CTA bilateral, no accessory muscles used CVS: S1,S2,RRR GI: soft, non tender, non distended Vital Signs: Vital Signs: Last Vital Signs Temp 98.1 F 08/20/25 07:27 Pulse 74 08/20/25 07:27 Resp 16 08/20/25 07:27 BP 153/84 H 08/20/25 07:27 Pulse Ox 95 08/20/25 07:27 O2 Del Method Room Air 08/20/25 07:27 BMI result Body Mass Index 24.7 Objective Data Active Medications Acetaminophen (Acetaminophen 325 Mg Tablet) 650 mg PO Q6H PRN PRN Reason: Pain, Mild 1-3,fever,headache Last Admin: 08/20/25 01:30 Dose: 650 mg Documented By: CYDNEY Amlodipine Besylate (Amlodipine Besylate 2.5 Mg Tablet) 2.5 mg PO DAILY [facility]; Protocol Last Admin: 08/20/25 07:41 Dose: 2.5 mg Documented By: BLAIR Calcium Carbonate (Calcium Carbonate 750 Mg Tab.Chew) 750 mg PO Q4H PRN PRN Reason: Heartburn Docusate Sodium (Docusate Sodium 100 Mg Capsule) 100 mg PO DAILY [facility] Last Admin: 08/20/25 07:41 Dose: 100 mg Documented By: BLAIR Donepezil HCl (Donepezil Hcl 10 Mg Tablet) 10 mg PO BEDTIME [facility] Last Admin: 08/19/25 19:42 Dose: 10 mg Documented By: CYDNEY Duloxetine HCl (Duloxetine Hcl 20 Mg Capsule.) 40 mg PO DAILY [facility] Last Admin: 08/20/25 07:41 Dose: 40 mg Documented By: BLAIR Duloxetine HCl (Duloxetine Hcl 60 Mg Capsule.) 60 mg PO DAILY [facility] Last Admin: 08/20/25 07:41 Dose: 60 mg Documented By: BLAIR Enoxaparin Sodium (Enoxaparin Sodium 40 Mg/0.4 Ml Syringe) 40 mg SUBCUT Q24H [facility] Last Admin: 08/19/25 09:42 Dose: 40 mg Documented By: ROSANNE Lamotrigine (Lamotrigine 100 Mg Tablet) 150 mg PO BID [facility] Last Admin: 08/20/25 07:41 Dose: 150 mg Documented By: BLAIR Magnesium Hydroxide (Milk Of Magnesia 30 Ml Oral.Susp) 30 ml PO DAILY PRN PRN Reason: Constipation Last Admin: 08/12/25 14:46 Dose: 30 ml Documented By: SAHIL Melatonin (Melatonin 3 Mg Tablet) 6 mg PO BEDTIME PRN PRN Reason: Insomnia Last Admin: 08/10/25 20:03 Dose: 6 mg Documented By: EMERALD Memantine (Memantine Hcl 10 Mg Tablet) 10 mg PO DAILY [facility] Last Admin: 08/20/25 07:41 Dose: 10 mg Documented By: BLAIR Sodium Chloride (0.9 % Sodium Chloride Flush 3 Ml Syringe) 3 ml IVFLUSH QSHIFT [facility] Last Admin: 08/20/25 07:42 Dose: 3 ml Documented By: BLAIR Labs 08/01/25 13:22 08/01/25 13:22 Assessment and Plan (1) Adult failure to thrive: Status: Acute Plan 75-year-old male with history of dementia, hypertension, reported generalized seizures, chronic pain, generalized dystonia who was initially brought into the emergency department on July 07 with shoulder pain now being admitted for failure to thrive Failure to thrive Dementia probable Alzheimer's Does 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 HTN Continue low-dose Norvasc ?partial seizure disorder continue lamictal dementia, probable Alzheimer's continue namenda, aricept chronic pain Does not seem to be on narcotics any longer continue cymbalta dvt ppx - lovneox full code reason for continued hospitalization:placement Quality Stroke Does the patient have a stroke diagnosis?: No VTE Prior VTE?: No VTE Risk Level:: Medical - moderate - high VTE Device Contraindication: N/A - Device Ordered VTE Drug Contraindication: N/A - Med Ordered
[2025-08-20 15:01] VITALS: BP 136/80; PULSE 77; RESP 16; TEMP 36.4; O2SAT 94
[2025-08-20 19:20] VITALS: BP 132/80; PULSE 84; RESP 17; TEMP 36.6; O2SAT 94
[2025-08-21 03:43] VITALS: BP 125/77; PULSE 54; RESP 18; TEMP 36.5; O2SAT 96
[2025-08-21 08:00] VITALS: BP 133/80; PULSE 56; RESP 18; TEMP 36.4; O2SAT 97
[2025-08-21] MEDS: 0.9 % Sodium Chloride Flush 3 ML SYRINGE IVFLUSH ×3 (08:11→20:30)
--- NOTE | 2025-08-21 09:53 | MHC.CM.PN ---
Hugo reports that she has sent the MH application. [facility] LTC once insurance obtained. Patient will need a bed offer as well. [facility] via [facility].
--- NOTE | 2025-08-21 14:11 | HO.PM.IMPN ---
Subjective Subjective Date of Service: 08/21/25 Interval History: No acute issues overnight. Review of Systems Denies chest pain Denies shortness of breath Denies nausea vomiting diarrhea Denies fever chills Physical Exam Vital Signs: Vital Signs: Last Vital Signs Temp 97.5 F 08/21/25 08:00 Pulse 56 08/21/25 08:00 Resp 18 08/21/25 08:00 BP 133/80 08/21/25 08:00 Pulse Ox 97 08/21/25 08:00 O2 Del Method Room Air 08/21/25 08:00 BMI result Body Mass Index 24.7 Const: Other: Awake alert no acute distress Resp: Other: Clear to auscultation bilaterally no rales rhonchi or wheezes Cardio: Other: No S4; positive S1-S2; no S3 murmurs rubs or gallops GI: Other: Soft nontender nondistended normoactive bowel sounds Extrem: Other: No edema bilaterally Objective Data Active Medications Acetaminophen (Acetaminophen 325 Mg Tablet) 650 mg PO Q6H PRN PRN Reason: Pain, Mild 1-3,fever,headache Last Admin: 08/20/25 20:14 Dose: 650 mg Documented By: CÉSAR Amlodipine Besylate (Amlodipine Besylate 2.5 Mg Tablet) 2.5 mg PO DAILY [facility]; Protocol Last Admin: 08/21/25 08:11 Dose: 2.5 mg Documented By: BLAIR Calcium Carbonate (Calcium Carbonate 750 Mg Tab.Chew) 750 mg PO Q4H PRN PRN Reason: Heartburn Docusate Sodium (Docusate Sodium 100 Mg Capsule) 100 mg PO DAILY [facility] Last Admin: 08/21/25 08:12 Dose: 100 mg Documented By: BLAIR Donepezil HCl (Donepezil Hcl 10 Mg Tablet) 10 mg PO BEDTIME [facility] Last Admin: 08/20/25 20:14 Dose: 10 mg Documented By: CÉSAR Duloxetine HCl (Duloxetine Hcl 20 Mg Capsule.) 40 mg PO DAILY [facility] Last Admin: 08/21/25 08:12 Dose: 40 mg Documented By: BLAIR Duloxetine HCl (Duloxetine Hcl 60 Mg Capsule.) 60 mg PO DAILY [facility] Last Admin: 08/21/25 08:11 Dose: 60 mg Documented By: BLAIR Enoxaparin Sodium (Enoxaparin Sodium 40 Mg/0.4 Ml Syringe) 40 mg SUBCUT Q24H [facility] Last Admin: 08/21/25 09:32 Dose: 40 mg Documented By: BLAIR Lamotrigine (Lamotrigine 100 Mg Tablet) 150 mg PO BID [facility] Last Admin: 08/21/25 08:11 Dose: 150 mg Documented By: BLAIR Magnesium Hydroxide (Milk Of Magnesia 30 Ml Oral.Susp) 30 ml PO DAILY PRN PRN Reason: Constipation Last Admin: 08/12/25 14:46 Dose: 30 ml Documented By: SAHIL Melatonin (Melatonin 3 Mg Tablet) 6 mg PO BEDTIME PRN PRN Reason: Insomnia Last Admin: 08/20/25 20:14 Dose: 6 mg Documented By: CÉSAR Memantine (Memantine Hcl 10 Mg Tablet) 10 mg PO DAILY [facility] Last Admin: 08/21/25 08:12 Dose: 10 mg Documented By: BLAIR Sodium Chloride (0.9 % Sodium Chloride Flush 3 Ml Syringe) 3 ml IVFLUSH QSHIFT [facility] Last Admin: 08/21/25 08:11 Dose: 3 ml Documented By: BLAIR Labs 08/01/25 13:22 08/01/25 13:22 Assessment and Plan (1) Adult failure to thrive: Status: Acute Plan 75-year-old male with history of dementia, hypertension, reported generalized seizures, chronic pain, generalized dystonia who was initially brought into the emergency department on July 07 with shoulder pain now being admitted for failure to thrive Failure to thrive Dementia probable Alzheimer's Does not have capacity to make medical decisions and 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 HTN Continue low-dose Norvasc ?partial seizure disorder continue lamictal dementia, probable Alzheimer's continue namenda, aricept chronic pain Does not seem to be on narcotics any longer continue cymbalta dvt ppx - lovneox full code reason for continued hospitalization:placement Quality Stroke Does the patient have a stroke diagnosis?: No VTE Prior VTE?: No VTE Risk Level:: Medical - moderate - high VTE Device Contraindication: N/A - Device Ordered VTE Drug Contraindication: N/A - Med Ordered
[2025-08-21 15:26] VITALS: BP 129/77; PULSE 86; RESP 18; TEMP 36.7; O2SAT 94
[2025-08-21 19:29] VITALS: BP 156/91; PULSE 99; RESP 17; TEMP 37; O2SAT 95
[2025-08-22 03:14] VITALS: BP 120/73; PULSE 79; RESP 17; TEMP 36.9
[2025-08-22] MEDS: 0.9 % Sodium Chloride Flush 3 ML SYRINGE IVFLUSH ×3 (07:13→20:19)
[2025-08-22 07:52] VITALS: BP 137/80; PULSE 67; RESP 16; TEMP 36.4; O2SAT 96
--- NOTE | 2025-08-22 12:52 | P.PNIM_ITS ---
Subjective Subjective Date of Service: 08/22/25 Interval History: No acute issues overnight awaiting placement Review of Systems Denies chest pain Denies shortness of breath Denies nausea vomiting diarrhea Denies fever chills Physical Exam 2 Vital Signs: Vital Signs: Last Vital Signs Temp 97.5 F 08/22/25 07:52 Pulse 67 08/22/25 07:52 Resp 16 08/22/25 07:52 BP 137/80 08/22/25 07:52 Pulse Ox 96 08/22/25 07:52 O2 Del Method Room Air 08/22/25 07:52 BMI result Body Mass Index 24.7 Const: Other: Awake alert no acute distress Resp: Other: Clear to auscultation bilaterally no rales rhonchi or wheezes Cardio: Other: No S4; positive S1-S2; no S3 murmurs rubs or gallops GI: Other: Soft nontender nondistended normoactive bowel sounds Extrem: Other: No edema bilaterally Objective Data Active Medications Acetaminophen (Acetaminophen 325 Mg Tablet) 650 mg PO Q6H PRN PRN Reason: Pain, Mild 1-3,fever,headache Last Admin: 08/20/25 20:14 Dose: 650 mg Documented By: LEFMENDOZA Amlodipine Besylate (Amlodipine Besylate 2.5 Mg Tablet) 2.5 mg PO DAILY [facility]; Protocol Last Admin: 08/22/25 07:11 Dose: 2.5 mg Documented By: LESLIE Calcium Carbonate (Calcium Carbonate 750 Mg Tab.Chew) 750 mg PO Q4H PRN PRN Reason: Heartburn Docusate Sodium (Docusate Sodium 100 Mg Capsule) 100 mg PO DAILY [facility] Last Admin: 08/22/25 07:11 Dose: 100 mg Documented By: LESLIE Donepezil HCl (Donepezil Hcl 10 Mg Tablet) 10 mg PO BEDTIME [facility] Last Admin: 08/21/25 20:30 Dose: 10 mg Documented By: ALFREDO Duloxetine HCl (Duloxetine Hcl 20 Mg Capsule.) 40 mg PO DAILY [facility] Last Admin: 08/22/25 07:10 Dose: 40 mg Documented By: LESLIE Duloxetine HCl (Duloxetine Hcl 60 Mg Capsule.) 60 mg PO DAILY [facility] Last Admin: 08/22/25 07:11 Dose: 60 mg Documented By: LESLIE Enoxaparin Sodium (Enoxaparin Sodium 40 Mg/0.4 Ml Syringe) 40 mg SUBCUT Q24H [facility] Last Admin: 08/22/25 09:27 Dose: 40 mg Documented By: LESLIE Lamotrigine (Lamotrigine 100 Mg Tablet) 150 mg PO BID [facility] Last Admin: 08/22/25 07:11 Dose: 150 mg Documented By: LESLIE Magnesium Hydroxide (Milk Of Magnesia 30 Ml Oral.Susp) 30 ml PO DAILY PRN PRN Reason: Constipation Last Admin: 08/12/25 14:46 Dose: 30 ml Documented By: SAHIL Melatonin (Melatonin 3 Mg Tablet) 6 mg PO BEDTIME PRN PRN Reason: Insomnia Last Admin: 08/20/25 20:14 Dose: 6 mg Documented By: LEFMENDOZA Memantine (Memantine Hcl 10 Mg Tablet) 10 mg PO DAILY [facility] Last Admin: 08/22/25 07:10 Dose: 10 mg Documented By: LESLIE Sodium Chloride (0.9 % Sodium Chloride Flush 3 Ml Syringe) 3 ml IVFLUSH QSHIFT [facility] Last Admin: 08/22/25 07:13 Dose: 3 ml Documented By: LESLIE Labs 08/01/25 13:22 08/01/25 13:22 Assessment and Plan (1) Adult failure to thrive: Status: Acute Plan 75-year-old male with history of dementia, hypertension, reported generalized seizures, chronic pain, generalized dystonia who was initially brought into the emergency department on July 07 with shoulder pain now being admitted for failure to thrive Failure to thrive Dementia probable Alzheimer's Does not have capacity to make medical decisions 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 HTN Continue low-dose Norvasc ?partial seizure disorder continue lamictal dementia, probable Alzheimer's continue namenda, aricept chronic pain Does not seem to be on narcotics any longer continue cymbalta dvt ppx - lovneox full code reason for continued hospitalization:placement Quality Stroke Does the patient have a stroke diagnosis?: No VTE Prior VTE?: No VTE Risk Level:: Medical - moderate - high VTE Device Contraindication: N/A - Device Ordered VTE Drug Contraindication: N/A - Med Ordered
[2025-08-22 16:00] VITALS: BP 125/79; PULSE 84; RESP 20; TEMP 36.6; O2SAT 94
[2025-08-22 20:00] VITALS: BP 132/81; PULSE 86; RESP 19; TEMP 36.8; O2SAT 96
[2025-08-23 04:00] VITALS: BP 120/76; PULSE 69; RESP 18; TEMP 36.7; O2SAT 95
[2025-08-23 07:44] VITALS: BP 150/90; PULSE 63; RESP 16; TEMP 36.4; O2SAT 97
[2025-08-23] MEDS: 0.9 % Sodium Chloride Flush 3 ML SYRINGE IVFLUSH (08:32)
--- NOTE | 2025-08-23 10:25 | MHC.CM.PN ---
[facility] HAS BEEN SUBMITTED, AWAITING REVIEW. PT WILL NEED LTC SNF PLACEMENT ONCE MH IS PENDING
--- NOTE | 2025-08-23 12:41 | HO.PM.IMPN ---
Subjective Subjective Date of Service: 08/23/25 Interval History: No acute issues overnight. Awaiting placement Review of Systems Denies chest pain Denies shortness of breath Denies nausea vomiting diarrhea Denies fever chills Physical Exam Vital Signs: Vital Signs: Last Vital Signs Temp 97.6 F 08/23/25 07:44 Pulse 63 08/23/25 07:44 Resp 16 08/23/25 07:44 BP 150/90 H 08/23/25 07:44 Pulse Ox 97 08/23/25 07:44 O2 Del Method Room Air 08/23/25 07:44 BMI result Body Mass Index 24.7 Const: Other: Awake alert no acute distress Resp: Other: Clear to auscultation bilaterally no rales rhonchi or wheezes Cardio: Other: No S4; positive S1-S2; no S3 murmurs rubs or gallops GI: Other: Soft nontender nondistended normoactive bowel sounds Extrem: Other: No edema bilaterally Objective Data Active Medications Acetaminophen (Acetaminophen 325 Mg Tablet) 650 mg PO Q6H PRN PRN Reason: Pain, Mild 1-3,fever,headache Last Admin: 08/20/25 20:14 Dose: 650 mg Documented By: CÉSAR Amlodipine Besylate (Amlodipine Besylate 2.5 Mg Tablet) 2.5 mg PO DAILY [facility]; Protocol Last Admin: 08/23/25 08:31 Dose: 2.5 mg Documented By: ETHAN Calcium Carbonate (Calcium Carbonate 750 Mg Tab.Chew) 750 mg PO Q4H PRN PRN Reason: Heartburn Docusate Sodium (Docusate Sodium 100 Mg Capsule) 100 mg PO DAILY [facility] Last Admin: 08/23/25 08:32 Dose: 100 mg Documented By: ETHAN Donepezil HCl (Donepezil Hcl 10 Mg Tablet) 10 mg PO BEDTIME [facility] Last Admin: 08/22/25 20:19 Dose: 10 mg Documented By: ALFREDO Duloxetine HCl (Duloxetine Hcl 20 Mg Capsule.) 40 mg PO DAILY [facility] Last Admin: 08/23/25 08:31 Dose: 40 mg Documented By: ETHAN Duloxetine HCl (Duloxetine Hcl 60 Mg Capsule.) 60 mg PO DAILY [facility] Last Admin: 08/23/25 08:31 Dose: 60 mg Documented By: ETHAN Enoxaparin Sodium (Enoxaparin Sodium 40 Mg/0.4 Ml Syringe) 40 mg SUBCUT Q24H [facility] Last Admin: 08/23/25 08:31 Dose: 40 mg Documented By: ETHAN Lamotrigine (Lamotrigine 100 Mg Tablet) 150 mg PO BID [facility] Last Admin: 08/23/25 08:31 Dose: 150 mg Documented By: ETHAN Magnesium Hydroxide (Milk Of Magnesia 30 Ml Oral.Susp) 30 ml PO DAILY PRN PRN Reason: Constipation Last Admin: 08/12/25 14:46 Dose: 30 ml Documented By: SAHIL Melatonin (Melatonin 3 Mg Tablet) 6 mg PO BEDTIME PRN PRN Reason: Insomnia Last Admin: 08/20/25 20:14 Dose: 6 mg Documented By: LEFMENDOZA Memantine (Memantine Hcl 10 Mg Tablet) 10 mg PO DAILY [facility] Last Admin: 08/23/25 08:31 Dose: 10 mg Documented By: ETHAN Sodium Chloride (0.9 % Sodium Chloride Flush 3 Ml Syringe) 3 ml IVFLUSH QSHIFT [facility] Last Admin: 08/23/25 08:32 Dose: 3 ml Documented By: ETHAN Labs 08/01/25 13:22 08/01/25 13:22 Assessment and Plan (1) Adult failure to thrive: Status: Acute Plan 75-year-old male with history of dementia, hypertension, reported generalized seizures, chronic pain, generalized dystonia who was initially brought into the emergency department on July 07 with shoulder pain now being admitted for failure to thrive Failure to thrive Dementia probable Alzheimer's Does not have capacity to make medical 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 HTN Continue low-dose Norvasc ?partial seizure disorder continue lamictal dementia, probable Alzheimer's continue namenda, aricept chronic pain Does not seem to be on narcotics any longer continue cymbalta dvt ppx - lovneox full code reason for continued hospitalization:placement Quality Stroke Does the patient have a stroke diagnosis?: No VTE Prior VTE?: No VTE Risk Level:: Medical - moderate - high VTE Device Contraindication: N/A - Device Ordered VTE Drug Contraindication: N/A - Med Ordered
[2025-08-23 15:22] VITALS: BP 129/83; PULSE 91; RESP 18; TEMP 36.6; O2SAT 95
[2025-08-23 19:09] VITALS: BP 135/84; PULSE 87; RESP 18; TEMP 37.1; O2SAT 95
[2025-08-24] MEDS: 0.9 % Sodium Chloride Flush 3 ML SYRINGE IVFLUSH ×4 (00:14→20:21)
[2025-08-24 03:24] VITALS: BP 123/68; PULSE 67; RESP 18; TEMP 36.4; O2SAT 98
[2025-08-24 07:29] VITALS: BP 129/76; PULSE 65; RESP 16; TEMP 36.2; O2SAT 95
[2025-08-24 08:14] VITALS: BP 129/76
--- NOTE | 2025-08-24 12:08 | HO.PM.IMPN ---
Subjective Subjective Date of Service: 08/24/25 Interval History: No acute issues overnight. Review of Systems Denies chest pain Denies shortness of breath Denies nausea vomiting diarrhea Denies fever chills Physical Exam Vital Signs: Vital Signs: Last Vital Signs Temp 97.1 F 08/24/25 07:29 Pulse 65 08/24/25 07:29 Resp 16 08/24/25 07:29 BP 129/76 08/24/25 08:14 Pulse Ox 95 08/24/25 07:29 O2 Del Method Room Air 08/24/25 07:29 BMI result Body Mass Index 24.7 Const: Other: Awake alert no acute distress Resp: Other: Clear to auscultation bilaterally no rales rhonchi or wheezes Cardio: Other: No S4; positive S1-S2; no S3 murmurs rubs or gallops GI: Other: Soft nontender nondistended normoactive bowel sounds Extrem: Other: No edema bilaterally Objective Data Active Medications Acetaminophen (Acetaminophen 325 Mg Tablet) 650 mg PO Q6H PRN PRN Reason: Pain, Mild 1-3,fever,headache Last Admin: 08/24/25 07:19 Dose: 650 mg Documented By: RADHA Amlodipine Besylate (Amlodipine Besylate 2.5 Mg Tablet) 2.5 mg PO DAILY [facility]; Protocol Last Admin: 08/24/25 08:14 Dose: 2.5 mg Documented By: RADHA Calcium Carbonate (Calcium Carbonate 750 Mg Tab.Chew) 750 mg PO Q4H PRN PRN Reason: Heartburn Docusate Sodium (Docusate Sodium 100 Mg Capsule) 100 mg PO DAILY [facility] Last Admin: 08/24/25 08:15 Dose: 100 mg Documented By: RADHA Donepezil HCl (Donepezil Hcl 10 Mg Tablet) 10 mg PO BEDTIME [facility] Last Admin: 08/23/25 20:41 Dose: 10 mg Documented By: ALONA Duloxetine HCl (Duloxetine Hcl 20 Mg Capsule.) 40 mg PO DAILY [facility] Last Admin: 08/24/25 08:14 Dose: 40 mg Documented By: RADHA Duloxetine HCl (Duloxetine Hcl 60 Mg Capsule.) 60 mg PO DAILY [facility] Last Admin: 08/24/25 08:14 Dose: 60 mg Documented By: RADHA Enoxaparin Sodium (Enoxaparin Sodium 40 Mg/0.4 Ml Syringe) 40 mg SUBCUT Q24H [facility] Last Admin: 08/24/25 09:41 Dose: 40 mg Documented By: RAHDA Lamotrigine (Lamotrigine 100 Mg Tablet) 150 mg PO BID [facility] Last Admin: 08/24/25 08:15 Dose: 150 mg Documented By: RADHA Magnesium Hydroxide (Milk Of Magnesia 30 Ml Oral.Susp) 30 ml PO DAILY PRN PRN Reason: Constipation Last Admin: 08/12/25 14:46 Dose: 30 ml Documented By: SAHIL Melatonin (Melatonin 3 Mg Tablet) 6 mg PO BEDTIME PRN PRN Reason: Insomnia Last Admin: 08/23/25 20:42 Dose: 6 mg Documented By: ALONA Memantine (Memantine Hcl 10 Mg Tablet) 10 mg PO DAILY [facility] Last Admin: 08/24/25 08:15 Dose: 10 mg Documented By: RADHA Sodium Chloride (0.9 % Sodium Chloride Flush 3 Ml Syringe) 3 ml IVFLUSH QSHIFT [facility] Last Admin: 08/24/25 08:15 Dose: 3 ml Documented By: RADHA Labs 08/01/25 13:22 08/01/25 13:22 Assessment and Plan (1) Adult failure to thrive: Status: Acute Plan 75-year-old male with history of dementia, hypertension, reported generalized seizures, chronic pain, generalized dystonia who was initially brought into the emergency department on July 07 with shoulder pain now being admitted for failure to thrive Failure to thrive Dementia probable Alzheimer's Does not have capacity to make medical decisions and 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 HTN Continue low-dose Norvasc ?partial seizure disorder continue lamictal dementia, probable Alzheimer's continue namenda, aricept chronic pain Does not seem to be on narcotics any longer continue cymbalta dvt ppx - lovneox full code reason for continued hospitalization:placement Quality Stroke Does the patient have a stroke diagnosis?: No VTE Prior VTE?: No VTE Risk Level:: Medical - moderate - high VTE Device Contraindication: N/A - Device Ordered VTE Drug Contraindication: N/A - Med Ordered
[2025-08-24 15:47] VITALS: BP 175/99; PULSE 92; RESP 18; TEMP 36.8; O2SAT 94
[2025-08-24 20:00] VITALS: BP 170/60; PULSE 90; RESP 18; TEMP 36.7; O2SAT 97
[2025-08-25 04:00] VITALS: BP 129/60; PULSE 56; RESP 18; TEMP 36.2; O2SAT 97
--- NOTE | 2025-08-25 06:27 | PC.NURSE ---
Pt seen on bed alert and oriented x2, conversant and pleasant, claimed with generalized discomfort, prn Tylenol po given, rest of meds tolerated, tolerating po, assisted to the BR with a walker.
[2025-08-25 07:26] VITALS: BP 152/88; PULSE 62; RESP 16; TEMP 36.2; O2SAT 95
[2025-08-25] MEDS: 0.9 % Sodium Chloride Flush 3 ML SYRINGE IVFLUSH ×3 (08:34→20:47)
[2025-08-25 15:44] VITALS: BP 141/80; PULSE 85; RESP 18; TEMP 36.3; O2SAT 99
[2025-08-25 19:51] VITALS: BP 159/76; PULSE 86; RESP 18; TEMP 36.6; O2SAT 97
[2025-08-26 03:20] VITALS: BP 141/86; PULSE 73; RESP 17; TEMP 36.5; O2SAT 94
[2025-08-26 06:48] VITALS: BP 152/80; PULSE 71; RESP 16; TEMP 36.6; O2SAT 96
[2025-08-26] MEDS: 0.9 % Sodium Chloride Flush 3 ML SYRINGE IVFLUSH ×3 (07:58→20:11)
--- NOTE | 2025-08-26 08:46 | HO.PM.IMPN ---
Subjective Subjective Date of Service: 08/26/25 Interval History: No new issues Review of Systems Denies chest pain Denies shortness of breath Denies nausea vomiting diarrhea Denies fever chills Physical Exam Vital Signs: Vital Signs: Last Vital Signs Temp 98 F 08/26/25 06:48 Pulse 71 08/26/25 06:48 Resp 16 08/26/25 06:48 BP 152/80 H 08/26/25 06:48 Pulse Ox 96 08/26/25 06:48 O2 Del Method Room Air 08/26/25 06:48 BMI result Body Mass Index 24.7 Const: Other: Awake alert no acute distress Resp: Other: Clear to auscultation bilaterally no rales rhonchi or wheezes Cardio: Other: No S4; positive S1-S2; no S3 murmurs rubs or gallops GI: Other: Soft nontender nondistended normoactive bowel sounds Extrem: Other: No edema bilaterally Objective Data Active Medications Acetaminophen (Acetaminophen 325 Mg Tablet) 650 mg PO Q6H PRN PRN Reason: Pain, Mild 1-3,fever,headache Last Admin: 08/24/25 20:20 Dose: 650 mg Documented By: KALPANA Amlodipine Besylate (Amlodipine Besylate 2.5 Mg Tablet) 2.5 mg PO DAILY [facility]; Protocol Last Admin: 08/26/25 07:57 Dose: 2.5 mg Documented By: JOSE Calcium Carbonate (Calcium Carbonate 750 Mg Tab.Chew) 750 mg PO Q4H PRN PRN Reason: Heartburn Docusate Sodium (Docusate Sodium 100 Mg Capsule) 100 mg PO DAILY [facility] Last Admin: 08/26/25 07:57 Dose: 100 mg Documented By: JOSE Donepezil HCl (Donepezil Hcl 10 Mg Tablet) 10 mg PO BEDTIME [facility] Last Admin: 08/25/25 20:47 Dose: 10 mg Documented By: DARREN Duloxetine HCl (Duloxetine Hcl 20 Mg Capsule.) 40 mg PO DAILY [facility] Last Admin: 08/26/25 07:57 Dose: 40 mg Documented By: JOSE Duloxetine HCl (Duloxetine Hcl 60 Mg Capsule.) 60 mg PO DAILY [facility] Last Admin: 08/26/25 07:56 Dose: 60 mg Documented By: JOSE Enoxaparin Sodium (Enoxaparin Sodium 40 Mg/0.4 Ml Syringe) 40 mg SUBCUT Q24H [facility] Last Admin: 08/25/25 10:32 Dose: 40 mg Documented By: RADHA Lamotrigine (Lamotrigine 100 Mg Tablet) 150 mg PO BID [facility] Last Admin: 08/26/25 07:56 Dose: 150 mg Documented By: JOSE Magnesium Hydroxide (Milk Of Magnesia 30 Ml Oral.Susp) 30 ml PO DAILY PRN PRN Reason: Constipation Last Admin: 08/12/25 14:46 Dose: 30 ml Documented By: SAHIL Melatonin (Melatonin 3 Mg Tablet) 6 mg PO BEDTIME PRN PRN Reason: Insomnia Last Admin: 08/25/25 20:47 Dose: 6 mg Documented By: DARREN Memantine (Memantine Hcl 10 Mg Tablet) 10 mg PO DAILY [facility] Last Admin: 08/26/25 07:57 Dose: 10 mg Documented By: JOSE Sodium Chloride (0.9 % Sodium Chloride Flush 3 Ml Syringe) 3 ml IVFLUSH QSHIFT [facility] Last Admin: 08/26/25 07:58 Dose: 3 ml Documented By: JOSE Labs 08/01/25 13:22 08/01/25 13:22 Assessment and Plan (1) Adult failure to thrive: Status: Acute Plan 75-year-old male with history of dementia, hypertension, reported generalized seizures, chronic pain, generalized dystonia who was initially brought into the emergency department on July 07 with shoulder pain now being admitted for failure to thrive Failure to thrive Dementia probable Alzheimer's Does not have capacity to make medical decisions 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 HTN Continue low-dose Norvasc ?partial seizure disorder continue lamictal dementia, probable Alzheimer's continue namenda, aricept chronic pain Does not seem to be on narcotics any longer continue cymbalta dvt ppx - lovneox full code reason for continued hospitalization:placement Quality Stroke Does the patient have a stroke diagnosis?: No VTE Prior VTE?: No VTE Risk Level:: Medical - moderate - high VTE Device Contraindication: N/A - Device Ordered VTE Drug Contraindication: N/A - Med Ordered
--- NOTE | 2025-08-26 14:00 | MHC.CM.PN ---
EMR REVIEWED. PT REMAINS MEDICALLY CLEARED AND AWAITING [facility] COMPLETION FOR LTC PLACEMENT. PT REMAINS ALERT AND ENGAGES IN CONVERSATION. CM WILL CONTINUE TO FOLLOW.
[2025-08-26 15:46] VITALS: BP 120/93; PULSE 96; RESP 20; TEMP 36.6; O2SAT 93
[2025-08-26 20:00] VITALS: BP 153/94; PULSE 84; RESP 19; TEMP 36.2; O2SAT 95
[2025-08-27 04:00] VITALS: BP 119/56; PULSE 61; RESP 18; TEMP 36.8; O2SAT 96
[2025-08-27] MEDS: 0.9 % Sodium Chloride Flush 3 ML SYRINGE IVFLUSH ×3 (07:58→19:52)
[2025-08-27 08:00] VITALS: BP 113/74; PULSE 74; RESP 18; TEMP 36.6; O2SAT 96
--- NOTE | 2025-08-27 09:50 | HO.PM.IMPN ---
Subjective Subjective Date of Service: 08/27/25 Interval History: No new issues very pleasant Review of Systems no new issues Physical Exam Vital Signs: Vital Signs: Last Vital Signs Temp 97.9 F 08/27/25 08:00 Pulse 74 08/27/25 08:00 Resp 18 08/27/25 08:00 BP 113/74 08/27/25 08:00 Pulse Ox 96 08/27/25 08:00 O2 Del Method Room Air 08/27/25 08:00 BMI result Body Mass Index 24.7 Const: Other: Awake alert no acute distress Resp: Other: Clear to auscultation bilaterally no rales rhonchi or wheezes Cardio: Other: No S4; positive S1-S2; no S3 murmurs rubs or gallops GI: Other: Soft nontender nondistended normoactive bowel sounds Extrem: Other: No edema bilaterally Objective Data Active Medications Acetaminophen (Acetaminophen 325 Mg Tablet) 650 mg PO Q6H PRN PRN Reason: Pain, Mild 1-3,fever,headache Last Admin: 08/26/25 20:10 Dose: 650 mg Documented By: CÉSAR Amlodipine Besylate (Amlodipine Besylate 2.5 Mg Tablet) 2.5 mg PO DAILY [facility]; Protocol Last Admin: 08/27/25 08:00 Dose: 2.5 mg Documented By: JOSE Calcium Carbonate (Calcium Carbonate 750 Mg Tab.Chew) 750 mg PO Q4H PRN PRN Reason: Heartburn Docusate Sodium (Docusate Sodium 100 Mg Capsule) 100 mg PO DAILY [facility] Last Admin: 08/27/25 08:00 Dose: 100 mg Documented By: JOSE Donepezil HCl (Donepezil Hcl 10 Mg Tablet) 10 mg PO BEDTIME [facility] Last Admin: 08/26/25 20:10 Dose: 10 mg Documented By: CÉSAR Duloxetine HCl (Duloxetine Hcl 20 Mg Capsule.) 40 mg PO DAILY [facility] Last Admin: 08/27/25 08:00 Dose: 40 mg Documented By: JOSE Duloxetine HCl (Duloxetine Hcl 60 Mg Capsule.) 60 mg PO DAILY [facility] Last Admin: 08/27/25 08:00 Dose: 60 mg Documented By: JOSE Enoxaparin Sodium (Enoxaparin Sodium 40 Mg/0.4 Ml Syringe) 40 mg SUBCUT Q24H [facility] Last Admin: 08/27/25 09:01 Dose: 40 mg Documented By: JOSE Lamotrigine (Lamotrigine 100 Mg Tablet) 150 mg PO BID [facility] Last Admin: 08/27/25 07:59 Dose: 150 mg Documented By: JOSE Magnesium Hydroxide (Milk Of Magnesia 30 Ml Oral.Susp) 30 ml PO DAILY PRN PRN Reason: Constipation Last Admin: 08/12/25 14:46 Dose: 30 ml Documented By: SAHIL Melatonin (Melatonin 3 Mg Tablet) 6 mg PO BEDTIME PRN PRN Reason: Insomnia Last Admin: 08/26/25 20:10 Dose: 6 mg Documented By: LEFEBPARESH Memantine (Memantine Hcl 10 Mg Tablet) 10 mg PO DAILY [facility] Last Admin: 08/27/25 08:00 Dose: 10 mg Documented By: JOSE Sodium Chloride (0.9 % Sodium Chloride Flush 3 Ml Syringe) 3 ml IVFLUSH QSHIFT [facility] Last Admin: 08/27/25 07:58 Dose: 3 ml Documented By: JOSE Labs 08/01/25 13:22 08/01/25 13:22 Assessment and Plan (1) Adult failure to thrive: Status: Acute Plan 75-year-old male with history of dementia, hypertension, reported generalized seizures, chronic pain, generalized dystonia who was initially brought into the emergency department on July 07 with shoulder pain now being admitted for failure to thrive Failure to thrive Dementia probable Alzheimer's Does not have capacity to make medical decisions 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 HTN Continue low-dose Norvasc ?partial seizure disorder continue lamictal dementia, probable Alzheimer's continue namenda, aricept chronic pain Does not seem to be on narcotics any longer continue cymbalta dvt ppx - lovneox full code reason for continued hospitalization:placement Quality Stroke Does the patient have a stroke diagnosis?: No VTE Prior VTE?: No VTE Risk Level:: Medical - moderate - high VTE Device Contraindication: N/A - Device Ordered VTE Drug Contraindication: N/A - Med Ordered
--- NOTE | 2025-08-27 11:24 | MHC.CM.PN ---
[facility] application submitted. Local referrals have been sent. The application and clinical information has been sent to local SNFs. [facility] is in review. [facility] via BLS pending a bed is offer.
[2025-08-28 04:22] VITALS: BP 158/82; PULSE 57; RESP 18; TEMP 36.9; O2SAT 97
[2025-08-28 07:12] VITALS: BP 154/82; PULSE 59; RESP 17; TEMP 36.6; O2SAT 96
--- NOTE | 2025-08-28 10:32 | MHC.CM.PN ---
Patient is clinically accepted at [facility]. The SNF is requesting information on property, Life insurance policy and vehicles. [facility] Financial [employer] and CM director notified. [facility] [place] via BLS once all financial info requested has been obtained and sent to the SNF.
--- NOTE | 2025-08-28 11:40 | HO.PM.IMPN ---
Subjective Subjective Date of Service: 08/28/25 Interval History: No new issues very pleasant Review of Systems no new issues Physical Exam Vital Signs: Vital Signs: Last Vital Signs Temp 97.9 F 08/28/25 07:12 Pulse 59 08/28/25 07:12 Resp 17 08/28/25 07:12 BP 154/82 H 08/28/25 07:12 Pulse Ox 96 08/28/25 07:12 O2 Del Method Room Air 08/28/25 07:12 BMI result Body Mass Index 24.7 Const: Other: Awake alert no acute distress Resp: Other: Clear to auscultation bilaterally no rales rhonchi or wheezes Cardio: Other: No S4; positive S1-S2; no S3 murmurs rubs or gallops GI: Other: Soft nontender nondistended normoactive bowel sounds Extrem: Other: No edema bilaterally Objective Data Active Medications Acetaminophen (Acetaminophen 325 Mg Tablet) 650 mg PO Q6H PRN PRN Reason: Pain, Mild 1-3,fever,headache Last Admin: 08/26/25 20:10 Dose: 650 mg Documented By: CÉSAR Amlodipine Besylate (Amlodipine Besylate 2.5 Mg Tablet) 2.5 mg PO DAILY [facility]; Protocol Last Admin: 08/28/25 08:26 Dose: 2.5 mg Documented By: ETHAN Calcium Carbonate (Calcium Carbonate 750 Mg Tab.Chew) 750 mg PO Q4H PRN PRN Reason: Heartburn Docusate Sodium (Docusate Sodium 100 Mg Capsule) 100 mg PO DAILY [facility] Last Admin: 08/28/25 08:26 Dose: 100 mg Documented By: ETHAN Donepezil HCl (Donepezil Hcl 10 Mg Tablet) 10 mg PO BEDTIME [facility] Last Admin: 08/27/25 19:51 Dose: 10 mg Documented By: DARREN Duloxetine HCl (Duloxetine Hcl 20 Mg Capsule.) 40 mg PO DAILY [facility] Last Admin: 08/28/25 08:26 Dose: 40 mg Documented By: ETHAN Duloxetine HCl (Duloxetine Hcl 60 Mg Capsule.) 60 mg PO DAILY [facility] Last Admin: 08/28/25 08:26 Dose: 60 mg Documented By: ETHAN Enoxaparin Sodium (Enoxaparin Sodium 40 Mg/0.4 Ml Syringe) 40 mg SUBCUT Q24H [facility] Last Admin: 08/28/25 08:25 Dose: 40 mg Documented By: ETHAN Lamotrigine (Lamotrigine 100 Mg Tablet) 150 mg PO BID [facility] Last Admin: 08/28/25 08:26 Dose: 150 mg Documented By: ETHAN Magnesium Hydroxide (Milk Of Magnesia 30 Ml Oral.Susp) 30 ml PO DAILY PRN PRN Reason: Constipation Last Admin: 08/12/25 14:46 Dose: 30 ml Documented By: SAHIL Melatonin (Melatonin 3 Mg Tablet) 6 mg PO BEDTIME PRN PRN Reason: Insomnia Last Admin: 08/27/25 19:52 Dose: 6 mg Documented By: DARREN Memantine (Memantine Hcl 10 Mg Tablet) 10 mg PO DAILY [facility] Last Admin: 08/28/25 08:26 Dose: 10 mg Documented By: ETHAN Sodium Chloride (0.9 % Sodium Chloride Flush 3 Ml Syringe) 3 ml IVFLUSH QSHIFT [facility] Last Admin: 08/28/25 08:24 Dose: Not Given Documented By: ETHAN Non-Admin Reason: Previously Administered Labs 08/01/25 13:22 08/01/25 13:22 Assessment and Plan (1) Adult failure to thrive: Status: Acute Plan 75-year-old male with history of dementia, hypertension, reported generalized seizures, chronic pain, generalized dystonia who was initially brought into the emergency department on July 07 with shoulder pain now being admitted for failure to thrive Adult Failure to thrive Dementia probable Alzheimer's Does not have capacity to make medical decisions and primary physician's aide acutely 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 HTN Continue low-dose Norvasc ?partial seizure disorder continue lamictal dementia, probable Alzheimer's continue namenda, aricept chronic pain Does not seem to be on narcotics any longer continue cymbalta dvt ppx - lovneox health care proxy invoked full code reason for continued hospitalization:placement Quality Stroke Does the patient have a stroke diagnosis?: No VTE Prior VTE?: No VTE Risk Level:: Medical - moderate - high VTE Device Contraindication: N/A - Device Ordered VTE Drug Contraindication: N/A - Med Ordered
[2025-08-28 15:55] VITALS: BP 127/83; PULSE 94; RESP 18; TEMP 37.4; O2SAT 95
[2025-08-28] MEDS: 0.9 % Sodium Chloride Flush 3 ML SYRINGE IVFLUSH (16:08)
--- NOTE | 2025-08-28 18:04 | PC.NURSE ---
pt IV was hurting. Red and bruised. Pt is placement and has no IV medication. OKd per dr ren to have no IV access
[2025-08-29 08:07] VITALS: BP 160/81; PULSE 69; RESP 18; TEMP 36.1; O2SAT 97
--- NOTE | 2025-08-29 09:42 | P.PNIM_ITS ---
Subjective Subjective Date of Service: 08/29/25 Interval History: Doing well, with no new issues Review of Systems no new issues Physical Exam 2 Vital Signs: Vital Signs: Last Vital Signs Temp 96.9 F 08/29/25 08:07 Pulse 69 08/29/25 08:07 Resp 18 08/29/25 08:07 BP 160/81 H 08/29/25 08:07 Pulse Ox 97 08/29/25 08:07 O2 Del Method Room Air 08/29/25 08:07 BMI result Body Mass Index 24.7 Const: Other: Awake alert no acute distress Resp: Other: Clear to auscultation bilaterally no rales rhonchi or wheezes Cardio: Other: No S4; positive S1-S2; no S3 murmurs rubs or gallops GI: Other: Soft nontender nondistended normoactive bowel sounds Extrem: Other: No edema bilaterally Objective Data Active Medications Acetaminophen (Acetaminophen 325 Mg Tablet) 650 mg PO Q6H PRN PRN Reason: Pain, Mild 1-3,fever,headache Last Admin: 08/28/25 22:11 Dose: 650 mg Documented By: UMU Comments: per pt request Amlodipine Besylate (Amlodipine Besylate 2.5 Mg Tablet) 2.5 mg PO DAILY [facility]; Protocol Last Admin: 08/29/25 08:20 Dose: 2.5 mg Documented By: RADHA Calcium Carbonate (Calcium Carbonate 750 Mg Tab.Chew) 750 mg PO Q4H PRN PRN Reason: Heartburn Docusate Sodium (Docusate Sodium 100 Mg Capsule) 100 mg PO DAILY [facility] Last Admin: 08/29/25 08:20 Dose: 100 mg Documented By: RADHA Donepezil HCl (Donepezil Hcl 10 Mg Tablet) 10 mg PO BEDTIME [facility] Last Admin: 08/28/25 22:06 Dose: 10 mg Documented By: UMU Duloxetine HCl (Duloxetine Hcl 20 Mg Capsule.) 40 mg PO DAILY [facility] Last Admin: 08/29/25 08:21 Dose: 40 mg Documented By: RADHA Duloxetine HCl (Duloxetine Hcl 60 Mg Capsule.) 60 mg PO DAILY [facility] Last Admin: 08/29/25 08:20 Dose: 60 mg Documented By: RADHA Enoxaparin Sodium (Enoxaparin Sodium 40 Mg/0.4 Ml Syringe) 40 mg SUBCUT Q24H [facility] Last Admin: 08/28/25 08:25 Dose: 40 mg Documented By: ETHAN Lamotrigine (Lamotrigine 100 Mg Tablet) 150 mg PO BID [facility] Last Admin: 08/29/25 08:19 Dose: 150 mg Documented By: RADHA Magnesium Hydroxide (Milk Of Magnesia 30 Ml Oral.Susp) 30 ml PO DAILY PRN PRN Reason: Constipation Last Admin: 08/12/25 14:46 Dose: 30 ml Documented By: SAHIL Melatonin (Melatonin 3 Mg Tablet) 6 mg PO BEDTIME PRN PRN Reason: Insomnia Last Admin: 08/28/25 22:11 Dose: 6 mg Documented By: UMU Memantine (Memantine Hcl 10 Mg Tablet) 10 mg PO DAILY [facility] Last Admin: 08/29/25 08:20 Dose: 10 mg Documented By: RADHA Sodium Chloride (0.9 % Sodium Chloride Flush 3 Ml Syringe) 3 ml IVFLUSH QSHIFT [facility] Last Admin: 08/29/25 08:24 Dose: Not Given Documented By: RADHA Non-Admin Reason: No Access Labs 08/01/25 13:22 08/01/25 13:22 Assessment and Plan (1) Adult failure to thrive: Status: Acute Plan 75-year-old male with history of dementia, hypertension, reported generalized seizures, chronic pain, generalized dystonia who was initially brought into the emergency department on July 07 with shoulder pain now being admitted for failure to thrive Adult Failure to thrive Dementia probable Alzheimer's Does not have capacity to make medical decisions, health care proxy invoked and primary outreach consultant acutely 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 HTN Continue low-dose Norvasc ?partial seizure disorder continue lamictal dementia, probable Alzheimer's continue namenda, aricept chronic pain Does not seem to be on narcotics any longer continue cymbalta dvt ppx - lovneox health care proxy invoked check routine labs full code reason for continued hospitalization:placement Quality Stroke Does the patient have a stroke diagnosis?: No VTE Prior VTE?: No VTE Risk Level:: Medical - moderate - high VTE Device Contraindication: N/A - Device Ordered VTE Drug Contraindication: N/A - Med Ordered
[2025-08-29 10:28] LABS: Hematocrit 41.5 % (42.0-52.0); Hemoglobin 14.0 g/dl (14.0-18.0); Mean Corpuscular HGB Conc 33.7 g/dl (31.0-36.0); Mean Corpuscular Hemoglobin 30.8 pg (27.0-33.0); Mean Corpuscular Volume 91.4 fL (80.0-98.0); NRBC Abs Auto 0.000 X10*3/uL (0.0-0.012); NRBC Pct Auto 0.0 /100WBC (0.0-0.2); Platelet Count 333 X10*3/uL (160-400); Red Blood Count 4.54 X10*6/uL (4.60-5.80); White Blood Count 9.3 X10*3/uL (4.8-10.8)
[2025-08-29 10:34] LABS: Anion Gap 12 (12-20); Blood Urea Nitrogen 19 mg/dL (9-16); Calcium 8.9 mg/dL (8.4-10.2); Carbon Dioxide 25 mmol/L (22-29); Chloride 110 mmol/L (96-108); Creatinine Clr Calc Pharmacy 63.1; Estimated Glomerular Filt Rate > 60; Potassium 4.0 mmol/L (3.3-5.1); Sodium 143 mmol/L (135-145)
[2025-08-29 15:54] VITALS: BP 144/85; PULSE 82; RESP 18; TEMP 36.3; O2SAT 97
[2025-08-29 19:05] VITALS: BP 133/87; PULSE 76; RESP 18; TEMP 36.4; O2SAT 96
[2025-08-30 06:00] VITALS: BP 160/86; PULSE 66; RESP 18; TEMP 36.6; O2SAT 98
--- NOTE | 2025-08-30 10:03 | HO.PM.IMPN ---
Subjective Subjective Date of Service: 08/30/25 Interval History: no new issues Review of Systems no new issues Physical Exam Vital Signs: Vital Signs: Last Vital Signs Temp 97.8 F 08/30/25 06:00 Pulse 66 08/30/25 06:00 Resp 18 08/30/25 06:00 BP 160/86 H 08/30/25 06:00 Pulse Ox 98 08/30/25 06:00 O2 Del Method Room Air 08/30/25 06:00 BMI result Body Mass Index 24.7 Const: Other: Awake alert no acute distress Resp: Other: Clear to auscultation bilaterally no rales rhonchi or wheezes Cardio: Other: No S4; positive S1-S2; no S3 murmurs rubs or gallops GI: Other: Soft nontender nondistended normoactive bowel sounds Extrem: Other: No edema bilaterally Objective Data Active Medications Acetaminophen (Acetaminophen 325 Mg Tablet) 650 mg PO Q6H PRN PRN Reason: Pain, Mild 1-3,fever,headache Last Admin: 08/28/25 22:11 Dose: 650 mg Documented By: UMU Comments: per pt request Amlodipine Besylate (Amlodipine Besylate 2.5 Mg Tablet) 2.5 mg PO DAILY [facility]; Protocol Last Admin: 08/30/25 08:05 Dose: 2.5 mg Documented By: RADHA Calcium Carbonate (Calcium Carbonate 750 Mg Tab.Chew) 750 mg PO Q4H PRN PRN Reason: Heartburn Docusate Sodium (Docusate Sodium 100 Mg Capsule) 100 mg PO DAILY [facility] Last Admin: 08/30/25 08:05 Dose: 100 mg Documented By: RADHA Donepezil HCl (Donepezil Hcl 10 Mg Tablet) 10 mg PO BEDTIME [facility] Last Admin: 08/29/25 21:17 Dose: 10 mg Documented By: DARREN Duloxetine HCl (Duloxetine Hcl 20 Mg Capsule.) 40 mg PO DAILY [facility] Last Admin: 08/30/25 08:05 Dose: 40 mg Documented By: RADHA Duloxetine HCl (Duloxetine Hcl 60 Mg Capsule.) 60 mg PO DAILY [facility] Last Admin: 08/30/25 08:07 Dose: 60 mg Documented By: RADHA Enoxaparin Sodium (Enoxaparin Sodium 40 Mg/0.4 Ml Syringe) 40 mg SUBCUT Q24H [facility] Last Admin: 08/29/25 11:52 Dose: 40 mg Documented By: RADHA Lamotrigine (Lamotrigine 100 Mg Tablet) 150 mg PO BID [facility] Last Admin: 08/30/25 08:06 Dose: 150 mg Documented By: RADHA Magnesium Hydroxide (Milk Of Magnesia 30 Ml Oral.Susp) 30 ml PO DAILY PRN PRN Reason: Constipation Last Admin: 08/12/25 14:46 Dose: 30 ml Documented By: SAHIL Melatonin (Melatonin 3 Mg Tablet) 6 mg PO BEDTIME PRN PRN Reason: Insomnia Last Admin: 08/29/25 21:17 Dose: 6 mg Documented By: DARREN Memantine (Memantine Hcl 10 Mg Tablet) 10 mg PO DAILY [facility] Last Admin: 08/30/25 08:06 Dose: 10 mg Documented By: RADHA Sodium Chloride (0.9 % Sodium Chloride Flush 3 Ml Syringe) 3 ml IVFLUSH QSHIFT [facility] Last Admin: 08/30/25 08:06 Dose: Not Given Documented By: RADHA Non-Admin Reason: No Access Labs 08/29/25 10:12 08/29/25 10:12 Labs: Laboratory Results - last 24 hr 08/29/25 10:12 MCV 91.4 MCH 30.8 MCHC 33.7 RDW 12.9 Plt Count 333 MPV 9.1 L Absolute Nucleated RBC 0.000 Nucleated RBC % (auto) 0.0 Anion Gap 12 Estim Creat Clear Calc 63.1 Estimated GFR > 60 Random Glucose 116 H Calcium 8.9 Assessment and Plan (1) Adult failure to thrive: Status: Acute Plan 75-year-old male with history of dementia, hypertension, reported generalized seizures, chronic pain, generalized dystonia who was initially brought into the emergency department on July 07 with shoulder pain now being admitted for failure to thrive Adult Failure to thrive Dementia probable Alzheimer's Does not have capacity to make medical decisions, health care proxy invoked and 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 HTN, BP on higher side increse Norvasc ?partial seizure disorder continue lamictal dementia, probable Alzheimer's continue namenda, aricept chronic pain Does not seem to be on narcotics any longer continue cymbalta dvt ppx - lovneox health care proxy invoked check routine labs full code reason for continued hospitalization:placement Quality Stroke Does the patient have a stroke diagnosis?: No VTE Prior VTE?: No VTE Risk Level:: Medical - moderate - high VTE Device Contraindication: N/A - Device Ordered VTE Drug Contraindication: N/A - Med Ordered
--- NOTE | 2025-08-30 10:51 | MHC.CM.PN ---
The MDS has been sent to [facility]. Spoke with Tricia from [facility]. Contact info for the MDS @ the SNF was provided. [facility] anticipates accepting the patient on Tuesday. [facility] @ [facility] via BLS.
[2025-08-30 17:53] VITALS: BP 133/85; PULSE 84; RESP 18; TEMP 37.2; O2SAT 95
[2025-08-31 03:37] VITALS: BP 163/86; PULSE 70; RESP 17; TEMP 36.4; O2SAT 95
[2025-08-31 08:40] VITALS: BP 127/79; PULSE 60; RESP 18; TEMP 37.2; O2SAT 97
--- NOTE | 2025-08-31 09:03 | HO.PM.IMPN ---
Subjective Subjective Date of Service: 08/31/25 Interval History: doing well, no new issues Review of Systems no new issues Physical Exam Vital Signs: Vital Signs: Last Vital Signs Temp 97.6 F 08/31/25 03:37 Pulse 70 08/31/25 03:37 Resp 17 08/31/25 03:37 BP 163/86 H 08/31/25 03:37 Pulse Ox 95 08/31/25 03:37 O2 Del Method Room Air 08/31/25 03:37 BMI result Body Mass Index 24.7 Const: Other: Awake alert no acute distress Resp: Other: Clear to auscultation bilaterally no rales rhonchi or wheezes Cardio: Other: No S4; positive S1-S2; no S3 murmurs rubs or gallops GI: Other: Soft nontender nondistended normoactive bowel sounds Extrem: Other: No edema bilaterally Objective Data Active Medications Acetaminophen (Acetaminophen 325 Mg Tablet) 650 mg PO Q6H PRN PRN Reason: Pain, Mild 1-3,fever,headache Last Admin: 08/31/25 06:19 Dose: 650 mg Documented By: CÉSAR Amlodipine Besylate (Amlodipine Besylate 5 Mg Tablet) 5 mg PO DAILY [facility]; Protocol Calcium Carbonate (Calcium Carbonate 750 Mg Tab.Chew) 750 mg PO Q4H PRN PRN Reason: Heartburn Docusate Sodium (Docusate Sodium 100 Mg Capsule) 100 mg PO DAILY [facility] Last Admin: 08/30/25 08:05 Dose: 100 mg Documented By: RADHA Donepezil HCl (Donepezil Hcl 10 Mg Tablet) 10 mg PO BEDTIME [facility] Last Admin: 08/30/25 20:10 Dose: 10 mg Documented By: CÉSAR Duloxetine HCl (Duloxetine Hcl 20 Mg Capsule.) 40 mg PO DAILY [facility] Last Admin: 08/30/25 08:05 Dose: 40 mg Documented By: RADHA Duloxetine HCl (Duloxetine Hcl 60 Mg Capsule.) 60 mg PO DAILY [facility] Last Admin: 08/30/25 08:07 Dose: 60 mg Documented By: RADHA Enoxaparin Sodium (Enoxaparin Sodium 40 Mg/0.4 Ml Syringe) 40 mg SUBCUT Q24H [facility] Last Admin: 08/30/25 11:25 Dose: 40 mg Documented By: RADHA Lamotrigine (Lamotrigine 100 Mg Tablet) 150 mg PO BID [facility] Last Admin: 08/30/25 20:10 Dose: 150 mg Documented By: CÉSAR Magnesium Hydroxide (Milk Of Magnesia 30 Ml Oral.Susp) 30 ml PO DAILY PRN PRN Reason: Constipation Last Admin: 08/12/25 14:46 Dose: 30 ml Documented By: SAHIL Melatonin (Melatonin 3 Mg Tablet) 6 mg PO BEDTIME PRN PRN Reason: Insomnia Last Admin: 08/30/25 20:10 Dose: 6 mg Documented By: CÉSAR Memantine (Memantine Hcl 10 Mg Tablet) 10 mg PO DAILY [facility] Last Admin: 08/30/25 08:06 Dose: 10 mg Documented By: RADHA Sodium Chloride (0.9 % Sodium Chloride Flush 3 Ml Syringe) 3 ml IVFLUSH QSHIFT [facility] Last Admin: 08/30/25 20:12 Dose: Not Given Documented By: CÉSAR Non-Admin Reason: No Access Labs 08/29/25 10:12 08/29/25 10:12 Labs: Laboratory Results - last 24 hr 08/29/25 10:12 MCV 91.4 MCH 30.8 MCHC 33.7 RDW 12.9 Plt Count 333 MPV 9.1 L Absolute Nucleated RBC 0.000 Nucleated RBC % (auto) 0.0 Anion Gap 12 Estim Creat Clear Calc 63.1 Estimated GFR > 60 Random Glucose 116 H Calcium 8.9 Assessment and Plan (1) Adult failure to thrive: Status: Acute Plan 75-year-old male with history of dementia, hypertension, reported generalized seizures, chronic pain, generalized dystonia who was initially brought into the emergency department on July 07 with shoulder pain now being admitted for failure to thrive Adult Failure to thrive Dementia probable Alzheimer's Does not have capacity to make medical decisions, health care proxy invoked and primary wheelman acutely 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 HTN, BP on higher side increse Norvasc ?partial seizure disorder continue lexical dementia, probable Alzheimer's continue namenda, aricept chronic pain Does not seem to be on narcotics any longer continue cymbalta dvt ppx - lovneox health care proxy invoked check routine labs full code reason for continued hospitalization:placement Quality Stroke Does the patient have a stroke diagnosis?: No VTE Prior VTE?: No VTE Risk Level:: Medical - moderate - high VTE Device Contraindication: N/A - Device Ordered VTE Drug Contraindication: N/A - Med Ordered
[2025-08-31 18:00] VITALS: BP 124/72; PULSE 95; RESP 18; TEMP 37.5; O2SAT 96
[2025-09-01 05:59] VITALS: BP 124/65; PULSE 64; RESP 17; TEMP 36; O2SAT 96
[2025-09-01 08:10] VITALS: BP 146/79; PULSE 71; RESP 18; TEMP 36.4; O2SAT 95
--- NOTE | 2025-09-01 09:01 | HO.PM.IMPN ---
Subjective Subjective Date of Service: 09/01/25 Interval History: no new issues, o/w doing well Review of Systems no new issues Physical Exam Vital Signs: Vital Signs: Last Vital Signs Temp 97.5 F 09/01/25 08:10 Pulse 71 09/01/25 08:10 Resp 18 09/01/25 08:10 BP 146/79 H 09/01/25 08:10 Pulse Ox 95 09/01/25 08:10 O2 Del Method Room Air 09/01/25 08:10 BMI result Body Mass Index 24.7 Const: Other: Awake alert no acute distress Resp: Other: Clear to auscultation bilaterally no rales rhonchi or wheezes Cardio: Other: No S4; positive S1-S2; no S3 murmurs rubs or gallops GI: Other: Soft nontender nondistended normoactive bowel sounds Extrem: Other: No edema bilaterally Objective Data Active Medications Acetaminophen (Acetaminophen 325 Mg Tablet) 650 mg PO Q6H PRN PRN Reason: Pain, Mild 1-3,fever,headache Last Admin: 09/01/25 08:19 Dose: 650 mg Documented By: MARGE Amlodipine Besylate (Amlodipine Besylate 5 Mg Tablet) 5 mg PO DAILY [facility]; Protocol Last Admin: 09/01/25 08:19 Dose: 5 mg Documented By: MARGE Calcium Carbonate (Calcium Carbonate 750 Mg Tab.Chew) 750 mg PO Q4H PRN PRN Reason: Heartburn Docusate Sodium (Docusate Sodium 100 Mg Capsule) 100 mg PO DAILY [facility] Last Admin: 09/01/25 08:20 Dose: 100 mg Documented By: MARGE Donepezil HCl (Donepezil Hcl 10 Mg Tablet) 10 mg PO BEDTIME [facility] Last Admin: 08/31/25 22:16 Dose: 10 mg Documented By: JUANA Duloxetine HCl (Duloxetine Hcl 20 Mg Capsule.) 40 mg PO DAILY [facility] Last Admin: 09/01/25 08:19 Dose: 40 mg Documented By: MARGE Duloxetine HCl (Duloxetine Hcl 60 Mg Capsule.) 60 mg PO DAILY [facility] Last Admin: 09/01/25 08:20 Dose: 60 mg Documented By: MARGE Enoxaparin Sodium (Enoxaparin Sodium 40 Mg/0.4 Ml Syringe) 40 mg SUBCUT Q24H [facility] Last Admin: 08/31/25 09:04 Dose: 40 mg Documented By: MARGE Lamotrigine (Lamotrigine 100 Mg Tablet) 150 mg PO BID [facility] Last Admin: 09/01/25 08:20 Dose: 150 mg Documented By: MARGE Magnesium Hydroxide (Milk Of Magnesia 30 Ml Oral.Susp) 30 ml PO DAILY PRN PRN Reason: Constipation Last Admin: 08/12/25 14:46 Dose: 30 ml Documented By: SAHIL Melatonin (Melatonin 3 Mg Tablet) 6 mg PO BEDTIME PRN PRN Reason: Insomnia Last Admin: 08/30/25 20:10 Dose: 6 mg Documented By: CÉSAR Memantine (Memantine Hcl 10 Mg Tablet) 10 mg PO DAILY [facility] Last Admin: 09/01/25 08:19 Dose: 10 mg Documented By: MARGE Sodium Chloride (0.9 % Sodium Chloride Flush 3 Ml Syringe) 3 ml IVFLUSH QSHIFT [facility] Last Admin: 09/01/25 07:39 Dose: Not Given Documented By: MARGE Non-Admin Reason: No Access Labs 08/29/25 10:12 08/29/25 10:12 Labs: Laboratory Results - last 24 hr 08/29/25 10:12 MCV 91.4 MCH 30.8 MCHC 33.7 RDW 12.9 Plt Count 333 MPV 9.1 L Absolute Nucleated RBC 0.000 Nucleated RBC % (auto) 0.0 Anion Gap 12 Estim Creat Clear Calc 63.1 Estimated GFR > 60 Random Glucose 116 H Calcium 8.9 Assessment and Plan (1) Adult failure to thrive: Status: Acute Plan 75-year-old male with history of dementia, hypertension, reported generalized seizures, chronic pain, generalized dystonia who was initially brought into the emergency department on July 07 with shoulder pain now being admitted for failure to thrive Adult Failure to thrive Dementia probable Alzheimer's Does not have capacity to make medical decisions, health care proxy invoked and primary change of address 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 HTN, BP on higher side increse Norvasc ?partial seizure disorder continue lexical dementia, probable Alzheimer's continue namenda, aricept chronic pain Does not seem to be on narcotics any longer continue cymbalta dvt ppx - lovneox health care proxy invoked check routine labs full code reason for continued hospitalization:placement Quality Stroke Does the patient have a stroke diagnosis?: No VTE Prior VTE?: No VTE Risk Level:: Medical - moderate - high VTE Device Contraindication: N/A - Device Ordered VTE Drug Contraindication: N/A - Med Ordered
[2025-09-01 19:51] VITALS: BP 148/85; PULSE 83; RESP 19; TEMP 36.7; O2SAT 95
[2025-09-02 07:19] VITALS: BP 132/72; PULSE 71; RESP 16; TEMP 36.8; O2SAT 98
--- NOTE | 2025-09-02 14:15 | HO.PM.IMPN ---
Subjective Subjective Date of Service: 09/02/25 Interval History: No acute medical issues currently. Patient awaiting placement Review of Systems Review of Systems: Yes all other systems are reviewed and are negative Physical Exam Exam: Exam: General: A&O x3, oriented to time place person and situation, comfortable, no pain Cardiac: S1, S2 auscultated with no S3/4, no MRG. Well perfused. Respiratory: Normal breath sounds auscultated throughout all lung zones, without wheezing, rales. Normal rate. GI/ : No abdominal pain on palpation, no masses or distentions. MSK: Normal ambulation without pain at bony prominences or musculature Neurological: Normal neurological examination on overview, without obvious CN II-XII abnormalities. Vital Signs: Vital Signs: Last Vital Signs Temp 98.3 F 09/02/25 07:19 Pulse 71 09/02/25 07:19 Resp 16 09/02/25 07:19 BP 132/72 09/02/25 07:19 Pulse Ox 98 09/02/25 07:19 O2 Del Method Room Air 09/02/25 07:19 BMI result Body Mass Index 24.7 Objective Data Active Medications Acetaminophen (Acetaminophen 325 Mg Tablet) 650 mg PO Q6H PRN PRN Reason: Pain, Mild 1-3,fever,headache Last Admin: 09/01/25 08:19 Dose: 650 mg Documented By: MARGE Amlodipine Besylate (Amlodipine Besylate 5 Mg Tablet) 5 mg PO DAILY [facility]; Protocol Last Admin: 09/02/25 07:58 Dose: 5 mg Documented By: MARGE Calcium Carbonate (Calcium Carbonate 750 Mg Tab.Chew) 750 mg PO Q4H PRN PRN Reason: Heartburn Docusate Sodium (Docusate Sodium 100 Mg Capsule) 100 mg PO DAILY [facility] Last Admin: 09/02/25 07:58 Dose: 100 mg Documented By: MARGE Donepezil HCl (Donepezil Hcl 10 Mg Tablet) 10 mg PO BEDTIME [facility] Last Admin: 09/01/25 20:37 Dose: 10 mg Documented By: NILES Duloxetine HCl (Duloxetine Hcl 20 Mg Capsule.) 40 mg PO DAILY [facility] Last Admin: 09/02/25 07:59 Dose: 40 mg Documented By: MARGE Duloxetine HCl (Duloxetine Hcl 60 Mg Capsule.) 60 mg PO DAILY [facility] Last Admin: 09/02/25 07:58 Dose: 60 mg Documented By: MARGE Enoxaparin Sodium (Enoxaparin Sodium 40 Mg/0.4 Ml Syringe) 40 mg SUBCUT Q24H [facility] Last Admin: 09/02/25 10:34 Dose: 40 mg Documented By: ETHAN Lamotrigine (Lamotrigine 100 Mg Tablet) 150 mg PO BID [facility] Last Admin: 09/02/25 07:59 Dose: 150 mg Documented By: MARGE Magnesium Hydroxide (Milk Of Magnesia 30 Ml Oral.Susp) 30 ml PO DAILY PRN PRN Reason: Constipation Last Admin: 08/12/25 14:46 Dose: 30 ml Documented By: SAHIL Melatonin (Melatonin 3 Mg Tablet) 6 mg PO BEDTIME PRN PRN Reason: Insomnia Last Admin: 08/30/25 20:10 Dose: 6 mg Documented By: CÉSAR Memantine (Memantine Hcl 10 Mg Tablet) 10 mg PO DAILY [facility] Last Admin: 09/02/25 07:58 Dose: 10 mg Documented By: MARGE Sodium Chloride (0.9 % Sodium Chloride Flush 3 Ml Syringe) 3 ml IVFLUSH QSHIFT [facility] Last Admin: 09/02/25 07:19 Dose: Not Given Documented By: MARGE Non-Admin Reason: No Access Labs 08/29/25 10:12 08/29/25 10:12 Assessment and Plan (1) Adult failure to thrive: Status: Acute (2) Right groin pain: Status: Acute (3) Severe left groin pain: Status: Acute (4) Dementia with anxiety: Status: Acute (5) Neuropathy: Status: Acute (6) Uses walker: Status: Acute (7) Unsteady gait when walking: Status: Acute Plan 75-year-old male with history of dementia, hypertension, reported generalized seizures, chronic pain, generalized dystonia who was initially brought into the emergency department on July 07 with shoulder pain now being admitted for failure to thrive Adult Failure to thrive Dementia probable Alzheimer's Does not have capacity to make medical decisions, health care proxy invoked and primary hospitalist program director acutely ill, no safe disposition at this time. Pending placement to LTC HTN BP on higher side Continue Norvasc Seizure disorder continue lexical Dementia Probable Alzheimer's continue namenda, aricept Chronic pain Does not seem to be on narcotics any longer continue cymbalta [employer] - VTE: Enoxaparin - CODE STATUS: Full code - DIET: Regular - HEALTHCARE PROXY INVOKED Total time managing care of this patient today: 35 minutes. Quality Stroke Does the patient have a stroke diagnosis?: No VTE Prior VTE?: No VTE Risk Level:: Medical - moderate - high VTE Device Contraindication: N/A - Device Ordered VTE Drug Contraindication: N/A - Med Ordered
[2025-09-02 20:00] VITALS: BP 134/80; PULSE 88; RESP 20; TEMP 37.3; O2SAT 96
[2025-09-02 23:33] VITALS: BP 130/72; PULSE 70; RESP 17; TEMP 36.9; O2SAT 95
[2025-09-03 07:51] VITALS: BP 132/83; PULSE 74; RESP 16; TEMP 36.7; O2SAT 94
--- NOTE | 2025-09-03 12:38 | PM.DS ---
DS: Providers Provider Date of Service: 09/03/25 Date of admission: 08/01/25 12:52 Date of discharge: 09/03/25 Primary care physician: Tavia London MD DS: Diagnosis Discharge Diagnosis (1) Adult failure to thrive: Status: Acute (2) Right groin pain: Status: Acute (3) Severe left groin pain: Status: Acute (4) Dementia with anxiety: Status: Acute (5) Neuropathy: Status: Acute (6) Uses walker: Status: Acute (7) Unsteady gait when walking: Status: Acute DS: Summary Hospital Course Hospital Course: Chief Complaint: Failure to thrive This is a 75-year-old male who was initially brought to the emergency department due to shoulder pain now being admitted for failure to thrive. He was initially brought to the emergency department on July 07, at that time workup for his shoulder pain and was planned to be discharged home however his who he resides with in his his primary pss delivery professional had to undergo emergent brain surgery. He was seen by the psychiatric team and deemed not to have capacity to make medical decisions. No safe disposition was in place. It has now been determined that he will be admitted to the hospital due to failure to thrive. The time of my evaluation he has no specific complaints. Adult Failure to thrive Dementia probable Alzheimer's Does not have capacity to make medical decisions, health care proxy invoked and primary pss delivery professional acutely ill, no safe disposition at this time. Pending placement to LTC. Anticipate <30 days' length of stay HTN BP on higher side Continue Norvasc Seizure disorder continue lexical Dementia Probable Alzheimer's continue namenda, aricept Chronic pain Does not seem to be on narcotics any longer continue cymbalta Status at Discharge Functional status at discharge: uses cane/walker Overall status at discharge: patient is not back to baseline Time Attestation Total time managing care of this patient today: 35 mintues. Discharge Coordination Time (in mins): 15 Quality: Safe Use of Opioids Does Pt have an Active Cancer Diagnosis on the Problem List?: No Quality: Stroke Does the patient have a stroke diagnosis?: No Physical Exam Exam: Exam: General: comfortable, not in pain Cardiac: S1, S2 auscultated with no S3/4, no MRG. Well perfused. Respiratory: Normal breath sounds auscultated throughout all lung zones, without wheezing, rales. Normal rate. GI/ : No abdominal pain on palpation, no masses or distentions. MSK: Normal ambulation without pain at bony prominences or musculature Neurological: Normal neurological examination on overview, without obvious CN II-XII abnormalities. Vital Signs: Vital Signs: Last Vital Signs Temp 98.0 F 09/03/25 07:51 Pulse 74 09/03/25 07:51 Resp 16 09/03/25 07:51 BP 132/83 09/03/25 07:51 Pulse Ox 94 09/03/25 07:51 O2 Del Method Room Air 09/03/25 07:51 BMI result Body Mass Index 24.7 DS: Data Data Completed and Pending Completed studies during hospitalization [Text1]: Procedures Reposition Right Upper Femur with Internal Fixation Device, Percutaneous Approach (07/15/21) Discharge Plan Discharge Anticipated Discharge Date/Time: 09/03/25 12:43 Patient Disposition: Xfer LTC Discharge Diagnosis: Adult failure to thrive Referrals: Tavia London MD [Primary Care Provider, Internal Medicine] - 1 Week Discharge Medications: New amlodipine 5 mg Tablet 5 mg PO DAILY 30 Days Qty: 30 0RF Protocol: Hold for SBP< HOLD for SBP < : 90 Continued memantine 5 mg Tablet 10 mg PO DAILY acetaminophen 325 mg Tablet 975 mg PO Q6H PRN (Reason: Pain) donepezil 10 mg Tablet 10 mg PO BEDTIME docusate sodium [Colace] 100 mg Capsule 100 mg PO DAILY lamotrigine [Lamictal] 100 mg Tablet 150 mg PO BID duloxetine 60 mg capsule,delayed release(DR/EC) 60 mg PO DAILY duloxetine 20 mg capsule,delayed release(DR/EC) 40 mg PO DAILY Discontinued amlodipine 2.5 mg tablet 2.5 mg PO DAILY Discharge Orders: Discharge Order (Routine); Ordered 09/03/25 Ordered By: Simone Guerra Activity on Discharge: As tolerated Stand Alone Forms: Patient Portal Discharge page Print Language: Tamazight Care Plan Goals: As above Health Concerns: As above Plan of Treatment: Follow up PCP within 1 week of discharge Follow up with Geriatrics outpatient Assessment: Hemodynamically stable for discharge to LTC
[2025-09-03 15:32] VITALS: BP 152/86; PULSE 99; RESP 16; TEMP 36.6; O2SAT 96
[2025-09-03 20:00] VITALS: BP 136/85; PULSE 90; RESP 18; TEMP 36; O2SAT 95
[2025-09-04 07:19] VITALS: BP 119/74; PULSE 70; RESP 18; TEMP 36.5; O2SAT 95
--- NOTE | 2025-09-04 11:48 | MHC.CM.PN ---
IMM 09/04/25 Patient+ HCP Aisha have accepted the bed offered from [facility]. [facility] approved the MDS, last week. He will transport via BLS. 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
[2025-09-04 15:41] VITALS: BP 139/94; PULSE 97; RESP 14; TEMP 36; O2SAT 96
== END 2025-09-04 16:35 | DRG 641 ==
PROVIDERS: Internal Medicine; Admitting Provider Physician Assistant Medical; PCP Internal Medicine; Visit Provider Hospitalist
DX: R62.7 Adult failure to thrive (principal); G40.109 Localization-related (focal) (partial) symptomatic epilepsy and epileptic syndromes with simple partial seizures, not intractable, without status epilepticus; G89.29 Other chronic pain; Z68.24 Body mass index [BMI] 24.0-24.9, adult; I10 Essential (primary) hypertension; G30.9 Alzheimer's disease, unspecified; F02.80 Dementia in other diseases classified elsewhere, unspecified severity, without behavioral disturbance, psychotic disturbance, mood disturbance, and anxiety; Z75.1 Person awaiting admission to adequate facility elsewhere; Z79.899 Other long term (current) drug therapy
CPT/HCPCS: 36415; 80048; 85027; 97161; 99221; J1650; J3360

== ENCOUNTER → 2025-08-01 12:52 | Outpatient (BNV) | payer MEDICARE, SELFPAY | PROVIDERS: Admitting Provider Physician Assistant Medical; PCP Internal Medicine; Visit Provider Internal Medicine | DX: R62.7 Adult failure to thrive (principal) | CPT/HCPCS: 99223; 99231 ==